=== PATIENT | female | born 1930 | race Caucasian/White ===

== ENCOUNTER 2019-07-05 07:41 | Emergency (ER) | payer MEDICARE ==
[~2019-07-05] VITALS: Ht 157.5 cm; Wt 72.6 kg
[~2019-07-05 07:41] MED LIST: ABILIFY5 MG PO; ALEVE220 M1 PO; AMIODARONE HCL200 MG PO; CRESTOR5 MG PO; HYDROCHLOROTH12.5 M1 PO; LOPRESSOR25 MG PO; NAPROXEN PO; NEXIUM40 MG PO; PRESTIQ PO; PRISTIQ ER50 MG PO; PRO AIR INH; SEROQUEL25 MG PO; SYNTHROID100 MCG PO
[2019-07-05] MEDS ORDERED: IBUPROFEN 600 MG TAB PO STA (07:50)
--- OUTSIDE RECORDS SUMMARY | 2019-07-05 07:50 | XMS REPORT ---
Author 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 Allergies, Adverse Reactions, Alerts Allergy Name Allergy Type Status Severity Reaction(s) Onset Date Inactive Date Treating Clinician Comments ciprofloxacin HCl DA Active [place] 2018-12-09 00:00:00 Sulfa (Sulfonamide Antibiotics) DA Active U 2018-12-09 00:00:00 ciprofloxacin DA Active [place] 2018-12-09 00:00:00 levofloxacin DA Active U 2018-12-09 00:00:00 moxifloxacin DA Active 2018-12-09 00:00:00 Sulfa (Sulfonamide Antibiotics) DA Active U 2015-07-18 00:00:00 levofloxacin DA Active U 2015-07-18 00:00:00 moxifloxacin DA Active 2015-07-18 00:00:00 ciprofloxacin HCl DA Active [place] 2010-12-01 00:00:00 ciprofloxacin DA Active [place] 2010-12-01 00:00:00 FELDENE DA Active U 2008-03-25 00:00:00 LEVAQUIN DA Active U 2008-03-25 00:00:00 NAPROSYN DA Active U 2008-03-25 00:00:00 SULFA DRUGS DA Active U 2008-03-25 00:00:00 TIGAN DA Active U 2008-03-25 00:00:00 Medications This patient has no known medications. Results Test Description Test Time Test Comments Text Results Atomic Results Result Comments TROPONIN-I 2019-03-21 11:15:00 TROPONIN-I (test code=TROPI) <0.015 ng/mL 0-0.045 - CT C-SPINE W/O [id number] 11:12:00 Name: MARIE LAWRENCE [facility] : 1930 Age/S: 88 / F [address] Unit #: [id number] Loc: [place] [address] Phys: Kalpesh Garzon MD Acct: [id number] Dis Date: Status: REG ER PHONE #: [phone] Exam Date: 03/21/2019 1044 FAX #: [phone] Reason: Neck Pain EXAMS: CPT CODE: [id number] CT C-SPINE W/O CONTRAST 24412 HISTORY: HEADACHE TECHNIQUE: Noncontrast 2.[address] of the head and cervical spine. CT scan of the brain November 09, 2015 Automated exposure control for dose reduction. COMPARISON: None FINDINGS: No lacerations or contusions of the scalp or facial soft tissues. Calvarium and skull base are intact. No acute hemorrhage. No intracranial mass, mass effect, or midline shift. No effacement of the sulci or harris-white matter interface. There is diffuse cortical atrophy with moderate ventriculomegaly, similar to the prior exam. There is also diffusely decreased attenuation of the periventricular white matter compatible with microvascular ischemic changes. Visualized paranasal sinuses are clear. Incidental note is made of hyperostosis of the right lateral sinus wall suggesting prior episodes of sinusitis. Mastoid air cells and middle ear cavities are clear. Prior lens extraction bilaterally. Atherosclerotic disease is present in the vertebral arteries and also the carotid siphons. No acute fracture of the cervical spine. No subluxation. Degenerative changes are seen throughout the facet joints in the cervical spine. There is height loss of the C4-C6 vertebral bod ies. There is also height loss of the intervertebral discs throughout the cervical spine which is most pronounced at C5-C6 and C6-C7. Severe b ilateral foraminal narrowing is present at C3-C4. There is severe bilatera l foraminal narrowing at C4-C5. There is severe bilateral foraminal narrow ing at C5-C6. Severe bilateral foraminal narrowing is present C6-C7. Mild left-sided foraminal narrowing at C7-T1. No prevertebral or paraspinal soft tissue abnormality. Lung apices are clear. Right I J dialysis catheter is present. PAGE 1 Signed Report (CONTINUED) Name: MARIE LAWRENCE [facility] : 1930 Age/S: 88 / F [address] Unit #: [id number] Loc: [place] [address] Phys: Kalpesh Garzon MD Acct: [id number] Dis Date: Status: REG ER PHONE #: [phone] Exam Date: 03/21/2019 1044 FAX #: [phone] Reason: Neck Pain EXAMS: CPT CODE: [id number] CT C-SPINE W/O CONTRAST 50741 <Continued> IMPRESSION: No acute intracranial hemorrhage or mass effect. Diffuse cortical atrophy with extensive microvascular ischemic changes of the white matter appears similar to the prior exam. No major vascular territorial infarct is seen. However a small acute infarction would be difficult to detect given the underlying white matter disease. Severe degenerative changes of the cervical spine with multilevel foraminal narrowing. However no fracture or subluxation is seen. Location: [facility] at 1112 Reported and signed by: Noah Olivia MD CC: Conrad Isabel; Kalpesh Garzon MD Technologist:RT Kaz(R),CT CTDI: DLP: Trnscb Date/Time: 03/21/2019 (1112) [id number] Orig Print D/T: S: 03/21/2019 (1116) PAGE 2 Signed Report - CT HEAD/BRAIN W/O [id number] 11:12:00 Name: MARIE LAWRENCE [facility] : 1930 Age/S: 88 / F [address] Unit #: [id number] Loc: [place] [address] Phys: Kalpesh Garzon MD Acct: [id number] Dis Date: Status: REG ER PHONE #: [phone] Exam Date: 03/21/2019 1044 FAX #: [phone] Reason: HEADACHE EXAMS: CPT CODE: [id number] CT HEAD/BRAIN W/O CONT 06914 HISTORY: HEADACHE TECHNIQUE: Noncontrast 2.[address] of the head and cervical spine. CT scan of the brain November 09, 2015 Automated exposure control for dose reduction. COMPARISON: None FINDINGS: No lacerations or contusions of the scalp or facial soft tissues. Calvarium and skull base are intact. No acute hemorrhage. No intracranial mass, mass effect, or midline shift. No effacement of the sulci or harris-white matter interface. There is diffuse cortical atrophy with moderate ventriculomegaly, similar to the prior exam. There is also diffusely decreased attenuation of the periventricular white matter compatible with microvascular ischemic changes. Visualized paranasal sinuses are clear. Incidental note is made of hyperostosis of the right lateral sinus wall suggesting prior episodes of sinusitis. Mastoid air cells and middle ear cavities are clear. Prior lens extraction bilaterally. Atherosclerotic disease is present in the vertebral arteries and also the carotid siphons. No acute fracture of the cervical spine. No subluxation. Degenerative changes are seen throughout the facet joints in the cervical spine. There is height loss of the C4-C6 vertebral bodies. There is also height loss of the intervertebral discs throughout the cervical spine which is most pronounced at C5-C6 and C6-C7. Severe bilateral foraminal narrowing is present at C3-C4. There is severe bilateral foraminal narrowing at C4-C5. There is severe bilateral foraminal narrowing at C5- C6. Severe bilateral foraminal narrowing is present C6-C7. Mild left-sided foraminal narrowing at C7-T1. No prevertebral or paraspinal soft tissue abnormality. Lung apices are clear. Right IJ dialysis catheter is present. PAGE 1 Signed Report (CONTINUED) Name: MARIE LAWRENCE [facility] : 1930 Age/S: 88 / F [address] [facility] Unit #: [id number] Loc: [place], [place] [address] Phys: Kalpesh Garzon MD Acct: [id number] Dis Date: Status: REG ER PHONE #: [phone] Exam Date: 03/21/2019 1044 FAX #: [phone] Reason: HEADACHE EXAMS: CPT CODE: [id number] CT HEAD/BRAIN W/O CONT 81284 <Continued> IMPRESSION: No acute intracranial hemorrhage or mass effect. Diffuse cortical atrophy with extensive microvascular ischemic changes of the white matter appears similar to the prior exam. No major vascular territorial infarct is seen. However a small acute infarction would be difficult to detect given the underlying white matter disease. Severe degenerative changes of the cervical spine with multilevel foraminal narrowing. However no fracture or subluxation is seen. Location: [facility] at 1112 Reported and signed by: Noah Olivia MD CC: Conrad Isabel Evan MD Technologist:Janice Sanchez,RT(R),CT CTDI: DLP: Trnscb Date/Time: 03/21/2019 (1112) [id number] Orig Print D/T: S: 03/21/2019 (1116) PAGE 2 Signed Report BASIC METABOLIC [id number] 11:06:00* Test Item Value Reference Range Comments SODIUM (test code=NA) 141 mmol/L 136-145 POTASSIUM (test code=K) 4.9 mmol/L 3.5-5.1 CHLORIDE (test code=CL) 109.0 mmol/L 98-107 CARBON DIOXIDE (test code=CO2) 22.0 mmol/L 21-32 ANION GAP (test code=GAP) 14.9 10-20 GLUCOSE (test code=GLU) 98 mg/dL 74-106 BLOOD UREA NITROGEN (test code=BUN) 65 mg/dL 7-18 GLOMERULAR FILTRATION RATE (test code=GFR) 6 mL/min >=60 Estimated GFR by using Modified MDRD formula.Chronic kidney disease is defined as either kidney damageor GFR <60 mL/min/1.73 m2 for >3 months. CREATININE (test code=CREAT) 6.30 mg/dL 0.55-1.02 Note change in reference range due to change in reagent. BUN/CREATININE RATIO (test code=BUN/CREA) 10.4 10-20 CALCIUM (test code=CA) 9.1 mg/dL 8.5-10.1 BASIC METABOLIC [id number] 10:59:00* Test Item Value Reference Range Comments SODIUM (test code=NA) 141 mmol/L 136-145 POTASSIUM (test code=K) 4.9 mmol/L 3.5-5.1 CHLORIDE (test code=CL) 109.0 mmol/L 98-107 CARBON DIOXIDE (test code=CO2) mmol/L 21-32 ANION GAP (test code=GAP) 10-20 GLUCOSE (test code=GLU) mg/dL 74-106 BLOOD UREA NITROGEN (test code=BUN) mg/dL 7-18 GLOMERULAR FILTRATION RATE (test code=GFR) mL/min >=60 CREATININE (test code=CREAT) mg/dL 0.55-1.02 BUN/CREATININE RATIO (test code=BUN/CREA) 10-20 CALCIUM (test code=CA) mg/dL 8.5-10.1 PROTHROMBIN [id number] 10:58:00* Test Item Value Reference Range Comments PROTHROMBIN TIME PATIENT (test code=PTP) 12.7 seconds 9.0-14.0 INTERNATIONAL NORMAL RATIO (test code=INR) 1.1 0.8-1.2 The therapeutic range for oral anticoagulant therapy formost indications is an international normalized ratio (INR)of between 2.0 and 3.0. The recommended therapeutic INRrange for various clinical situations is listed below: Clinical Situation INR range Pulmonary e mbolism treatment (2.0-3.0)Venous thrombosis treatmentVenous thrombosis prophylaxis (high risk surgery)Prevention of systemic embolism from: Acute myocardial infarction Valvular heart disease Atrial fibrillation Mechanical prosthetic heart valves (2.5-3.5) IS PATIENT ON ANTICOAGULANTS? NTHROMBOPLASTIN TIME [id number] 10:58:00* Test Item Value Reference Range Comments THROMBOPLASTIN TIME PARTIAL (test code=PTT) 26.7 seconds 25.0-36.5 IS PATIENT ON ANTICOAGULANTS? NCBC W/O [id number] 10:49:00* Test Item Value Reference Range Comments WHITE BLOOD CELL (test code=WBC) 5.9 K/mm3 4.5-12.5 RED BLOOD CELL (test code=RBC) 3.01 mill/mm3 3.7-5.2 HEMOGLOBIN (test code=HGB) 9.0 gram/dL 11.5-15.5 HEMATOCRIT (test code=HCT) 29.1 % 36.0-46.0 MEAN CELL VOLUME (test code=MCV) 96.7 fL 80-98 MEAN CELL HGB (test code=MCH) 29.9 picogram 27.0-33.0 MEAN CELL HGB CONCETRATION (test code=MCHC) 30.9 gram/dL 33.0-36.0 RED CELL DISTRIBUTION WIDTH (test code=RDW) 14.9 % 11.6-16.2 PLATELET COUNT (test code=PLT) 156 K/mm3 150-450 MEAN PLATELET VOLUME (test code=MPV) 10.5 fL 6.7-11.0 - CT ABD PELVIS W/O [id number] 22:49:00 Name: MARIE LAWRENCE [facility] : 1930 Age/S: 88 / F [address] [facility] Unit #: [id number] Loc: [place] [address] Phys: Kalpesh Garzon MD Acct: [id number] Dis Date: Status: REG ER PHONE #: [phone] Exam Date: 02/16/2019 2236 FAX #: [phone] Reason: Hx of iliopsoas hematoma (multiple), Hb drop EXAMS: CPT CODE: [id number] CT ABD PELVIS W/O CONT 61305 REASON FOR EXAM: Hx of iliopsoas hematoma (multiple), Hb drop EXAM ORDER DATE: 02/16/2019 7:54 PM Ordering M.D.: Kalpesh Garzon MD PROCEDURE: - CT ABD PELVIS W/O CONT COMPARISON: FINDINGS: CT images of the abdomen and pelvis were obtained without IV and without oral contrast at 5mm. Dose modulation, iterative reconstruction, and/or weight based adjustment of the MA/KV was utilized to reduce the radiation dose to as low as reasonably achievable. The liver, spleen, and pancreas are grossly within normal limits. Probable radiopaque stones seen in the gallbladder The kidneys are atrophic with multiple small renal cysts suggestive of chronic kidney disease with a 0.4 cm nonobstructing stones in the kidneys. The urinary bladder is unremarkable. The colon, small bowel, and stomach are within normal limits without evidence of obstruction. The appendix is unremarkable. A percutaneous gastrostomy tube noted No evidence of free air or free fluid. The patient is status post hysterectomy IMPRESSION: Very small pericardial effusion. Probable cholelithiasis. Bilateral renal cysts and atrophic kidneys suggestive of chronic renal disease. No acute find ings in the abdomen Electronically Signed by Navdeep Smith on 019 at 2249 Reported and signed by: Jose Alberto Smith M.D. CC : Kalpesh Garzon MD Technologist:JONATHAN ESTRELLA RT; Abhijeet Valero CTDI: DLP: Trnscb Date/Time: 02/16/2019 (22 49) t.BE.VTL Orig Print D/T: S: 02/16/2019 (9451) P AGE 2 Signed Report BASIC METABOLIC [id number] 21:51:00* Test Item Value Reference Range Comments SODIUM (test code=NA) 143 mmol/L 136-145 POTASSIUM (test code=K) 3.9 mmol/L 3.5-5.1 CHLORIDE (test code=CL) 108.0 mmol/L 98-107 CARBON DIOXIDE (test code=CO2) 25.0 mmol/L 21-32 ANION GAP (test code=GAP) 13.9 10-20 GLUCOSE (test code=GLU) 92 mg/dL 74-106 BLOOD UREA NITROGEN (test code=BUN) 26 mg/dL 7-18 GLOMERULAR FILTRATION RATE (test code=GFR) 20 mL/min >=60 Estimated GFR by using Modified MDRD formula.Chronic kidney disease is defined as either kidney damageor GFR <60 mL/min/1.73 m2 for >3 months. CREATININE (test code=CREAT) 2.30 mg/dL 0.55-1.02 Note change in reference range due to change in reagent. BUN/CREATININE RATIO (test code=BUN/CREA) 11.2 10-20 CALCIUM (test code=CA) 8.8 mg/dL 8.5-10.1 HEPATIC FUNCTION [id number] 21:51:00* Test Item Value Reference Range Comments TOTAL PROTEIN (test code=PROT) 6.3 gram/dL 6.4-8.2 ALBUMIN (test code=ALB) 2.8 g/dL 3.4-5.0 GLOBULIN (test code=GLOB) 3.5 gram/dL 2.7-4.2 ALBUMIN/GLOBULIN RATIO (test code=A/G) 0.8 0.75-1.50 BILIRUBIN TOTAL (test code=BILT) 0.30 mg/dL 0.0-1.0 BILIRUBIN DIRECT (test code=BILD) 0.17 mg/dL 0.0-0.20 SGOT/AST (test code=AST) 19 IUnit/L 15-37 SGPT/ALT (test code=ALT) 15 IUnit/L 12-78 ALKALINE PHOSPHATASE TOTAL (test code=ALKP) 59 IUnit/L 45-117 Note change in reference range due to change in reagent. [id number] 21:51:00* Test Item Value Reference Range Comments LIPASE (test code=LIP) 172 U/L 73.0-393.0 PROTHROMBIN [id number] 21:15:00* Test Item Value Reference Range Comments PROTHROMBIN TIME PATIENT (test code=PTP) 11.5 seconds 9.0-14.0 INTERNATIONAL NORMAL RATIO (test code=INR) 1.0 0.8-1.2 The therapeutic range for oral anticoagulant therapy formost indications is an international normalized ratio (INR)of between 2.0 and 3.0. The recommended therapeutic INRrange for various clinical situations is listed below: Clinical Situation INR range Pulmonary e mbolism treatment (2.0-3.0)Venous thrombosis treatmentVenous thrombosis prophylaxis (high risk surgery)Prevention of systemic embolism from: Acute myocardial infarction Valvular heart disease Atrial fibrillation Mechanical prosthetic heart valves (2.5-3.5) IS PATIENT ON ANTICOAGULANTS? NTHROMBOPLASTIN TIME [id number] 21:15:00* Test Item Value Reference Range Comments THROMBOPLASTIN TIME PARTIAL (test code=PTT) 25.5 seconds 25.0-36.5 IS PATIENT ON ANTICOAGULANTS? NCBC W/O [id number] 21:06:00* Test Item Value Reference Range Comments WHITE BLOOD CELL (test code=WBC) 6.9 K/mm3 4.5-12.5 RED BLOOD CELL (test code=RBC) 2.91 mill/mm3 3.7-5.2 HEMOGLOBIN (test code=HGB) 8.8 gram/dL 11.5-15.5 HEMATOCRIT (test code=HCT) 26.8 % 36.0-46.0 MEAN CELL VOLUME (test code=MCV) 92.1 fL 80-98 MEAN CELL HGB (test code=MCH) 30.2 picogram 27.0-33.0 MEAN CELL HGB CONCETRATION (test code=MCHC) 32.8 gram/dL 33.0-36.0 RED CELL DISTRIBUTION WIDTH (test code=RDW) 13.9 % 11.6-16.2 PLATELET COUNT (test code=PLT) 232 K/mm3 150-450 MEAN PLATELET VOLUME (test code=MPV) 11.4 fL 6.7-11.0 PLEURAL [id number] 16:18:00 RUN DATE: 01/19/19 [place] - Lab PAGE 1 RUN TIME: 1618 Specimen Inqui ry RUN USER: INTERFACE PATIENT: MARIE LAWRENCE ACCT #: [id number] LOC: YULIYA U #: [id number] AGE/SX: 88/F ROOM: 2045 RE12/09/18[facility] DR: Gene Berger MD : [birth year] BED: B DIS: 01/13/19 STATUS: DIS IN TLOC: SPEC #: [id number] RECD: 01/11/19 STATUS: SOUT REQ #: [id number] FRANCISCO: 01/11/[address] [facility] [address]: Jose Alberto Smith MD ENTERED: 01/11/19 SP TYPE: PLEURAL FL OTHR DR: Trino Rondon MD, Lawrence R MD Darmadi, Daniel Haryanto MD Gelber, David MD Jawed, Irfan MD Merszei,Sam Gandhi,Teressa Nichols MD, MDORDERED: GROSS COPIES TO: Tirno Rondon MD [address] [facility] [address] [place] [address] Kole Verma MD [address] [place] [address] Abhijeet Espino MD [address] [place] [address] Carlos Parnell MD [address] [place] [address] Ramón Kendall MD [address] [facility] [address] [place] [address] Jose Alberto Smith MD [address] [place] [address] CONTINUED ON NEXT PAGE RUN DATE: 01/19/19 [facility] PAGE 2 RUN TIME: 1618 Specimen Inquiry RUN USER: INTER FACE SPEC #: [id number] PATIENT: LAWRENCEMARIE #[id number] (Con tinued) COPIES TO: (Continued) [place] [address] [facility], [facility] [address] [place], [place] [id number] [place] [address] [facility] [address] [place] [address] [place] [address] [place] [address] MARKERS: INTRADEPARTM ENTAL CONSULT PROCEDURES: GROSS (01/19/19-1146) TISSUES: PLEURAL FLUID , NOS - RIGHT 7 ML YELLOW CLINICAL HISTORY COLLECTION DATE: 01/11/19 PLEURAL EFFUSIONS COMMENT Two concentrated smears, a cytospin and cell block are prepared from the fluid. The cytospin is repeated. The ce ll block shows increased numbers of cells with clear cytoplasm. Many of the ce lls are vacuolated. A lesser number of mixed inflammatory cells are present. The majority of the inflammatory cells are lymphocytes. Paraffin embedded tiss ue was submitted for immunoperoxidase stains to exclude that the cells with sheri ar cytoplasm are epithelial in origin and exclude malignancy. The immunoperoxid ase stains are reviewed at [facility]. The controls stai n appropriately. The cells in question stain strongly and diffusely with CD68 compatible with being macrophages. The stain for yoon-cytokeratin stains scatte red mesothelial cells. Cells diagnostic of malignancy are not identified. FINAL DIAGNOSIS Pleural fluid, right thoracentesis: NEGATIVE FOR MALIGNANCY INCREASED NUMBERS OF MACROPHAGES WITH LYMPHOCYTES, FEW NEUTROPHILS AND MESOTHELIAL CELLS CONT INUED ON NEXT PAGE RUN DATE: 01/19/19 [place] - Lab PAGE 3 RUN TIME: 1618 Specimen Inquiry RUN USER: INTERFACE SPEC #: [id number] PATIENT: MARIE LAWRENCE #[id number] (Continued) FINAL DIAGNOSIS (Continued) RRB/severiano D 57175, [address], [id number] MACROSCOPIC The specimen is received fresh and labeled with the patient's name and consists of 7 mL of yellow fluid to be processed for c ytologic evaluation. GROSS PERFORMED AT [facility] [address] [place] [address] (P )[phone] MICROSCOPIC The majority of the cells are present in the cell block. The smears are acellular. The cytospin and cell block show ma crophages and lymphocytes. No malignant cells are seen. PERFORMING S ITE Diagnosis performed at: [facility] [address] [facility], [place] [address] Signed SIGNATURE ON FILE Ramona Wetzel MD 01/19/19 1618 END OF REPORT [id number] 14:36:00* Test Item Value Reference Range Comments GLUBED (test code=GLUBED) 77 mg/dL 74-106 Performed by certified resaw operator at [facility] CBC W/AUTO [id number] 10:35:00* Test Item Value Reference Range Comments WHITE BLOOD CELL (test code=WBC) 7.2 K/mm3 4.5-12.5 RED BLOOD CELL (test code=RBC) 3.20 mill/mm3 3.7-5.2 HEMOGLOBIN (test code=HGB) 9.9 gram/dL 11.5-15.5 HEMATOCRIT (test code=HCT) 32.1 % 36.0-46.0 MEAN CELL VOLUME (test code=MCV) 100.3 fL 80-98 MEAN CELL HGB (test code=MCH) 30.9 picogram 27.0-33.0 MEAN CELL HGB CONCETRATION (test code=MCHC) 30.8 gram/dL 33.0-36.0 RED CELL DISTRIBUTION WIDTH (test code=RDW) 16.5 % 11.6-16.2 RED CELL DISTRIBUTION WIDTH SD (test code=RDW-SD) 60.8 fL 37.0-51.0 PLATELET COUNT (test code=PLT) 191 K/mm3 150-450 MEAN PLATELET VOLUME (test code=MPV) 11.5 fL 6.7-11.0 NEUTROPHIL % (test code=NT%) 63.5 % 39.0-69.0 IMMATURE GRANULOCYTE % (test code=IG%) 0.8 % 0.0-5.0 LYMPHOCYTE % (test code=LY%) 16.5 % 25.0-55.0 MONOCYTE % (test code=MO%) 13.8 % 0.0-10.0 EOSINOPHIL % (test code=EO%) 4.6 % 0.0-5.0 BASOPHIL % (test code=BA%) 0.8 % 0.0-1.0 NUCLEATED RBC % (test code=NRBC%) 0.0 % 0-0 NEUTROPHIL # (test code=NT#) 4.55 K/mm3 1.8-7.7 IMMATURE GRANULOCYTE # (test code=IG#) 0.06 x10 3/uL 0-0.03 LYMPHOCYTE # (test code=LY#) 1.18 K/mm3 1.0-5.0 MONOCYTE # (test code=MO#) 0.99 K/mm3 0-0.8 EOSINOPHIL # (test code=EO#) 0.33 K/mm3 0.0-0.5 BASOPHIL # (test code=BA#) 0.06 K/mm3 0.0-0.2 NUCLEATED RBC # (test code=NRBC#) 0.00 K/mm3 0.0-0.1 [id number] 05:39:00* Test Item Value Reference Range Comments GLUBED (test code=GLUBED) 79 mg/dL 74-106 Performed by certified resaw operator at [facility] PLEURAL FLD CELL [id number] 22:13:00* Test Item Value Reference Range Comments FLUID WBC AUTO (test code=WBCFLA) 40 cells/uL FLUID RBC AUTO (test code=RBCFLA) 0 cells/uL FLUID TOTAL CELLS (test code=TCFL) 42 cells/uL >0 Fluid WBC RBC Type cells/uL cells/uL CSF (0-5) n/a Peritoneal n/a n/a Pleural n/a n/a Synovial <200 n/a CSF (0-30) n/a PLEURAL FLD COLOR (test code=COLPL) YELLOW PLEURAL FLD APPEARANCE (test code=APPPL) CLEAR PLEURAL FLD POLY (test code=POLYPL) 7.3 % PLEURAL FLD LYMPHOCYTE (test code=LYMPHPL) 44.5 % PLEURAL FLD EOSINOPHIL (test code=EOSPL) 0.0 % PLEURAL FLD BASOPHIL (test code=BASOPL) 0.0 % PLEURAL FLD MACROPHAGE (test code=MACPL) 45.5 % PLEURAL FLD OTHER CELL (test code=OTHERPL) 2.7 % TOTAL CELLS COUNTED ON DIFF (test code=TOTCELLFL) 110 cells REVIEWED BY (test code=REVIEW) PATHOLOGIST RAMONA HAWLEY M.D.01/12/19REVIEWED SPECIMEN COMMENTS: RIGHT PLEURAL FLUIDSPECIMEN COMMENTS: RIGTH PLEURAL FLUID PLEURAL FLD [id number] 22:13:00* Test Item Value Reference Range Comments PLEURAL FLD PH (test code=PHPL) 7.0 SPECIMEN COMMENTS: RIGHT PLEURAL FLUIDSPECIMEN COMMENTS: RIGTH PLEURAL FLUID PLEURAL FLD [id number] 22:13:00* Test Item Value Reference Range Comments PLEURAL FLD GLUCOSE (test code=GLUPL) 94 MG/DL SPECIMEN COMMENTS: RIGHT PLEURAL FLUIDSPECIMEN COMMENTS: RIGTH PLEURAL FLUID PLEURAL FLD TOTAL [id number] 22:13:00* Test Item Value Reference Range Comments PLEURAL FLD TOTAL PROTEIN (test code=PROTPL) 1.7 gram/dL SPECIMEN COMMENTS: RIGHT PLEURAL FLUIDSPECIMEN COMMENTS: RIGTH PLEURAL FLUID PLEURAL FLD [id number] 22:13:00* Test Item Value Reference Range Comments PLEURAL FLD LDH (test code=LDHPL) 87 IUnit/L SPECIMEN COMMENTS: RIGHT PLEURAL FLUIDSPECIMEN COMMENTS: RIGTH PLEURAL FLUID PLEURAL FLD [id number] 22:13:00* Test Item Value Reference Range Comments PLEURAL FLD CHOLESTEROL (test code=CHOLPL) < 50 MG/DL SPECIMEN COMMENTS: RIGHT PLEURAL FLUIDSPECIMEN COMMENTS: RIGTH PLEURAL FLUID PLEURAL FLD [id number] 22:13:00* Test Item Value Reference Range Comments PLEURAL FLD TRIGLYCERIDE (test code=TRIGPL) 13 MG/DL SPECIMEN COMMENTS: RIGHT PLEURAL FLUIDSPECIMEN COMMENTS: RIGTH PLEURAL FLUID [id number] 21:10:00* Test Item Value Reference Range Comments TROPONIN-I (test code=TROPI) <0.015 ng/mL 0-0.045 [id number] 19:59:00* Test Item Value Reference Range Comments GLUBED (test code=GLUBED) 71 mg/dL 74-106 Performed by certified resaw operator at [facility] [id number] 18:13:00* Test Item Value Reference Range Comments GLUBED (test code=GLUBED) 65 mg/dL 74-106 Performed by certified resaw operator at [facility] [id number] 11:08:00* Test Item Value Reference Range Comments PHOSPHORUS (test code=PHOS) 2.3 mg/dL 2.5-4.9 SPECIMEN COMMENTS: run as add-on to blood drawn earlierCOMMENTS TO CROP RESEARCH SCIENTIST: no new blood draw pleaseCOMMENTS TO CROP RESEARCH SCIENTIST: no fresh blood draw please, ldr-[id number] 11:08:00* Test Item Value Reference Range Comments MAGNESIUM (test code=MAG) 1.7 mg/dL 1.8-2.4 SPECIMEN COMMENTS: run as add-on to blood drawn earlierCOMMENTS TO CROP RESEARCH SCIENTIST: no new blood draw pleaseCOMMENTS TO CROP RESEARCH SCIENTIST: no fresh blood draw please, add-onBASIC METABOLIC [id number] 02:49:00* Test Item Value Reference Range Comments SODIUM (test code=NA) 142 mmol/L 136-145 POTASSIUM (test code=K) 3.4 mmol/L 3.5-5.1 CHLORIDE (test code=CL) 106.0 mmol/L 98-107 CARBON DIOXIDE (test code=CO2) 33.0 mmol/L 21-32 ANION GAP (test code=GAP) 6.4 10-20 GLUCOSE (test code=GLU) 95 mg/dL 74-106 BLOOD UREA NITROGEN (test code=BUN) 13 mg/dL 7-18 GLOMERULAR FILTRATION RATE (test code=GFR) 20 mL/min >=60 Estimated GFR by using Modified MDRD formula.Chronic kidney disease is defined as either kidney damageor GFR <60 mL/min/1.73 m2 for >3 months. CREATININE (test code=CREAT) 2.30 mg/dL 0.55-1.02 Note change in reference range due to change in reagent. BUN/CREATININE RATIO (test code=BUN/CREA) 5.6 10-20 CALCIUM (test code=CA) 8.2 mg/dL 8.5-10.1 BASIC METABOLIC [id number] 02:41:00* Test Item Value Reference Range Comments SODIUM (test code=NA) 142 mmol/L 136-145 POTASSIUM (test code=K) 3.4 mmol/L 3.5-5.1 CHLORIDE (test code=CL) 106.0 mmol/L 98-107 CARBON DIOXIDE (test code=CO2) mmol/L 21-32 ANION GAP (test code=GAP) 10-20 GLUCOSE (test code=GLU) mg/dL 74-106 BLOOD UREA NITROGEN (test code=BUN) mg/dL 7-18 GLOMERULAR FILTRATION RATE (test code=GFR) mL/min >=60 CREATININE (test code=CREAT) mg/dL 0.55-1.02 BUN/CREATININE RATIO (test code=BUN/CREA) 10-20 CALCIUM (test code=CA) mg/dL 8.5-10.1 CBC W/AUTO [id number] 02:30:00* Test Item Value Reference Range Comments WHITE BLOOD CELL (test code=WBC) 6.6 K/mm3 4.5-12.5 RED BLOOD CELL (test code=RBC) 2.82 mill/mm3 3.7-5.2 HEMOGLOBIN (test code=HGB) 8.7 gram/dL 11.5-15.5 HEMATOCRIT (test code=HCT) 27.9 % 36.0-46.0 MEAN CELL VOLUME (test code=MCV) 98.9 fL 80-98 MEAN CELL HGB (test code=MCH) 30.9 picogram 27.0-33.0 MEAN CELL HGB CONCETRATION (test code=MCHC) 31.2 gram/dL 33.0-36.0 RED CELL DISTRIBUTION WIDTH (test code=RDW) 16.4 % 11.6-16.2 RED CELL DISTRIBUTION WIDTH SD (test code=RDW-SD) 58.1 fL 37.0-51.0 PLATELET COUNT (test code=PLT) 189 K/mm3 150-450 MEAN PLATELET VOLUME (test code=MPV) 10.6 fL 6.7-11.0 NEUTROPHIL % (test code=NT%) 61.9 % 39.0-69.0 IMMATURE GRANULOCYTE % (test code=IG%) 0.9 % 0.0-5.0 LYMPHOCYTE % (test code=LY%) 18.6 % 25.0-55.0 MONOCYTE % (test code=MO%) 15.8 % 0.0-10.0 EOSINOPHIL % (test code=EO%) 2.3 % 0.0-5.0 BASOPHIL % (test code=BA%) 0.5 % 0.0-1.0 NUCLEATED RBC % (test code=NRBC%) 0.0 % 0-0 NEUTROPHIL # (test code=NT#) 4.07 K/mm3 1.8-7.7 IMMATURE GRANULOCYTE # (test code=IG#) 0.06 x10 3/uL 0-0.03 LYMPHOCYTE # (test code=LY#) 1.22 K/mm3 1.0-5.0 MONOCYTE # (test code=MO#) 1.04 K/mm3 0-0.8 EOSINOPHIL # (test code=EO#) 0.15 K/mm3 0.0-0.5 BASOPHIL # (test code=BA#) 0.03 K/mm3 0.0-0.2 NUCLEATED RBC # (test code=NRBC#) 0.00 K/mm3 0.0-0.1 MANUAL DIFF REQUIRED (test code=MDIFF) NO [id number] 20:35:00* Test Item Value Reference Range Comments GLUBED (test code=GLUBED) 84 mg/dL 74-106 Performed by certified resaw operator at [facility] [id number] 17:39:00* Test Item Value Reference Range Comments GLUBED (test code=GLUBED) 76 mg/dL 74-106 Performed by certified resaw operator at [facility] PLEURAL FLD CELL [id number] 14:43:00* Test Item Value Reference Range Comments FLUID WBC AUTO (test code=WBCFLA) 40 cells/uL FLUID RBC AUTO (test code=RBCFLA) 0 cells/uL FLUID TOTAL CELLS (test code=TCFL) 42 cells/uL >0 Fluid WBC RBC Type cells/uL cells/uL CSF (0-5) n/a Peritoneal n/a n/a Pleural n/a n/a Synovial <200 n/a CSF (0-30) n/a PLEURAL FLD COLOR (test code=COLPL) YELLOW PLEURAL FLD APPEARANCE (test code=APPPL) CLEAR PLEURAL FLD POLY (test code=POLYPL) 7.3 % PLEURAL FLD LYMPHOCYTE (test code=LYMPHPL) 44.5 % PLEURAL FLD EOSINOPHIL (test code=EOSPL) 0.0 % PLEURAL FLD BASOPHIL (test code=BASOPL) 0.0 % PLEURAL FLD MACROPHAGE (test code=MACPL) 45.5 % PLEURAL FLD OTHER CELL (test code=OTHERPL) 2.7 % TOTAL CELLS COUNTED ON DIFF (test code=TOTCELLFL) 110 cells REVIEWED BY (test code=REVIEW) PATHOLOGIST SPECIMEN COMMENTS: RIGHT PLEURAL FLUIDSPECIMEN COMMENTS: RIGTH PLEURAL FLUID PLEURAL FLD [id number] 14:43:00* Test Item Value Reference Range Comments PLEURAL FLD PH (test code=PHPL) 7.0 SPECIMEN COMMENTS: RIGHT PLEURAL FLUIDSPECIMEN COMMENTS: RIGTH PLEURAL FLUID PLEURAL FLD [id number] 14:43:00* Test Item Value Reference Range Comments PLEURAL FLD GLUCOSE (test code=GLUPL) 94 MG/DL SPECIMEN COMMENTS: RIGHT PLEURAL FLUIDSPECIMEN COMMENTS: RIGTH PLEURAL FLUID PLEURAL FLD TOTAL [id number] 14:43:00* Test Item Value Reference Range Comments PLEURAL FLD TOTAL PROTEIN (test code=PROTPL) 1.7 gram/dL SPECIMEN COMMENTS: RIGHT PLEURAL FLUIDSPECIMEN COMMENTS: RIGTH PLEURAL FLUID PLEURAL FLD [id number] 14:43:00* Test Item Value Reference Range Comments PLEURAL FLD LDH (test code=LDHPL) 87 IUnit/L SPECIMEN COMMENTS: RIGHT PLEURAL FLUIDSPECIMEN COMMENTS: RIGTH PLEURAL FLUID PLEURAL FLD [id number] 14:43:00* Test Item Value Reference Range Comments PLEURAL FLD CHOLESTEROL (test code=CHOLPL) < 50 MG/DL SPECIMEN COMMENTS: RIGHT PLEURAL FLUIDSPECIMEN COMMENTS: RIGTH PLEURAL FLUID PLEURAL FLD [id number] 14:43:00* Test Item Value Reference Range Comments PLEURAL FLD TRIGLYCERIDE (test code=TRIGPL) 13 MG/DL SPECIMEN COMMENTS: RIGHT PLEURAL FLUIDSPECIMEN COMMENTS: RIGTH PLEURAL FLUID PLEURAL FLD CELL [id number] 14:40:00* Test Item Value Reference Range Comments FLUID WBC AUTO (test code=WBCFLA) 40 cells/uL FLUID RBC AUTO (test code=RBCFLA) 0 cells/uL FLUID TOTAL CELLS (test code=TCFL) 42 cells/uL >0 Fluid WBC RBC Type cells/uL cells/uL CSF (0-5) n/a Peritoneal n/a n/a Pleural n/a n/a Synovial <200 n/a CSF (0-30) n/a PLEURAL FLD COLOR (test code=COLPL) YELLOW PLEURAL FLD APPEARANCE (test code=APPPL) CLEAR PLEURAL FLD WBC (test code=WBCPL) per uL 0-1000 PLEURAL FLD RBC (test code=RBCPL) per uL 0-50 PLEURAL FLD POLY (test code=POLYPL) 7.3 % PLEURAL FLD LYMPHOCYTE (test code=LYMPHPL) 44.5 % PLEURAL FLD EOSINOPHIL (test code=EOSPL) 0.0 % PLEURAL FLD BASOPHIL (test code=BASOPL) 0.0 % PLEURAL FLD MACROPHAGE (test code=MACPL) 45.5 % PLEURAL FLD OTHER CELL (test code=OTHERPL) 2.7 % TOTAL CELLS COUNTED ON DIFF (test code=TOTCELLFL) cells REVIEWED BY (test code=REVIEW) PATHOLOGIST SPECIMEN COMMENTS: RIGHT PLEURAL FLUIDSPECIMEN COMMENTS: RIGTH PLEURAL FLUID PLEURAL FLD [id number] 14:40:00* Test Item Value Reference Range Comments PLEURAL FLD PH (test code=PHPL) SPECIMEN COMMENTS: RIGHT PLEURAL FLUIDSPECIMEN COMMENTS: RIGTH PLEURAL FLUID PLEURAL FLD [id number] 14:40:00* Test Item Value Reference Range Comments PLEURAL FLD GLUCOSE (test code=GLUPL) 94 MG/DL SPECIMEN COMMENTS: RIGHT PLEURAL FLUIDSPECIMEN COMMENTS: RIGTH PLEURAL FLUID PLEURAL FLD TOTAL [id number] 14:40:00* Test Item Value Reference Range Comments PLEURAL FLD TOTAL PROTEIN (test code=PROTPL) 1.7 gram/dL SPECIMEN COMMENTS: RIGHT PLEURAL FLUIDSPECIMEN COMMENTS: RIGTH PLEURAL FLUID PLEURAL FLD [id number] 14:40:00* Test Item Value Reference Range Comments PLEURAL FLD LDH (test code=LDHPL) 87 IUnit/L SPECIMEN COMMENTS: RIGHT PLEURAL FLUIDSPECIMEN COMMENTS: RIGTH PLEURAL FLUID PLEURAL FLD [id number] 14:40:00* Test Item Value Reference Range Comments PLEURAL FLD CHOLESTEROL (test code=CHOLPL) < 50 MG/DL SPECIMEN COMMENTS: RIGHT PLEURAL FLUIDSPECIMEN COMMENTS: RIGTH PLEURAL FLUID PLEURAL FLD [id number] 14:40:00* Test Item Value Reference Range Comments PLEURAL FLD TRIGLYCERIDE (test code=TRIGPL) 13 MG/DL SPECIMEN COMMENTS: RIGHT PLEURAL FLUIDSPECIMEN COMMENTS: RIGTH PLEURAL FLUID PLEURAL FLD CELL [id number] 14:17:00* Test Item Value Reference Range Comments FLUID WBC AUTO (test code=WBCFLA) 40 cells/uL FLUID RBC AUTO (test code=RBCFLA) 0 cells/uL FLUID TOTAL CELLS (test code=TCFL) 42 cells/uL >0 Fluid WBC RBC Type cells/uL cells/uL CSF (0-5) n/a Peritoneal n/a n/a Pleural n/a n/a Synovial <200 n/a CSF (0-30) n/a PLEURAL FLD COLOR (test code=COLPL) YELLOW PLEURAL FLD APPEARANCE (test code=APPPL) CLEAR PLEURAL FLD WBC (test code=WBCPL) per uL 0-1000 PLEURAL FLD RBC (test code=RBCPL) per uL 0-50 TOTAL CELLS COUNTED ON DIFF (test code=TOTCELLFL) cells REVIEWED BY (test code=REVIEW) PATHOLOGIST SPECIMEN COMMENTS: RIGHT PLEURAL FLUIDSPECIMEN COMMENTS: RIGTH PLEURAL FLUID PLEURAL FLD [id number] 14:17:00* Test Item Value Reference Range Comments PLEURAL FLD PH (test code=PHPL) SPECIMEN COMMENTS: RIGHT PLEURAL FLUIDSPECIMEN COMMENTS: RIGTH PLEURAL FLUID PLEURAL FLD [id number] 14:17:00* Test Item Value Reference Range Comments PLEURAL FLD GLUCOSE (test code=GLUPL) 94 MG/DL SPECIMEN COMMENTS: RIGHT PLEURAL FLUIDSPECIMEN COMMENTS: RIGTH PLEURAL FLUID PLEURAL FLD TOTAL [id number] 14:17:00* Test Item Value Reference Range Comments PLEURAL FLD TOTAL PROTEIN (test code=PROTPL) 1.7 gram/dL SPECIMEN COMMENTS: RIGHT PLEURAL FLUIDSPECIMEN COMMENTS: RIGTH PLEURAL FLUID PLEURAL FLD [id number] 14:17:00* Test Item Value Reference Range Comments PLEURAL FLD LDH (test code=LDHPL) 87 IUnit/L SPECIMEN COMMENTS: RIGHT PLEURAL FLUIDSPECIMEN COMMENTS: RIGTH PLEURAL FLUID PLEURAL FLD [id number] 14:17:00* Test Item Value Reference Range Comments PLEURAL FLD CHOLESTEROL (test code=CHOLPL) < 50 MG/DL SPECIMEN COMMENTS: RIGHT PLEURAL FLUIDSPECIMEN COMMENTS: RIGTH PLEURAL FLUID PLEURAL FLD [id number] 14:17:00* Test Item Value Reference Range Comments PLEURAL FLD TRIGLYCERIDE (test code=TRIGPL) 13 MG/DL SPECIMEN COMMENTS: RIGHT PLEURAL FLUIDSPECIMEN COMMENTS: RIGTH PLEURAL FLUID PLEURAL FLD CELL [id number] 13:45:00* Test Item Value Reference Range Comments FLUID WBC AUTO (test code=WBCFLA) 40 cells/uL FLUID RBC AUTO (test code=RBCFLA) 0 cells/uL FLUID TOTAL CELLS (test code=TCFL) 42 cells/uL >0 Fluid WBC RBC Type cells/uL cells/uL CSF (0-5) n/a Peritoneal n/a n/a Pleural n/a n/a Synovial <200 n/a CSF (0-30) n/a PLEURAL FLD COLOR (test code=COLPL) PLEURAL FLD APPEARANCE (test code=APPPL) PLEURAL FLD WBC (test code=WBCPL) per uL 0-1000 PLEURAL FLD RBC (test code=RBCPL) per uL 0-50 TOTAL CELLS COUNTED ON DIFF (test code=TOTCELLFL) cells REVIEWED BY (test code=REVIEW) PATHOLOGIST SPECIMEN COMMENTS: RIGHT PLEURAL FLUIDSPECIMEN COMMENTS: RIGTH PLEURAL FLUID PLEURAL FLD [id number] 13:45:00* Test Item Value Reference Range Comments PLEURAL FLD PH (test code=PHPL) SPECIMEN COMMENTS: RIGHT PLEURAL FLUIDSPECIMEN COMMENTS: RIGTH PLEURAL FLUID PLEURAL FLD [id number] 13:45:00* Test Item Value Reference Range Comments PLEURAL FLD GLUCOSE (test code=GLUPL) 94 MG/DL SPECIMEN COMMENTS: RIGHT PLEURAL FLUIDSPECIMEN COMMENTS: RIGTH PLEURAL FLUID PLEURAL FLD TOTAL [id number] 13:45:00* Test Item Value Reference Range Comments PLEURAL FLD TOTAL PROTEIN (test code=PROTPL) 1.7 gram/dL SPECIMEN COMMENTS: RIGHT PLEURAL FLUIDSPECIMEN COMMENTS: RIGTH PLEURAL FLUID PLEURAL FLD [id number] 13:45:00* Test Item Value Reference Range Comments PLEURAL FLD LDH (test code=LDHPL) 87 IUnit/L SPECIMEN COMMENTS: RIGHT PLEURAL FLUIDSPECIMEN COMMENTS: RIGTH PLEURAL FLUID PLEURAL FLD [id number] 13:45:00* Test Item Value Reference Range Comments PLEURAL FLD CHOLESTEROL (test code=CHOLPL) < 50 MG/DL SPECIMEN COMMENTS: RIGHT PLEURAL FLUIDSPECIMEN COMMENTS: RIGTH PLEURAL FLUID PLEURAL FLD [id number] 13:45:00* Test Item Value Reference Range Comments PLEURAL FLD TRIGLYCERIDE (test code=TRIGPL) 13 MG/DL SPECIMEN COMMENTS: RIGHT PLEURAL FLUIDSPECIMEN COMMENTS: RIGTH PLEURAL FLUID PLEURAL FLD CELL [id number] 13:26:00* Test Item Value Reference Range Comments FLUID TOTAL CELLS (test code=TCFL) cells/uL >0 PLEURAL FLD COLOR (test code=COLPL) PLEURAL FLD APPEARANCE (test code=APPPL) PLEURAL FLD WBC (test code=WBCPL) per uL 0-1000 PLEURAL FLD RBC (test code=RBCPL) per uL 0-50 TOTAL CELLS COUNTED ON DIFF (test code=TOTCELLFL) cells REVIEWED BY (test code=REVIEW) PATHOLOGIST SPECIMEN COMMENTS: RIGHT PLEURAL FLUIDSPECIMEN COMMENTS: RIGTH PLEURAL FLUID PLEURAL FLD [id number] 13:26:00* Test Item Value Reference Range Comments PLEURAL FLD PH (test code=PHPL) SPECIMEN COMMENTS: RIGHT PLEURAL FLUIDSPECIMEN COMMENTS: RIGTH PLEURAL FLUID PLEURAL FLD [id number] 13:26:00* Test Item Value Reference Range Comments PLEURAL FLD GLUCOSE (test code=GLUPL) 94 MG/DL SPECIMEN COMMENTS: RIGHT PLEURAL FLUIDSPECIMEN COMMENTS: RIGTH PLEURAL FLUID PLEURAL FLD TOTAL [id number] 13:26:00* Test Item Value Reference Range Comments PLEURAL FLD TOTAL PROTEIN (test code=PROTPL) 1.7 gram/dL SPECIMEN COMMENTS: RIGHT PLEURAL FLUIDSPECIMEN COMMENTS: RIGTH PLEURAL FLUID PLEURAL FLD [id number] 13:26:00* Test Item Value Reference Range Comments PLEURAL FLD LDH (test code=LDHPL) 87 IUnit/L SPECIMEN COMMENTS: RIGHT PLEURAL FLUIDSPECIMEN COMMENTS: RIGTH PLEURAL FLUID PLEURAL FLD [id number] 13:26:00* Test Item Value Reference Range Comments PLEURAL FLD CHOLESTEROL (test code=CHOLPL) < 50 MG/DL SPECIMEN COMMENTS: RIGHT PLEURAL FLUIDSPECIMEN COMMENTS: RIGTH PLEURAL FLUID PLEURAL FLD [id number] 13:26:00* Test Item Value Reference Range Comments PLEURAL FLD TRIGLYCERIDE (test code=TRIGPL) 13 MG/DL SPECIMEN COMMENTS: RIGHT PLEURAL FLUIDSPECIMEN COMMENTS: RIGTH PLEURAL FLUID- SP THORACENTESIS [id number] 11:32:00 Name: MARIE LAWRENCE [facility] : 1930 Age/S: 88 / F [address] [facility] Unit #: [id number] Loc: [place] [address] Phys: Gene Berger MD Acct: [id number] Dis Date: Status: ADM IN PHONE #: [phone] Exam Date: 01/11/2019 1054 FAX #: [phone] Reason: PLEURAL EFFUSION EXAMS: CPT CODE: [id number] SP THORACENTESIS W/IMAG 50470 Fluoro Time: DAP (Gy m2): Air Kerma (mGy): REASON FOR EXAM: PLEURAL EFFUSION Exam order date: 01/11/2019 10:45 AM PROCEDURE: Ultrasound guided right thoracentesis Attending Navdeep: Gene Berger MD CPT code: 33586, 68890 FINDINGS: Prior to the procedure, informed consent was obtained after risks and benefits of the procedure were explained to the patient. The patient agreed and wanted to proceed. The patient was brought to special procedures. The back was prepped and draped in the usual fashion. All elements of maximal sterile techniques were followed. Ultrasound was first used for assessment of the effusion. US shows mild right effusion and small left pleural effusion. Images of the effusion were submitted to PACS. 2% local lidocaine was given for local anesthetic. Under real time ultrasound guidance, a micropuncture needle was advanced into the right thoracic cavity. A guide wire was inserted and an 8 Fr catheter was inserted in the thoracic cavity. 660 cc of fluid obtained. The catheter was removed and hemostasis obtained. [facility], cultures, cell count, LDH, glucose, and protein. MEDICATIONS: None COMPLICATIONS: No immediate. Blood loss: less than 5cc IMPRESSION: 6 60 cc of fluid removed from the right thoracic cavity. Electronicall y Signed by Navdeep Smith on 01/11/2019 at 1134 Reported and signed by: Jose Alberto Smith M.D. CC: Gene Berger MD Technologist: [facility] Date/Time: 01/11/2019 (6686) t.SDR.VTL Orig Print D/T: S: 01/11/2019 (4570) PAGE 1 Signed Report - XR CHEST 1 [id number] 11:13:00 FAX: Gene Berger MD [phone] [place]: St: ADM Name: MARIE WHITNEY [facility] : [birth year] Age/S: 88/F Susana [facility] Unit #: [id number] Loc: [address] [place] [address] Phys: Jose Alberto Smith MD Acct: [id number] Dis Date: Status: ADM IN PHONE #: [phone] Exam Date: 01/11/2019 1058 FAX #: [phone] Reason: S/P RIGHT THORACENTESIS EXAMS: CPT CODE: [id number] XR CHEST 1 V 27643 REASON FOR EXAM: S/P RIGHT THORACENTESIS Exam Order Date: 01/11/2019 10:53 AM Esther celaya M.D.: Jose Alberto Smith MD PROCEDURE: - XR CHEST 1 V COMPARISON: CT chest 6 days prior FINDINGS: Right IJ di alysis catheter terminates in the distal SVC. There is a small hazy opacit y overlying the right lung base which may represent overlapping soft tissu es. Tiny residual effusion mildly blunts the right costophrenic sulcus. Ot herwise the right lung is clear. There is an opacity in the left lung base that obscures the left hemidiaphragm and likely represents a combination of pleural effusion and compressive atelectasis of the under lying left lower lobe. Superimposed consolidation cannot be excluded. Uppe r lungs are clear. No pneumothoraces. Cardiomediasti nal silhouette is normal in size. Degenerative changes are present in the spine and acromioclavicular joints. Upper abdomen is within normal limits. IMPRESSION: Small residual effusion mildly blun ts the right costophrenic recess. Right lung is otherwise clear. Opacity overlying the left lung base, which completely obscures the left hemidiaphragm, likely represents a combination of effusion and compressive atelectasis of the underlying lung. Superimposed consolid ation cannot be excluded. at 1113 Reported and signed by: Noah Olivia MD PAGE 1 Signed Report (CONTIN UED) FAX: Gene Berger MD [phone] [place]: St: ADM----- Name : MARIE LAWRENCE [facility] : Age/S: 88/F [address] [facility] Unit #: [id number] Loc: V.[address] [place] [id number] Phys: Jose Alberto Smith MD Acct: [id number] Dis Date: Status: ADM IN PHONE #: Exam Date: 01/11/2019 1058 FAX #: Reason: S/P RIGHT THORACENTESIS EXAMS: CPT CODE: [id number] XR CHEST 1 V 18817 <Continued> CC: Gene Berger MD Technologist: ORACIO CASTLE, (R); Shelbie Lam(R) Trnscrd Date/Time/By: 01/11/2019 (1113) : By: [email or web address] Orig Print D/T: S: 01/11/2019 (1117) PAGE 2 Signed Report [id number] 07:09:00* Test Item Value Reference Range Comments GLUBED (test code=GLUBED) 92 mg/dL 74-106 Performed by certified resaw operator at [facility] [id number] 21:22:00* Test Item Value Reference Range Comments GLUBED (test code=GLUBED) 78 mg/dL 74-106 Performed by certified resaw operator at [facility] [id number] 17:43:00* Test Item Value Reference Range Comments GLUBED (test code=GLUBED) 98 mg/dL 74-106 Performed by certified resaw operator at [facility] [id number] 17:43:00* Test Item Value Reference Range Comments GLUBED (test code=GLUBED) 89 mg/dL 74-106 Performed by certified resaw operator at [facility] [id number] 17:30:00* Test Item Value Reference Range Comments GLUBED (test code=GLUBED) 62 mg/dL 74-106 Performed by certified resaw operator at [facility] [id number] 12:46:00* Test Item Value Reference Range Comments GLUBED (test code=GLUBED) 46 mg/dL 74-106 [facility]~ BASIC METABOLIC [id number] 11:45:00* Test Item Value Reference Range Comments SODIUM (test code=NA) 139 mmol/L 136-145 POTASSIUM (test code=K) 3.6 mmol/L 3.5-5.1 CHLORIDE (test code=CL) 102.0 mmol/L 98-107 CARBON DIOXIDE (test code=CO2) 31.0 mmol/L 21-32 ANION GAP (test code=GAP) 9.6 10-20 GLUCOSE (test code=GLU) 79 mg/dL 74-106 BLOOD UREA NITROGEN (test code=BUN) 17 mg/dL 7-18 GLOMERULAR FILTRATION RATE (test code=GFR) 15 mL/min >=60 Estimated GFR by using Modified MDRD formula.Chronic kidney disease is defined as either kidney damageor GFR <60 mL/min/1.73 m2 for >3 months. CREATININE (test code=CREAT) 2.90 mg/dL 0.55-1.02 Note change in reference range due to change in reagent. BUN/CREATININE RATIO (test code=BUN/CREA) 5.9 10-20 CALCIUM (test code=CA) 8.5 mg/dL 8.5-10.1 RN ROBYN ([id number]) SAID DRAW AFTER 07, TRYING TO SEDATE PT V.LAB.[facility] 01/10/19 0 619BASIC METABOLIC [id number] 11:34:00* Test Item Value Reference Range Comments SODIUM (test code=NA) 139 mmol/L 136-145 POTASSIUM (test code=K) 3.6 mmol/L 3.5-5.1 CHLORIDE (test code=CL) 102.0 mmol/L 98-107 CARBON DIOXIDE (test code=CO2) mmol/L 21-32 ANION GAP (test code=GAP) 10-20 GLUCOSE (test code=GLU) mg/dL 74-106 BLOOD UREA NITROGEN (test code=BUN) mg/dL 7-18 GLOMERULAR FILTRATION RATE (test code=GFR) mL/min >=60 CREATININE (test code=CREAT) mg/dL 0.55-1.02 BUN/CREATININE RATIO (test code=BUN/CREA) 10-20 CALCIUM (test code=CA) mg/dL 8.5-10.1 RN ROBYN ([id number]) SAID DRAW AFTER 0730, TRYING TO SEDATE PT V.LAB.[facility] 01/10/19 0 619CBC W/AUTO [id number] 11:19:00* Test Item Value Reference Range Comments WHITE BLOOD CELL (test code=WBC) 6.2 K/mm3 4.5-12.5 RED BLOOD CELL (test code=RBC) 2.91 mill/mm3 3.7-5.2 HEMOGLOBIN (test code=HGB) 9.1 gram/dL 11.5-15.5 HEMATOCRIT (test code=HCT) 29.3 % 36.0-46.0 MEAN CELL VOLUME (test code=MCV) 100.7 fL 80-98 MEAN CELL HGB (test code=MCH) 31.3 picogram 27.0-33.0 MEAN CELL HGB CONCETRATION (test code=MCHC) 31.1 gram/dL 33.0-36.0 RED CELL DISTRIBUTION WIDTH (test code=RDW) 16.3 % 11.6-16.2 RED CELL DISTRIBUTION WIDTH SD (test code=RDW-SD) 58.4 fL 37.0-51.0 PLATELET COUNT (test code=PLT) 213 K/mm3 150-450 MEAN PLATELET VOLUME (test code=MPV) 11.1 fL 6.7-11.0 NEUTROPHIL % (test code=NT%) 64.8 % 39.0-69.0 IMMATURE GRANULOCYTE % (test code=IG%) 1.0 % 0.0-5.0 LYMPHOCYTE % (test code=LY%) 17.6 % 25.0-55.0 MONOCYTE % (test code=MO%) 13.2 % 0.0-10.0 EOSINOPHIL % (test code=EO%) 2.6 % 0.0-5.0 BASOPHIL % (test code=BA%) 0.8 % 0.0-1.0 NUCLEATED RBC % (test code=NRBC%) 0.0 % 0-0 NEUTROPHIL # (test code=NT#) 4.03 K/mm3 1.8-7.7 IMMATURE GRANULOCYTE # (test code=IG#) 0.06 x10 3/uL 0-0.03 LYMPHOCYTE # (test code=LY#) 1.09 K/mm3 1.0-5.0 MONOCYTE # (test code=MO#) 0.82 K/mm3 0-0.8 EOSINOPHIL # (test code=EO#) 0.16 K/mm3 0.0-0.5 BASOPHIL # (test code=BA#) 0.05 K/mm3 0.0-0.2 NUCLEATED RBC # (test code=NRBC#) 0.00 K/mm3 0.0-0.1 RN ROBYN ([id number]) SAID COME DRAW AT 0730, TRYING TO SEDATE PTV.LAB.CS1 01/10/19 0 [id number] 05:45:00* Test Item Value Reference Range Comments GLUBED (test code=GLUBED) 84 mg/dL 74-106 Performed by certified resaw operator at [facility] [id number] 21:35:00* Test Item Value Reference Range Comments GLUBED (test code=GLUBED) 82 mg/dL 74-106 Performed by certified resaw operator at [facility] [id number] 21:07:00* Test Item Value Reference Range Comments GLUBED (test code=GLUBED) 80 mg/dL 74-106 Performed by certified resaw operator at [facility] [id number] 17:55:00* Test Item Value Reference Range Comments GLUBED (test code=GLUBED) 69 mg/dL 74-106 Performed by certified resaw operator at [facility] LEUK/LYMPH MARKERS [id number] 08:02:00* Test Item Value Reference Range Comments LEUK/LYMPHOMA PANEL (test code=LEULYM) CLINICAL () No monoclonal B cell population is detected.kappa:lambda ratio 1.1There is no loss of, or aberrant expression of, the yoon T cell antigens tosuggest a neoplastic T cell process.CD4:CD8 ratio 1.4A small population (6% of the T cells) of double positive (CD4+/CD8+) Tcells is detected. Double positive T cells have been described inassociation with chronic viral infections, autoimmune disorders, chronicinflammatory disorders, and immunodeficiency states.No circulating blasts are detected.Neutrophils show slighlty left-shifted maturation.There is noimmunophenotypic evidence of abnormal myeloid maturation.An absolute monocytosis is confirmed They show partial dim expression ofCD56.Analysis of the lymphocyte population shows: B cells 13%, T cells 57%, NKcells 30%. COMMENT(S) (test code=COMM) () Peripheral blood VIABILITY (test code=VIABILI) () 86% FLOW CYTO INTERPRETATION (test code=INTFLOW) () Amaris Hogue M.D. GATING STRATEGY (test code=GATSTRAT) () 8 color analysis with CD45/SSC gating COMMENT(S) (test code=COM) Flow Interpretation:Slightly left shifted neutrophils and monocytosis withphenotypic aberrancy, see comment. Flow Comment:The monocytic phenotypic aberrancies can be seen inmyelodysplasia or myeloprolif erative/ myelodysplasticprocess but not diagnostic findings. If absolutemonocyte count is persistently >1000/ul for 3 months,bone marrow evaluation and cytogenetic studies will berequired to further evaluate this disorder. Clinicalcorrelation is recommended. Phenotype Chart:CD2 Normal CD3 NormalCD4 Normal CD5 NormalCD7 Normal CD8 IruayeAX79 Normal CD11b QuwsjiWS48 Normal CD14 GqetxdRL40 Normal CD19 GgdhxwEB22 Normal CD33 LgpzuzNY98 Normal CD38 GpgoseES67 Normal CD56 See MtvqEG75 Normal CD117 NormalHLA-DR Normal KAPPA NormalLAMBDA Normal CD64 Normal Comment:Each antibody in this assay was utilized to assess forpotential abnormalities of studied cell populations or tocharacterize identified abnormalities.This test was developed and its performance characteristicsdetermined by [facility]. It has not been cleared or approvedby the U.S. Food and Drug Administration.The FDA has determined that such clearance or approval isnot necessary. This test is used for clinical purposes. Itshould not be regarded as investigational or for research. Test performed at: [facility] [address] [address] [id number] 06:14:00* Test Item Value Reference Range Comments GLUBED (test code=GLUBED) 74 mg/dL 74-106 Performed by certified resaw operator at [facility] PROTHROMBIN [id number] 06:14:00* Test Item Value Reference Range Comments PROTHROMBIN TIME PATIENT (test code=PTP) 11.6 seconds 9.0-14.0 INTERNATIONAL NORMAL RATIO (test code=INR) 1.0 0.8-1.2 The therapeutic range for oral anticoagulant therapy formost indications is an international normalized ratio (INR)of between 2.0 and 3.0. The recommended therapeutic INRrange for various clinical situations is listed below: Clinical Situation INR range Pulmonary e mbolism treatment (2.0-3.0)Venous thrombosis treatmentVenous thrombosis prophylaxis (high risk surgery)Prevention of systemic embolism from: Acute myocardial infarction Valvular heart disease Atrial fibrillation Mechanical prosthetic heart valves (2.5-3.5) IS PATIENT ON ANTICOAGULANTS? YLIST ANTICOAGULANTS HEPARINCOMMENTS TO PHLEBO TOMIST: NEED FOR PROCEDURE 01/09/19THROMBOPLASTIN TIME [id number] 06:14:00* Test Item Value Reference Range Comments THROMBOPLASTIN TIME PARTIAL (test code=PTT) 29.3 seconds 25.0-36.5 IS PATIENT ON ANTICOAGULANTS? YLIST ANTICOAGULANTS HEPARINCOMMENTS TO PHLEBO TOMIST: NEED FOR PROCEDURE 01/09/[id number] 21:02:00* Test Item Value Reference Range Comments GLUBED (test code=GLUBED) 96 mg/dL 74-106 Performed by certified resaw operator at [facility] CBC W/AUTO [id number] 15:37:00* Test Item Value Reference Range Comments WHITE BLOOD CELL (test code=WBC) 7.4 K/mm3 4.5-12.5 RED BLOOD CELL (test code=RBC) 2.66 mill/mm3 3.7-5.2 HEMOGLOBIN (test code=HGB) 8.1 gram/dL 11.5-15.5 HEMATOCRIT (test code=HCT) 26.2 % 36.0-46.0 MEAN CELL VOLUME (test code=MCV) 98.5 fL 80-98 MEAN CELL HGB (test code=MCH) 30.5 picogram 27.0-33.0 MEAN CELL HGB CONCETRATION (test code=MCHC) 30.9 gram/dL 33.0-36.0 RED CELL DISTRIBUTION WIDTH (test code=RDW) 15.6 % 11.6-16.2 RED CELL DISTRIBUTION WIDTH SD (test code=RDW-SD) 53.9 fL 37.0-51.0 PLATELET COUNT (test code=PLT) 192 K/mm3 150-450 MEAN PLATELET VOLUME (test code=MPV) 11.6 fL 6.7-11.0 NEUTROPHIL % (test code=NT%) 69.9 % 39.0-69.0 IMMATURE GRANULOCYTE % (test code=IG%) 0.9 % 0.0-5.0 LYMPHOCYTE % (test code=LY%) 14.4 % 25.0-55.0 MONOCYTE % (test code=MO%) 12.1 % 0.0-10.0 EOSINOPHIL % (test code=EO%) 2.4 % 0.0-5.0 BASOPHIL % (test code=BA%) 0.3 % 0.0-1.0 NUCLEATED RBC % (test code=NRBC%) 0.0 % 0-0 NEUTROPHIL # (test code=NT#) 5.15 K/mm3 1.8-7.7 IMMATURE GRANULOCYTE # (test code=IG#) 0.07 x10 3/uL 0-0.03 LYMPHOCYTE # (test code=LY#) 1.06 K/mm3 1.0-5.0 MONOCYTE # (test code=MO#) 0.89 K/mm3 0-0.8 EOSINOPHIL # (test code=EO#) 0.18 K/mm3 0.0-0.5 BASOPHIL # (test code=BA#) 0.02 K/mm3 0.0-0.2 NUCLEATED RBC # (test code=NRBC#) 0.00 K/mm3 0.0-0.1 MANUAL DIFF REQUIRED (test code=MDIFF) NO BASIC METABOLIC [id number] 14:32:00* Test Item Value Reference Range Comments SODIUM (test code=NA) 139 mmol/L 136-145 POTASSIUM (test code=K) 3.6 mmol/L 3.5-5.1 CHLORIDE (test code=CL) 103.0 mmol/L 98-107 CARBON DIOXIDE (test code=CO2) 27.0 mmol/L 21-32 ANION GAP (test code=GAP) 12.6 10-20 GLUCOSE (test code=GLU) 91 mg/dL 74-106 BLOOD UREA NITROGEN (test code=BUN) 30 mg/dL 7-18 GLOMERULAR FILTRATION RATE (test code=GFR) 10 mL/min >=60 Estimated GFR by using Modified MDRD formula.Chronic kidney disease is defined as either kidney damageor GFR <60 mL/min/1.73 m2 for >3 months. CREATININE (test code=CREAT) 4.10 mg/dL 0.55-1.02 Note change in reference range due to change in reagent. BUN/CREATININE RATIO (test code=BUN/CREA) 7.3 10-20 CALCIUM (test code=CA) 8.5 mg/dL 8.5-10.1 BASIC METABOLIC [id number] 14:29:00* Test Item Value Reference Range Comments SODIUM (test code=NA) 139 mmol/L 136-145 POTASSIUM (test code=K) 3.6 mmol/L 3.5-5.1 CHLORIDE (test code=CL) 103.0 mmol/L 98-107 CARBON DIOXIDE (test code=CO2) mmol/L 21-32 ANION GAP (test code=GAP) 10-20 GLUCOSE (test code=GLU) mg/dL 74-106 BLOOD UREA NITROGEN (test code=BUN) mg/dL 7-18 GLOMERULAR FILTRATION RATE (test code=GFR) mL/min >=60 CREATININE (test code=CREAT) mg/dL 0.55-1.02 BUN/CREATININE RATIO (test code=BUN/CREA) 10-20 CALCIUM (test code=CA) mg/dL 8.5-10.1 PROTHROMBIN [id number] 14:15:00* Test Item Value Reference Range Comments PROTHROMBIN TIME PATIENT (test code=PTP) 12.1 seconds 9.0-14.0 INTERNATIONAL NORMAL RATIO (test code=INR) 1.0 0.8-1.2 The therapeutic range for oral anticoagulant therapy formost indications is an international normalized ratio (INR)of between 2.0 and 3.0. The recommended therapeutic INRrange for various clinical situations is listed below: Clinical Situation INR range Pulmonary e mbolism treatment (2.0-3.0)Venous thrombosis treatmentVenous thrombosis prophylaxis (high risk surgery)Prevention of systemic embolism from: Acute myocardial infarction Valvular heart disease Atrial fibrillation Mechanical prosthetic heart valves (2.5-3.5) IS PATIENT ON ANTICOAGULANTS? [id number] 10:41:00* Test Item Value Reference Range Comments GLUBED (test code=GLUBED) 77 mg/dL 74-106 Performed by certified resaw operator at [facility] [id number] 17:29:00* Test Item Value Reference Range Comments GLUBED (test code=GLUBED) 95 mg/dL 74-106 Performed by certified resaw operator at [facility] [id number] 12:40:00* Test Item Value Reference Range Comments GLUBED (test code=GLUBED) 82 mg/dL 74-106 Performed by certified resaw operator at [facility] [id number] 07:08:00* Test Item Value Reference Range Comments GLUBED (test code=GLUBED) 94 mg/dL 74-106 Performed by certified resaw operator at [facility] [id number] 21:07:00* Test Item Value Reference Range Comments GLUBED (test code=GLUBED) 79 mg/dL 74-106 Performed by certified resaw operator at [facility] [id number] 16:15:00* Test Item Value Reference Range Comments GLUBED (test code=GLUBED) 78 mg/dL 74-106 Performed by certified resaw operator at [facility] CBC W/AUTO [id number] 10:35:00* Test Item Value Reference Range Comments WHITE BLOOD CELL (test code=WBC) 7.9 K/mm3 4.5-12.5 RED BLOOD CELL (test code=RBC) 2.51 mill/mm3 3.7-5.2 HEMOGLOBIN (test code=HGB) 7.8 gram/dL 11.5-15.5 HEMATOCRIT (test code=HCT) 25.1 % 36.0-46.0 MEAN CELL VOLUME (test code=MCV) 100.0 fL 80-98 MEAN CELL HGB (test code=MCH) 31.1 picogram 27.0-33.0 MEAN CELL HGB CONCETRATION (test code=MCHC) 31.1 gram/dL 33.0-36.0 RED CELL DISTRIBUTION WIDTH (test code=RDW) 15.0 % 11.6-16.2 RED CELL DISTRIBUTION WIDTH SD (test code=RDW-SD) 54.7 fL 37.0-51.0 PLATELET COUNT (test code=PLT) 199 K/mm3 150-450 MEAN PLATELET VOLUME (test code=MPV) 10.7 fL 6.7-11.0 NEUTROPHIL % (test code=NT%) 66.9 % 39.0-69.0 IMMATURE GRANULOCYTE % (test code=IG%) 1.4 % 0.0-5.0 LYMPHOCYTE % (test code=LY%) 15.0 % 25.0-55.0 MONOCYTE % (test code=MO%) 12.0 % 0.0-10.0 EOSINOPHIL % (test code=EO%) 4.2 % 0.0-5.0 BASOPHIL % (test code=BA%) 0.5 % 0.0-1.0 NUCLEATED RBC % (test code=NRBC%) 0.0 % 0-0 NEUTROPHIL # (test code=NT#) 5.26 K/mm3 1.8-7.7 IMMATURE GRANULOCYTE # (test code=IG#) 0.11 x10 3/uL 0-0.03 LYMPHOCYTE # (test code=LY#) 1.18 K/mm3 1.0-5.0 MONOCYTE # (test code=MO#) 0.94 K/mm3 0-0.8 EOSINOPHIL # (test code=EO#) 0.33 K/mm3 0.0-0.5 BASOPHIL # (test code=BA#) 0.04 K/mm3 0.0-0.2 NUCLEATED RBC # (test code=NRBC#) 0.00 K/mm3 0.0-0.1 MANUAL DIFF REQUIRED (test code=MDIFF) NO BASIC METABOLIC [id number] 09:45:00* Test Item Value Reference Range Comments SODIUM (test code=NA) 139 mmol/L 136-145 POTASSIUM (test code=K) 4.1 mmol/L 3.5-5.1 CHLORIDE (test code=CL) 103.0 mmol/L 98-107 CARBON DIOXIDE (test code=CO2) 29.0 mmol/L 21-32 ANION GAP (test code=GAP) 11.1 10-20 GLUCOSE (test code=GLU) 82 mg/dL 74-106 BLOOD UREA NITROGEN (test code=BUN) 29 mg/dL 7-18 GLOMERULAR FILTRATION RATE (test code=GFR) 11 mL/min >=60 Estimated GFR by using Modified MDRD formula.Chronic kidney disease is defined as either kidney damageor GFR <60 mL/min/1.73 m2 for >3 months. CREATININE (test code=CREAT) 3.80 mg/dL 0.55-1.02 Note change in reference range due to change in reagent. BUN/CREATININE RATIO (test code=BUN/CREA) 7.6 10-20 CALCIUM (test code=CA) 8.2 mg/dL 8.5-10.1 BASIC METABOLIC [id number] 09:42:00* Test Item Value Reference Range Comments SODIUM (test code=NA) 139 mmol/L 136-145 POTASSIUM (test code=K) 4.1 mmol/L 3.5-5.1 CHLORIDE (test code=CL) 103.0 mmol/L 98-107 CARBON DIOXIDE (test code=CO2) mmol/L 21-32 ANION GAP (test code=GAP) 10-20 GLUCOSE (test code=GLU) mg/dL 74-106 BLOOD UREA NITROGEN (test code=BUN) mg/dL 7-18 GLOMERULAR FILTRATION RATE (test code=GFR) mL/min >=60 CREATININE (test code=CREAT) mg/dL 0.55-1.02 BUN/CREATININE RATIO (test code=BUN/CREA) 10-20 CALCIUM (test code=CA) mg/dL 8.5-10.1 [id number] 06:48:00* Test Item Value Reference Range Comments GLUBED (test code=GLUBED) 85 mg/dL 74-106 Performed by certified resaw operator at [facility] CBC W/AUTO [id number] 04:32:00* Test Item Value Reference Range Comments WHITE BLOOD CELL (test code=WBC) 7.6 K/mm3 4.5-12.5 RED BLOOD CELL (test code=RBC) 2.67 mill/mm3 3.7-5.2 HEMOGLOBIN (test code=HGB) 8.1 gram/dL 11.5-15.5 HEMATOCRIT (test code=HCT) 26.7 % 36.0-46.0 MEAN CELL VOLUME (test code=MCV) 100.0 fL 80-98 MEAN CELL HGB (test code=MCH) 30.3 picogram 27.0-33.0 MEAN CELL HGB CONCETRATION (test code=MCHC) 30.3 gram/dL 33.0-36.0 RED CELL DISTRIBUTION WIDTH (test code=RDW) 15.0 % 11.6-16.2 RED CELL DISTRIBUTION WIDTH SD (test code=RDW-SD) 54.7 fL 37.0-51.0 PLATELET COUNT (test code=PLT) 181 K/mm3 150-450 MEAN PLATELET VOLUME (test code=MPV) 11.1 fL 6.7-11.0 NEUTROPHIL % (test code=NT%) 59.3 % 39.0-69.0 IMMATURE GRANULOCYTE % (test code=IG%) 1.2 % 0.0-5.0 LYMPHOCYTE % (test code=LY%) 20.7 % 25.0-55.0 MONOCYTE % (test code=MO%) 13.0 % 0.0-10.0 EOSINOPHIL % (test code=EO%) 5.3 % 0.0-5.0 BASOPHIL % (test code=BA%) 0.5 % 0.0-1.0 NUCLEATED RBC % (test code=NRBC%) 0.0 % 0-0 NEUTROPHIL # (test code=NT#) 4.50 K/mm3 1.8-7.7 IMMATURE GRANULOCYTE # (test code=IG#) 0.09 x10 3/uL 0-0.03 LYMPHOCYTE # (test code=LY#) 1.57 K/mm3 1.0-5.0 MONOCYTE # (test code=MO#) 0.99 K/mm3 0-0.8 EOSINOPHIL # (test code=EO#) 0.40 K/mm3 0.0-0.5 BASOPHIL # (test code=BA#) 0.04 K/mm3 0.0-0.2 NUCLEATED RBC # (test code=NRBC#) 0.00 K/mm3 0.0-0.1 MANUAL DIFF REQUIRED (test code=MDIFF) NO [id number] 21:49:00* Test Item Value Reference Range Comments GLUBED (test code=GLUBED) 75 mg/dL 74-106 Performed by certified resaw operator at [facility] [id number] 19:35:00* Test Item Value Reference Range Comments GLUBED (test code=GLUBED) 76 mg/dL 74-106 Performed by certified resaw operator at [facility] - CT CHEST W/O [id number] 19:06:00 Name: MARIE LAWRENCE [facility] : 1930 Age/S: 88 / F [address] Unit #: [id number] Loc: [place] [address] Phys: Gene Berger MD Acct: [id number] Dis Date: Status: ADM IN PHONE #: [phone] Exam Date: 01/05/2019 1844 FAX #: [phone] Reason: PLUERA EFFUSION, AND CONSOLIDATION EXAMS: CPT CODE: [id number] CT CHEST W/O CONTRAST 71273 REASON FOR EXAM: PLUERA EFFUSION, AND CONSOLIDATION EXAM ORDER DATE: 01/05/2019 6:10 PM Ordering M.D.: Gene Berger MD PROCEDURE: - CT CHEST W/O CONTRAST Comparison:Noncontrast CT chest December 11, [address] images of the chest were obtained without the use of IV contrast. Reconstructed sagittal and coronal images of the chest were provided for interpretation. Dose reduction techniques were applied. FINDINGS: The absence of IV contrast limits the sensitivity of this exam for detecting soft tissue pathology and differentiating atelectasis from consolidations. Visualized neck: No acute abnormalities Airways, Lungs and Pleura: There are large pleural effusions bilaterally with compressive subsegmental atelectasis of the bilateral lower lobes. There is subsegmental atelectasis in the right middle lobe. There are a few groundglass opacities in the right upper lobe. Central airways are patent. Heart, great vessels, pulmonary vessels, mediastinum: Right IJ dialysis catheter terminates at the cavoatrial junc tion. Atherosclerotic disease is scattered throughout the thoracic aorta a nd coronary arteries. There is cardiomegaly. Pulmonary trunk is markedly enlarged measuring up to 3.8 cm in diameter. Mitral annular calcifica tions are present. Lymph nodes: Hilar lymph nodes are suboptimally evaluated due to the absence of IV contrast. No mediastinal or internal m ammary or axillary adenopathy. Musculoskeletal/chest wall: T here are degenerative changes in the shoulders and throughout the spine. Visualized upper abdomen: Vicariously excreted contrast is seen wit hin the gallbladder lumen. Extensive atherosclerotic disease is present in PAGE 1 Signed Report (CONTINUED) Name: MARIE LAWRENCE [facility] : 1930 Age/S: 88 / F [address]ana Carmichael Unit #: [id number] Loc: [place] [address] Phys: Leia Berger MD Acct: [id number] Di s Date: Status: ADM IN PHONE #: Exam Date: 01/05/2019 1844 FAX #: Reason: PLUERA EFFUSION, AND CONSOLIDATION EXAMS: CPT CODE: [id number] CT CHEST W/O CONTRAST 09579 <Continued> the splenic artery and abdominal aorta. IMPRESSION: Large bilateral pleural effusions with compressive subsegmental atelectasis in the lower lobes. Superimposed aspiration and/or pneumonia cannot be excluded in the absence of IV contrast. There are groundglass opacities in the right upper lobe which are new from the prior exam and may represent an infectious process. Coronary and aortic atherosclerosis. Enlargement of the pulmonary trunk suggests pulmonary a rterial hypertension. Cardiomegaly. Electronically S igned by Noah Olivia MD on 01/05/2019 at 1906 Reported a nd signed by: Noah Olivia MD CC: Gene Berger MD Technologist:Nadiya Jo RT(R); JOSE Mosqueda CTDI: DLP: Trnscb Date/Time: 01/05/2019 (1905) t.[email or web address] Orig Print D/T: S: 01/05/2019 (1908) PAGE 2 Signed Report - XR CHEST 1 [id number] 17:00:00 FAX: Gene Berger MD [phone] [place]: [address]: ADM Name: MARIE WHITNEY [facility] : [birth year] Age/S: 88/F [address] Unit #: [id number] Loc: V.2044 [place] [address] Phys: Gene Berger MD Acct: [id number] Dis Date: Status: ADM IN PHONE #: [phone] Exam Date: 01/05/2019 1603 FAX #: [phone] Reason: SHORTNESS OF BREATH, COUGH EXAMS: CPT CODE: [id number] XR CHEST 1 V 51776 REASON FOR EXAM: SHORTNESS OF BREATH, COUGH Exam Order Date: 01/05/2019 3:39 PM Ordering M.D.: Gene Berger MD PROCEDURE: - XR CHEST 1 V COMPARISON: Frontal chest x-ray December 26, 2018 FINDIN GS: Right IJ dialysis catheter is unchanged. There are sma ll pleural effusions which blunts the costophrenic sulci and there is bila teral retrocardiac opacities. There is engorgement of the pulmonary vessel s. Cardiomediastinal silhouette is prominent but stable in size. T he mediastinal contours are within normal limits. Degenerati ve changes are seen in the spine. The visualized upper abdomen is within normal limits. IMPRESSION: Cardiomegaly w ith engorgement of the pulmonary vessels and small pleural effusions may represent CHF. Retrocardiac opacities bilaterally may represent any com bination of atelectasis and consolidations. Electronically S igned by Noah Olivia MD on 01/05/2019 at 1700 Reported a nd signed by: Noah Olivia MD CC: Gene Berger MD Technologist: Chapis Joseph RT(R); Eliane Lam(R) Trnscrd Date/Time/By: 01/05/2019 (1700) : By: [id number] Orig Print D/T: S: 01/05/2019 (0791) PAGE 1 Signed Report LEUK/LYMPH MARKERS [id number] 14:09:00* Test Item Value Reference Range Comments LEUK/LYMPHOMA PANEL (test code=LEULYM) CLINICAL () No monoclonal B cell population is detected.kappa:lambda ratio 1.1There is no loss of, or aberrant expression of, the yoon T cell antigens tosuggest a neoplastic T cell process.CD4:CD8 ratio 1.4A small population (6% of the T cells) of double positive (CD4+/CD8+) Tcells is detected. Double positive T cells have been described inassociation with chronic viral infections, autoimmune disorders, chronicinflammatory disorders, and immunodeficiency states.No circulating blasts are detected.Neutrophils show slighlty left-shifted maturation.There is noimmunophenotypic evidence of abnormal myeloid maturation.An absolute monocytosis is confirmed They show partial dim expression ofCD56.Analysis of the lymphocyte population shows: B cells 13%, T cells 57%, NKcells 30%. COMMENT(S) (test code=COMM) () Peripheral blood VIABILITY (test code=VIABILI) () 86% FLOW CYTO INTERPRETATION (test code=INTFLOW) () Amaris Hogue M.D. GATING STRATEGY (test code=GATSTRAT) () 8 color analysis with CD45/SSC gating COMMENT(S) (test code=COM) [id number] 11:53:00* Test Item Value Reference Range Comments GLUBED (test code=GLUBED) 83 mg/dL 74-106 Performed by certified resaw operator at [facility] [id number] 06:03:00* Test Item Value Reference Range Comments GLUBED (test code=GLUBED) 74 mg/dL 74-106 Performed by certified resaw operator at [facility] [id number] 21:42:00* Test Item Value Reference Range Comments GLUBED (test code=GLUBED) 97 mg/dL 74-106 Performed by certified resaw operator at [facility] [id number] 17:38:00* Test Item Value Reference Range Comments GLUBED (test code=GLUBED) 91 mg/dL 74-106 Performed by certified resaw operator at [facility] [id number] 12:40:00* Test Item Value Reference Range Comments GLUBED (test code=GLUBED) 66 mg/dL 74-106 Performed by certified resaw operator at [facility] [id number] 06:09:00* Test Item Value Reference Range Comments GLUBED (test code=GLUBED) 92 mg/dL 74-106 Performed by certified resaw operator at [facility] BASIC METABOLIC [id number] 04:51:00* Test Item Value Reference Range Comments SODIUM (test code=NA) 142 mmol/L 136-145 POTASSIUM (test code=K) 3.6 mmol/L 3.5-5.1 CHLORIDE (test code=CL) 106.0 mmol/L 98-107 CARBON DIOXIDE (test code=CO2) 29.0 mmol/L 21-32 ANION GAP (test code=GAP) 10.6 10-20 GLUCOSE (test code=GLU) 79 mg/dL 74-106 BLOOD UREA NITROGEN (test code=BUN) 21 mg/dL 7-18 GLOMERULAR FILTRATION RATE (test code=GFR) 11 mL/min >=60 Estimated GFR by using Modified MDRD formula.Chronic kidney disease is defined as either kidney damageor GFR <60 mL/min/1.73 m2 for >3 months. CREATININE (test code=CREAT) 4.00 mg/dL 0.55-1.02 Note change in reference range due to change in reagent. BUN/CREATININE RATIO (test code=BUN/CREA) 5.3 10-20 CALCIUM (test code=CA) 8.2 mg/dL 8.5-10.1 CBC W/AUTO [id number] 04:46:00* Test Item Value Reference Range Comments WHITE BLOOD CELL (test code=WBC) 8.6 K/mm3 4.5-12.5 RED BLOOD CELL (test code=RBC) 2.39 mill/mm3 3.7-5.2 HEMOGLOBIN (test code=HGB) 7.5 gram/dL 11.5-15.5 HEMATOCRIT (test code=HCT) 23.7 % 36.0-46.0 MEAN CELL VOLUME (test code=MCV) 99.2 fL 80-98 MEAN CELL HGB (test code=MCH) 31.4 picogram 27.0-33.0 MEAN CELL HGB CONCETRATION (test code=MCHC) 31.6 gram/dL 33.0-36.0 RED CELL DISTRIBUTION WIDTH (test code=RDW) 15.2 % 11.6-16.2 RED CELL DISTRIBUTION WIDTH SD (test code=RDW-SD) 54.6 fL 37.0-51.0 PLATELET COUNT (test code=PLT) 194 K/mm3 150-450 MEAN PLATELET VOLUME (test code=MPV) 10.7 fL 6.7-11.0 NEUTROPHIL % (test code=NT%) 68.5 % 39.0-69.0 IMMATURE GRANULOCYTE % (test code=IG%) 1.5 % 0.0-5.0 LYMPHOCYTE % (test code=LY%) 12.8 % 25.0-55.0 MONOCYTE % (test code=MO%) 12.0 % 0.0-10.0 EOSINOPHIL % (test code=EO%) 4.6 % 0.0-5.0 BASOPHIL % (test code=BA%) 0.6 % 0.0-1.0 NUCLEATED RBC % (test code=NRBC%) 0.0 % 0-0 NEUTROPHIL # (test code=NT#) 5.91 K/mm3 1.8-7.7 IMMATURE GRANULOCYTE # (test code=IG#) 0.13 x10 3/uL 0-0.03 LYMPHOCYTE # (test code=LY#) 1.11 K/mm3 1.0-5.0 MONOCYTE # (test code=MO#) 1.04 K/mm3 0-0.8 EOSINOPHIL # (test code=EO#) 0.40 K/mm3 0.0-0.5 BASOPHIL # (test code=BA#) 0.05 K/mm3 0.0-0.2 NUCLEATED RBC # (test code=NRBC#) 0.00 K/mm3 0.0-0.1 MANUAL DIFF REQUIRED (test code=MDIFF) NO BASIC METABOLIC [id number] 04:44:00* Test Item Value Reference Range Comments SODIUM (test code=NA) 142 mmol/L 136-145 POTASSIUM (test code=K) 3.6 mmol/L 3.5-5.1 CHLORIDE (test code=CL) 106.0 mmol/L 98-107 CARBON DIOXIDE (test code=CO2) mmol/L 21-32 ANION GAP (test code=GAP) 10-20 GLUCOSE (test code=GLU) mg/dL 74-106 BLOOD UREA NITROGEN (test code=BUN) mg/dL 7-18 GLOMERULAR FILTRATION RATE (test code=GFR) mL/min >=60 CREATININE (test code=CREAT) mg/dL 0.55-1.02 BUN/CREATININE RATIO (test code=BUN/CREA) 10-20 CALCIUM (test code=CA) mg/dL 8.5-10.1 [id number] 21:01:00* Test Item Value Reference Range Comments GLUBED (test code=GLUBED) 96 mg/dL 74-106 Performed by certified resaw operator at [facility] [id number] 17:13:00* Test Item Value Reference Range Comments GLUBED (test code=GLUBED) 93 mg/dL 74-106 Performed by certified resaw operator at [facility] [id number] 17:13:00* Test Item Value Reference Range Comments GLUBED (test code=GLUBED) 84 mg/dL 74-106 Performed by certified resaw operator at [facility] [id number] 15:43:00 RUN DATE: 01/03/19 [place] [facility] PAGE 1 RUN TIME: 1543 Specimen Inqui ry RUN USER: INTERFACE PATIENT: MARIE LAWRENCE ACCT #: [id number] LOC: [facility] U #: [id number] AGE/SX: 88/F ROOM: 2044 [id number]/09/18[address]AR DR: Gene Berger MD : 06/09/31 BED: A DIS: STATUS: ADM IN TLOC: SPEC #: [id number] RECD: 01/02/19 STATUS: QUOC CONRAD #: [id number] FRANCISCO: 01/01/19- SUBM DR: Mark Au MD ENTERED: 01/02/19 SP TYPE: STOMACH OTHR DR: Trino Rondon MD, Lawrence R MD [place],Abhijeet Parnell,Carlos Kendall,Teressa Davila MD, MDORDERED: GROSS COPIES TO: Mark Au MD [address] [facility] [place] [address] Trino Rondon MD [address] [facility] [address] [place] [address] Kole Verma MD [address] [place] [address] Abhijeet Espino MD [address] [place] [address] Carlos Parnell MD [address] [place] [address] Ramón Kendall MD [address] [facility] [address] [place] [address] [place] [address] [place] [address] CONTINUED ON NEXT PAGE RUN DATE: 01/03/19 [facility] ([facility] PAGE 2 RUN TIME: 1543 Specimen Inquiry RUN USER: INTERFACE SPEC #: BM: [id number] PATIENT: MARIE LAWRENCE #[id number] (Continued ) PROCEDURES: GROSS (01/03/19-1310) TISSUES: ESOPHAGUS, NO S - 4 SLIDES CLINICAL HISTORY COLLECTION DATE: 01/01/19 [facility] [place], PULLED OUT PEG TUBE POST OP: ESOPHAGEAL CARDIODIOSIS FINAL DIAGNOS IS Esophageal brushing, cytology: NEGATIVE FOR MALIGNANCY BLAND EPITHELIAL CELLS (SQUAMES), FEW ACUTE AND CHRONIC INFLAMMATORY C ELLS BUDDING YEAST FORMS AND PSEUDOHYPHAE PRESENT COMPATIBLE WITH LAM SPECIES RRB/sm D 77470, [address]251 MACROSCOPIC The specimen consists of four slides for processing and evaluation. Two will be routinely stained and two will be stained with GMS. GROSS PERFORMED AT [facility] [address] [place] [address] (p)[phone] MICROSCOPIC Ps eudohyphae and budding yeast forms compatible with lam species are identif ied in the routinely stained slides and slides stained with GMS. All of the s tains, including any controls performed, stain appropriately. MICROSCOPIC PERFORMED AT [facility] [address] [place] [address] (p)[phone] CONTINUED ON NEXT PAGE RUN DATE: 01/03/19 [facility] PAGE 3 RUN TIME: 1543 Specimen Inquiry RUN USER: INTERFACE SPEC #: [id number] PATIENT: MARIE LAWRENCE #[id number] (Continued)----- ------- PERFORMING SITE Diagnosis performed at: [facility] Luis Fernando marcusjitendra [facility] [address] [facility] [address] [place] SOTO ON Ramona Can MD 01/03/19 1543 --------- --- EN D OF REPORT [id number] 07:10:00* Test Item Value Reference Range Comments GLUBED (test code=GLUBED) 102 mg/dL 74-106 Performed by certified resaw operator at [facility] [id number] 20:54:00* Test Item Value Reference Range Comments GLUBED (test code=GLUBED) 94 mg/dL 74-106 Performed by certified resaw operator at [facility] [id number] 17:14:00* Test Item Value Reference Range Comments GLUBED (test code=GLUBED) 111 mg/dL 74-106 Performed by certified resaw operator at [facility] [id number] 17:14:00* Test Item Value Reference Range Comments GLUBED (test code=GLUBED) 65 mg/dL 74-106 Performed by certified resaw operator at [facility] BASIC METABOLIC [id number] 07:55:00* Test Item Value Reference Range Comments SODIUM (test code=NA) 141 mmol/L 136-145 POTASSIUM (test code=K) 4.0 mmol/L 3.5-5.1 CHLORIDE (test code=CL) 104.0 mmol/L 98-107 CARBON DIOXIDE (test code=CO2) 26.0 mmol/L 21-32 ANION GAP (test code=GAP) 15.0 10-20 GLUCOSE (test code=GLU) 67 mg/dL 74-106 BLOOD UREA NITROGEN (test code=BUN) 19 mg/dL 7-18 GLOMERULAR FILTRATION RATE (test code=GFR) 9 mL/min >=60 Estimated GFR by using Modified MDRD formula.Chronic kidney disease is defined as either kidney damageor GFR <60 mL/min/1.73 m2 for >3 months. CREATININE (test code=CREAT) 4.60 mg/dL 0.55-1.02 Note change in reference range due to change in reagent. BUN/CREATININE RATIO (test code=BUN/CREA) 4.1 10-20 CALCIUM (test code=CA) 8.1 mg/dL 8.5-10.1 BASIC METABOLIC [id number] 07:52:00* Test Item Value Reference Range Comments SODIUM (test code=NA) 141 mmol/L 136-145 POTASSIUM (test code=K) 4.0 mmol/L 3.5-5.1 CHLORIDE (test code=CL) 104.0 mmol/L 98-107 CARBON DIOXIDE (test code=CO2) mmol/L 21-32 ANION GAP (test code=GAP) 10-20 GLUCOSE (test code=GLU) mg/dL 74-106 BLOOD UREA NITROGEN (test code=BUN) mg/dL 7-18 GLOMERULAR FILTRATION RATE (test code=GFR) mL/min >=60 CREATININE (test code=CREAT) mg/dL 0.55-1.02 BUN/CREATININE RATIO (test code=BUN/CREA) 10-20 CALCIUM (test code=CA) mg/dL 8.5-10.1 CBC W/AUTO [id number] 06:51:00* Test Item Value Reference Range Comments WHITE BLOOD CELL (test code=WBC) 8.6 K/mm3 4.5-12.5 RED BLOOD CELL (test code=RBC) 2.58 mill/mm3 3.7-5.2 HEMOGLOBIN (test code=HGB) 8.1 gram/dL 11.5-15.5 HEMATOCRIT (test code=HCT) 25.3 % 36.0-46.0 MEAN CELL VOLUME (test code=MCV) 98.1 fL 80-98 MEAN CELL HGB (test code=MCH) 31.4 picogram 27.0-33.0 MEAN CELL HGB CONCETRATION (test code=MCHC) 32.0 gram/dL 33.0-36.0 RED CELL DISTRIBUTION WIDTH (test code=RDW) 14.8 % 11.6-16.2 RED CELL DISTRIBUTION WIDTH SD (test code=RDW-SD) 53.1 fL 37.0-51.0 PLATELET COUNT (test code=PLT) 239 K/mm3 150-450 MEAN PLATELET VOLUME (test code=MPV) 10.5 fL 6.7-11.0 NEUTROPHIL % (test code=NT%) 70.5 % 39.0-69.0 IMMATURE GRANULOCYTE % (test code=IG%) 1.3 % 0.0-5.0 LYMPHOCYTE % (test code=LY%) 13.1 % 25.0-55.0 MONOCYTE % (test code=MO%) 13.6 % 0.0-10.0 EOSINOPHIL % (test code=EO%) 0.6 % 0.0-5.0 BASOPHIL % (test code=BA%) 0.9 % 0.0-1.0 NUCLEATED RBC % (test code=NRBC%) 0.0 % 0-0 NEUTROPHIL # (test code=NT#) 6.07 K/mm3 1.8-7.7 IMMATURE GRANULOCYTE # (test code=IG#) 0.11 x10 3/uL 0-0.03 LYMPHOCYTE # (test code=LY#) 1.13 K/mm3 1.0-5.0 MONOCYTE # (test code=MO#) 1.17 K/mm3 0-0.8 EOSINOPHIL # (test code=EO#) 0.05 K/mm3 0.0-0.5 BASOPHIL # (test code=BA#) 0.08 K/mm3 0.0-0.2 NUCLEATED RBC # (test code=NRBC#) 0.00 K/mm3 0.0-0.1 MANUAL DIFF REQUIRED (test code=MDIFF) NO [id number] 06:20:00* Test Item Value Reference Range Comments GLUBED (test code=GLUBED) 67 mg/dL 74-106 Performed by certified resaw operator at [facility] [id number] 22:09:00* Test Item Value Reference Range Comments GLUBED (test code=GLUBED) 75 mg/dL 74-106 Performed by certified resaw operator at [facility] [id number] 17:11:00* Test Item Value Reference Range Comments GLUBED (test code=GLUBED) 80 mg/dL 74-106 Performed by certified resaw operator at [facility] [id number] 12:24:00* Test Item Value Reference Range Comments GLUBED (test code=GLUBED) 51 mg/dL 74-106 Performed by certified resaw operator at [facility] [id number] 06:14:00* Test Item Value Reference Range Comments GLUBED (test code=GLUBED) 93 mg/dL 74-106 Performed by certified resaw operator at [facility] BASIC METABOLIC [id number] 05:05:00* Test Item Value Reference Range Comments SODIUM (test code=NA) 140 mmol/L 136-145 POTASSIUM (test code=K) 3.8 mmol/L 3.5-5.1 CHLORIDE (test code=CL) 104.0 mmol/L 98-107 CARBON DIOXIDE (test code=CO2) 30.0 mmol/L 21-32 ANION GAP (test code=GAP) 9.8 10-20 GLUCOSE (test code=GLU) 59 mg/dL 74-106 BLOOD UREA NITROGEN (test code=BUN) 14 mg/dL 7-18 GLOMERULAR FILTRATION RATE (test code=GFR) 12 mL/min >=60 Estimated GFR by using Modified MDRD formula.Chronic kidney disease is defined as either kidney damageor GFR <60 mL/min/1.73 m2 for >3 months. CREATININE (test code=CREAT) 3.50 mg/dL 0.55-1.02 Note change in reference range due to change in reagent. BUN/CREATININE RATIO (test code=BUN/CREA) 4.0 10-20 CALCIUM (test code=CA) 8.0 mg/dL 8.5-10.1 [id number] 05:05:00* Test Item Value Reference Range Comments PHOSPHORUS (test code=PHOS) 2.1 mg/dL 2.5-4.9 [id number] 05:05:00* Test Item Value Reference Range Comments MAGNESIUM (test code=MAG) 1.7 mg/dL 1.8-2.4 BASIC METABOLIC [id number] 04:55:00* Test Item Value Reference Range Comments SODIUM (test code=NA) 140 mmol/L 136-145 POTASSIUM (test code=K) 3.8 mmol/L 3.5-5.1 CHLORIDE (test code=CL) 104.0 mmol/L 98-107 CARBON DIOXIDE (test code=CO2) mmol/L 21-32 ANION GAP (test code=GAP) 10-20 GLUCOSE (test code=GLU) mg/dL 74-106 BLOOD UREA NITROGEN (test code=BUN) mg/dL 7-18 GLOMERULAR FILTRATION RATE (test code=GFR) mL/min >=60 CREATININE (test code=CREAT) mg/dL 0.55-1.02 BUN/CREATININE RATIO (test code=BUN/CREA) 10-20 CALCIUM (test code=CA) mg/dL 8.5-10.1 [id number] 04:55:00* Test Item Value Reference Range Comments PHOSPHORUS (test code=PHOS) mg/dL 2.5-4.9 [id number] 04:55:00* Test Item Value Reference Range Comments MAGNESIUM (test code=MAG) mg/dL 1.8-2.4 CBC W/AUTO [id number] 04:39:00* Test Item Value Reference Range Comments WHITE BLOOD CELL (test code=WBC) 5.5 K/mm3 4.5-12.5 RED BLOOD CELL (test code=RBC) 2.33 mill/mm3 3.7-5.2 HEMOGLOBIN (test code=HGB) 7.2 gram/dL 11.5-15.5 HEMATOCRIT (test code=HCT) 23.1 % 36.0-46.0 MEAN CELL VOLUME (test code=MCV) 99.1 fL 80-98 MEAN CELL HGB (test code=MCH) 30.9 picogram 27.0-33.0 MEAN CELL HGB CONCETRATION (test code=MCHC) 31.2 gram/dL 33.0-36.0 RED CELL DISTRIBUTION WIDTH (test code=RDW) 14.5 % 11.6-16.2 RED CELL DISTRIBUTION WIDTH SD (test code=RDW-SD) 51.0 fL 37.0-51.0 PLATELET COUNT (test code=PLT) 224 K/mm3 150-450 MEAN PLATELET VOLUME (test code=MPV) 10.4 fL 6.7-11.0 NEUTROPHIL % (test code=NT%) 55.3 % 39.0-69.0 IMMATURE GRANULOCYTE % (test code=IG%) 1.3 % 0.0-5.0 LYMPHOCYTE % (test code=LY%) 22.6 % 25.0-55.0 MONOCYTE % (test code=MO%) 16.6 % 0.0-10.0 EOSINOPHIL % (test code=EO%) 2.9 % 0.0-5.0 BASOPHIL % (test code=BA%) 1.3 % 0.0-1.0 NUCLEATED RBC % (test code=NRBC%) 0.0 % 0-0 NEUTROPHIL # (test code=NT#) 3.06 K/mm3 1.8-7.7 IMMATURE GRANULOCYTE # (test code=IG#) 0.07 x10 3/uL 0-0.03 LYMPHOCYTE # (test code=LY#) 1.25 K/mm3 1.0-5.0 MONOCYTE # (test code=MO#) 0.92 K/mm3 0-0.8 EOSINOPHIL # (test code=EO#) 0.16 K/mm3 0.0-0.5 BASOPHIL # (test code=BA#) 0.07 K/mm3 0.0-0.2 NUCLEATED RBC # (test code=NRBC#) 0.00 K/mm3 0.0-0.1 MANUAL DIFF REQUIRED (test code=MDIFF) NO [id number] 20:38:00* Test Item Value Reference Range Comments GLUBED (test code=GLUBED) 80 mg/dL 74-106 Performed by certified resaw operator at [facility] [id number] 18:42:00* Test Item Value Reference Range Comments GLUBED (test code=GLUBED) 67 mg/dL 74-106 Performed by certified resaw operator at [facility] [id number] 17:59:00* Test Item Value Reference Range Comments GLUBED (test code=GLUBED) 60 mg/dL 74-106 Performed by certified resaw operator at [facility] BASIC METABOLIC [id number] 09:26:00* Test Item Value Reference Range Comments SODIUM (test code=NA) 141 mmol/L 136-145 POTASSIUM (test code=K) 4.0 mmol/L 3.5-5.1 CHLORIDE (test code=CL) 105.0 mmol/L 98-107 CARBON DIOXIDE (test code=CO2) 32.0 mmol/L 21-32 ANION GAP (test code=GAP) 8.0 10-20 GLUCOSE (test code=GLU) 66 mg/dL 74-106 BLOOD UREA NITROGEN (test code=BUN) 9 mg/dL 7-18 GLOMERULAR FILTRATION RATE (test code=GFR) 17 mL/min >=60 Estimated GFR by using Modified MDRD formula.Chronic kidney disease is defined as either kidney damageor GFR <60 mL/min/1.73 m2 for >3 months. CREATININE (test code=CREAT) 2.60 mg/dL 0.55-1.02 Note change in reference range due to change in reagent. BUN/CREATININE RATIO (test code=BUN/CREA) 3.5 10-20 CALCIUM (test code=CA) 8.2 mg/dL 8.5-10.1 BASIC METABOLIC [id number] 09:22:00* Test Item Value Reference Range Comments SODIUM (test code=NA) 141 mmol/L 136-145 POTASSIUM (test code=K) 4.0 mmol/L 3.5-5.1 CHLORIDE (test code=CL) 105.0 mmol/L 98-107 CARBON DIOXIDE (test code=CO2) mmol/L 21-32 ANION GAP (test code=GAP) 10-20 GLUCOSE (test code=GLU) mg/dL 74-106 BLOOD UREA NITROGEN (test code=BUN) mg/dL 7-18 GLOMERULAR FILTRATION RATE (test code=GFR) mL/min >=60 CREATININE (test code=CREAT) mg/dL 0.55-1.02 BUN/CREATININE RATIO (test code=BUN/CREA) 10-20 CALCIUM (test code=CA) mg/dL 8.5-10.1 CBC W/AUTO [id number] 09:13:00* Test Item Value Reference Range Comments WHITE BLOOD CELL (test code=WBC) 4.9 K/mm3 4.5-12.5 RED BLOOD CELL (test code=RBC) 2.47 mill/mm3 3.7-5.2 HEMOGLOBIN (test code=HGB) 7.6 gram/dL 11.5-15.5 HEMATOCRIT (test code=HCT) 24.4 % 36.0-46.0 MEAN CELL VOLUME (test code=MCV) 98.8 fL 80-98 MEAN CELL HGB (test code=MCH) 30.8 picogram 27.0-33.0 MEAN CELL HGB CONCETRATION (test code=MCHC) 31.1 gram/dL 33.0-36.0 RED CELL DISTRIBUTION WIDTH (test code=RDW) 14.4 % 11.6-16.2 RED CELL DISTRIBUTION WIDTH SD (test code=RDW-SD) 51.0 fL 37.0-51.0 PLATELET COUNT (test code=PLT) 230 K/mm3 150-450 MEAN PLATELET VOLUME (test code=MPV) 10.7 fL 6.7-11.0 NEUTROPHIL % (test code=NT%) 53.1 % 39.0-69.0 IMMATURE GRANULOCYTE % (test code=IG%) 1.4 % 0.0-5.0 LYMPHOCYTE % (test code=LY%) 20.2 % 25.0-55.0 MONOCYTE % (test code=MO%) 20.2 % 0.0-10.0 EOSINOPHIL % (test code=EO%) 3.3 % 0.0-5.0 BASOPHIL % (test code=BA%) 1.8 % 0.0-1.0 NUCLEATED RBC % (test code=NRBC%) 0.0 % 0-0 NEUTROPHIL # (test code=NT#) 2.61 K/mm3 1.8-7.7 IMMATURE GRANULOCYTE # (test code=IG#) 0.07 x10 3/uL 0-0.03 LYMPHOCYTE # (test code=LY#) 0.99 K/mm3 1.0-5.0 MONOCYTE # (test code=MO#) 0.99 K/mm3 0-0.8 EOSINOPHIL # (test code=EO#) 0.16 K/mm3 0.0-0.5 BASOPHIL # (test code=BA#) 0.09 K/mm3 0.0-0.2 NUCLEATED RBC # (test code=NRBC#) 0.00 K/mm3 0.0-0.1 MANUAL DIFF REQUIRED (test code=MDIFF) NO [id number] 06:55:00* Test Item Value Reference Range Comments GLUBED (test code=GLUBED) 79 mg/dL 74-106 Performed by certified resaw operator at [facility] [id number] 20:40:00* Test Item Value Reference Range Comments GLUBED (test code=GLUBED) 76 mg/dL 74-106 Performed by certified resaw operator at [facility] [id number] 17:21:00* Test Item Value Reference Range Comments GLUBED (test code=GLUBED) 74 mg/dL 74-106 Performed by certified resaw operator at [facility] [id number] 16:04:00* Test Item Value Reference Range Comments GLUBED (test code=GLUBED) 66 mg/dL 74-106 Performed by certified resaw operator at [facility] CBC W/AUTO [id number] 04:47:00* Test Item Value Reference Range Comments WHITE BLOOD CELL (test code=WBC) 5.4 K/mm3 4.5-12.5 RED BLOOD CELL (test code=RBC) 2.42 mill/mm3 3.7-5.2 HEMOGLOBIN (test code=HGB) 7.5 gram/dL 11.5-15.5 HEMATOCRIT (test code=HCT) 23.2 % 36.0-46.0 MEAN CELL VOLUME (test code=MCV) 95.9 fL 80-98 MEAN CELL HGB (test code=MCH) 31.0 picogram 27.0-33.0 MEAN CELL HGB CONCETRATION (test code=MCHC) 32.3 gram/dL 33.0-36.0 RED CELL DISTRIBUTION WIDTH (test code=RDW) 14.1 % 11.6-16.2 RED CELL DISTRIBUTION WIDTH SD (test code=RDW-SD) 49.1 fL 37.0-51.0 PLATELET COUNT (test code=PLT) 224 K/mm3 150-450 MEAN PLATELET VOLUME (test code=MPV) 11.2 fL 6.7-11.0 NEUTROPHIL % (test code=NT%) 55.6 % 39.0-69.0 IMMATURE GRANULOCYTE % (test code=IG%) 1.3 % 0.0-5.0 LYMPHOCYTE % (test code=LY%) 21.7 % 25.0-55.0 MONOCYTE % (test code=MO%) 17.3 % 0.0-10.0 EOSINOPHIL % (test code=EO%) 3.2 % 0.0-5.0 BASOPHIL % (test code=BA%) 0.9 % 0.0-1.0 NUCLEATED RBC % (test code=NRBC%) 0.0 % 0-0 NEUTROPHIL # (test code=NT#) 3.00 K/mm3 1.8-7.7 IMMATURE GRANULOCYTE # (test code=IG#) 0.07 x10 3/uL 0-0.03 LYMPHOCYTE # (test code=LY#) 1.17 K/mm3 1.0-5.0 MONOCYTE # (test code=MO#) 0.93 K/mm3 0-0.8 EOSINOPHIL # (test code=EO#) 0.17 K/mm3 0.0-0.5 BASOPHIL # (test code=BA#) 0.05 K/mm3 0.0-0.2 NUCLEATED RBC # (test code=NRBC#) 0.00 K/mm3 0.0-0.1 MANUAL DIFF REQUIRED (test code=MDIFF) NO BASIC METABOLIC [id number] 04:38:00* Test Item Value Reference Range Comments SODIUM (test code=NA) 137 mmol/L 136-145 POTASSIUM (test code=K) 3.8 mmol/L 3.5-5.1 CHLORIDE (test code=CL) 99.0 mmol/L 98-107 CARBON DIOXIDE (test code=CO2) 30.0 mmol/L 21-32 ANION GAP (test code=GAP) 11.8 10-20 GLUCOSE (test code=GLU) 74 mg/dL 74-106 BLOOD UREA NITROGEN (test code=BUN) 15 mg/dL 7-18 GLOMERULAR FILTRATION RATE (test code=GFR) 13 mL/min >=60 Estimated GFR by using Modified MDRD formula.Chronic kidney disease is defined as either kidney damageor GFR <60 mL/min/1.73 m2 for >3 months. CREATININE (test code=CREAT) 3.40 mg/dL 0.55-1.02 Note change in reference range due to change in reagent. BUN/CREATININE RATIO (test code=BUN/CREA) 4.4 10-20 CALCIUM (test code=CA) 7.9 mg/dL 8.5-10.1 BASIC METABOLIC [id number] 04:32:00* Test Item Value Reference Range Comments SODIUM (test code=NA) 137 mmol/L 136-145 POTASSIUM (test code=K) 3.8 mmol/L 3.5-5.1 CHLORIDE (test code=CL) 99.0 mmol/L 98-107 CARBON DIOXIDE (test code=CO2) mmol/L 21-32 ANION GAP (test code=GAP) 10-20 GLUCOSE (test code=GLU) mg/dL 74-106 BLOOD UREA NITROGEN (test code=BUN) mg/dL 7-18 GLOMERULAR FILTRATION RATE (test code=GFR) mL/min >=60 CREATININE (test code=CREAT) mg/dL 0.55-1.02 BUN/CREATININE RATIO (test code=BUN/CREA) 10-20 CALCIUM (test code=CA) mg/dL 8.5-10.1 [id number] 20:17:00* Test Item Value Reference Range Comments GLUBED (test code=GLUBED) 95 mg/dL 74-106 Performed by certified resaw operator at [facility] [id number] 12:02:00* Test Item Value Reference Range Comments GLUBED (test code=GLUBED) 81 mg/dL 74-106 Performed by certified resaw operator at [facility] [id number] 06:01:00* Test Item Value Reference Range Comments GLUBED (test code=GLUBED) 72 mg/dL 74-106 Performed by certified resaw operator at [facility] BASIC METABOLIC [id number] 05:43:00* Test Item Value Reference Range Comments SODIUM (test code=NA) 137 mmol/L 136-145 POTASSIUM (test code=K) 3.1 mmol/L 3.5-5.1 CHLORIDE (test code=CL) 99.0 mmol/L 98-107 CARBON DIOXIDE (test code=CO2) 31.0 mmol/L 21-32 ANION GAP (test code=GAP) 10.1 10-20 GLUCOSE (test code=GLU) 73 mg/dL 74-106 BLOOD UREA NITROGEN (test code=BUN) 9 mg/dL 7-18 RESULT VERIFIED BY REPEAT ANALYSIS GLOMERULAR FILTRATION RATE (test code=GFR) 21 mL/min >=60 Estimated GFR by using Modified MDRD formula.Chronic kidney disease is defined as either kidney damageor GFR <60 mL/min/1.73 m2 for >3 months. CREATININE (test code=CREAT) 2.20 mg/dL 0.55-1.02 Note change in reference range due to change in reagent. BUN/CREATININE RATIO (test code=BUN/CREA) 4.1 10-20 CALCIUM (test code=CA) 7.8 mg/dL 8.5-10.1 BASIC METABOLIC [id number] 05:07:00* Test Item Value Reference Range Comments SODIUM (test code=NA) 137 mmol/L 136-145 POTASSIUM (test code=K) 3.1 mmol/L 3.5-5.1 CHLORIDE (test code=CL) 99.0 mmol/L 98-107 CARBON DIOXIDE (test code=CO2) mmol/L 21-32 ANION GAP (test code=GAP) 10-20 GLUCOSE (test code=GLU) mg/dL 74-106 BLOOD UREA NITROGEN (test code=BUN) mg/dL 7-18 GLOMERULAR FILTRATION RATE (test code=GFR) mL/min >=60 CREATININE (test code=CREAT) mg/dL 0.55-1.02 BUN/CREATININE RATIO (test code=BUN/CREA) 10-20 CALCIUM (test code=CA) mg/dL 8.5-10.1 CBC W/AUTO [id number] 04:45:00* Test Item Value Reference Range Comments WHITE BLOOD CELL (test code=WBC) 4.5 K/mm3 4.5-12.5 RED BLOOD CELL (test code=RBC) 2.47 mill/mm3 3.7-5.2 HEMOGLOBIN (test code=HGB) 7.8 gram/dL 11.5-15.5 HEMATOCRIT (test code=HCT) 23.7 % 36.0-46.0 MEAN CELL VOLUME (test code=MCV) 96.0 fL 80-98 MEAN CELL HGB (test code=MCH) 31.6 picogram 27.0-33.0 MEAN CELL HGB CONCETRATION (test code=MCHC) 32.9 gram/dL 33.0-36.0 RED CELL DISTRIBUTION WIDTH (test code=RDW) 13.9 % 11.6-16.2 RED CELL DISTRIBUTION WIDTH SD (test code=RDW-SD) 48.9 fL 37.0-51.0 PLATELET COUNT (test code=PLT) 212 K/mm3 150-450 MEAN PLATELET VOLUME (test code=MPV) 10.9 fL 6.7-11.0 NEUTROPHIL % (test code=NT%) 50.7 % 39.0-69.0 IMMATURE GRANULOCYTE % (test code=IG%) 1.8 % 0.0-5.0 LYMPHOCYTE % (test code=LY%) 21.5 % 25.0-55.0 MONOCYTE % (test code=MO%) 22.2 % 0.0-10.0 EOSINOPHIL % (test code=EO%) 2.9 % 0.0-5.0 BASOPHIL % (test code=BA%) 0.9 % 0.0-1.0 NUCLEATED RBC % (test code=NRBC%) 0.0 % 0-0 NEUTROPHIL # (test code=NT#) 2.29 K/mm3 1.8-7.7 IMMATURE GRANULOCYTE # (test code=IG#) 0.08 x10 3/uL 0-0.03 LYMPHOCYTE # (test code=LY#) 0.97 K/mm3 1.0-5.0 MONOCYTE # (test code=MO#) 1.00 K/mm3 0-0.8 EOSINOPHIL # (test code=EO#) 0.13 K/mm3 0.0-0.5 BASOPHIL # (test code=BA#) 0.04 K/mm3 0.0-0.2 NUCLEATED RBC # (test code=NRBC#) 0.00 K/mm3 0.0-0.1 [id number] 22:14:00* Test Item Value Reference Range Comments GLUBED (test code=GLUBED) 79 mg/dL 74-106 Performed by certified resaw operator at [facility] [id number] 08:43:00* Test Item Value Reference Range Comments GLUBED (test code=GLUBED) 75 mg/dL 74-106 Performed by certified resaw operator at [facility] [id number] 06:41:00* Test Item Value Reference Range Comments GLUBED (test code=GLUBED) 83 mg/dL 74-106 Performed by certified resaw operator at [facility] BASIC METABOLIC [id number] 05:15:00* Test Item Value Reference Range Comments SODIUM (test code=NA) 137 mmol/L 136-145 POTASSIUM (test code=K) 3.8 mmol/L 3.5-5.1 CHLORIDE (test code=CL) 98.0 mmol/L 98-107 CARBON DIOXIDE (test code=CO2) 30.0 mmol/L 21-32 ANION GAP (test code=GAP) 12.8 10-20 GLUCOSE (test code=GLU) 73 mg/dL 74-106 BLOOD UREA NITROGEN (test code=BUN) 21 mg/dL 7-18 GLOMERULAR FILTRATION RATE (test code=GFR) 10 mL/min >=60 Estimated GFR by using Modified MDRD formula.Chronic kidney disease is defined as either kidney damageor GFR <60 mL/min/1.73 m2 for >3 months. CREATININE (test code=CREAT) 4.10 mg/dL 0.55-1.02 Note change in reference range due to change in reagent. BUN/CREATININE RATIO (test code=BUN/CREA) 5.1 10-20 CALCIUM (test code=CA) 7.4 mg/dL 8.5-10.1 BASIC METABOLIC [id number] 05:11:00* Test Item Value Reference Range Comments SODIUM (test code=NA) 137 mmol/L 136-145 POTASSIUM (test code=K) 3.8 mmol/L 3.5-5.1 CHLORIDE (test code=CL) 98.0 mmol/L 98-107 CARBON DIOXIDE (test code=CO2) mmol/L 21-32 ANION GAP (test code=GAP) 10-20 GLUCOSE (test code=GLU) mg/dL 74-106 BLOOD UREA NITROGEN (test code=BUN) mg/dL 7-18 GLOMERULAR FILTRATION RATE (test code=GFR) mL/min >=60 CREATININE (test code=CREAT) mg/dL 0.55-1.02 BUN/CREATININE RATIO (test code=BUN/CREA) 10-20 CALCIUM (test code=CA) mg/dL 8.5-10.1 CBC W/AUTO [id number] 04:32:00* Test Item Value Reference Range Comments WHITE BLOOD CELL (test code=WBC) 5.7 K/mm3 4.5-12.5 RED BLOOD CELL (test code=RBC) 2.41 mill/mm3 3.7-5.2 HEMOGLOBIN (test code=HGB) 7.4 gram/dL 11.5-15.5 HEMATOCRIT (test code=HCT) 22.9 % 36.0-46.0 MEAN CELL VOLUME (test code=MCV) 95.0 fL 80-98 MEAN CELL HGB (test code=MCH) 30.7 picogram 27.0-33.0 MEAN CELL HGB CONCETRATION (test code=MCHC) 32.3 gram/dL 33.0-36.0 RED CELL DISTRIBUTION WIDTH (test code=RDW) 14.3 % 11.6-16.2 RED CELL DISTRIBUTION WIDTH SD (test code=RDW-SD) 49.2 fL 37.0-51.0 PLATELET COUNT (test code=PLT) 198 K/mm3 150-450 MEAN PLATELET VOLUME (test code=MPV) 10.6 fL 6.7-11.0 NEUTROPHIL % (test code=NT%) 55.1 % 39.0-69.0 IMMATURE GRANULOCYTE % (test code=IG%) 1.4 % 0.0-5.0 LYMPHOCYTE % (test code=LY%) 16.2 % 25.0-55.0 MONOCYTE % (test code=MO%) 24.7 % 0.0-10.0 EOSINOPHIL % (test code=EO%) 1.9 % 0.0-5.0 BASOPHIL % (test code=BA%) 0.7 % 0.0-1.0 NUCLEATED RBC % (test code=NRBC%) 0.0 % 0-0 NEUTROPHIL # (test code=NT#) 3.12 K/mm3 1.8-7.7 IMMATURE GRANULOCYTE # (test code=IG#) 0.08 x10 3/uL 0-0.03 LYMPHOCYTE # (test code=LY#) 0.92 K/mm3 1.0-5.0 MONOCYTE # (test code=MO#) 1.40 K/mm3 0-0.8 EOSINOPHIL # (test code=EO#) 0.11 K/mm3 0.0-0.5 BASOPHIL # (test code=BA#) 0.04 K/mm3 0.0-0.2 NUCLEATED RBC # (test code=NRBC#) 0.00 K/mm3 0.0-0.1 MANUAL DIFF REQUIRED (test code=MDIFF) NO [id number] 21:21:00* Test Item Value Reference Range Comments GLUBED (test code=GLUBED) 77 mg/dL 74-106 Performed by certified resaw operator at [facility] [id number] 18:05:00* Test Item Value Reference Range Comments GLUBED (test code=GLUBED) 82 mg/dL 74-106 Performed by certified resaw operator at [facility] - [facility] [id number] 12:47:00 Name: MELINDAMARIE ANTHONY [facility] : 1930 Age/S: 88 / F [address] Unit #: [id number] Loc: Man[place], [place] [address] Phys: Gene Berger MD Acct: [id number] Dis Date: Status: ADM IN PHONE #: [phone] Exam Date: 12/26/2018 9622 FAX #: [phone] Reason: EXAMS: CPT CODE: [id number] [facility] ACCESS [id number] Fluoro Time: DAP (Gy m2): Air Kerma (mGy): EXAM: Insertion of a tunneled hemodialysis catheter with sonographic and fluoroscopic guidance and conscious sedation; CPT: 88637, 74827, 18396; INFORMATION: End-stage renal disease; TECHNIQUE AND FINDINGS: Conscious sedation start time: 1443 hours; completion time: 1458 hours; Under physician supervision, 1 mg of Versed and 25 mcg of fentanyl were administered intravenously. The patient's heart rate, blood pressure and pulse oximetry were continuously monitored by a trained registered nurse. Physician [id number] sedation time was 15 minutes. Benefits and risks of the procedure including risks of hemorrhage and infection, were explained to the patient and informed consent was obtained. The patient was placed supine on the fluoroscopy table and sonography of the right neck region was p erformed. It demonstrated a patent and compressible right internal jugular vein. Sonographic images were stored in PACS. Conscious sedation was initiated with Versed and Fentanyl. The patient's skin in the right neck and chest region was then prepped and draped in the usual sterile fashion, using all elements of maximal sterile barrier technique. Xylocaine was administered and using real-time sonographic guidance the right inte rnal jugular vein was accessed with a micropuncture system, followed by in sertion of an 035 guidewire. Under fluoroscopic guidance, sequential dilat ation was performed followed by insertion of a 15 Brune[place] peel-away sheath. A subcutaneous tunnel was then created in the usual sterile fashion and a 14.5 [place]une[place] tunneled hemodialysis catheter was inserted and positio fritz fluoroscopically with its tip in the cranial aspect of the right atriu m. Good blood return was noticed; the catheter was sutured to the skin and flushed with heparinized saline. There were no complications. IMPRESSION: Successful insertion of a tunneled hemodialysis c atheter with sonographic and fluoroscopic guidance and conscious sedatio n. Fluoroscopy Time: 2 sec CAK : 0.16 mGy DAP : 1 mGy sq cm PAGE 1 Signed Report (CONTINUED) Name: MARIE LAWRENCE [facility] : 1930 Age/S: 88 / F [address] Unit #: [id number] Loc: [place] [address] P hys: Gene Berger MD Acct: V [id number] Dis Date: Status: ADM IN PHONE #: [phone] Exam Date: 12/26/2018 1458 F AX #: [phone] Reason: EXAMS: CPT CODE: [id number] GUIDANCE VASC ACCESS 28468 Fluoro Time: DAP (Gy m2): Air Kerma (mGy): <Continued> at 1247 Reported and signed by: Dann Pierre M.D. CC: Gene Berger MD Technologist: Omar Morales RT(R) Trnscb Date/Time: 12/27/2018 (4563) t.GRW Orig Print D/T: S: 12/27/2018 (1853) PAGE 2 Signed Report - SP FLUORO GUID CTRL ACC [id number] 12:47:00 Name: MARIE LAWRENCE [facility] SP : 1930 Age/S: 88 / F [address] [facility] Unit #: [id number] Loc: [place] [address] Phys: Gene Berger MD Acct: [id number] Dis Date: Status: ADM IN PHONE #: [phone] Exam Date: 12/26/2018 1458 FAX #: [phone] Reason: EXAMS: CPT CODE: [id number] SP FLUORO GUID CTRL ACC DEV [id number] Fluoro Time: 3 DAP (Gy m2): 0.16 Air Kerma (mGy): 1 EXAM: Insertion of a tunneled hemodialysis catheter with sonographic and fluoroscopic guidance and conscious sedation; CPT: 45078, 22156, 91762; INFORMATION: End-stage renal disease; TECHNIQUE AND FINDINGS: Conscious sedation start time: 1443 hours; completion time: 1458 hours; Under physician supervision, 1 mg of Versed and 25 mcg of fentanyl were administered intravenously. The patient's heart rate, blood pressure and pulse oximetry were continuously monitored by a trained registered nurse. Physician sgyy-dl-vvvj sedation time was 15 minutes. Benefits and risks of the procedure including risks of hemorrhage and infection, were explained to the patient and informed consent was obtained. The patient was placed supine on the fluoroscopy table and sonography of the right neck region was p erformed. It demonstrated a patent and compressible right internal jugular vein. Sonographic images were stored in PACS. Conscious sedation was initiated with Versed and Fentanyl. The patient's skin in the right neck and chest region was then prepped and draped in the usual sterile fashion, using all elements of maximal sterile barrier technique. Xylocaine was administered and using real-time sonographic guidance the right inte rnal jugular vein was accessed with a micropuncture system, followed by in sertion of an 035 guidewire. Under fluoroscopic guidance, sequential dilat ation was performed followed by insertion of a 15 [place]une[place] peel-away sheath. A subcutaneous tunnel was then created in the usual sterile fashion and a 14.5 [place]une[place] tunneled hemodialysis catheter was inserted and positio fritz fluoroscopically with its tip in the cranial aspect of the right atriu m. Good blood return was noticed; the catheter was sutured to the skin and flushed with heparinized saline. There were no complications. IMPRESSION: Successful insertion of a tunneled hemodialysis c atheter with sonographic and fluoroscopic guidance and conscious sedatio n. Fluoroscopy Time: 2 sec CAK : 0.16 mGy DAP : 1 mGy sq cm PAGE 1 Signed Report (CONTINUED) Name: MARIE LAWRENCE [facility] : 1930 Age/S: 88 / F [address] Unit #: [id number] Loc: [place] [address] P hys: Gene Berger MD Acct: V [id number] Dis Date: Status: ADM IN PHONE #: [phone] Exam Date: 12/26/2018 1458 F AX #: [phone] Reason: EXAMS: CPT CODE: [id number] SP FLUORO GUID CTRL ACC DEV 58425 Fluoro Time: 3 DAP (Gy m2): 0.16 Air Kerma (mGy): 1 <Continued> at 3213 Reported and signed by: Dann Pierre M.D. CC: Gene Berger MD Technologist: Omar Morales RT(R) Trnscb Date/Time: 12/27/2018 (9010) Tamia.GRW Orig Print D/T: S: 12/27/2018 (7547) PAGE 2 Signed Report GLUBED 2018-12-27 12:46:00* Test Item Value Reference Range Comments GLUBED (test code=GLUBED) 87 mg/dL 74-106 Performed by certified resaw operator at [facility] COMPREHENSIVE METABOLIC [id number] 08:19:00* Test Item Value Reference Range Comments SODIUM (test code=NA) 137 mmol/L 136-145 POTASSIUM (test code=K) 3.9 mmol/L 3.5-5.1 CHLORIDE (test code=CL) 101.0 mmol/L 98-107 CARBON DIOXIDE (test code=CO2) 30.0 mmol/L 21-32 ANION GAP (test code=GAP) 9.9 10-20 GLUCOSE (test code=GLU) 72 mg/dL 74-106 BLOOD UREA NITROGEN (test code=BUN) 16 mg/dL 7-18 GLOMERULAR FILTRATION RATE (test code=GFR) 15 mL/min >=60 Estimated GFR by using Modified MDRD formula.Chronic kidney disease is defined as either kidney damageor GFR <60 mL/min/1.73 m2 for >3 months. CREATININE (test code=CREAT) 3.00 mg/dL 0.55-1.02 Note change in reference range due to change in reagent. BUN/CREATININE RATIO (test code=BUN/CREA) 5.3 10-20 TOTAL PROTEIN (test code=PROT) 5.0 gram/dL 6.4-8.2 ALBUMIN (test code=ALB) 2.3 g/dL 3.4-5.0 GLOBULIN (test code=GLOB) 2.7 gram/dL 2.7-4.2 ALBUMIN/GLOBULIN RATIO (test code=A/G) 0.9 0.75-1.50 CALCIUM (test code=CA) 7.8 mg/dL 8.5-10.1 BILIRUBIN TOTAL (test code=BILT) 1.50 mg/dL 0.0-1.0 SGOT/AST (test code=AST) 52 IUnit/L 15-37 SGPT/ALT (test code=ALT) 23 IUnit/L 12-78 ALKALINE PHOSPHATASE TOTAL (test code=ALKP) 74 IUnit/L 45-117 Note change in reference range due to change in reagent. [id number] 08:19:00* Test Item Value Reference Range Comments PHOSPHORUS (test code=PHOS) 3.1 mg/dL 2.5-4.9 [id number] 08:19:00* Test Item Value Reference Range Comments MAGNESIUM (test code=MAG) 1.8 mg/dL 1.8-2.4 COMPREHENSIVE METABOLIC [id number] 07:31:00* Test Item Value Reference Range Comments SODIUM (test code=NA) 137 mmol/L 136-145 POTASSIUM (test code=K) 3.9 mmol/L 3.5-5.1 CHLORIDE (test code=CL) 101.0 mmol/L 98-107 CARBON DIOXIDE (test code=CO2) mmol/L 21-32 ANION GAP (test code=GAP) 10-20 GLUCOSE (test code=GLU) mg/dL 74-106 BLOOD UREA NITROGEN (test code=BUN) mg/dL 7-18 GLOMERULAR FILTRATION RATE (test code=GFR) mL/min >=60 CREATININE (test code=CREAT) mg/dL 0.55-1.02 BUN/CREATININE RATIO (test code=BUN/CREA) 10-20 TOTAL PROTEIN (test code=PROT) gram/dL 6.4-8.2 ALBUMIN (test code=ALB) g/dL 3.4-5.0 GLOBULIN (test code=GLOB) gram/dL 2.7-4.2 ALBUMIN/GLOBULIN RATIO (test code=A/G) 0.75-1.50 CALCIUM (test code=CA) mg/dL 8.5-10.1 BILIRUBIN TOTAL (test code=BILT) mg/dL 0.0-1.0 SGOT/AST (test code=AST) IUnit/L 15-37 SGPT/ALT (test code=ALT) IUnit/L 12-78 ALKALINE PHOSPHATASE TOTAL (test code=ALKP) IUnit/L 45-117 [id number] 07:31:00* Test Item Value Reference Range Comments PHOSPHORUS (test code=PHOS) mg/dL 2.5-4.9 [id number] 07:31:00* Test Item Value Reference Range Comments MAGNESIUM (test code=MAG) mg/dL 1.8-2.4 CBC W/AUTO [id number] 06:46:00* Test Item Value Reference Range Comments WHITE BLOOD CELL (test code=WBC) 5.4 K/mm3 4.5-12.5 RED BLOOD CELL (test code=RBC) 2.39 mill/mm3 3.7-5.2 HEMOGLOBIN (test code=HGB) 7.3 gram/dL 11.5-15.5 HEMATOCRIT (test code=HCT) 22.3 % 36.0-46.0 MEAN CELL VOLUME (test code=MCV) 93.3 fL 80-98 MEAN CELL HGB (test code=MCH) 30.5 picogram 27.0-33.0 MEAN CELL HGB CONCETRATION (test code=MCHC) 32.7 gram/dL 33.0-36.0 RED CELL DISTRIBUTION WIDTH (test code=RDW) 14.2 % 11.6-16.2 RED CELL DISTRIBUTION WIDTH SD (test code=RDW-SD) 48.1 fL 37.0-51.0 PLATELET COUNT (test code=PLT) 220 K/mm3 150-450 MEAN PLATELET VOLUME (test code=MPV) 11.3 fL 6.7-11.0 NEUTROPHIL % (test code=NT%) 58.8 % 39.0-69.0 IMMATURE GRANULOCYTE % (test code=IG%) 1.1 % 0.0-5.0 LYMPHOCYTE % (test code=LY%) 18.0 % 25.0-55.0 MONOCYTE % (test code=MO%) 19.7 % 0.0-10.0 EOSINOPHIL % (test code=EO%) 1.7 % 0.0-5.0 BASOPHIL % (test code=BA%) 0.7 % 0.0-1.0 NUCLEATED RBC % (test code=NRBC%) 0.0 % 0-0 NEUTROPHIL # (test code=NT#) 3.16 K/mm3 1.8-7.7 IMMATURE GRANULOCYTE # (test code=IG#) 0.06 x10 3/uL 0-0.03 LYMPHOCYTE # (test code=LY#) 0.97 K/mm3 1.0-5.0 MONOCYTE # (test code=MO#) 1.06 K/mm3 0-0.8 EOSINOPHIL # (test code=EO#) 0.09 K/mm3 0.0-0.5 BASOPHIL # (test code=BA#) 0.04 K/mm3 0.0-0.2 NUCLEATED RBC # (test code=NRBC#) 0.00 K/mm3 0.0-0.1 [id number] 21:22:00* Test Item Value Reference Range Comments GLUBED (test code=GLUBED) 75 mg/dL 74-106 Performed by certified resaw operator at [facility] - XR CHEST 1 [id number] 15:17:00 FAX: Gene Berger MD [phone] [place]: St: ADM Name: MARIE WHITNEY [facility] : [birth year] Age/S: 88/F [address] [facility] Unit #: [id number] Loc: [address] [place] [address] Phys: Dann Pierre MD Acct: [id number] Dis Date: Status: ADM IN PHONE #: [phone] Exam Date: 12/26/2018 1512 FAX #: [phone] Reason: RFD; [facility]; EXAMS: CPT CODE: [id number] XR CHEST 1 V 40549 REASON FOR EXAM: RFD; st[facility] PC; EXAM ORDER DATE: 12/26/2018 2:59 PM Ordering Troy Beltran: Dann Pierre MD PROCEDURE: - XR CHEST 1 V COMPARISON: 12/18/2018 FINDINGS: Portable AP frontal view of the chest obtained at 3:08 PM shows patchy airspace opacity of the left base. The heart size is minimally enlarged. Pulmonary vasculatures are minimally congested. IMPRESSION: Right IJ tunneled dialysis catheter tip is in the SVC at 8988 Reported and signed by: Jose Alberto Smith M.D. CC: Gene Berger MD gist: ORTEGA EDOUARD Trnscrd Date/Time/B y: 12/26/2018 (1517) : By: Leo Orig Print D/T: S: 12/26/2018 () PAGE 1 Signed Report [id number] 11:46:00* Test Item Value Reference Range Comments GLUBED (test code=GLUBED) 62 mg/dL 74-106 Performed by certified resaw operator at [facility] PROTHROMBIN [id number] 09:52:00* Test Item Value Reference Range Comments PROTHROMBIN TIME PATIENT (test code=PTP) seconds 9.0-14.0 INTERNATIONAL NORMAL RATIO (test code=INR) 0.8-1.2 IS PATIENT ON ANTICOAGULANTS? NTHROMBOPLASTIN TIME [id number] 09:52:00* Test Item Value Reference Range Comments THROMBOPLASTIN TIME PARTIAL (test code=PTT) 43.6 seconds 25.0-36.5 IS PATIENT ON ANTICOAGULANTS? NPROTHROMBIN [id number] 09:52:00* Test Item Value Reference Range Comments PROTHROMBIN TIME PATIENT (test code=PTP) 12.6 seconds 9.0-14.0 INTERNATIONAL NORMAL RATIO (test code=INR) 1.1 0.8-1.2 The therapeutic range for oral anticoagulant therapy formost indications is an international normalized ratio (INR)of between 2.0 and 3.0. The recommended therapeutic INRrange for various clinical situations is listed below: Clinical Situation INR range Pulmonary e mbolism treatment (2.0-3.0)Venous thrombosis treatmentVenous thrombosis prophylaxis (high risk surgery)Prevention of systemic embolism from: Acute myocardial infarction Valvular heart disease Atrial fibrillation Mechanical prosthetic heart valves (2.5-3.5) IS PATIENT ON ANTICOAGULANTS? NTHROMBOPLASTIN TIME [id number] 09:52:00* Test Item Value Reference Range Comments THROMBOPLASTIN TIME PARTIAL (test code=PTT) 43.6 seconds 25.0-36.5 IS PATIENT ON ANTICOAGULANTS? NBASIC METABOLIC [id number] 07:29:00* Test Item Value Reference Range Comments SODIUM (test code=NA) 130 mmol/L 136-145 POTASSIUM (test code=K) 4.8 mmol/L 3.5-5.1 CHLORIDE (test code=CL) 94.0 mmol/L 98-107 CARBON DIOXIDE (test code=CO2) 21.0 mmol/L 21-32 ANION GAP (test code=GAP) 19.8 10-20 GLUCOSE (test code=GLU) 59 mg/dL 74-106 BLOOD UREA NITROGEN (test code=BUN) 41 mg/dL 7-18 RESULT VERIFIED BY REPEAT ANALYSIS GLOMERULAR FILTRATION RATE (test code=GFR) 7 mL/min >=60 Estimated GFR by using Modified MDRD formula.Chronic kidney disease is defined as either kidney damageor GFR <60 mL/min/1.73 m2 for >3 months. CREATININE (test code=CREAT) 5.50 mg/dL 0.55-1.02 Note change in reference range due to change in reagent. BUN/CREATININE RATIO (test code=BUN/CREA) 7.5 10-20 CALCIUM (test code=CA) 8.0 mg/dL 8.5-10.1 BASIC METABOLIC [id number] 06:21:00* Test Item Value Reference Range Comments SODIUM (test code=NA) 130 mmol/L 136-145 POTASSIUM (test code=K) 4.8 mmol/L 3.5-5.1 CHLORIDE (test code=CL) 94.0 mmol/L 98-107 CARBON DIOXIDE (test code=CO2) mmol/L 21-32 ANION GAP (test code=GAP) 10-20 GLUCOSE (test code=GLU) mg/dL 74-106 BLOOD UREA NITROGEN (test code=BUN) mg/dL 7-18 GLOMERULAR FILTRATION RATE (test code=GFR) mL/min >=60 CREATININE (test code=CREAT) mg/dL 0.55-1.02 BUN/CREATININE RATIO (test code=BUN/CREA) 10-20 CALCIUM (test code=CA) mg/dL 8.5-10.1 CBC W/O [id number] 05:53:00* Test Item Value Reference Range Comments WHITE BLOOD CELL (test code=WBC) 6.9 K/mm3 4.5-12.5 RED BLOOD CELL (test code=RBC) 2.73 mill/mm3 3.7-5.2 HEMOGLOBIN (test code=HGB) 8.6 gram/dL 11.5-15.5 HEMATOCRIT (test code=HCT) 27.6 % 36.0-46.0 MEAN CELL VOLUME (test code=MCV) 101.1 fL 80-98 RESULT VERIFIED BY REPEAT ANALYSIS MEAN CELL HGB (test code=MCH) 31.5 picogram 27.0-33.0 MEAN CELL HGB CONCETRATION (test code=MCHC) 31.2 gram/dL 33.0-36.0 RED CELL DISTRIBUTION WIDTH (test code=RDW) 14.5 % 11.6-16.2 PLATELET COUNT (test code=PLT) 178 K/mm3 150-450 MEAN PLATELET VOLUME (test code=MPV) 11.5 fL 6.7-11.0 [id number] 05:51:00* Test Item Value Reference Range Comments GLUBED (test code=GLUBED) 71 mg/dL 74-106 Performed by certified resaw operator at [facility] [id number] 22:52:00* Test Item Value Reference Range Comments GLUBED (test code=GLUBED) 57 mg/dL 74-106 Performed by certified resaw operator at [facility] [id number] 22:24:00* Test Item Value Reference Range Comments GLUBED (test code=GLUBED) 71 mg/dL 74-106 Performed by certified resaw operator at [facility] [id number] 21:27:00* Test Item Value Reference Range Comments GLUBED (test code=GLUBED) 68 mg/dL 74-106 Performed by certified resaw operator at [facility] - CT ABDOMEN W/O [id number] 18:42:00 Name: MARIE LAWRENCE [facility] : 1930 Age/S: 88 / F [address] [facility] Unit #: [id number] Loc: [place] [address] Phys: Gene Berger MD Acct: [id number] Dis Date: Status: ADM IN PHONE #: [phone] Exam Date: 12/25/2018 182 FAX #: [phone] Reason: NAUSEATED AND VOMITING EXAMS: CPT CODE: [id number] CT ABDOMEN W/O CONT 58996 REASON FOR EXAM: NAUSEATED AND VOMITING EXAM ORDER DATE: 12/25/2018 3:23 PM Ordering Navdeep: Gene Berger MD PROCEDURE: - CT ABDOMEN W/O CONT COMPARISON: FINDINGS: CT images of the abdomen were obtained without IV and oral contrast at 5mm. Dose modulation, iterative reconstruction, and/or weight based adjustment of the MA/KV was utilized to reduce the radiation dose to as low as reasonably achievable. The liver, spleen, pancreas are grossly within normal limits. The gallbladder is unremarkable by CT. Small punctate nonobstructing calcification in the inferior pole of the left kidney. Multiple bilateral renal cysts with the largest cyst in the right kidney measuring 3.5 cm The colon, small bowel, and stomach are within normal limits without evidence of obstruction. The stomach is unremarkable with a gastrostomy tube in place No evidence of free air . IMPRESSION: Enlargement of the left iliopsoas muscle with focal hyperdense area suggestive of possible intramuscular hemorrhage. Small bilateral pleural effusions with minimal ascites in the right subphrenic space at 1842 Reported and signed by: Jose Alberto Smith M.D. CC: Gene Berger MD Technologist:Nadiya Jo RT(R); JOES Mosqueda CTDI: DLP: Trnscb Date/Time: 12/25/2018 (184) t.SDR.VTL Orig Print D/T: S: 12/25/2018 (1845) PAGE 1 Signed Report [id number] 12:55:00* Test Item Value Reference Range Comments GLUBED (test code=GLUBED) 80 mg/dL 74-106 Performed by certified resaw operator at [facility] BASIC METABOLIC [id number] 08:59:00* Test Item Value Reference Range Comments SODIUM (test code=NA) 130 mmol/L 136-145 POTASSIUM (test code=K) 3.9 mmol/L 3.5-5.1 CHLORIDE (test code=CL) 94.0 mmol/L 98-107 CARBON DIOXIDE (test code=CO2) 27.0 mmol/L 21-32 ANION GAP (test code=GAP) 12.9 10-20 GLUCOSE (test code=GLU) 66 mg/dL 74-106 BLOOD UREA NITROGEN (test code=BUN) 32 mg/dL 7-18 RESULT VERIFIED BY REPEAT ANALYSIS GLOMERULAR FILTRATION RATE (test code=GFR) 9 mL/min >=60 Estimated GFR by using Modified MDRD formula.Chronic kidney disease is defined as either kidney damageor GFR <60 mL/min/1.73 m2 for >3 months. CREATININE (test code=CREAT) 4.80 mg/dL 0.55-1.02 Note change in reference range due to change in reagent. BUN/CREATININE RATIO (test code=BUN/CREA) 6.7 10-20 CALCIUM (test code=CA) 8.0 mg/dL 8.5-10.1 [id number] 08:59:00* Test Item Value Reference Range Comments PHOSPHORUS (test code=PHOS) 4.1 mg/dL 2.5-4.9 [id number] 08:59:00* Test Item Value Reference Range Comments MAGNESIUM (test code=MAG) 2.1 mg/dL 1.8-2.4 THYROID STIMULATING [id number] 08:59:00* Test Item Value Reference Range Comments THYROID STIMULATING HORMONE (test code=TSH) 11.000 uIU/mL 0.36-3.74 TSH REFERENCE RANGES: EUTHYROID: 0.35 - 4.3 mIU/mL HYPO : > 5.5 mIU/mL HYPER : < 0.35 mIU/mL BASIC METABOLIC [id number] 08:34:00* Test Item Value Reference Range Comments SODIUM (test code=NA) 130 mmol/L 136-145 POTASSIUM (test code=K) 3.9 mmol/L 3.5-5.1 CHLORIDE (test code=CL) 94.0 mmol/L 98-107 CARBON DIOXIDE (test code=CO2) mmol/L 21-32 ANION GAP (test code=GAP) 10-20 GLUCOSE (test code=GLU) mg/dL 74-106 BLOOD UREA NITROGEN (test code=BUN) mg/dL 7-18 GLOMERULAR FILTRATION RATE (test code=GFR) mL/min >=60 CREATININE (test code=CREAT) mg/dL 0.55-1.02 BUN/CREATININE RATIO (test code=BUN/CREA) 10-20 CALCIUM (test code=CA) mg/dL 8.5-10.1 [id number] 08:34:00* Test Item Value Reference Range Comments PHOSPHORUS (test code=PHOS) mg/dL 2.5-4.9 [id number] 08:34:00* Test Item Value Reference Range Comments MAGNESIUM (test code=MAG) mg/dL 1.8-2.4 THYROID STIMULATING [id number] 08:34:00* Test Item Value Reference Range Comments THYROID STIMULATING HORMONE (test code=TSH) uIU/mL 0.36-3.74 CBC W/AUTO [id number] 08:26:00* Test Item Value Reference Range Comments WHITE BLOOD CELL (test code=WBC) 7.9 K/mm3 4.5-12.5 RED BLOOD CELL (test code=RBC) 2.24 mill/mm3 3.7-5.2 HEMOGLOBIN (test code=HGB) 6.8 gram/dL 11.5-15.5 HEMATOCRIT (test code=HCT) 20.9 % 36.0-46.0 Results called to [id number] by [facility] 12/25/18 0822Critical results verified and read back by Nurse? Y MEAN CELL VOLUME (test code=MCV) 93.3 fL 80-98 MEAN CELL HGB (test code=MCH) 30.4 picogram 27.0-33.0 MEAN CELL HGB CONCETRATION (test code=MCHC) 32.5 gram/dL 33.0-36.0 RED CELL DISTRIBUTION WIDTH (test code=RDW) 14.2 % 11.6-16.2 RED CELL DISTRIBUTION WIDTH SD (test code=RDW-SD) 47.8 fL 37.0-51.0 PLATELET COUNT (test code=PLT) 210 K/mm3 150-450 MEAN PLATELET VOLUME (test code=MPV) 11.3 fL 6.7-11.0 NEUTROPHIL % (test code=NT%) 70.3 % 39.0-69.0 IMMATURE GRANULOCYTE % (test code=IG%) 0.8 % 0.0-5.0 LYMPHOCYTE % (test code=LY%) 11.8 % 25.0-55.0 MONOCYTE % (test code=MO%) 15.4 % 0.0-10.0 EOSINOPHIL % (test code=EO%) 1.3 % 0.0-5.0 BASOPHIL % (test code=BA%) 0.4 % 0.0-1.0 NUCLEATED RBC % (test code=NRBC%) 0.0 % 0-0 NEUTROPHIL # (test code=NT#) 5.53 K/mm3 1.8-7.7 IMMATURE GRANULOCYTE # (test code=IG#) 0.06 x10 3/uL 0-0.03 LYMPHOCYTE # (test code=LY#) 0.93 K/mm3 1.0-5.0 MONOCYTE # (test code=MO#) 1.21 K/mm3 0-0.8 EOSINOPHIL # (test code=EO#) 0.10 K/mm3 0.0-0.5 BASOPHIL # (test code=BA#) 0.03 K/mm3 0.0-0.2 NUCLEATED RBC # (test code=NRBC#) 0.00 K/mm3 0.0-0.1 MANUAL DIFF REQUIRED (test code=MDIFF) NO [id number] 18:04:00* Test Item Value Reference Range Comments GLUBED (test code=GLUBED) 89 mg/dL 74-106 Performed by certified resaw operator at [facility] - XR ABDOMEN [id number] 16:22:00 FAX: Gene Berger MD [phone] [place]: [address] St: ADM Name: MARIE WHITNEY [facility] : [birth year] Age/S: 88/F [address] Unit #: [id number] Loc: V.[address] [place] [address] Phys: Gene Berger MD Acct: [id number] Dis Date: Status: ADM IN PHONE #: [phone] Exam Date: 12/24/2018 1520 FAX #: [phone] Reason: abdominal pain EXAMS: CPT CODE: [id number] XR ABDOMEN 2V 44677 EXAM: Abdomen, 2 views; INFORMATION: Abdominal pain; IMPRESSION: 1. Residual contrast material is seen within the nondilated colon; otherwise, unre markable bowel gas pattern; no acute abnormalities. 2. A gastrostomy tu be projects over the right epigastric region. 3. Calcifications of the splenic artery; no other abnormal calcifications. 4. 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 at 1622 Reported and signed by: Dann Pierre M.D. CC: Gene Berger MD Technologist: VASU GARDUNO(R) Trnscrd Date/Time/By: 12/24/2018 (4759) : By: LatoshaGRW Orig Print D/T: S: 12/25/2018 (0928) PAGE 1 Signed Report BASIC METABOLIC [id number] 15:43:00* Test Item Value Reference Range Comments SODIUM (test code=NA) 134 mmol/L 136-145 POTASSIUM (test code=K) 4.1 mmol/L 3.5-5.1 CHLORIDE (test code=CL) 98.0 mmol/L 98-107 CARBON DIOXIDE (test code=CO2) 24.0 mmol/L 21-32 ANION GAP (test code=GAP) 16.1 10-20 GLUCOSE (test code=GLU) 75 mg/dL 74-106 BLOOD UREA NITROGEN (test code=BUN) 26 mg/dL 7-18 GLOMERULAR FILTRATION RATE (test code=GFR) 11 mL/min >=60 Estimated GFR by using Modified MDRD formula.Chronic kidney disease is defined as either kidney damageor GFR <60 mL/min/1.73 m2 for >3 months. CREATININE (test code=CREAT) 4.00 mg/dL 0.55-1.02 Note change in reference range due to change in reagent. BUN/CREATININE RATIO (test code=BUN/CREA) 6.5 10-20 CALCIUM (test code=CA) 8.0 mg/dL 8.5-10.1 [id number] 15:43:00* Test Item Value Reference Range Comments MAGNESIUM (test code=MAG) 2.1 mg/dL 1.8-2.4 BASIC METABOLIC [id number] 15:41:00* Test Item Value Reference Range Comments SODIUM (test code=NA) 134 mmol/L 136-145 POTASSIUM (test code=K) 4.1 mmol/L 3.5-5.1 CHLORIDE (test code=CL) 98.0 mmol/L 98-107 CARBON DIOXIDE (test code=CO2) mmol/L 21-32 ANION GAP (test code=GAP) 10-20 GLUCOSE (test code=GLU) mg/dL 74-106 BLOOD UREA NITROGEN (test code=BUN) mg/dL 7-18 GLOMERULAR FILTRATION RATE (test code=GFR) mL/min >=60 CREATININE (test code=CREAT) mg/dL 0.55-1.02 BUN/CREATININE RATIO (test code=BUN/CREA) 10-20 CALCIUM (test code=CA) 8.0 mg/dL 8.5-10.1 [id number] 15:41:00* Test Item Value Reference Range Comments MAGNESIUM (test code=MAG) mg/dL 1.8-2.4 [id number] 08:42:00* Test Item Value Reference Range Comments GLUBED (test code=GLUBED) 123 mg/dL 74-106 Performed by certified resaw operator at [facility] [id number] 08:42:00* Test Item Value Reference Range Comments GLUBED (test code=GLUBED) 68 mg/dL 74-106 Performed by certified resaw operator at [facility] [id number] 06:00:00* Test Item Value Reference Range Comments GLUBED (test code=GLUBED) 82 mg/dL 74-106 Performed by certified resaw operator at [facility] [id number] 17:00:00* Test Item Value Reference Range Comments GLUBED (test code=GLUBED) 72 mg/dL 74-106 Performed by certified resaw operator at [facility] [id number] 12:03:00* Test Item Value Reference Range Comments GLUBED (test code=GLUBED) 77 mg/dL 74-106 Performed by certified resaw operator at [facility] [id number] 08:48:00* Test Item Value Reference Range Comments HEMOGLOBIN (test code=HGB) 7.5 gram/dL 11.5-15.5 [id number] 08:48:00* Test Item Value Reference Range Comments HEMATOCRIT (test code=HCT) 23.1 % 36.0-46.0 [id number] 07:34:00* Test Item Value Reference Range Comments GLUBED (test code=GLUBED) 85 mg/dL 74-106 Performed by certified resaw operator at [facility] COMPREHENSIVE METABOLIC [id number] 06:31:00* Test Item Value Reference Range Comments SODIUM (test code=NA) 138 mmol/L 136-145 POTASSIUM (test code=K) 3.9 mmol/L 3.5-5.1 CHLORIDE (test code=CL) 103.0 mmol/L 98-107 CARBON DIOXIDE (test code=CO2) 27.0 mmol/L 21-32 ANION GAP (test code=GAP) 11.9 10-20 GLUCOSE (test code=GLU) 71 mg/dL 74-106 BLOOD UREA NITROGEN (test code=BUN) 15 mg/dL 7-18 GLOMERULAR FILTRATION RATE (test code=GFR) 22 mL/min >=60 Estimated GFR by using Modified MDRD formula.Chronic kidney disease is defined as either kidney damageor GFR <60 mL/min/1.73 m2 for >3 months. CREATININE (test code=CREAT) 2.10 mg/dL 0.55-1.02 Note change in reference range due to change in reagent. BUN/CREATININE RATIO (test code=BUN/CREA) 7.0 10-20 TOTAL PROTEIN (test code=PROT) 5.4 gram/dL 6.4-8.2 ALBUMIN (test code=ALB) 2.1 g/dL 3.4-5.0 GLOBULIN (test code=GLOB) 3.3 gram/dL 2.7-4.2 ALBUMIN/GLOBULIN RATIO (test code=A/G) 0.6 0.75-1.50 CALCIUM (test code=CA) 8.0 mg/dL 8.5-10.1 BILIRUBIN TOTAL (test code=BILT) 2.00 mg/dL 0.0-1.0 SGOT/AST (test code=AST) 54 IUnit/L 15-37 SGPT/ALT (test code=ALT) 22 IUnit/L 12-78 ALKALINE PHOSPHATASE TOTAL (test code=ALKP) 122 IUnit/L 45-117 Note change in reference range due to change in reagent. COMPREHENSIVE METABOLIC [id number] 06:05:00* Test Item Value Reference Range Comments SODIUM (test code=NA) 138 mmol/L 136-145 POTASSIUM (test code=K) 3.9 mmol/L 3.5-5.1 CHLORIDE (test code=CL) 103.0 mmol/L 98-107 CARBON DIOXIDE (test code=CO2) mmol/L 21-32 ANION GAP (test code=GAP) 10-20 GLUCOSE (test code=GLU) mg/dL 74-106 BLOOD UREA NITROGEN (test code=BUN) mg/dL 7-18 GLOMERULAR FILTRATION RATE (test code=GFR) mL/min >=60 CREATININE (test code=CREAT) mg/dL 0.55-1.02 BUN/CREATININE RATIO (test code=BUN/CREA) 10-20 TOTAL PROTEIN (test code=PROT) gram/dL 6.4-8.2 ALBUMIN (test code=ALB) g/dL 3.4-5.0 GLOBULIN (test code=GLOB) gram/dL 2.7-4.2 ALBUMIN/GLOBULIN RATIO (test code=A/G) 0.75-1.50 CALCIUM (test code=CA) mg/dL 8.5-10.1 BILIRUBIN TOTAL (test code=BILT) mg/dL 0.0-1.0 SGOT/AST (test code=AST) IUnit/L 15-37 SGPT/ALT (test code=ALT) IUnit/L 12-78 ALKALINE PHOSPHATASE TOTAL (test code=ALKP) IUnit/L 45-117 [id number] 00:06:00* Test Item Value Reference Range Comments GLUBED (test code=GLUBED) 194 mg/dL 74-106 Performed by certified resaw operator at [facility] [id number] 23:01:00* Test Item Value Reference Range Comments GLUBED (test code=GLUBED) 67 mg/dL 74-106 Performed by certified resaw operator at [facility] [id number] 16:45:00* Test Item Value Reference Range Comments GLUBED (test code=GLUBED) 75 mg/dL 74-106 Performed by certified resaw operator at [facility] BASIC METABOLIC [id number] 11:47:00* Test Item Value Reference Range Comments SODIUM (test code=NA) 133 mmol/L 136-145 RESULT VERIFIED BY REPEAT ANALYSIS POTASSIUM (test code=K) 4.0 mmol/L 3.5-5.1 CHLORIDE (test code=CL) 95.0 mmol/L 98-107 CARBON DIOXIDE (test code=CO2) 29.0 mmol/L 21-32 ANION GAP (test code=GAP) 13.0 10-20 GLUCOSE (test code=GLU) 81 mg/dL 74-106 BLOOD UREA NITROGEN (test code=BUN) 39 mg/dL 7-18 RESULT VERIFIED BY REPEAT ANALYSIS GLOMERULAR FILTRATION RATE (test code=GFR) 10 mL/min >=60 Estimated GFR by using Modified MDRD formula.Chronic kidney disease is defined as either kidney damageor GFR <60 mL/min/1.73 m2 for >3 months. CREATININE (test code=CREAT) 4.20 mg/dL 0.55-1.02 Note change in reference range due to change in reagent. BUN/CREATININE RATIO (test code=BUN/CREA) 9.3 10-20 CALCIUM (test code=CA) 8.0 mg/dL 8.5-10.1 [id number] 11:14:00* Test Item Value Reference Range Comments GLUBED (test code=GLUBED) 83 mg/dL 74-106 Performed by certified resaw operator at [facility] [id number] 06:11:00* Test Item Value Reference Range Comments GLUBED (test code=GLUBED) 80 mg/dL 74-106 Performed by certified resaw operator at [facility] CBC W/MANUAL [id number] 05:20:00* Test Item Value Reference Range Comments WHITE BLOOD CELL (test code=WBC) 9.9 K/mm3 4.5-12.5 RED BLOOD CELL (test code=RBC) 2.60 mill/mm3 3.7-5.2 HEMOGLOBIN (test code=HGB) 7.8 gram/dL 11.5-15.5 HEMATOCRIT (test code=HCT) 24.2 % 36.0-46.0 MEAN CELL VOLUME (test code=MCV) 93.1 fL 80-98 MEAN CELL HGB (test code=MCH) 30.0 picogram 27.0-33.0 MEAN CELL HGB CONCETRATION (test code=MCHC) 32.2 gram/dL 33.0-36.0 RED CELL DISTRIBUTION WIDTH (test code=RDW) 15.2 % 11.6-16.2 RED CELL DISTRIBUTION WIDTH SD (test code=RDW-SD) 51.3 fL 37.0-51.0 PLATELET COUNT (test code=PLT) 170 K/mm3 150-450 MEAN PLATELET VOLUME (test code=MPV) 11.6 fL 6.7-11.0 IMMATURE GRANULOCYTE % (test code=IG%) 1.0 % 0.0-5.0 NUCLEATED RBC % (test code=NRBC%) 0.0 % 0-0 NEUTROPHIL # (test code=NT#) 6.58 K/mm3 1.8-7.7 IMMATURE GRANULOCYTE # (test code=IG#) 0.10 x10 3/uL 0-0.03 LYMPHOCYTE # (test code=LY#) 1.45 K/mm3 1.0-5.0 MONOCYTE # (test code=MO#) 1.62 K/mm3 0-0.8 EOSINOPHIL # (test code=EO#) 0.14 K/mm3 0.0-0.5 BASOPHIL # (test code=BA#) 0.04 K/mm3 0.0-0.2 NUCLEATED RBC # (test code=NRBC#) 0.00 K/mm3 0.0-0.1 MANUAL DIFF REQUIRED (test code=MDIFF) YES STAIN ACCEPTABILITY (test code=STN ACCEPTABLE) STAIN ACCEPTABLE TOTAL CELLS COUNTED (test code=TCC) 115 #CELLS SEGMENTED NEUTROPHILS (test code=SEG) 80.0 % 39-69 BAND NEUTROPHIL (test code=BAND) 0 % 0-10 LYMPHOCYTE (test code=LYMPH) 10.4 % 25-55 REACTIVE LYMPH (test code=RELYMPH) 0 % MONOCYTE (test code=MON) 9.6 % 0-10 EOSINOPHIL (test code=EOS) 0 % 0.0-5.0 BASOPHIL (test code=BASO) 0 % 0-1.0 METAMYELOCYTE (test code=META) 0 % 0-0 MYELOCYTE (test code=MYELO) 0 % 0.0-0.0 PROMYELOCYTE (test code=PROM) 0 % 0-0 POIKILOCYTOSIS (test code=POIK) 1+ ANISOCYTOSIS (test code=ANISO) 1+ MACROCYTOSIS (test code=MACR) 1+ PLATELET ESTIMATE (test code=PLTEST) ADEQUATE PLATELET MORPHOLOGY (test code=PLTMORPH) NORMAL IMMATURE FORMS (test code=IMMAT) 0 % 0-0 CBC W/MANUAL [id number] 04:31:00* Test Item Value Reference Range Comments WHITE BLOOD CELL (test code=WBC) 9.9 K/mm3 4.5-12.5 RED BLOOD CELL (test code=RBC) 2.60 mill/mm3 3.7-5.2 HEMOGLOBIN (test code=HGB) 7.8 gram/dL 11.5-15.5 HEMATOCRIT (test code=HCT) 24.2 % 36.0-46.0 MEAN CELL VOLUME (test code=MCV) 93.1 fL 80-98 MEAN CELL HGB (test code=MCH) 30.0 picogram 27.0-33.0 MEAN CELL HGB CONCETRATION (test code=MCHC) 32.2 gram/dL 33.0-36.0 RED CELL DISTRIBUTION WIDTH (test code=RDW) 15.2 % 11.6-16.2 RED CELL DISTRIBUTION WIDTH SD (test code=RDW-SD) 51.3 fL 37.0-51.0 PLATELET COUNT (test code=PLT) 170 K/mm3 150-450 MEAN PLATELET VOLUME (test code=MPV) 11.6 fL 6.7-11.0 IMMATURE GRANULOCYTE % (test code=IG%) 1.0 % 0.0-5.0 NUCLEATED RBC % (test code=NRBC%) 0.0 % 0-0 NEUTROPHIL # (test code=NT#) 6.58 K/mm3 1.8-7.7 IMMATURE GRANULOCYTE # (test code=IG#) 0.10 x10 3/uL 0-0.03 LYMPHOCYTE # (test code=LY#) 1.45 K/mm3 1.0-5.0 MONOCYTE # (test code=MO#) 1.62 K/mm3 0-0.8 EOSINOPHIL # (test code=EO#) 0.14 K/mm3 0.0-0.5 BASOPHIL # (test code=BA#) 0.04 K/mm3 0.0-0.2 NUCLEATED RBC # (test code=NRBC#) 0.00 K/mm3 0.0-0.1 MANUAL DIFF REQUIRED (test code=MDIFF) YES STAIN ACCEPTABILITY (test code=STN ACCEPTABLE) TOTAL CELLS COUNTED (test code=TCC) #CELLS SEGMENTED NEUTROPHILS (test code=SEG) % 39-69 LYMPHOCYTE (test code=LYMPH) % 25-55 MONOCYTE (test code=MON) % 0-10 EOSINOPHIL (test code=EOS) % 0.0-5.0 CABOT RINGS (test code=CAB) MORPHOLOGY COMMENT (test code=MOC) PLATELET ESTIMATE (test code=PLTEST) PLATELET MORPHOLOGY (test code=PLTMORPH) CBC W/MANUAL [id number] 04:31:00* Test Item Value Reference Range Comments WHITE BLOOD CELL (test code=WBC) 9.9 K/mm3 4.5-12.5 RED BLOOD CELL (test code=RBC) 2.60 mill/mm3 3.7-5.2 HEMOGLOBIN (test code=HGB) 7.8 gram/dL 11.5-15.5 HEMATOCRIT (test code=HCT) 24.2 % 36.0-46.0 MEAN CELL VOLUME (test code=MCV) 93.1 fL 80-98 MEAN CELL HGB (test code=MCH) 30.0 picogram 27.0-33.0 MEAN CELL HGB CONCETRATION (test code=MCHC) 32.2 gram/dL 33.0-36.0 RED CELL DISTRIBUTION WIDTH (test code=RDW) 15.2 % 11.6-16.2 RED CELL DISTRIBUTION WIDTH SD (test code=RDW-SD) 51.3 fL 37.0-51.0 PLATELET COUNT (test code=PLT) 170 K/mm3 150-450 MEAN PLATELET VOLUME (test code=MPV) 11.6 fL 6.7-11.0 IMMATURE GRANULOCYTE % (test code=IG%) 1.0 % 0.0-5.0 NUCLEATED RBC % (test code=NRBC%) 0.0 % 0-0 NEUTROPHIL # (test code=NT#) 6.58 K/mm3 1.8-7.7 IMMATURE GRANULOCYTE # (test code=IG#) 0.10 x10 3/uL 0-0.03 LYMPHOCYTE # (test code=LY#) 1.45 K/mm3 1.0-5.0 MONOCYTE # (test code=MO#) 1.62 K/mm3 0-0.8 EOSINOPHIL # (test code=EO#) 0.14 K/mm3 0.0-0.5 BASOPHIL # (test code=BA#) 0.04 K/mm3 0.0-0.2 NUCLEATED RBC # (test code=NRBC#) 0.00 K/mm3 0.0-0.1 MANUAL DIFF REQUIRED (test code=MDIFF) YES STAIN ACCEPTABILITY (test code=STN ACCEPTABLE) TOTAL CELLS COUNTED (test code=TCC) #CELLS SEGMENTED NEUTROPHILS (test code=SEG) % 39-69 LYMPHOCYTE (test code=LYMPH) % 25-55 MONOCYTE (test code=MON) % 0-10 EOSINOPHIL (test code=EOS) % 0.0-5.0 CABOT RINGS (test code=CAB) MORPHOLOGY COMMENT (test code=MOC) PLATELET ESTIMATE (test code=PLTEST) PLATELET MORPHOLOGY (test code=PLTMORPH) CBC W/MANUAL [id number] 04:31:00* Test Item Value Reference Range Comments WHITE BLOOD CELL (test code=WBC) 9.9 K/mm3 4.5-12.5 RED BLOOD CELL (test code=RBC) 2.60 mill/mm3 3.7-5.2 HEMOGLOBIN (test code=HGB) 7.8 gram/dL 11.5-15.5 HEMATOCRIT (test code=HCT) 24.2 % 36.0-46.0 MEAN CELL VOLUME (test code=MCV) 93.1 fL 80-98 MEAN CELL HGB (test code=MCH) 30.0 picogram 27.0-33.0 MEAN CELL HGB CONCETRATION (test code=MCHC) 32.2 gram/dL 33.0-36.0 RED CELL DISTRIBUTION WIDTH (test code=RDW) 15.2 % 11.6-16.2 RED CELL DISTRIBUTION WIDTH SD (test code=RDW-SD) 51.3 fL 37.0-51.0 PLATELET COUNT (test code=PLT) 170 K/mm3 150-450 MEAN PLATELET VOLUME (test code=MPV) 11.6 fL 6.7-11.0 IMMATURE GRANULOCYTE % (test code=IG%) 1.0 % 0.0-5.0 NUCLEATED RBC % (test code=NRBC%) 0.0 % 0-0 NEUTROPHIL # (test code=NT#) 6.58 K/mm3 1.8-7.7 IMMATURE GRANULOCYTE # (test code=IG#) 0.10 x10 3/uL 0-0.03 LYMPHOCYTE # (test code=LY#) 1.45 K/mm3 1.0-5.0 MONOCYTE # (test code=MO#) 1.62 K/mm3 0-0.8 EOSINOPHIL # (test code=EO#) 0.14 K/mm3 0.0-0.5 BASOPHIL # (test code=BA#) 0.04 K/mm3 0.0-0.2 NUCLEATED RBC # (test code=NRBC#) 0.00 K/mm3 0.0-0.1 MANUAL DIFF REQUIRED (test code=MDIFF) YES STAIN ACCEPTABILITY (test code=STN ACCEPTABLE) TOTAL CELLS COUNTED (test code=TCC) #CELLS SEGMENTED NEUTROPHILS (test code=SEG) % 39-69 LYMPHOCYTE (test code=LYMPH) % 25-55 MONOCYTE (test code=MON) % 0-10 EOSINOPHIL (test code=EOS) % 0.0-5.0 MORPHOLOGY COMMENT (test code=MOC) PLATELET ESTIMATE (test code=PLTEST) PLATELET MORPHOLOGY (test code=PLTMORPH) CBC W/MANUAL [id number] 04:31:00* Test Item Value Reference Range Comments WHITE BLOOD CELL (test code=WBC) 9.9 K/mm3 4.5-12.5 RED BLOOD CELL (test code=RBC) 2.60 mill/mm3 3.7-5.2 HEMOGLOBIN (test code=HGB) 7.8 gram/dL 11.5-15.5 HEMATOCRIT (test code=HCT) 24.2 % 36.0-46.0 MEAN CELL VOLUME (test code=MCV) 93.1 fL 80-98 MEAN CELL HGB (test code=MCH) 30.0 picogram 27.0-33.0 MEAN CELL HGB CONCETRATION (test code=MCHC) 32.2 gram/dL 33.0-36.0 RED CELL DISTRIBUTION WIDTH (test code=RDW) 15.2 % 11.6-16.2 RED CELL DISTRIBUTION WIDTH SD (test code=RDW-SD) 51.3 fL 37.0-51.0 PLATELET COUNT (test code=PLT) 170 K/mm3 150-450 MEAN PLATELET VOLUME (test code=MPV) 11.6 fL 6.7-11.0 IMMATURE GRANULOCYTE % (test code=IG%) 1.0 % 0.0-5.0 NUCLEATED RBC % (test code=NRBC%) 0.0 % 0-0 NEUTROPHIL # (test code=NT#) 6.58 K/mm3 1.8-7.7 IMMATURE GRANULOCYTE # (test code=IG#) 0.10 x10 3/uL 0-0.03 LYMPHOCYTE # (test code=LY#) 1.45 K/mm3 1.0-5.0 MONOCYTE # (test code=MO#) 1.62 K/mm3 0-0.8 EOSINOPHIL # (test code=EO#) 0.14 K/mm3 0.0-0.5 BASOPHIL # (test code=BA#) 0.04 K/mm3 0.0-0.2 NUCLEATED RBC # (test code=NRBC#) 0.00 K/mm3 0.0-0.1 MANUAL DIFF REQUIRED (test code=MDIFF) YES STAIN ACCEPTABILITY (test code=STN ACCEPTABLE) TOTAL CELLS COUNTED (test code=TCC) #CELLS SEGMENTED NEUTROPHILS (test code=SEG) % 39-69 LYMPHOCYTE (test code=LYMPH) % 25-55 MONOCYTE (test code=MON) % 0-10 MORPHOLOGY COMMENT (test code=MOC) PLATELET ESTIMATE (test code=PLTEST) PLATELET MORPHOLOGY (test code=PLTMORPH) CBC W/MANUAL [id number] 04:31:00* Test Item Value Reference Range Comments WHITE BLOOD CELL (test code=WBC) 9.9 K/mm3 4.5-12.5 RED BLOOD CELL (test code=RBC) 2.60 mill/mm3 3.7-5.2 HEMOGLOBIN (test code=HGB) 7.8 gram/dL 11.5-15.5 HEMATOCRIT (test code=HCT) 24.2 % 36.0-46.0 MEAN CELL VOLUME (test code=MCV) 93.1 fL 80-98 MEAN CELL HGB (test code=MCH) 30.0 picogram 27.0-33.0 MEAN CELL HGB CONCETRATION (test code=MCHC) 32.2 gram/dL 33.0-36.0 RED CELL DISTRIBUTION WIDTH (test code=RDW) 15.2 % 11.6-16.2 RED CELL DISTRIBUTION WIDTH SD (test code=RDW-SD) 51.3 fL 37.0-51.0 PLATELET COUNT (test code=PLT) 170 K/mm3 150-450 MEAN PLATELET VOLUME (test code=MPV) 11.6 fL 6.7-11.0 IMMATURE GRANULOCYTE % (test code=IG%) 1.0 % 0.0-5.0 NUCLEATED RBC % (test code=NRBC%) 0.0 % 0-0 NEUTROPHIL # (test code=NT#) 6.58 K/mm3 1.8-7.7 IMMATURE GRANULOCYTE # (test code=IG#) 0.10 x10 3/uL 0-0.03 LYMPHOCYTE # (test code=LY#) 1.45 K/mm3 1.0-5.0 MONOCYTE # (test code=MO#) 1.62 K/mm3 0-0.8 EOSINOPHIL # (test code=EO#) 0.14 K/mm3 0.0-0.5 BASOPHIL # (test code=BA#) 0.04 K/mm3 0.0-0.2 NUCLEATED RBC # (test code=NRBC#) 0.00 K/mm3 0.0-0.1 MANUAL DIFF REQUIRED (test code=MDIFF) YES STAIN ACCEPTABILITY (test code=STN ACCEPTABLE) TOTAL CELLS COUNTED (test code=TCC) #CELLS SEGMENTED NEUTROPHILS (test code=SEG) % 39-69 LYMPHOCYTE (test code=LYMPH) % 25-55 MONOCYTE (test code=MON) % 0-10 EOSINOPHIL (test code=EOS) % 0.0-5.0 CABOT RINGS (test code=CAB) MORPHOLOGY COMMENT (test code=MOC) PLATELET ESTIMATE (test code=PLTEST) PLATELET MORPHOLOGY (test code=PLTMORPH) [id number] 20:31:00* Test Item Value Reference Range Comments GLUBED (test code=GLUBED) 79 mg/dL 74-106 Performed by certified resaw operator at [facility] [id number] 17:30:00* Test Item Value Reference Range Comments GLUBED (test code=GLUBED) 73 mg/dL 74-106 Performed by certified resaw operator at [facility] - XR SWLW FUNC W/C [id number] 16:15:00 FAX: Gene Berger MD [phone] [place]: [address] St: ADM FAX: Marco A aCruso [phone] Name: MARIE LAWRENCE [facility] : 1930 Age/S: 88/F [address] Unit #: [id number] Loc: [place] [address] Phys: Marco A Caruso MD Acct: [id number] Dis Date: Status: ADM IN PHONE #: [phone] Exam Date: 12/21/2018 1317 FAX #: [phone] Reason: DYSPHAGIA EXAMS: CPT CODE: [id number] XR SWLW FUN W/C V [id number] REASON FOR EXAM: DYSPHAGIA EXAM ORDER DATE: 12/21/2018 1:11 PM Attending MFelton: Marco A Rodriguez MD PROCEDURE: Barium swallow FINDINGS: The exam was performed to assist the speech pathologist in performing the barium swallow exam for assessment of aspiration, penetration, and function and motility of the oropharynx. The patient was giving teaspoon, cup, straw of thin liquid, teaspoon, cup, straw of thick liquid, puree, mechanical soft food coated with barium and regular food coated with barium to swallow. Fluoroscopic time:89 sec Fluoroscopic dose:3.9 mGy Number of josh ges obtained: 11 IMPRESSION: Minimal penetration with thin liqui d. No evidence of aspiration. Please see the speech pathologist report. at 16 15 Reported and signed by: Jose Alberto Smith M.D. CC: Gene Berger MD; Marco A Caruso MD Technologist: Chapis Joseph RT(R) Trnscrd Date/Time/By: 12/21/2018 (3877) : By: Tamia.VTL Orig Print D/T: S: 12/21/2018 (5526) PAGE 1 Signed Report [id number] 13:28:00* Test Item Value Reference Range Comments GLUBED (test code=GLUBED) 98 mg/dL 74-106 Performed by certified resaw operator at [facility] [id number] 05:52:00* Test Item Value Reference Range Comments GLUBED (test code=GLUBED) 99 mg/dL 74-106 Performed by certified resaw operator at [facility] BASIC METABOLIC [id number] 05:26:00* Test Item Value Reference Range Comments SODIUM (test code=NA) 138 mmol/L 136-145 POTASSIUM (test code=K) 3.9 mmol/L 3.5-5.1 CHLORIDE (test code=CL) 100.0 mmol/L 98-107 CARBON DIOXIDE (test code=CO2) 30.0 mmol/L 21-32 ANION GAP (test code=GAP) 11.9 10-20 GLUCOSE (test code=GLU) 98 mg/dL 74-106 BLOOD UREA NITROGEN (test code=BUN) 22 mg/dL 7-18 GLOMERULAR FILTRATION RATE (test code=GFR) 16 mL/min >=60 Estimated GFR by using Modified MDRD formula.Chronic kidney disease is defined as either kidney damageor GFR <60 mL/min/1.73 m2 for >3 months. CREATININE (test code=CREAT) 2.80 mg/dL 0.55-1.02 Note change in reference range due to change in reagent. BUN/CREATININE RATIO (test code=BUN/CREA) 7.9 10-20 CALCIUM (test code=CA) 7.6 mg/dL 8.5-10.1 [id number] 05:26:00* Test Item Value Reference Range Comments MAGNESIUM (test code=MAG) 1.5 mg/dL 1.8-2.4 PARATHYROID HORMONE [id number] 05:26:00* Test Item Value Reference Range Comments PARATHYROID HORMONE INTACT (test code=PARAI) 198.40 pgram/mL 8.4-88 BASIC METABOLIC [id number] 05:21:00* Test Item Value Reference Range Comments SODIUM (test code=NA) 138 mmol/L 136-145 POTASSIUM (test code=K) 3.9 mmol/L 3.5-5.1 CHLORIDE (test code=CL) 100.0 mmol/L 98-107 CARBON DIOXIDE (test code=CO2) 30.0 mmol/L 21-32 ANION GAP (test code=GAP) 11.9 10-20 GLUCOSE (test code=GLU) 98 mg/dL 74-106 BLOOD UREA NITROGEN (test code=BUN) 22 mg/dL 7-18 GLOMERULAR FILTRATION RATE (test code=GFR) 16 mL/min >=60 Estimated GFR by using Modified MDRD formula.Chronic kidney disease is defined as either kidney damageor GFR <60 mL/min/1.73 m2 for >3 months. CREATININE (test code=CREAT) 2.80 mg/dL 0.55-1.02 Note change in reference range due to change in reagent. BUN/CREATININE RATIO (test code=BUN/CREA) 7.9 10-20 CALCIUM (test code=CA) 7.6 mg/dL 8.5-10.1 [id number] 05:21:00* Test Item Value Reference Range Comments MAGNESIUM (test code=MAG) 1.5 mg/dL 1.8-2.4 PARATHYROID HORMONE [id number] 05:21:00* Test Item Value Reference Range Comments PARATHYROID HORMONE INTACT (test code=PARAI) pgram/mL 8.4-88 BASIC METABOLIC [id number] 05:15:00* Test Item Value Reference Range Comments SODIUM (test code=NA) 138 mmol/L 136-145 POTASSIUM (test code=K) 3.9 mmol/L 3.5-5.1 CHLORIDE (test code=CL) 100.0 mmol/L 98-107 CARBON DIOXIDE (test code=CO2) mmol/L 21-32 ANION GAP (test code=GAP) 10-20 GLUCOSE (test code=GLU) mg/dL 74-106 BLOOD UREA NITROGEN (test code=BUN) mg/dL 7-18 GLOMERULAR FILTRATION RATE (test code=GFR) mL/min >=60 CREATININE (test code=CREAT) mg/dL 0.55-1.02 BUN/CREATININE RATIO (test code=BUN/CREA) 10-20 CALCIUM (test code=CA) mg/dL 8.5-10.1 [id number] 05:15:00* Test Item Value Reference Range Comments MAGNESIUM (test code=MAG) mg/dL 1.8-2.4 PARATHYROID HORMONE [id number] 05:15:00* Test Item Value Reference Range Comments PARATHYROID HORMONE INTACT (test code=PARAI) pgram/mL 8.4-88 CBC W/AUTO [id number] 05:09:00* Test Item Value Reference Range Comments WHITE BLOOD CELL (test code=WBC) 9.2 K/mm3 4.5-12.5 RED BLOOD CELL (test code=RBC) 2.56 mill/mm3 3.7-5.2 HEMOGLOBIN (test code=HGB) 7.9 gram/dL 11.5-15.5 HEMATOCRIT (test code=HCT) 23.9 % 36.0-46.0 MEAN CELL VOLUME (test code=MCV) 93.4 fL 80-98 MEAN CELL HGB (test code=MCH) 30.9 picogram 27.0-33.0 MEAN CELL HGB CONCETRATION (test code=MCHC) 33.1 gram/dL 33.0-36.0 RED CELL DISTRIBUTION WIDTH (test code=RDW) 15.6 % 11.6-16.2 RED CELL DISTRIBUTION WIDTH SD (test code=RDW-SD) 52.8 fL 37.0-51.0 PLATELET COUNT (test code=PLT) 157 K/mm3 150-450 MEAN PLATELET VOLUME (test code=MPV) 11.9 fL 6.7-11.0 NEUTROPHIL % (test code=NT%) 68.7 % 39.0-69.0 IMMATURE GRANULOCYTE % (test code=IG%) 1.5 % 0.0-5.0 LYMPHOCYTE % (test code=LY%) 12.6 % 25.0-55.0 MONOCYTE % (test code=MO%) 15.9 % 0.0-10.0 EOSINOPHIL % (test code=EO%) 0.9 % 0.0-5.0 BASOPHIL % (test code=BA%) 0.4 % 0.0-1.0 NUCLEATED RBC % (test code=NRBC%) 0.0 % 0-0 NEUTROPHIL # (test code=NT#) 6.35 K/mm3 1.8-7.7 IMMATURE GRANULOCYTE # (test code=IG#) 0.14 x10 3/uL 0-0.03 LYMPHOCYTE # (test code=LY#) 1.16 K/mm3 1.0-5.0 MONOCYTE # (test code=MO#) 1.47 K/mm3 0-0.8 EOSINOPHIL # (test code=EO#) 0.08 K/mm3 0.0-0.5 BASOPHIL # (test code=BA#) 0.04 K/mm3 0.0-0.2 NUCLEATED RBC # (test code=NRBC#) 0.00 K/mm3 0.0-0.1 MANUAL DIFF REQUIRED (test code=MDIFF) NO BASIC METABOLIC [id number] 23:22:00* Test Item Value Reference Range Comments SODIUM (test code=NA) 139 mmol/L 136-145 POTASSIUM (test code=K) 3.8 mmol/L 3.5-5.1 CHLORIDE (test code=CL) 103.0 mmol/L 98-107 CARBON DIOXIDE (test code=CO2) 29.0 mmol/L 21-32 ANION GAP (test code=GAP) 10.8 10-20 GLUCOSE (test code=GLU) 97 mg/dL 74-106 BLOOD UREA NITROGEN (test code=BUN) 19 mg/dL 7-18 GLOMERULAR FILTRATION RATE (test code=GFR) 18 mL/min >=60 Estimated GFR by using Modified MDRD formula.Chronic kidney disease is defined as either kidney damageor GFR <60 mL/min/1.73 m2 for >3 months. CREATININE (test code=CREAT) 2.50 mg/dL 0.55-1.02 Note change in reference range due to change in reagent. BUN/CREATININE RATIO (test code=BUN/CREA) 7.7 10-20 CALCIUM (test code=CA) 7.5 mg/dL 8.5-10.1 TORY [id number] TO DRAW AT 1920TO EARLY TO DRAW RIGHT NOW CAUSE PT IS AT DIALYSIS . BASIC METABOLIC [id number] 23:17:00* Test Item Value Reference Range Comments SODIUM (test code=NA) 139 mmol/L 136-145 POTASSIUM (test code=K) 3.8 mmol/L 3.5-5.1 CHLORIDE (test code=CL) 103.0 mmol/L 98-107 CARBON DIOXIDE (test code=CO2) mmol/L 21-32 ANION GAP (test code=GAP) 10-20 GLUCOSE (test code=GLU) mg/dL 74-106 BLOOD UREA NITROGEN (test code=BUN) mg/dL 7-18 GLOMERULAR FILTRATION RATE (test code=GFR) mL/min >=60 CREATININE (test code=CREAT) mg/dL 0.55-1.02 BUN/CREATININE RATIO (test code=BUN/CREA) 10-20 CALCIUM (test code=CA) mg/dL 8.5-10.1 RN [id number] TO DRAW AT 1920TO EARLY TO DRAW RIGHT NOW CAUSE PT IS AT DIALYSIS . [id number] 20:48:00* Test Item Value Reference Range Comments GLUBED (test code=GLUBED) 99 mg/dL 74-106 Performed by certified resaw operator at [facility] [id number] 18:14:00* Test Item Value Reference Range Comments GLUBED (test code=GLUBED) 93 mg/dL 74-106 Performed by certified resaw operator at [facility] [id number] 13:13:00* Test Item Value Reference Range Comments GLUBED (test code=GLUBED) 93 mg/dL 74-106 Performed by certified resaw operator at [facility] [id number] 00:02:00* Test Item Value Reference Range Comments GLUBED (test code=GLUBED) 91 mg/dL 74-106 Performed by certified resaw operator at [facility] [id number] 22:17:00* Test Item Value Reference Range Comments GLUBED (test code=GLUBED) 83 mg/dL 74-106 Performed by certified resaw operator at [facility] [id number] 12:35:00* Test Item Value Reference Range Comments GLUBED (test code=GLUBED) 99 mg/dL 74-106 Performed by certified resaw operator at [facility] [id number] 10:29:00* Test Item Value Reference Range Comments GLUBED (test code=GLUBED) 89 mg/dL 74-106 Performed by certified resaw operator at [facility] BASIC METABOLIC [id number] 05:51:00* Test Item Value Reference Range Comments SODIUM (test code=NA) 139 mmol/L 136-145 POTASSIUM (test code=K) 3.8 mmol/L 3.5-5.1 CHLORIDE (test code=CL) 102.0 mmol/L 98-107 CARBON DIOXIDE (test code=CO2) 31.0 mmol/L 21-32 ANION GAP (test code=GAP) 9.8 10-20 GLUCOSE (test code=GLU) 88 mg/dL 74-106 BLOOD UREA NITROGEN (test code=BUN) 21 mg/dL 7-18 GLOMERULAR FILTRATION RATE (test code=GFR) 16 mL/min >=60 Estimated GFR by using Modified MDRD formula.Chronic kidney disease is defined as either kidney damageor GFR <60 mL/min/1.73 m2 for >3 months. CREATININE (test code=CREAT) 2.80 mg/dL 0.55-1.02 Note change in reference range due to change in reagent. BUN/CREATININE RATIO (test code=BUN/CREA) 7.5 10-20 CALCIUM (test code=CA) 7.9 mg/dL 8.5-10.1 BASIC METABOLIC [id number] 05:46:00* Test Item Value Reference Range Comments SODIUM (test code=NA) 139 mmol/L 136-145 POTASSIUM (test code=K) 3.8 mmol/L 3.5-5.1 CHLORIDE (test code=CL) 102.0 mmol/L 98-107 CARBON DIOXIDE (test code=CO2) mmol/L 21-32 ANION GAP (test code=GAP) 10-20 GLUCOSE (test code=GLU) mg/dL 74-106 BLOOD UREA NITROGEN (test code=BUN) mg/dL 7-18 GLOMERULAR FILTRATION RATE (test code=GFR) mL/min >=60 CREATININE (test code=CREAT) mg/dL 0.55-1.02 BUN/CREATININE RATIO (test code=BUN/CREA) 10-20 CALCIUM (test code=CA) mg/dL 8.5-10.1 CBC W/O [id number] 05:31:00* Test Item Value Reference Range Comments WHITE BLOOD CELL (test code=WBC) 8.7 K/mm3 4.5-12.5 RED BLOOD CELL (test code=RBC) 2.87 mill/mm3 3.7-5.2 HEMOGLOBIN (test code=HGB) 8.8 gram/dL 11.5-15.5 HEMATOCRIT (test code=HCT) 26.7 % 36.0-46.0 MEAN CELL VOLUME (test code=MCV) 93.0 fL 80-98 MEAN CELL HGB (test code=MCH) 30.7 picogram 27.0-33.0 MEAN CELL HGB CONCETRATION (test code=MCHC) 33.0 gram/dL 33.0-36.0 RED CELL DISTRIBUTION WIDTH (test code=RDW) 16.4 % 11.6-16.2 PLATELET COUNT (test code=PLT) 127 K/mm3 150-450 MEAN PLATELET VOLUME (test code=MPV) 12.7 fL 6.7-11.0 [id number] 18:06:00* Test Item Value Reference Range Comments GLUBED (test code=GLUBED) 66 mg/dL 74-106 Performed by certified resaw operator at [facility] [id number] 16:38:00* Test Item Value Reference Range Comments GLUBED (test code=GLUBED) 114 mg/dL 74-106 Performed by certified resaw operator at [facility] [id number] 14:38:00* Test Item Value Reference Range Comments GLUBED (test code=GLUBED) 65 mg/dL 74-106 Performed by certified resaw operator at [facility] VENOUS BLOOD [id number] 09:35:00* Test Item Value Reference Range Comments VENOUS BLOOD GAS PH (test code=PHV) 7.38 7.30-7.40 VENOUS BLOOD GAS PCO2 (test code=PCO2V) 31.1 mm Hg 39.0-51.0 VENOUS BLOOD GAS PO2 (test code=PO2V) 68.2 mm Hg 30.0-50.0 VBG HCO3 (test code=HCO3V) 18.1 mmol/L 17.0-30.0 VBG BASE EXCESS (test code=SIVAKUMAR) -6.2 mmol/L -5.0-5.0 Results called to and read back by Bala 03:40 - 12/09/2018; by [facility] VENOUS BLOOD GAS O2 SAT. (test code=O2SATV) 93 % 94-98 VENOUS BLOOD GAS FIO2 (test code=FIO2V) 100.0 PT. HGB (test code=PHGBVBG) 9.6 gram/dL 11.5-15.5 HEMATOCRIT (test code=HCT/VBG) 28 % 42-52 HGB O2 SAT (test code=HBOSAT) 92.3 % 94.00-98.00 CARBOXYHEMOGLOBIN (test code=HOHGBT) 0.3 %totalHg 0.5-1.5 Results called to and read back by Bala 03:40 - 12/09/2018; by [facility] METHEMOGLOBIN (test code=METHGB) 0.8 % 0.0-1.50 - XR CHEST 1 [id number] 08:12:00 FAX: Renetta Lopez NP [phone] [place]: St: [facility] FAX: Marco A Caruso [phone] Name: MARIE LAWRENCE [facility] : 1930 Age/S: 88/F [address] [facility] Unit #: [id number] Loc: V.[address] [place] [address] Phys: Renetta Lopez NP Acct: [id number] Dis Date: Status: ADM IN PHONE #: [phone] Exam Date: 12/18/201817 FAX #: [phone] Reason: sob EXAMS: CPT CODE: [id number] XR CHEST 1 V [id number] REASON FOR EXAM: sob Exam Order Date: 12/18/2018 5:00 AM Ordering Navdeep: Renetta Lopez NP PROCEDURE: - XR CHEST 1 V COMPARISON: AP chest x-ray the previous morning FINDINGS: There are bibasilar opacities that obscure the diaphragm, worse on the right side. These opacities are grossly unchanged from the previous exam when accounting for potential differences in patient positioning. Bilateral IJ central lines are stable in position. Cardiomediastinal silhouette is prominent but unchanged. Degenerative changes of the spine and decreased bone mineralization and other musculoskeletal findings are unchanged. IMPRESSION: No significant change from prior exam. Bibasilar opacities may represent any combination of pleural effusions, atelectasis, and consolidation. at 0812 Reported and signed by: Noah Olivia MD CC: Renetta Lopez NP; Marco A Caruso MD Technologist: ORACIO CASTLE, (R); Shelbie Lam(R) Trnscrd Date/Time/By: 12/18/2018 (811) : By: [email or web address] Orig Print D/T: S: 12/18/2018 (814) PAGE 1 Signed Report [id number] 06:45:00* Test Item Value Reference Range Comments GLUBED (test code=GLUBED) 80 mg/dL 74-106 Performed by certified resaw operator at [facility] COMPREHENSIVE METABOLIC [id number] 06:32:00* Test Item Value Reference Range Comments SODIUM (test code=NA) 137 mmol/L 136-145 POTASSIUM (test code=K) 3.8 mmol/L 3.5-5.1 CHLORIDE (test code=CL) 101.0 mmol/L 98-107 CARBON DIOXIDE (test code=CO2) 27.0 mmol/L 21-32 ANION GAP (test code=GAP) 12.8 10-20 GLUCOSE (test code=GLU) 87 mg/dL 74-106 BLOOD UREA NITROGEN (test code=BUN) 40 mg/dL 7-18 RESULT VERIFIED BY REPEAT ANALYSIS GLOMERULAR FILTRATION RATE (test code=GFR) 11 mL/min >=60 Estimated GFR by using Modified MDRD formula.Chronic kidney disease is defined as either kidney damageor GFR <60 mL/min/1.73 m2 for >3 months. CREATININE (test code=CREAT) 4.00 mg/dL 0.55-1.02 Note change in reference range due to change in reagent. BUN/CREATININE RATIO (test code=BUN/CREA) 10.0 10-20 TOTAL PROTEIN (test code=PROT) 4.6 gram/dL 6.4-8.2 ALBUMIN (test code=ALB) 2.4 g/dL 3.4-5.0 GLOBULIN (test code=GLOB) 2.2 gram/dL 2.7-4.2 ALBUMIN/GLOBULIN RATIO (test code=A/G) 1.1 0.75-1.50 CALCIUM (test code=CA) 7.3 mg/dL 8.5-10.1 BILIRUBIN TOTAL (test code=BILT) 4.00 mg/dL 0.0-1.0 SGOT/AST (test code=AST) 63 IUnit/L 15-37 SGPT/ALT (test code=ALT) 38 IUnit/L 12-78 ALKALINE PHOSPHATASE TOTAL (test code=ALKP) 142 IUnit/L 45-117 Note change in reference range due to change in reagent. [id number] 06:32:00* Test Item Value Reference Range Comments PHOSPHORUS (test code=PHOS) 4.6 mg/dL 2.5-4.9 [id number] 06:32:00* Test Item Value Reference Range Comments MAGNESIUM (test code=MAG) 2.0 mg/dL 1.8-2.4 CALCIUM [id number] 06:32:00* Test Item Value Reference Range Comments CALCIUM IONIZED (test code=JONNATHAN) 1.09 mmol/L 1.12-1.32 B-TYPE NATRIURETIC [id number] 06:30:00* Test Item Value Reference Range Comments B-TYPE NATRIURETIC PEPTIDE (test code=BNP) 2571.72 pgram/mL 0-100 CBC W/MANUAL [id number] 06:30:00* Test Item Value Reference Range Comments WHITE BLOOD CELL (test code=WBC) 10.2 K/mm3 4.5-12.5 RED BLOOD CELL (test code=RBC) 2.87 mill/mm3 3.7-5.2 HEMOGLOBIN (test code=HGB) 8.7 gram/dL 11.5-15.5 HEMATOCRIT (test code=HCT) 26.2 % 36.0-46.0 MEAN CELL VOLUME (test code=MCV) 91.3 fL 80-98 MEAN CELL HGB (test code=MCH) 30.3 picogram 27.0-33.0 MEAN CELL HGB CONCETRATION (test code=MCHC) 33.2 gram/dL 33.0-36.0 RED CELL DISTRIBUTION WIDTH (test code=RDW) 16.1 % 11.6-16.2 RED CELL DISTRIBUTION WIDTH SD (test code=RDW-SD) 52.2 fL 37.0-51.0 PLATELET COUNT (test code=PLT) 119 K/mm3 150-450 MEAN PLATELET VOLUME (test code=MPV) 13.3 fL 6.7-11.0 IMMATURE GRANULOCYTE % (test code=IG%) 3.3 % 0.0-5.0 NUCLEATED RBC % (test code=NRBC%) 0.0 % 0-0 NEUTROPHIL # (test code=NT#) 7.09 K/mm3 1.8-7.7 IMMATURE GRANULOCYTE # (test code=IG#) 0.33 x10 3/uL 0-0.03 LYMPHOCYTE # (test code=LY#) 0.98 K/mm3 1.0-5.0 MONOCYTE # (test code=MO#) 1.43 K/mm3 0-0.8 EOSINOPHIL # (test code=EO#) 0.30 K/mm3 0.0-0.5 BASOPHIL # (test code=BA#) 0.02 K/mm3 0.0-0.2 NUCLEATED RBC # (test code=NRBC#) 0.00 K/mm3 0.0-0.1 MANUAL DIFF REQUIRED (test code=MDIFF) YES STAIN ACCEPTABILITY (test code=STN ACCEPTABLE) STAIN ACCEPTABLE TOTAL CELLS COUNTED (test code=TCC) 114 #CELLS SEGMENTED NEUTROPHILS (test code=SEG) 78.1 % 39-69 BAND NEUTROPHIL (test code=BAND) 0 % 0-10 LYMPHOCYTE (test code=LYMPH) 7.0 % 25-55 REACTIVE LYMPH (test code=RELYMPH) 1.8 % MONOCYTE (test code=MON) 9.6 % 0-10 EOSINOPHIL (test code=EOS) 2.6 % 0.0-5.0 BASOPHIL (test code=BASO) 0.9 % 0-1.0 METAMYELOCYTE (test code=META) 0 % 0-0 MYELOCYTE (test code=MYELO) 0 % 0.0-0.0 PROMYELOCYTE (test code=PROM) 0 % 0-0 ANISOCYTOSIS (test code=ANISO) 1+ MACROCYTOSIS (test code=MACR) 1+ PLATELET ESTIMATE (test code=PLTEST) DECREASED PLATELET MORPHOLOGY (test code=PLTMORPH) NORMAL IMMATURE FORMS (test code=IMMAT) 0 % 0-0 COMPREHENSIVE METABOLIC [id number] 06:05:00* Test Item Value Reference Range Comments SODIUM (test code=NA) 137 mmol/L 136-145 POTASSIUM (test code=K) 3.8 mmol/L 3.5-5.1 CHLORIDE (test code=CL) 101.0 mmol/L 98-107 CARBON DIOXIDE (test code=CO2) mmol/L 21-32 ANION GAP (test code=GAP) 10-20 GLUCOSE (test code=GLU) mg/dL 74-106 BLOOD UREA NITROGEN (test code=BUN) mg/dL 7-18 GLOMERULAR FILTRATION RATE (test code=GFR) mL/min >=60 CREATININE (test code=CREAT) mg/dL 0.55-1.02 BUN/CREATININE RATIO (test code=BUN/CREA) 10-20 TOTAL PROTEIN (test code=PROT) gram/dL 6.4-8.2 ALBUMIN (test code=ALB) g/dL 3.4-5.0 GLOBULIN (test code=GLOB) gram/dL 2.7-4.2 ALBUMIN/GLOBULIN RATIO (test code=A/G) 0.75-1.50 CALCIUM (test code=CA) mg/dL 8.5-10.1 BILIRUBIN TOTAL (test code=BILT) mg/dL 0.0-1.0 SGOT/AST (test code=AST) IUnit/L 15-37 SGPT/ALT (test code=ALT) IUnit/L 12-78 ALKALINE PHOSPHATASE TOTAL (test code=ALKP) IUnit/L 45-117 [id number] 06:05:00* Test Item Value Reference Range Comments PHOSPHORUS (test code=PHOS) mg/dL 2.5-4.9 [id number] 06:05:00* Test Item Value Reference Range Comments MAGNESIUM (test code=MAG) mg/dL 1.8-2.4 CALCIUM [id number] 06:05:00* Test Item Value Reference Range Comments CALCIUM IONIZED (test code=JONNATHAN) 1.09 mmol/L 1.12-1.32 COMPREHENSIVE METABOLIC [id number] 05:59:00* Test Item Value Reference Range Comments SODIUM (test code=NA) mmol/L 136-145 POTASSIUM (test code=K) mmol/L 3.5-5.1 CHLORIDE (test code=CL) mmol/L 98-107 CARBON DIOXIDE (test code=CO2) mmol/L 21-32 ANION GAP (test code=GAP) 10-20 GLUCOSE (test code=GLU) mg/dL 74-106 BLOOD UREA NITROGEN (test code=BUN) mg/dL 7-18 GLOMERULAR FILTRATION RATE (test code=GFR) mL/min >=60 CREATININE (test code=CREAT) mg/dL 0.55-1.02 BUN/CREATININE RATIO (test code=BUN/CREA) 10-20 TOTAL PROTEIN (test code=PROT) gram/dL 6.4-8.2 ALBUMIN (test code=ALB) g/dL 3.4-5.0 GLOBULIN (test code=GLOB) gram/dL 2.7-4.2 ALBUMIN/GLOBULIN RATIO (test code=A/G) 0.75-1.50 CALCIUM (test code=CA) mg/dL 8.5-10.1 BILIRUBIN TOTAL (test code=BILT) mg/dL 0.0-1.0 SGOT/AST (test code=AST) IUnit/L 15-37 SGPT/ALT (test code=ALT) IUnit/L 12-78 ALKALINE PHOSPHATASE TOTAL (test code=ALKP) IUnit/L 45-117 [id number] 05:59:00* Test Item Value Reference Range Comments PHOSPHORUS (test code=PHOS) mg/dL 2.5-4.9 [id number] 05:59:00* Test Item Value Reference Range Comments MAGNESIUM (test code=MAG) mg/dL 1.8-2.4 CALCIUM [id number] 05:59:00* Test Item Value Reference Range Comments CALCIUM IONIZED (test code=JONNATHAN) 1.09 mmol/L 1.12-1.32 CBC W/MANUAL [id number] 05:26:00* Test Item Value Reference Range Comments WHITE BLOOD CELL (test code=WBC) 10.2 K/mm3 4.5-12.5 RED BLOOD CELL (test code=RBC) 2.87 mill/mm3 3.7-5.2 HEMOGLOBIN (test code=HGB) 8.7 gram/dL 11.5-15.5 HEMATOCRIT (test code=HCT) 26.2 % 36.0-46.0 MEAN CELL VOLUME (test code=MCV) 91.3 fL 80-98 MEAN CELL HGB (test code=MCH) 30.3 picogram 27.0-33.0 MEAN CELL HGB CONCETRATION (test code=MCHC) 33.2 gram/dL 33.0-36.0 RED CELL DISTRIBUTION WIDTH (test code=RDW) 16.1 % 11.6-16.2 RED CELL DISTRIBUTION WIDTH SD (test code=RDW-SD) 52.2 fL 37.0-51.0 PLATELET COUNT (test code=PLT) 119 K/mm3 150-450 MEAN PLATELET VOLUME (test code=MPV) 13.3 fL 6.7-11.0 IMMATURE GRANULOCYTE % (test code=IG%) 3.3 % 0.0-5.0 NUCLEATED RBC % (test code=NRBC%) 0.0 % 0-0 NEUTROPHIL # (test code=NT#) 7.09 K/mm3 1.8-7.7 IMMATURE GRANULOCYTE # (test code=IG#) 0.33 x10 3/uL 0-0.03 LYMPHOCYTE # (test code=LY#) 0.98 K/mm3 1.0-5.0 MONOCYTE # (test code=MO#) 1.43 K/mm3 0-0.8 EOSINOPHIL # (test code=EO#) 0.30 K/mm3 0.0-0.5 BASOPHIL # (test code=BA#) 0.02 K/mm3 0.0-0.2 NUCLEATED RBC # (test code=NRBC#) 0.00 K/mm3 0.0-0.1 MANUAL DIFF REQUIRED (test code=MDIFF) YES STAIN ACCEPTABILITY (test code=STN ACCEPTABLE) TOTAL CELLS COUNTED (test code=TCC) #CELLS SEGMENTED NEUTROPHILS (test code=SEG) % 39-69 LYMPHOCYTE (test code=LYMPH) % 25-55 MONOCYTE (test code=MON) % 0-10 EOSINOPHIL (test code=EOS) % 0.0-5.0 CABOT RINGS (test code=CAB) MORPHOLOGY COMMENT (test code=MOC) PLATELET ESTIMATE (test code=PLTEST) PLATELET MORPHOLOGY (test code=PLTMORPH) CBC W/MANUAL [id number] 05:26:00* Test Item Value Reference Range Comments WHITE BLOOD CELL (test code=WBC) 10.2 K/mm3 4.5-12.5 RED BLOOD CELL (test code=RBC) 2.87 mill/mm3 3.7-5.2 HEMOGLOBIN (test code=HGB) 8.7 gram/dL 11.5-15.5 HEMATOCRIT (test code=HCT) 26.2 % 36.0-46.0 MEAN CELL VOLUME (test code=MCV) 91.3 fL 80-98 MEAN CELL HGB (test code=MCH) 30.3 picogram 27.0-33.0 MEAN CELL HGB CONCETRATION (test code=MCHC) 33.2 gram/dL 33.0-36.0 RED CELL DISTRIBUTION WIDTH (test code=RDW) 16.1 % 11.6-16.2 RED CELL DISTRIBUTION WIDTH SD (test code=RDW-SD) 52.2 fL 37.0-51.0 PLATELET COUNT (test code=PLT) 119 K/mm3 150-450 MEAN PLATELET VOLUME (test code=MPV) 13.3 fL 6.7-11.0 IMMATURE GRANULOCYTE % (test code=IG%) 3.3 % 0.0-5.0 NUCLEATED RBC % (test code=NRBC%) 0.0 % 0-0 NEUTROPHIL # (test code=NT#) 7.09 K/mm3 1.8-7.7 IMMATURE GRANULOCYTE # (test code=IG#) 0.33 x10 3/uL 0-0.03 LYMPHOCYTE # (test code=LY#) 0.98 K/mm3 1.0-5.0 MONOCYTE # (test code=MO#) 1.43 K/mm3 0-0.8 EOSINOPHIL # (test code=EO#) 0.30 K/mm3 0.0-0.5 BASOPHIL # (test code=BA#) 0.02 K/mm3 0.0-0.2 NUCLEATED RBC # (test code=NRBC#) 0.00 K/mm3 0.0-0.1 MANUAL DIFF REQUIRED (test code=MDIFF) YES STAIN ACCEPTABILITY (test code=STN ACCEPTABLE) TOTAL CELLS COUNTED (test code=TCC) #CELLS SEGMENTED NEUTROPHILS (test code=SEG) % 39-69 LYMPHOCYTE (test code=LYMPH) % 25-55 MONOCYTE (test code=MON) % 0-10 EOSINOPHIL (test code=EOS) % 0.0-5.0 CABOT RINGS (test code=CAB) MORPHOLOGY COMMENT (test code=MOC) PLATELET ESTIMATE (test code=PLTEST) PLATELET MORPHOLOGY (test code=PLTMORPH) CBC W/MANUAL [id number] 05:26:00* Test Item Value Reference Range Comments WHITE BLOOD CELL (test code=WBC) 10.2 K/mm3 4.5-12.5 RED BLOOD CELL (test code=RBC) 2.87 mill/mm3 3.7-5.2 HEMOGLOBIN (test code=HGB) 8.7 gram/dL 11.5-15.5 HEMATOCRIT (test code=HCT) 26.2 % 36.0-46.0 MEAN CELL VOLUME (test code=MCV) 91.3 fL 80-98 MEAN CELL HGB (test code=MCH) 30.3 picogram 27.0-33.0 MEAN CELL HGB CONCETRATION (test code=MCHC) 33.2 gram/dL 33.0-36.0 RED CELL DISTRIBUTION WIDTH (test code=RDW) 16.1 % 11.6-16.2 RED CELL DISTRIBUTION WIDTH SD (test code=RDW-SD) 52.2 fL 37.0-51.0 PLATELET COUNT (test code=PLT) 119 K/mm3 150-450 MEAN PLATELET VOLUME (test code=MPV) 13.3 fL 6.7-11.0 IMMATURE GRANULOCYTE % (test code=IG%) 3.3 % 0.0-5.0 NUCLEATED RBC % (test code=NRBC%) 0.0 % 0-0 NEUTROPHIL # (test code=NT#) 7.09 K/mm3 1.8-7.7 IMMATURE GRANULOCYTE # (test code=IG#) 0.33 x10 3/uL 0-0.03 LYMPHOCYTE # (test code=LY#) 0.98 K/mm3 1.0-5.0 MONOCYTE # (test code=MO#) 1.43 K/mm3 0-0.8 EOSINOPHIL # (test code=EO#) 0.30 K/mm3 0.0-0.5 BASOPHIL # (test code=BA#) 0.02 K/mm3 0.0-0.2 NUCLEATED RBC # (test code=NRBC#) 0.00 K/mm3 0.0-0.1 MANUAL DIFF REQUIRED (test code=MDIFF) YES STAIN ACCEPTABILITY (test code=STN ACCEPTABLE) TOTAL CELLS COUNTED (test code=TCC) #CELLS SEGMENTED NEUTROPHILS (test code=SEG) % 39-69 LYMPHOCYTE (test code=LYMPH) % 25-55 MONOCYTE (test code=MON) % 0-10 EOSINOPHIL (test code=EOS) % 0.0-5.0 MORPHOLOGY COMMENT (test code=MOC) PLATELET ESTIMATE (test code=PLTEST) PLATELET MORPHOLOGY (test code=PLTMORPH) CBC W/MANUAL [id number] 05:26:00* Test Item Value Reference Range Comments WHITE BLOOD CELL (test code=WBC) 10.2 K/mm3 4.5-12.5 RED BLOOD CELL (test code=RBC) 2.87 mill/mm3 3.7-5.2 HEMOGLOBIN (test code=HGB) 8.7 gram/dL 11.5-15.5 HEMATOCRIT (test code=HCT) 26.2 % 36.0-46.0 MEAN CELL VOLUME (test code=MCV) 91.3 fL 80-98 MEAN CELL HGB (test code=MCH) 30.3 picogram 27.0-33.0 MEAN CELL HGB CONCETRATION (test code=MCHC) 33.2 gram/dL 33.0-36.0 RED CELL DISTRIBUTION WIDTH (test code=RDW) 16.1 % 11.6-16.2 RED CELL DISTRIBUTION WIDTH SD (test code=RDW-SD) 52.2 fL 37.0-51.0 PLATELET COUNT (test code=PLT) 119 K/mm3 150-450 MEAN PLATELET VOLUME (test code=MPV) 13.3 fL 6.7-11.0 IMMATURE GRANULOCYTE % (test code=IG%) 3.3 % 0.0-5.0 NUCLEATED RBC % (test code=NRBC%) 0.0 % 0-0 NEUTROPHIL # (test code=NT#) 7.09 K/mm3 1.8-7.7 IMMATURE GRANULOCYTE # (test code=IG#) 0.33 x10 3/uL 0-0.03 LYMPHOCYTE # (test code=LY#) 0.98 K/mm3 1.0-5.0 MONOCYTE # (test code=MO#) 1.43 K/mm3 0-0.8 EOSINOPHIL # (test code=EO#) 0.30 K/mm3 0.0-0.5 BASOPHIL # (test code=BA#) 0.02 K/mm3 0.0-0.2 NUCLEATED RBC # (test code=NRBC#) 0.00 K/mm3 0.0-0.1 MANUAL DIFF REQUIRED (test code=MDIFF) YES STAIN ACCEPTABILITY (test code=STN ACCEPTABLE) TOTAL CELLS COUNTED (test code=TCC) #CELLS SEGMENTED NEUTROPHILS (test code=SEG) % 39-69 LYMPHOCYTE (test code=LYMPH) % 25-55 MONOCYTE (test code=MON) % 0-10 MORPHOLOGY COMMENT (test code=MOC) PLATELET ESTIMATE (test code=PLTEST) PLATELET MORPHOLOGY (test code=PLTMORPH) CBC W/MANUAL [id number] 05:26:00* Test Item Value Reference Range Comments WHITE BLOOD CELL (test code=WBC) 10.2 K/mm3 4.5-12.5 RED BLOOD CELL (test code=RBC) 2.87 mill/mm3 3.7-5.2 HEMOGLOBIN (test code=HGB) 8.7 gram/dL 11.5-15.5 HEMATOCRIT (test code=HCT) 26.2 % 36.0-46.0 MEAN CELL VOLUME (test code=MCV) 91.3 fL 80-98 MEAN CELL HGB (test code=MCH) 30.3 picogram 27.0-33.0 MEAN CELL HGB CONCETRATION (test code=MCHC) 33.2 gram/dL 33.0-36.0 RED CELL DISTRIBUTION WIDTH (test code=RDW) 16.1 % 11.6-16.2 RED CELL DISTRIBUTION WIDTH SD (test code=RDW-SD) 52.2 fL 37.0-51.0 PLATELET COUNT (test code=PLT) 119 K/mm3 150-450 MEAN PLATELET VOLUME (test code=MPV) 13.3 fL 6.7-11.0 IMMATURE GRANULOCYTE % (test code=IG%) 3.3 % 0.0-5.0 NUCLEATED RBC % (test code=NRBC%) 0.0 % 0-0 NEUTROPHIL # (test code=NT#) 7.09 K/mm3 1.8-7.7 IMMATURE GRANULOCYTE # (test code=IG#) 0.33 x10 3/uL 0-0.03 LYMPHOCYTE # (test code=LY#) 0.98 K/mm3 1.0-5.0 MONOCYTE # (test code=MO#) 1.43 K/mm3 0-0.8 EOSINOPHIL # (test code=EO#) 0.30 K/mm3 0.0-0.5 BASOPHIL # (test code=BA#) 0.02 K/mm3 0.0-0.2 NUCLEATED RBC # (test code=NRBC#) 0.00 K/mm3 0.0-0.1 MANUAL DIFF REQUIRED (test code=MDIFF) YES STAIN ACCEPTABILITY (test code=STN ACCEPTABLE) TOTAL CELLS COUNTED (test code=TCC) #CELLS SEGMENTED NEUTROPHILS (test code=SEG) % 39-69 LYMPHOCYTE (test code=LYMPH) % 25-55 MONOCYTE (test code=MON) % 0-10 EOSINOPHIL (test code=EOS) % 0.0-5.0 CABOT RINGS (test code=CAB) MORPHOLOGY COMMENT (test code=MOC) PLATELET ESTIMATE (test code=PLTEST) PLATELET MORPHOLOGY (test code=PLTMORPH) [id number] 23:56:00* Test Item Value Reference Range Comments GLUBED (test code=GLUBED) 76 mg/dL 74-106 Performed by certified resaw operator at [facility] [id number] 20:46:00* Test Item Value Reference Range Comments GLUBED (test code=GLUBED) 62 mg/dL 74-106 Performed by certified resaw operator at [facility] - US ABDOMEN [id number] 17:59:00 Name: MARIE LAWRENCE [facility] : 1930 Age/S: 88 / F [address] [facility] Unit #: [id number] Loc: [place] [address] Phys: Teressa Strong MD Acct: [id number] Dis Date: Status: ADM IN PHONE #: [phone] Exam Date: 12/17/2018 7419 FAX #: [phone] Reason: hepatitis EXAMS: CPT CODE: [id number] US ABDOMEN COMPLETE 52654 REASON FOR EXAM: hepatitis EXAM ORDER DATE: 12/17/2018 11:18 AM Attending MFelton: Teressa Strong MD PROCEDURE: - US ABDOMEN COMPLETE FINDINGS: The liver is unremarkable. There is no evidence of focal mass identified. The pancreas is within normal limits. The right kidney measures 10.5 x 6.1 cm. The left kidney measures 9.7 x 4.4 cm. There is no evidence of hydronephrosis. There is no evidence of nephrolithiasis. The spleen measures 8.8 cm. The gallbladder is well distended with small gallstone.The common bile duct measures 0.4 cm. There is no evidence of ascites. The aorta and IVC are within normal limits. The portal vein is patent with hepatopetal flow IMPRESSION: Lobulated septated right renal cyst measuring 6.6 x 3.2 cm. 2.1 x 2 cm left renal cyst. Echogenic kidneys suggestive of chronic medical renal disease. Cholelithiasis Electronically Signed by Navdeep Smith on at 1759 Reported and signed by: Jose Alberto Smith M.D. CC: Marco A Caruso MD; Teressa Strong MD Technol ogist: Austyn Campbell Trnscb Date/Time: 12/17/2018 (1758) [email or web address] Orig Print D/T: S: 12/17/2018 (994) Probe: PAGE 1 Signed Re port [id number] 17:12:00* Test Item Value Reference Range Comments GLUBED (test code=GLUBED) 85 mg/dL 74-106 Performed by certified resaw operator at [facility] [id number] 15:50:00* Test Item Value Reference Range Comments GLUBED (test code=GLUBED) 65 mg/dL 74-106 Performed by certified resaw operator at [facility] URINALYSIS [id number] 13:03:00* Test Item Value Reference Range Comments UA COLOR (test code=COLU) DARK YELLOW YELLOW UA APPEARANCE (test code=APPU) CLOUDY CLEAR UA GLUCOSE DIPSTICK (test code=DGLUU) NEGATIVE mg/dL NEGATIVE UA BILIRUBIN DIPSTICK (test code=BILU) 2+ (Mod 2.0-4.0) mg/dL NEGATIVE UA KETONE DIPSTICK (test code=KETU) TRACE mg/dL NEGATIVE UA SPECIFIC GRAVITY (test code=SGU) 1.020 1.001-1.035 UA BLOOD DIPSTICK (test code=AMOL) 1.0 mg/dL (3+) mg/dL NEGATIVE UA PH DIPSTICK (test code=MARITZA) 8.5 5.0-8.0 UA PROTEIN DIPSTICK (test code=PROU) >=300 (3+) mg/dL NEGATIVE UA UROBILINIOGEN DIPSTICK (test code=URO) 1 mg/dL (1+) mg/dL NEGATIVE UA NITRITE DIPSTICK (test code=NILAM) POSITIVE NEGATIVE UA LEUKOCYTE ESTERASE W REFLEX (test code=LEUUR) 1+ Stephon/uL NEGATIVE UA WBC (test code=WBCU) >200 per HPF 0-5 UA RBC (test code=RBCU) 151-200 #/HPF 0-5 UA EPITHELIAL CELLS (test code=EPIU) MANY per HPF FEW UA BACTERIA (test code=BACU) MANY #/HPF NONE UA TRANSITIONAL CELLS (test code=TRANU) 11-20 per HPF Few [id number] 12:58:00* Test Item Value Reference Range Comments GLUBED (test code=GLUBED) 73 mg/dL 74-106 Performed by certified resaw operator at [facility] [id number] 10:52:00* Test Item Value Reference Range Comments LIPASE (test code=LIP) 396 U/L 73.0-393.0 - XR CHEST 1 [id number] 08:24:00 FAX: Renetta Lopez NP [phone] [place]: St: ADM FAX: Marco A Caruso [phone] Name: MARIE LAWRENCE [facility] : 1930 Age/S: 88/F [address] Unit #: [id number] Loc: [address] [place] [address] Phys: Renetta Lopez NP Acct: [id number] Dis Date: Status: ADM IN PHONE #: [phone] Exam Date: 12/17/2018 0802 FAX #: [phone] Reason: sob EXAMS: CPT CODE: [id number] XR CHEST 1 V 62766 CLINICAL HISTORY: Shortness of breath TECHNIQUE: AP chest x-ray COMPARISON: Previous day. IMPRESSION: Worsening small bilateral pleural effusion and basilar atelectasis/consolidation. Cardiomegaly. Right central venous catheter left hemodialysis catheter. at 0824 Reported and signed by: Lore Hastings D.O. CC: Renetta Lopez NP; Leesa Caruso MD Technologist: Jose Cochran RT(R) Trnscrd Date/Time/By: 12/17/2018 (823) : By: [email or web address] Orig Print D/T: S: 12/17/2018 (826) PAGE 1 Signed Report CBC W/MANUAL [id number] 06:48:00* Test Item Value Reference Range Comments WHITE BLOOD CELL (test code=WBC) 14.1 K/mm3 4.5-12.5 RED BLOOD CELL (test code=RBC) 3.11 mill/mm3 3.7-5.2 HEMOGLOBIN (test code=HGB) 9.4 gram/dL 11.5-15.5 HEMATOCRIT (test code=HCT) 27.7 % 36.0-46.0 MEAN CELL VOLUME (test code=MCV) 89.1 fL 80-98 MEAN CELL HGB (test code=MCH) 30.2 picogram 27.0-33.0 MEAN CELL HGB CONCETRATION (test code=MCHC) 33.9 gram/dL 33.0-36.0 RED CELL DISTRIBUTION WIDTH (test code=RDW) 15.5 % 11.6-16.2 RED CELL DISTRIBUTION WIDTH SD (test code=RDW-SD) 49.4 fL 37.0-51.0 PLATELET COUNT (test code=PLT) 99 K/mm3 150-450 RESULT VERIFIED BY REPEAT ANALYSIS MEAN PLATELET VOLUME (test code=MPV) 13.8 fL 6.7-11.0 IMMATURE GRANULOCYTE % (test code=IG%) 4.3 % 0.0-5.0 NUCLEATED RBC % (test code=NRBC%) 0.0 % 0-0 NEUTROPHIL # (test code=NT#) 10.40 K/mm3 1.8-7.7 IMMATURE GRANULOCYTE # (test code=IG#) 0.60 x10 3/uL 0-0.03 LYMPHOCYTE # (test code=LY#) 0.98 K/mm3 1.0-5.0 MONOCYTE # (test code=MO#) 1.78 K/mm3 0-0.8 EOSINOPHIL # (test code=EO#) 0.28 K/mm3 0.0-0.5 BASOPHIL # (test code=BA#) 0.04 K/mm3 0.0-0.2 NUCLEATED RBC # (test code=NRBC#) 0.00 K/mm3 0.0-0.1 MANUAL DIFF REQUIRED (test code=MDIFF) YES STAIN ACCEPTABILITY (test code=STN ACCEPTABLE) STAIN ACCEPTABLE TOTAL CELLS COUNTED (test code=TCC) 115 #CELLS SEGMENTED NEUTROPHILS (test code=SEG) 87.0 % 39-69 BAND NEUTROPHIL (test code=BAND) 0 % 0-10 LYMPHOCYTE (test code=LYMPH) 4.3 % 25-55 REACTIVE LYMPH (test code=RELYMPH) 0 % MONOCYTE (test code=MON) 5.2 % 0-10 EOSINOPHIL (test code=EOS) 3.5 % 0.0-5.0 BASOPHIL (test code=BASO) 0 % 0-1.0 METAMYELOCYTE (test code=META) 0 % 0-0 MYELOCYTE (test code=MYELO) 0 % 0.0-0.0 PROMYELOCYTE (test code=PROM) 0 % 0-0 POLYCHROMASIA (test code=POLC) 1+ ANISOCYTOSIS (test code=ANISO) 1+ MACROCYTOSIS (test code=MACR) 1+ PLATELET ESTIMATE (test code=PLTEST) ADEQUATE PLATELET MORPHOLOGY (test code=PLTMORPH) GIANT PLATELETS SEEN IMMATURE FORMS (test code=IMMAT) 0 % 0-0 PROTHROMBIN [id number] 06:00:00* Test Item Value Reference Range Comments PROTHROMBIN TIME PATIENT (test code=PTP) 14.7 seconds 9.0-14.0 INTERNATIONAL NORMAL RATIO (test code=INR) 1.3 0.8-1.2 The therapeutic range for oral anticoagulant therapy formost indications is an international normalized ratio (INR)of between 2.0 and 3.0. The recommended therapeutic INRrange for various clinical situations is listed below: Clinical Situation INR range Pulmonary e mbolism treatment (2.0-3.0)Venous thrombosis treatmentVenous thrombosis prophylaxis (high risk surgery)Prevention of systemic embolism from: Acute myocardial infarction Valvular heart disease Atrial fibrillation Mechanical prosthetic heart valves (2.5-3.5) IS PATIENT ON ANTICOAGULANTS? [id number] 05:29:00* Test Item Value Reference Range Comments GLUBED (test code=GLUBED) 78 mg/dL 74-106 Performed by certified resaw operator at [facility] PROCALCITONIN (PCT)2018-12-17 05:20:00* Test Item Value Reference Range Comments PROCALCITONIN (PCT) (test code=PROCAL) 15.80 ng/ml Concentration Interpretation (ng/mL) <0.51 Sepsis is not likely. Local bacterial infection is possible. (LOW RISK for progression to Sepsis) 0.51 - 2.00 Sepsis is possible, but other conditions are known to elevate PCT as well. (MODERATE RISK for progression to Sepsis) > 2.00 Sepsis is likely, unless other causes are known. (HIGH RISK for progression to Severe Sepsis or Septic Shock) 10.00 High likelihood of Severe Sepsis or Septic or higher Shock. *Increased PCT levels may not always be related to systemic bacterial infection.*Low PCT levels do not automatically exclude the presence of bacterial infection.*All results should be interpreted taking into account the patients history. BASIC METABOLIC [id number] 05:11:00* Test Item Value Reference Range Comments SODIUM (test code=NA) 140 mmol/L 136-145 POTASSIUM (test code=K) 3.4 mmol/L 3.5-5.1 CHLORIDE (test code=CL) 104.0 mmol/L 98-107 CARBON DIOXIDE (test code=CO2) 31.0 mmol/L 21-32 ANION GAP (test code=GAP) 8.4 10-20 GLUCOSE (test code=GLU) 77 mg/dL 74-106 BLOOD UREA NITROGEN (test code=BUN) 26 mg/dL 7-18 RESULT VERIFIED BY REPEAT ANALYSIS GLOMERULAR FILTRATION RATE (test code=GFR) 17 mL/min >=60 Estimated GFR by using Modified MDRD formula.Chronic kidney disease is defined as either kidney damageor GFR <60 mL/min/1.73 m2 for >3 months. CREATININE (test code=CREAT) 2.70 mg/dL 0.55-1.02 Note change in reference range due to change in reagent. BUN/CREATININE RATIO (test code=BUN/CREA) 9.6 10-20 CALCIUM (test code=CA) 7.5 mg/dL 8.5-10.1 HEPATIC FUNCTION [id number] 05:11:00* Test Item Value Reference Range Comments TOTAL PROTEIN (test code=PROT) 4.5 gram/dL 6.4-8.2 ALBUMIN (test code=ALB) 2.2 g/dL 3.4-5.0 GLOBULIN (test code=GLOB) 2.3 gram/dL 2.7-4.2 ALBUMIN/GLOBULIN RATIO (test code=A/G) 1.0 0.75-1.50 BILIRUBIN TOTAL (test code=BILT) 5.10 mg/dL 0.0-1.0 BILIRUBIN DIRECT (test code=BILD) 3.59 mg/dL 0.0-0.20 SGOT/AST (test code=AST) 85 IUnit/L 15-37 SGPT/ALT (test code=ALT) 47 IUnit/L 12-78 ALKALINE PHOSPHATASE TOTAL (test code=ALKP) 175 IUnit/L 45-117 Note change in reference range due to change in reagent. [id number] 05:11:00* Test Item Value Reference Range Comments PHOSPHORUS (test code=PHOS) 1.2 mg/dL 2.5-4.9 [id number] 05:11:00* Test Item Value Reference Range Comments MAGNESIUM (test code=MAG) 2.0 mg/dL 1.8-2.4 CALCIUM [id number] 05:11:00* Test Item Value Reference Range Comments CALCIUM IONIZED (test code=JONNATHAN) 1.14 mmol/L 1.12-1.32 BASIC METABOLIC [id number] 04:56:00* Test Item Value Reference Range Comments SODIUM (test code=NA) 140 mmol/L 136-145 POTASSIUM (test code=K) 3.4 mmol/L 3.5-5.1 CHLORIDE (test code=CL) 104.0 mmol/L 98-107 CARBON DIOXIDE (test code=CO2) mmol/L 21-32 ANION GAP (test code=GAP) 10-20 GLUCOSE (test code=GLU) mg/dL 74-106 BLOOD UREA NITROGEN (test code=BUN) mg/dL 7-18 GLOMERULAR FILTRATION RATE (test code=GFR) mL/min >=60 CREATININE (test code=CREAT) mg/dL 0.55-1.02 BUN/CREATININE RATIO (test code=BUN/CREA) 10-20 CALCIUM (test code=CA) mg/dL 8.5-10.1 HEPATIC FUNCTION [id number] 04:56:00* Test Item Value Reference Range Comments TOTAL PROTEIN (test code=PROT) gram/dL 6.4-8.2 ALBUMIN (test code=ALB) g/dL 3.4-5.0 GLOBULIN (test code=GLOB) gram/dL 2.7-4.2 ALBUMIN/GLOBULIN RATIO (test code=A/G) 0.75-1.50 BILIRUBIN TOTAL (test code=BILT) mg/dL 0.0-1.0 BILIRUBIN DIRECT (test code=BILD) mg/dL 0.0-0.20 SGOT/AST (test code=AST) IUnit/L 15-37 SGPT/ALT (test code=ALT) IUnit/L 12-78 ALKALINE PHOSPHATASE TOTAL (test code=ALKP) IUnit/L 45-117 [id number] 04:56:00* Test Item Value Reference Range Comments PHOSPHORUS (test code=PHOS) mg/dL 2.5-4.9 [id number] 04:56:00* Test Item Value Reference Range Comments MAGNESIUM (test code=MAG) mg/dL 1.8-2.4 CALCIUM [id number] 04:56:00* Test Item Value Reference Range Comments CALCIUM IONIZED (test code=JONNATHAN) 1.14 mmol/L 1.12-1.32 BASIC METABOLIC [id number] 04:49:00* Test Item Value Reference Range Comments SODIUM (test code=NA) mmol/L 136-145 POTASSIUM (test code=K) mmol/L 3.5-5.1 CHLORIDE (test code=CL) mmol/L 98-107 CARBON DIOXIDE (test code=CO2) mmol/L 21-32 ANION GAP (test code=GAP) 10-20 GLUCOSE (test code=GLU) mg/dL 74-106 BLOOD UREA NITROGEN (test code=BUN) mg/dL 7-18 GLOMERULAR FILTRATION RATE (test code=GFR) mL/min >=60 CREATININE (test code=CREAT) mg/dL 0.55-1.02 BUN/CREATININE RATIO (test code=BUN/CREA) 10-20 CALCIUM (test code=CA) mg/dL 8.5-10.1 HEPATIC FUNCTION [id number] 04:49:00* Test Item Value Reference Range Comments TOTAL PROTEIN (test code=PROT) gram/dL 6.4-8.2 ALBUMIN (test code=ALB) g/dL 3.4-5.0 GLOBULIN (test code=GLOB) gram/dL 2.7-4.2 ALBUMIN/GLOBULIN RATIO (test code=A/G) 0.75-1.50 BILIRUBIN TOTAL (test code=BILT) mg/dL 0.0-1.0 BILIRUBIN DIRECT (test code=BILD) mg/dL 0.0-0.20 SGOT/AST (test code=AST) IUnit/L 15-37 SGPT/ALT (test code=ALT) IUnit/L 12-78 ALKALINE PHOSPHATASE TOTAL (test code=ALKP) IUnit/L 45-117 [id number] 04:49:00* Test Item Value Reference Range Comments PHOSPHORUS (test code=PHOS) mg/dL 2.5-4.9 [id number] 04:49:00* Test Item Value Reference Range Comments MAGNESIUM (test code=MAG) mg/dL 1.8-2.4 CALCIUM [id number] 04:49:00* Test Item Value Reference Range Comments CALCIUM IONIZED (test code=JONNATHAN) 1.14 mmol/L 1.12-1.32 CBC W/MANUAL [id number] 04:45:00* Test Item Value Reference Range Comments WHITE BLOOD CELL (test code=WBC) 14.1 K/mm3 4.5-12.5 RED BLOOD CELL (test code=RBC) 3.11 mill/mm3 3.7-5.2 HEMOGLOBIN (test code=HGB) 9.4 gram/dL 11.5-15.5 HEMATOCRIT (test code=HCT) 27.7 % 36.0-46.0 MEAN CELL VOLUME (test code=MCV) 89.1 fL 80-98 MEAN CELL HGB (test code=MCH) 30.2 picogram 27.0-33.0 MEAN CELL HGB CONCETRATION (test code=MCHC) 33.9 gram/dL 33.0-36.0 RED CELL DISTRIBUTION WIDTH (test code=RDW) 15.5 % 11.6-16.2 RED CELL DISTRIBUTION WIDTH SD (test code=RDW-SD) 49.4 fL 37.0-51.0 PLATELET COUNT (test code=PLT) 99 K/mm3 150-450 RESULT VERIFIED BY REPEAT ANALYSIS MEAN PLATELET VOLUME (test code=MPV) 13.8 fL 6.7-11.0 IMMATURE GRANULOCYTE % (test code=IG%) 4.3 % 0.0-5.0 NUCLEATED RBC % (test code=NRBC%) 0.0 % 0-0 NEUTROPHIL # (test code=NT#) 10.40 K/mm3 1.8-7.7 IMMATURE GRANULOCYTE # (test code=IG#) 0.60 x10 3/uL 0-0.03 LYMPHOCYTE # (test code=LY#) 0.98 K/mm3 1.0-5.0 MONOCYTE # (test code=MO#) 1.78 K/mm3 0-0.8 EOSINOPHIL # (test code=EO#) 0.28 K/mm3 0.0-0.5 BASOPHIL # (test code=BA#) 0.04 K/mm3 0.0-0.2 NUCLEATED RBC # (test code=NRBC#) 0.00 K/mm3 0.0-0.1 MANUAL DIFF REQUIRED (test code=MDIFF) YES STAIN ACCEPTABILITY (test code=STN ACCEPTABLE) TOTAL CELLS COUNTED (test code=TCC) #CELLS SEGMENTED NEUTROPHILS (test code=SEG) % 39-69 LYMPHOCYTE (test code=LYMPH) % 25-55 MONOCYTE (test code=MON) % 0-10 EOSINOPHIL (test code=EOS) % 0.0-5.0 CABOT RINGS (test code=CAB) MORPHOLOGY COMMENT (test code=MOC) PLATELET ESTIMATE (test code=PLTEST) PLATELET MORPHOLOGY (test code=PLTMORPH) CBC W/MANUAL [id number] 04:45:00* Test Item Value Reference Range Comments WHITE BLOOD CELL (test code=WBC) 14.1 K/mm3 4.5-12.5 RED BLOOD CELL (test code=RBC) 3.11 mill/mm3 3.7-5.2 HEMOGLOBIN (test code=HGB) 9.4 gram/dL 11.5-15.5 HEMATOCRIT (test code=HCT) 27.7 % 36.0-46.0 MEAN CELL VOLUME (test code=MCV) 89.1 fL 80-98 MEAN CELL HGB (test code=MCH) 30.2 picogram 27.0-33.0 MEAN CELL HGB CONCETRATION (test code=MCHC) 33.9 gram/dL 33.0-36.0 RED CELL DISTRIBUTION WIDTH (test code=RDW) 15.5 % 11.6-16.2 RED CELL DISTRIBUTION WIDTH SD (test code=RDW-SD) 49.4 fL 37.0-51.0 PLATELET COUNT (test code=PLT) 99 K/mm3 150-450 RESULT VERIFIED BY REPEAT ANALYSIS MEAN PLATELET VOLUME (test code=MPV) 13.8 fL 6.7-11.0 IMMATURE GRANULOCYTE % (test code=IG%) 4.3 % 0.0-5.0 NUCLEATED RBC % (test code=NRBC%) 0.0 % 0-0 NEUTROPHIL # (test code=NT#) 10.40 K/mm3 1.8-7.7 IMMATURE GRANULOCYTE # (test code=IG#) 0.60 x10 3/uL 0-0.03 LYMPHOCYTE # (test code=LY#) 0.98 K/mm3 1.0-5.0 MONOCYTE # (test code=MO#) 1.78 K/mm3 0-0.8 EOSINOPHIL # (test code=EO#) 0.28 K/mm3 0.0-0.5 BASOPHIL # (test code=BA#) 0.04 K/mm3 0.0-0.2 NUCLEATED RBC # (test code=NRBC#) 0.00 K/mm3 0.0-0.1 MANUAL DIFF REQUIRED (test code=MDIFF) YES STAIN ACCEPTABILITY (test code=STN ACCEPTABLE) TOTAL CELLS COUNTED (test code=TCC) #CELLS SEGMENTED NEUTROPHILS (test code=SEG) % 39-69 LYMPHOCYTE (test code=LYMPH) % 25-55 MONOCYTE (test code=MON) % 0-10 EOSINOPHIL (test code=EOS) % 0.0-5.0 CABOT RINGS (test code=CAB) MORPHOLOGY COMMENT (test code=MOC) PLATELET ESTIMATE (test code=PLTEST) PLATELET MORPHOLOGY (test code=PLTMORPH) CBC W/MANUAL [id number] 04:45:00* Test Item Value Reference Range Comments WHITE BLOOD CELL (test code=WBC) 14.1 K/mm3 4.5-12.5 RED BLOOD CELL (test code=RBC) 3.11 mill/mm3 3.7-5.2 HEMOGLOBIN (test code=HGB) 9.4 gram/dL 11.5-15.5 HEMATOCRIT (test code=HCT) 27.7 % 36.0-46.0 MEAN CELL VOLUME (test code=MCV) 89.1 fL 80-98 MEAN CELL HGB (test code=MCH) 30.2 picogram 27.0-33.0 MEAN CELL HGB CONCETRATION (test code=MCHC) 33.9 gram/dL 33.0-36.0 RED CELL DISTRIBUTION WIDTH (test code=RDW) 15.5 % 11.6-16.2 RED CELL DISTRIBUTION WIDTH SD (test code=RDW-SD) 49.4 fL 37.0-51.0 PLATELET COUNT (test code=PLT) 99 K/mm3 150-450 RESULT VERIFIED BY REPEAT ANALYSIS MEAN PLATELET VOLUME (test code=MPV) 13.8 fL 6.7-11.0 IMMATURE GRANULOCYTE % (test code=IG%) 4.3 % 0.0-5.0 NUCLEATED RBC % (test code=NRBC%) 0.0 % 0-0 NEUTROPHIL # (test code=NT#) 10.40 K/mm3 1.8-7.7 IMMATURE GRANULOCYTE # (test code=IG#) 0.60 x10 3/uL 0-0.03 LYMPHOCYTE # (test code=LY#) 0.98 K/mm3 1.0-5.0 MONOCYTE # (test code=MO#) 1.78 K/mm3 0-0.8 EOSINOPHIL # (test code=EO#) 0.28 K/mm3 0.0-0.5 BASOPHIL # (test code=BA#) 0.04 K/mm3 0.0-0.2 NUCLEATED RBC # (test code=NRBC#) 0.00 K/mm3 0.0-0.1 MANUAL DIFF REQUIRED (test code=MDIFF) YES STAIN ACCEPTABILITY (test code=STN ACCEPTABLE) TOTAL CELLS COUNTED (test code=TCC) #CELLS SEGMENTED NEUTROPHILS (test code=SEG) % 39-69 LYMPHOCYTE (test code=LYMPH) % 25-55 MONOCYTE (test code=MON) % 0-10 EOSINOPHIL (test code=EOS) % 0.0-5.0 MORPHOLOGY COMMENT (test code=MOC) PLATELET ESTIMATE (test code=PLTEST) PLATELET MORPHOLOGY (test code=PLTMORPH) CBC W/MANUAL [id number] 04:45:00* Test Item Value Reference Range Comments WHITE BLOOD CELL (test code=WBC) 14.1 K/mm3 4.5-12.5 RED BLOOD CELL (test code=RBC) 3.11 mill/mm3 3.7-5.2 HEMOGLOBIN (test code=HGB) 9.4 gram/dL 11.5-15.5 HEMATOCRIT (test code=HCT) 27.7 % 36.0-46.0 MEAN CELL VOLUME (test code=MCV) 89.1 fL 80-98 MEAN CELL HGB (test code=MCH) 30.2 picogram 27.0-33.0 MEAN CELL HGB CONCETRATION (test code=MCHC) 33.9 gram/dL 33.0-36.0 RED CELL DISTRIBUTION WIDTH (test code=RDW) 15.5 % 11.6-16.2 RED CELL DISTRIBUTION WIDTH SD (test code=RDW-SD) 49.4 fL 37.0-51.0 PLATELET COUNT (test code=PLT) 99 K/mm3 150-450 RESULT VERIFIED BY REPEAT ANALYSIS MEAN PLATELET VOLUME (test code=MPV) 13.8 fL 6.7-11.0 IMMATURE GRANULOCYTE % (test code=IG%) 4.3 % 0.0-5.0 NUCLEATED RBC % (test code=NRBC%) 0.0 % 0-0 NEUTROPHIL # (test code=NT#) 10.40 K/mm3 1.8-7.7 IMMATURE GRANULOCYTE # (test code=IG#) 0.60 x10 3/uL 0-0.03 LYMPHOCYTE # (test code=LY#) 0.98 K/mm3 1.0-5.0 MONOCYTE # (test code=MO#) 1.78 K/mm3 0-0.8 EOSINOPHIL # (test code=EO#) 0.28 K/mm3 0.0-0.5 BASOPHIL # (test code=BA#) 0.04 K/mm3 0.0-0.2 NUCLEATED RBC # (test code=NRBC#) 0.00 K/mm3 0.0-0.1 MANUAL DIFF REQUIRED (test code=MDIFF) YES STAIN ACCEPTABILITY (test code=STN ACCEPTABLE) TOTAL CELLS COUNTED (test code=TCC) #CELLS SEGMENTED NEUTROPHILS (test code=SEG) % 39-69 LYMPHOCYTE (test code=LYMPH) % 25-55 MONOCYTE (test code=MON) % 0-10 MORPHOLOGY COMMENT (test code=MOC) PLATELET ESTIMATE (test code=PLTEST) PLATELET MORPHOLOGY (test code=PLTMORPH) CBC W/MANUAL [id number] 04:45:00* Test Item Value Reference Range Comments WHITE BLOOD CELL (test code=WBC) 14.1 K/mm3 4.5-12.5 RED BLOOD CELL (test code=RBC) 3.11 mill/mm3 3.7-5.2 HEMOGLOBIN (test code=HGB) 9.4 gram/dL 11.5-15.5 HEMATOCRIT (test code=HCT) 27.7 % 36.0-46.0 MEAN CELL VOLUME (test code=MCV) 89.1 fL 80-98 MEAN CELL HGB (test code=MCH) 30.2 picogram 27.0-33.0 MEAN CELL HGB CONCETRATION (test code=MCHC) 33.9 gram/dL 33.0-36.0 RED CELL DISTRIBUTION WIDTH (test code=RDW) 15.5 % 11.6-16.2 RED CELL DISTRIBUTION WIDTH SD (test code=RDW-SD) 49.4 fL 37.0-51.0 PLATELET COUNT (test code=PLT) 99 K/mm3 150-450 RESULT VERIFIED BY REPEAT ANALYSIS MEAN PLATELET VOLUME (test code=MPV) 13.8 fL 6.7-11.0 IMMATURE GRANULOCYTE % (test code=IG%) 4.3 % 0.0-5.0 NUCLEATED RBC % (test code=NRBC%) 0.0 % 0-0 NEUTROPHIL # (test code=NT#) 10.40 K/mm3 1.8-7.7 IMMATURE GRANULOCYTE # (test code=IG#) 0.60 x10 3/uL 0-0.03 LYMPHOCYTE # (test code=LY#) 0.98 K/mm3 1.0-5.0 MONOCYTE # (test code=MO#) 1.78 K/mm3 0-0.8 EOSINOPHIL # (test code=EO#) 0.28 K/mm3 0.0-0.5 BASOPHIL # (test code=BA#) 0.04 K/mm3 0.0-0.2 NUCLEATED RBC # (test code=NRBC#) 0.00 K/mm3 0.0-0.1 MANUAL DIFF REQUIRED (test code=MDIFF) YES STAIN ACCEPTABILITY (test code=STN ACCEPTABLE) TOTAL CELLS COUNTED (test code=TCC) #CELLS SEGMENTED NEUTROPHILS (test code=SEG) % 39-69 LYMPHOCYTE (test code=LYMPH) % 25-55 MONOCYTE (test code=MON) % 0-10 EOSINOPHIL (test code=EOS) % 0.0-5.0 CABOT RINGS (test code=CAB) MORPHOLOGY COMMENT (test code=MOC) PLATELET ESTIMATE (test code=PLTEST) PLATELET MORPHOLOGY (test code=PLTMORPH) [id number] 23:17:00* Test Item Value Reference Range Comments GLUBED (test code=GLUBED) 85 mg/dL 74-106 Performed by certified resaw operator at [facility] [id number] 21:45:00* Test Item Value Reference Range Comments GLUBED (test code=GLUBED) 57 mg/dL 74-106 Performed by certified resaw operator at [facility] [id number] 19:39:00* Test Item Value Reference Range Comments GLUBED (test code=GLUBED) 94 mg/dL 74-106 Performed by certified resaw operator at [facility] [id number] 17:44:00* Test Item Value Reference Range Comments GLUBED (test code=GLUBED) 104 mg/dL 74-106 Performed by certified resaw operator at [facility] [id number] 17:44:00* Test Item Value Reference Range Comments GLUBED (test code=GLUBED) 81 mg/dL 74-106 Performed by certified resaw operator at [facility] [id number] 15:38:00* Test Item Value Reference Range Comments GLUBED (test code=GLUBED) 79 mg/dL 74-106 Performed by certified resaw operator at [facility] [id number] 12:44:00* Test Item Value Reference Range Comments GLUBED (test code=GLUBED) 48 mg/dL 74-106 [facility]~ [id number] 12:34:00* Test Item Value Reference Range Comments GLUBED (test code=GLUBED) 57 mg/dL 74-106 Performed by certified resaw operator at [facility] [id number] 08:24:00* Test Item Value Reference Range Comments GLUBED (test code=GLUBED) 67 mg/dL 74-106 Performed by certified resaw operator at [facility] - XR CHEST 1 [id number] 08:16:00 FAX: Renetta Lopez NP [phone] [place]: [address] St: ADM FAX: Marco A Caruso [phone] Name: LAWRENCEMARIE ANTHONY [facility] : 1930 Age/S: 88/F [address] Unit #: [id number] Loc: V.6 [place] [address] Phys: Renetta Lopez DIET TECH Acct: [id number] Dis Date: Status: ADM IN PHONE #: [phone] Exam Date: 12/16/2018 0743 FAX #: [phone] Reason: sob EXAMS: CPT CODE: [id number] XR CHEST 1 V [id number] REASON FOR EXAM: sob EXAM ORDER DATE: 12/16/2018 5:00 AM Ordering Navdeep: Renetta Lopez NP PROCEDURE: - XR CHEST 1 V COMPARISON: 12/15/2018 FINDINGS: Portable AP frontal view of the chest obtained at 7:41 AM shows patchy airspace opacity on the basis. The heart size is minimally enlarged. Stable appearance of the right IJ central line and left IJ dialysis catheter. Pulmonary vasculatures are minimally congested. IMPRESSION: Interval improvement in the congestive heart failure. Persistent atele ctasis of the bases with small bilateral pleural effusions. Previously seen NG tube has been removed at 0816 Reported and signed by: Rosa Elena Hartmann CC: Renetta Lopez NP; Marco A Caruso MD Technologist: Jose Cochran RT(R) Trnscrd D ate/Time/By: 12/16/2018 (0816) : By: BasilL Orig Print D/T: S: 07/2018 (0819) PAGE 1 Signed Repor t [id number] 07:48:00* Test Item Value Reference Range Comments GLUBED (test code=GLUBED) 66 mg/dL 74-106 Performed by certified resaw operator at [facility] CBC W/MANUAL [id number] 06:48:00* Test Item Value Reference Range Comments WHITE BLOOD CELL (test code=WBC) 17.1 K/mm3 4.5-12.5 RED BLOOD CELL (test code=RBC) 3.04 mill/mm3 3.7-5.2 HEMOGLOBIN (test code=HGB) 9.3 gram/dL 11.5-15.5 HEMATOCRIT (test code=HCT) 27.9 % 36.0-46.0 MEAN CELL VOLUME (test code=MCV) 91.8 fL 80-98 MEAN CELL HGB (test code=MCH) 30.6 picogram 27.0-33.0 MEAN CELL HGB CONCETRATION (test code=MCHC) 33.3 gram/dL 33.0-36.0 RED CELL DISTRIBUTION WIDTH (test code=RDW) 15.3 % 11.6-16.2 RED CELL DISTRIBUTION WIDTH SD (test code=RDW-SD) 50.8 fL 37.0-51.0 PLATELET COUNT (test code=PLT) 74 K/mm3 150-450 MEAN PLATELET VOLUME (test code=MPV) 13.7 fL 6.7-11.0 IMMATURE GRANULOCYTE % (test code=IG%) 3.9 % 0.0-5.0 NUCLEATED RBC % (test code=NRBC%) 0.0 % 0-0 NEUTROPHIL # (test code=NT#) 13.05 K/mm3 1.8-7.7 IMMATURE GRANULOCYTE # (test code=IG#) 0.66 x10 3/uL 0-0.03 LYMPHOCYTE # (test code=LY#) 0.94 K/mm3 1.0-5.0 MONOCYTE # (test code=MO#) 2.18 K/mm3 0-0.8 EOSINOPHIL # (test code=EO#) 0.22 K/mm3 0.0-0.5 BASOPHIL # (test code=BA#) 0.08 K/mm3 0.0-0.2 NUCLEATED RBC # (test code=NRBC#) 0.00 K/mm3 0.0-0.1 MANUAL DIFF REQUIRED (test code=MDIFF) YES STAIN ACCEPTABILITY (test code=STN ACCEPTABLE) STAIN ACCEPTABLE TOTAL CELLS COUNTED (test code=TCC) 114 #CELLS Previously reported result: 115 #CELLSEdited by: MERLYN on 12/16/18:62721012/16/18 0645: TOTAL CELLS previously reported as: 115 #CELLS SEGMENTED NEUTROPHILS (test code=SEG) 87.7 % 39-69 BAND NEUTROPHIL (test code=BAND) 0 % 0-10 LYMPHOCYTE (test code=LYMPH) 6.1 % 25-55 REACTIVE LYMPH (test code=RELYMPH) 0 % MONOCYTE (test code=MON) 3.5 % 0-10 EOSINOPHIL (test code=EOS) 1.8 % 0.0-5.0 BASOPHIL (test code=BASO) 0.9 % 0-1.0 METAMYELOCYTE (test code=META) 0 % 0-0 MYELOCYTE (test code=MYELO) 0 % 0.0-0.0 PROMYELOCYTE (test code=PROM) 0 % 0-0 POIKILOCYTOSIS (test code=POIK) 1+ ANISOCYTOSIS (test code=ANISO) 1+ PLATELET ESTIMATE (test code=PLTEST) DECREASED PLATELET MORPHOLOGY (test code=PLTMORPH) NORMAL IMMATURE FORMS (test code=IMMAT) 0 % 0-0 CBC W/MANUAL [id number] 06:38:00* Test Item Value Reference Range Comments WHITE BLOOD CELL (test code=WBC) 17.1 K/mm3 4.5-12.5 RED BLOOD CELL (test code=RBC) 3.04 mill/mm3 3.7-5.2 HEMOGLOBIN (test code=HGB) 9.3 gram/dL 11.5-15.5 HEMATOCRIT (test code=HCT) 27.9 % 36.0-46.0 MEAN CELL VOLUME (test code=MCV) 91.8 fL 80-98 MEAN CELL HGB (test code=MCH) 30.6 picogram 27.0-33.0 MEAN CELL HGB CONCETRATION (test code=MCHC) 33.3 gram/dL 33.0-36.0 RED CELL DISTRIBUTION WIDTH (test code=RDW) 15.3 % 11.6-16.2 RED CELL DISTRIBUTION WIDTH SD (test code=RDW-SD) 50.8 fL 37.0-51.0 PLATELET COUNT (test code=PLT) 74 K/mm3 150-450 MEAN PLATELET VOLUME (test code=MPV) 13.7 fL 6.7-11.0 IMMATURE GRANULOCYTE % (test code=IG%) 3.9 % 0.0-5.0 NUCLEATED RBC % (test code=NRBC%) 0.0 % 0-0 NEUTROPHIL # (test code=NT#) 13.05 K/mm3 1.8-7.7 IMMATURE GRANULOCYTE # (test code=IG#) 0.66 x10 3/uL 0-0.03 LYMPHOCYTE # (test code=LY#) 0.94 K/mm3 1.0-5.0 MONOCYTE # (test code=MO#) 2.18 K/mm3 0-0.8 EOSINOPHIL # (test code=EO#) 0.22 K/mm3 0.0-0.5 BASOPHIL # (test code=BA#) 0.08 K/mm3 0.0-0.2 NUCLEATED RBC # (test code=NRBC#) 0.00 K/mm3 0.0-0.1 MANUAL DIFF REQUIRED (test code=MDIFF) YES STAIN ACCEPTABILITY (test code=STN ACCEPTABLE) STAIN ACCEPTABLE TOTAL CELLS COUNTED (test code=TCC) 115 #CELLS SEGMENTED NEUTROPHILS (test code=SEG) 87.7 % 39-69 BAND NEUTROPHIL (test code=BAND) 0 % 0-10 LYMPHOCYTE (test code=LYMPH) 6.1 % 25-55 REACTIVE LYMPH (test code=RELYMPH) 0 % MONOCYTE (test code=MON) 3.5 % 0-10 EOSINOPHIL (test code=EOS) 1.8 % 0.0-5.0 BASOPHIL (test code=BASO) 0.9 % 0-1.0 METAMYELOCYTE (test code=META) 0 % 0-0 MYELOCYTE (test code=MYELO) 0 % 0.0-0.0 PROMYELOCYTE (test code=PROM) 0 % 0-0 POIKILOCYTOSIS (test code=POIK) 1+ ANISOCYTOSIS (test code=ANISO) 1+ PLATELET ESTIMATE (test code=PLTEST) DECREASED PLATELET MORPHOLOGY (test code=PLTMORPH) NORMAL IMMATURE FORMS (test code=IMMAT) 0 % 0-0 BASIC METABOLIC [id number] 05:29:00* Test Item Value Reference Range Comments SODIUM (test code=NA) 139 mmol/L 136-145 POTASSIUM (test code=K) 3.5 mmol/L 3.5-5.1 CHLORIDE (test code=CL) 102.0 mmol/L 98-107 CARBON DIOXIDE (test code=CO2) 29.0 mmol/L 21-32 ANION GAP (test code=GAP) 11.5 10-20 GLUCOSE (test code=GLU) 70 mg/dL 74-106 BLOOD UREA NITROGEN (test code=BUN) 46 mg/dL 7-18 RESULT VERIFIED BY REPEAT ANALYSIS GLOMERULAR FILTRATION RATE (test code=GFR) 12 mL/min >=60 Estimated GFR by using Modified MDRD formula.Chronic kidney disease is defined as either kidney damageor GFR <60 mL/min/1.73 m2 for >3 months. CREATININE (test code=CREAT) 3.70 mg/dL 0.55-1.02 Note change in reference range due to change in reagent. BUN/CREATININE RATIO (test code=BUN/CREA) 12.4 10-20 CALCIUM (test code=CA) 7.5 mg/dL 8.5-10.1 [id number] 05:29:00* Test Item Value Reference Range Comments PHOSPHORUS (test code=PHOS) 1.1 mg/dL 2.5-4.9 [id number] 05:29:00* Test Item Value Reference Range Comments MAGNESIUM (test code=MAG) 2.4 mg/dL 1.8-2.4 CALCIUM [id number] 05:29:00* Test Item Value Reference Range Comments CALCIUM IONIZED (test code=JONNATHAN) 1.12 mmol/L 1.12-1.32 CBC W/MANUAL [id number] 05:21:00* Test Item Value Reference Range Comments WHITE BLOOD CELL (test code=WBC) 17.1 K/mm3 4.5-12.5 RED BLOOD CELL (test code=RBC) 3.04 mill/mm3 3.7-5.2 HEMOGLOBIN (test code=HGB) 9.3 gram/dL 11.5-15.5 HEMATOCRIT (test code=HCT) 27.9 % 36.0-46.0 MEAN CELL VOLUME (test code=MCV) 91.8 fL 80-98 MEAN CELL HGB (test code=MCH) 30.6 picogram 27.0-33.0 MEAN CELL HGB CONCETRATION (test code=MCHC) 33.3 gram/dL 33.0-36.0 RED CELL DISTRIBUTION WIDTH (test code=RDW) 15.3 % 11.6-16.2 RED CELL DISTRIBUTION WIDTH SD (test code=RDW-SD) 50.8 fL 37.0-51.0 PLATELET COUNT (test code=PLT) 74 K/mm3 150-450 MEAN PLATELET VOLUME (test code=MPV) 13.7 fL 6.7-11.0 IMMATURE GRANULOCYTE % (test code=IG%) 3.9 % 0.0-5.0 NUCLEATED RBC % (test code=NRBC%) 0.0 % 0-0 NEUTROPHIL # (test code=NT#) 13.05 K/mm3 1.8-7.7 IMMATURE GRANULOCYTE # (test code=IG#) 0.66 x10 3/uL 0-0.03 LYMPHOCYTE # (test code=LY#) 0.94 K/mm3 1.0-5.0 MONOCYTE # (test code=MO#) 2.18 K/mm3 0-0.8 EOSINOPHIL # (test code=EO#) 0.22 K/mm3 0.0-0.5 BASOPHIL # (test code=BA#) 0.08 K/mm3 0.0-0.2 NUCLEATED RBC # (test code=NRBC#) 0.00 K/mm3 0.0-0.1 MANUAL DIFF REQUIRED (test code=MDIFF) YES STAIN ACCEPTABILITY (test code=STN ACCEPTABLE) TOTAL CELLS COUNTED (test code=TCC) #CELLS SEGMENTED NEUTROPHILS (test code=SEG) % 39-69 LYMPHOCYTE (test code=LYMPH) % 25-55 MONOCYTE (test code=MON) % 0-10 EOSINOPHIL (test code=EOS) % 0.0-5.0 CABOT RINGS (test code=CAB) MORPHOLOGY COMMENT (test code=MOC) PLATELET ESTIMATE (test code=PLTEST) PLATELET MORPHOLOGY (test code=PLTMORPH) CBC W/MANUAL [id number] 05:21:00* Test Item Value Reference Range Comments WHITE BLOOD CELL (test code=WBC) 17.1 K/mm3 4.5-12.5 RED BLOOD CELL (test code=RBC) 3.04 mill/mm3 3.7-5.2 HEMOGLOBIN (test code=HGB) 9.3 gram/dL 11.5-15.5 HEMATOCRIT (test code=HCT) 27.9 % 36.0-46.0 MEAN CELL VOLUME (test code=MCV) 91.8 fL 80-98 MEAN CELL HGB (test code=MCH) 30.6 picogram 27.0-33.0 MEAN CELL HGB CONCETRATION (test code=MCHC) 33.3 gram/dL 33.0-36.0 RED CELL DISTRIBUTION WIDTH (test code=RDW) 15.3 % 11.6-16.2 RED CELL DISTRIBUTION WIDTH SD (test code=RDW-SD) 50.8 fL 37.0-51.0 PLATELET COUNT (test code=PLT) 74 K/mm3 150-450 MEAN PLATELET VOLUME (test code=MPV) 13.7 fL 6.7-11.0 IMMATURE GRANULOCYTE % (test code=IG%) 3.9 % 0.0-5.0 NUCLEATED RBC % (test code=NRBC%) 0.0 % 0-0 NEUTROPHIL # (test code=NT#) 13.05 K/mm3 1.8-7.7 IMMATURE GRANULOCYTE # (test code=IG#) 0.66 x10 3/uL 0-0.03 LYMPHOCYTE # (test code=LY#) 0.94 K/mm3 1.0-5.0 MONOCYTE # (test code=MO#) 2.18 K/mm3 0-0.8 EOSINOPHIL # (test code=EO#) 0.22 K/mm3 0.0-0.5 BASOPHIL # (test code=BA#) 0.08 K/mm3 0.0-0.2 NUCLEATED RBC # (test code=NRBC#) 0.00 K/mm3 0.0-0.1 MANUAL DIFF REQUIRED (test code=MDIFF) YES STAIN ACCEPTABILITY (test code=STN ACCEPTABLE) TOTAL CELLS COUNTED (test code=TCC) #CELLS SEGMENTED NEUTROPHILS (test code=SEG) % 39-69 LYMPHOCYTE (test code=LYMPH) % 25-55 MONOCYTE (test code=MON) % 0-10 EOSINOPHIL (test code=EOS) % 0.0-5.0 MORPHOLOGY COMMENT (test code=MOC) PLATELET ESTIMATE (test code=PLTEST) PLATELET MORPHOLOGY (test code=PLTMORPH) CBC W/MANUAL [id number] 05:21:00* Test Item Value Reference Range Comments WHITE BLOOD CELL (test code=WBC) 17.1 K/mm3 4.5-12.5 RED BLOOD CELL (test code=RBC) 3.04 mill/mm3 3.7-5.2 HEMOGLOBIN (test code=HGB) 9.3 gram/dL 11.5-15.5 HEMATOCRIT (test code=HCT) 27.9 % 36.0-46.0 MEAN CELL VOLUME (test code=MCV) 91.8 fL 80-98 MEAN CELL HGB (test code=MCH) 30.6 picogram 27.0-33.0 MEAN CELL HGB CONCETRATION (test code=MCHC) 33.3 gram/dL 33.0-36.0 RED CELL DISTRIBUTION WIDTH (test code=RDW) 15.3 % 11.6-16.2 RED CELL DISTRIBUTION WIDTH SD (test code=RDW-SD) 50.8 fL 37.0-51.0 PLATELET COUNT (test code=PLT) 74 K/mm3 150-450 MEAN PLATELET VOLUME (test code=MPV) 13.7 fL 6.7-11.0 IMMATURE GRANULOCYTE % (test code=IG%) 3.9 % 0.0-5.0 NUCLEATED RBC % (test code=NRBC%) 0.0 % 0-0 NEUTROPHIL # (test code=NT#) 13.05 K/mm3 1.8-7.7 IMMATURE GRANULOCYTE # (test code=IG#) 0.66 x10 3/uL 0-0.03 LYMPHOCYTE # (test code=LY#) 0.94 K/mm3 1.0-5.0 MONOCYTE # (test code=MO#) 2.18 K/mm3 0-0.8 EOSINOPHIL # (test code=EO#) 0.22 K/mm3 0.0-0.5 BASOPHIL # (test code=BA#) 0.08 K/mm3 0.0-0.2 NUCLEATED RBC # (test code=NRBC#) 0.00 K/mm3 0.0-0.1 MANUAL DIFF REQUIRED (test code=MDIFF) YES STAIN ACCEPTABILITY (test code=STN ACCEPTABLE) TOTAL CELLS COUNTED (test code=TCC) #CELLS SEGMENTED NEUTROPHILS (test code=SEG) % 39-69 LYMPHOCYTE (test code=LYMPH) % 25-55 MONOCYTE (test code=MON) % 0-10 MORPHOLOGY COMMENT (test code=MOC) PLATELET ESTIMATE (test code=PLTEST) PLATELET MORPHOLOGY (test code=PLTMORPH) CBC W/MANUAL [id number] 05:20:00* Test Item Value Reference Range Comments WHITE BLOOD CELL (test code=WBC) 17.1 K/mm3 4.5-12.5 RED BLOOD CELL (test code=RBC) 3.04 mill/mm3 3.7-5.2 HEMOGLOBIN (test code=HGB) 9.3 gram/dL 11.5-15.5 HEMATOCRIT (test code=HCT) 27.9 % 36.0-46.0 MEAN CELL VOLUME (test code=MCV) 91.8 fL 80-98 MEAN CELL HGB (test code=MCH) 30.6 picogram 27.0-33.0 MEAN CELL HGB CONCETRATION (test code=MCHC) 33.3 gram/dL 33.0-36.0 RED CELL DISTRIBUTION WIDTH (test code=RDW) 15.3 % 11.6-16.2 RED CELL DISTRIBUTION WIDTH SD (test code=RDW-SD) 50.8 fL 37.0-51.0 PLATELET COUNT (test code=PLT) 74 K/mm3 150-450 MEAN PLATELET VOLUME (test code=MPV) 13.7 fL 6.7-11.0 IMMATURE GRANULOCYTE % (test code=IG%) 3.9 % 0.0-5.0 NUCLEATED RBC % (test code=NRBC%) 0.0 % 0-0 NEUTROPHIL # (test code=NT#) 13.05 K/mm3 1.8-7.7 IMMATURE GRANULOCYTE # (test code=IG#) 0.66 x10 3/uL 0-0.03 LYMPHOCYTE # (test code=LY#) 0.94 K/mm3 1.0-5.0 MONOCYTE # (test code=MO#) 2.18 K/mm3 0-0.8 EOSINOPHIL # (test code=EO#) 0.22 K/mm3 0.0-0.5 BASOPHIL # (test code=BA#) 0.08 K/mm3 0.0-0.2 NUCLEATED RBC # (test code=NRBC#) 0.00 K/mm3 0.0-0.1 MANUAL DIFF REQUIRED (test code=MDIFF) YES STAIN ACCEPTABILITY (test code=STN ACCEPTABLE) TOTAL CELLS COUNTED (test code=TCC) #CELLS SEGMENTED NEUTROPHILS (test code=SEG) % 39-69 LYMPHOCYTE (test code=LYMPH) % 25-55 MONOCYTE (test code=MON) % 0-10 EOSINOPHIL (test code=EOS) % 0.0-5.0 CABOT RINGS (test code=CAB) MORPHOLOGY COMMENT (test code=MOC) PLATELET ESTIMATE (test code=PLTEST) PLATELET MORPHOLOGY (test code=PLTMORPH) CBC W/MANUAL [id number] 05:20:00* Test Item Value Reference Range Comments WHITE BLOOD CELL (test code=WBC) 17.1 K/mm3 4.5-12.5 RED BLOOD CELL (test code=RBC) 3.04 mill/mm3 3.7-5.2 HEMOGLOBIN (test code=HGB) 9.3 gram/dL 11.5-15.5 HEMATOCRIT (test code=HCT) 27.9 % 36.0-46.0 MEAN CELL VOLUME (test code=MCV) 91.8 fL 80-98 MEAN CELL HGB (test code=MCH) 30.6 picogram 27.0-33.0 MEAN CELL HGB CONCETRATION (test code=MCHC) 33.3 gram/dL 33.0-36.0 RED CELL DISTRIBUTION WIDTH (test code=RDW) 15.3 % 11.6-16.2 RED CELL DISTRIBUTION WIDTH SD (test code=RDW-SD) 50.8 fL 37.0-51.0 PLATELET COUNT (test code=PLT) 74 K/mm3 150-450 MEAN PLATELET VOLUME (test code=MPV) 13.7 fL 6.7-11.0 IMMATURE GRANULOCYTE % (test code=IG%) 3.9 % 0.0-5.0 NUCLEATED RBC % (test code=NRBC%) 0.0 % 0-0 NEUTROPHIL # (test code=NT#) 13.05 K/mm3 1.8-7.7 IMMATURE GRANULOCYTE # (test code=IG#) 0.66 x10 3/uL 0-0.03 LYMPHOCYTE # (test code=LY#) 0.94 K/mm3 1.0-5.0 MONOCYTE # (test code=MO#) 2.18 K/mm3 0-0.8 EOSINOPHIL # (test code=EO#) 0.22 K/mm3 0.0-0.5 BASOPHIL # (test code=BA#) 0.08 K/mm3 0.0-0.2 NUCLEATED RBC # (test code=NRBC#) 0.00 K/mm3 0.0-0.1 MANUAL DIFF REQUIRED (test code=MDIFF) YES STAIN ACCEPTABILITY (test code=STN ACCEPTABLE) TOTAL CELLS COUNTED (test code=TCC) #CELLS SEGMENTED NEUTROPHILS (test code=SEG) % 39-69 LYMPHOCYTE (test code=LYMPH) % 25-55 MONOCYTE (test code=MON) % 0-10 EOSINOPHIL (test code=EOS) % 0.0-5.0 CABOT RINGS (test code=CAB) MORPHOLOGY COMMENT (test code=MOC) PLATELET ESTIMATE (test code=PLTEST) PLATELET MORPHOLOGY (test code=PLTMORPH) BASIC METABOLIC [id number] 05:12:00* Test Item Value Reference Range Comments SODIUM (test code=NA) 139 mmol/L 136-145 POTASSIUM (test code=K) 3.5 mmol/L 3.5-5.1 CHLORIDE (test code=CL) 102.0 mmol/L 98-107 CARBON DIOXIDE (test code=CO2) mmol/L 21-32 ANION GAP (test code=GAP) 10-20 GLUCOSE (test code=GLU) mg/dL 74-106 BLOOD UREA NITROGEN (test code=BUN) mg/dL 7-18 GLOMERULAR FILTRATION RATE (test code=GFR) mL/min >=60 CREATININE (test code=CREAT) mg/dL 0.55-1.02 BUN/CREATININE RATIO (test code=BUN/CREA) 10-20 CALCIUM (test code=CA) mg/dL 8.5-10.1 [id number] 05:12:00* Test Item Value Reference Range Comments PHOSPHORUS (test code=PHOS) mg/dL 2.5-4.9 [id number] 05:12:00* Test Item Value Reference Range Comments MAGNESIUM (test code=MAG) mg/dL 1.8-2.4 CALCIUM [id number] 05:12:00* Test Item Value Reference Range Comments CALCIUM IONIZED (test code=JONNATHAN) 1.12 mmol/L 1.12-1.32 BASIC METABOLIC [id number] 05:10:00* Test Item Value Reference Range Comments SODIUM (test code=NA) mmol/L 136-145 POTASSIUM (test code=K) mmol/L 3.5-5.1 CHLORIDE (test code=CL) mmol/L 98-107 CARBON DIOXIDE (test code=CO2) mmol/L 21-32 ANION GAP (test code=GAP) 10-20 GLUCOSE (test code=GLU) mg/dL 74-106 BLOOD UREA NITROGEN (test code=BUN) mg/dL 7-18 GLOMERULAR FILTRATION RATE (test code=GFR) mL/min >=60 CREATININE (test code=CREAT) mg/dL 0.55-1.02 BUN/CREATININE RATIO (test code=BUN/CREA) 10-20 CALCIUM (test code=CA) mg/dL 8.5-10.1 [id number] 05:10:00* Test Item Value Reference Range Comments PHOSPHORUS (test code=PHOS) mg/dL 2.5-4.9 [id number] 05:10:00* Test Item Value Reference Range Comments MAGNESIUM (test code=MAG) mg/dL 1.8-2.4 CALCIUM [id number] 05:10:00* Test Item Value Reference Range Comments CALCIUM IONIZED (test code=JONNATHAN) 1.12 mmol/L 1.12-1.32 [id number] 20:57:00* Test Item Value Reference Range Comments GLUBED (test code=GLUBED) 73 mg/dL 74-106 Performed by certified resaw operator at [facility] [id number] 17:35:00* Test Item Value Reference Range Comments GLUBED (test code=GLUBED) 65 mg/dL 74-106 Performed by certified resaw operator at [facility] CBC W/MANUAL [id number] 07:12:00* Test Item Value Reference Range Comments WHITE BLOOD CELL (test code=WBC) 20.0 K/mm3 4.5-12.5 RED BLOOD CELL (test code=RBC) 2.81 mill/mm3 3.7-5.2 HEMOGLOBIN (test code=HGB) 8.6 gram/dL 11.5-15.5 HEMATOCRIT (test code=HCT) 25.6 % 36.0-46.0 MEAN CELL VOLUME (test code=MCV) 91.1 fL 80-98 MEAN CELL HGB (test code=MCH) 30.6 picogram 27.0-33.0 MEAN CELL HGB CONCETRATION (test code=MCHC) 33.6 gram/dL 33.0-36.0 RED CELL DISTRIBUTION WIDTH (test code=RDW) 15.0 % 11.6-16.2 RED CELL DISTRIBUTION WIDTH SD (test code=RDW-SD) 50.3 fL 37.0-51.0 PLATELET COUNT (test code=PLT) 60 K/mm3 150-450 MEAN PLATELET VOLUME (test code=MPV) 12.6 fL 6.7-11.0 IMMATURE GRANULOCYTE % (test code=IG%) 2.9 % 0.0-5.0 NUCLEATED RBC % (test code=NRBC%) 0.0 % 0-0 NEUTROPHIL # (test code=NT#) 15.84 K/mm3 1.8-7.7 IMMATURE GRANULOCYTE # (test code=IG#) 0.58 x10 3/uL 0-0.03 LYMPHOCYTE # (test code=LY#) 1.35 K/mm3 1.0-5.0 MONOCYTE # (test code=MO#) 2.16 K/mm3 0-0.8 EOSINOPHIL # (test code=EO#) 0.02 K/mm3 0.0-0.5 BASOPHIL # (test code=BA#) 0.06 K/mm3 0.0-0.2 NUCLEATED RBC # (test code=NRBC#) 0.00 K/mm3 0.0-0.1 MANUAL DIFF REQUIRED (test code=MDIFF) YES STAIN ACCEPTABILITY (test code=STN ACCEPTABLE) STAIN ACCEPTABLE TOTAL CELLS COUNTED (test code=TCC) 114 #CELLS SEGMENTED NEUTROPHILS (test code=SEG) 75.4 % 39-69 BAND NEUTROPHIL (test code=BAND) 7.0 % 0-10 LYMPHOCYTE (test code=LYMPH) 5.3 % 25-55 REACTIVE LYMPH (test code=RELYMPH) 0.9 % MONOCYTE (test code=MON) 10.5 % 0-10 EOSINOPHIL (test code=EOS) 0 % 0.0-5.0 BASOPHIL (test code=BASO) 0.9 % 0-1.0 METAMYELOCYTE (test code=META) 0 % 0-0 MYELOCYTE (test code=MYELO) 0 % 0.0-0.0 PROMYELOCYTE (test code=PROM) 0 % 0-0 ANISOCYTOSIS (test code=ANISO) 1+ PLATELET ESTIMATE (test code=PLTEST) DECREASED PLATELET MORPHOLOGY (test code=PLTMORPH) NORMAL IMMATURE FORMS (test code=IMMAT) 0 % 0-0 - XR CHEST 1 [id number] 07:10:00 FAX: Renetta Lopez NP [phone] [place]: [address] St: ADM FAX: Marco A Caruso [phone] Name: MARIE LAWRENCE [facility] : 1930 Age/S: 88/F [address] Unit #: [id number] Loc: [place] [address] Phys: Renetta Lopez DIET TECH Acct: [id number] Dis Date: Status: ADM IN PHONE #: [phone] Exam Date: 12/15/2018 05 FAX #: [phone] Reason: sob EXAMS: CPT CODE: [id number] XR CHEST 1 V 21621 CLINICAL HISTORY: Shortness of breath TECHNIQUE: AP chest x-ray COMPARISON: Previous day. IMPRESSION: No significant interval change. Diffuse bilateral interstitial opacities. Moderate right and small left pleural effusion. Cardiomegaly with pulmonary congestion. NG tube, right central venous catheter, left hemodialysis catheter. at 0710 Reported and signed by: Lore Hastings D.O. CC: Renetta Lopez NP; Marco A Caruso MD Technologist: KAE ZAZUETA JR Trnscrd Date/Time/By: 12/15/2018 (0710) : By: [email or web address] Orig Print D/T: S: 12/15/2018 (0763) PAGE 1 Signed Report BASIC METABOLIC PANEL 2018-12-15 07:09:00* Test Item Value Reference Range Comments SODIUM (test code=NA) 141 mmol/L 136-145 POTASSIUM (test code=K) 3.6 mmol/L 3.5-5.1 CHLORIDE (test code=CL) 104.0 mmol/L 98-107 CARBON DIOXIDE (test code=CO2) 29.0 mmol/L 21-32 ANION GAP (test code=GAP) 11.6 10-20 GLUCOSE (test code=GLU) 89 mg/dL 74-106 BLOOD UREA NITROGEN (test code=BUN) 31 mg/dL 7-18 GLOMERULAR FILTRATION RATE (test code=GFR) 18 mL/min >=60 Estimated GFR by using Modified MDRD formula.Chronic kidney disease is defined as either kidney damageor GFR <60 mL/min/1.73 m2 for >3 months. CREATININE (test code=CREAT) 2.50 mg/dL 0.55-1.02 Note change in reference range due to change in reagent. BUN/CREATININE RATIO (test code=BUN/CREA) 12.4 10-20 CALCIUM (test code=CA) 7.6 mg/dL 8.5-10.1 [id number] 07:09:00* Test Item Value Reference Range Comments PHOSPHORUS (test code=PHOS) 1.0 mg/dL 2.5-4.9 [id number] 07:09:00* Test Item Value Reference Range Comments MAGNESIUM (test code=MAG) 1.7 mg/dL 1.8-2.4 CALCIUM [id number] 07:09:00* Test Item Value Reference Range Comments CALCIUM IONIZED (test code=JONNATHAN) 1.14 mmol/L 1.12-1.32 BASIC METABOLIC [id number] 07:05:00* Test Item Value Reference Range Comments SODIUM (test code=NA) 141 mmol/L 136-145 POTASSIUM (test code=K) 3.6 mmol/L 3.5-5.1 CHLORIDE (test code=CL) 104.0 mmol/L 98-107 CARBON DIOXIDE (test code=CO2) mmol/L 21-32 ANION GAP (test code=GAP) 10-20 GLUCOSE (test code=GLU) mg/dL 74-106 BLOOD UREA NITROGEN (test code=BUN) mg/dL 7-18 GLOMERULAR FILTRATION RATE (test code=GFR) mL/min >=60 CREATININE (test code=CREAT) mg/dL 0.55-1.02 BUN/CREATININE RATIO (test code=BUN/CREA) 10-20 CALCIUM (test code=CA) 7.6 mg/dL 8.5-10.1 [id number] 07:05:00* Test Item Value Reference Range Comments PHOSPHORUS (test code=PHOS) mg/dL 2.5-4.9 [id number] 07:05:00* Test Item Value Reference Range Comments MAGNESIUM (test code=MAG) mg/dL 1.8-2.4 CALCIUM [id number] 07:05:00* Test Item Value Reference Range Comments CALCIUM IONIZED (test code=JONNATHAN) 1.14 mmol/L 1.12-1.32 BASIC METABOLIC [id number] 06:57:00* Test Item Value Reference Range Comments SODIUM (test code=NA) mmol/L 136-145 POTASSIUM (test code=K) mmol/L 3.5-5.1 CHLORIDE (test code=CL) mmol/L 98-107 CARBON DIOXIDE (test code=CO2) mmol/L 21-32 ANION GAP (test code=GAP) 10-20 GLUCOSE (test code=GLU) mg/dL 74-106 BLOOD UREA NITROGEN (test code=BUN) mg/dL 7-18 GLOMERULAR FILTRATION RATE (test code=GFR) mL/min >=60 CREATININE (test code=CREAT) mg/dL 0.55-1.02 BUN/CREATININE RATIO (test code=BUN/CREA) 10-20 CALCIUM (test code=CA) mg/dL 8.5-10.1 [id number] 06:57:00* Test Item Value Reference Range Comments PHOSPHORUS (test code=PHOS) mg/dL 2.5-4.9 [id number] 06:57:00* Test Item Value Reference Range Comments MAGNESIUM (test code=MAG) mg/dL 1.8-2.4 CALCIUM [id number] 06:57:00* Test Item Value Reference Range Comments CALCIUM IONIZED (test code=JONNATHAN) 1.14 mmol/L 1.12-1.32 CBC W/MANUAL [id number] 06:05:00* Test Item Value Reference Range Comments WHITE BLOOD CELL (test code=WBC) 20.0 K/mm3 4.5-12.5 RED BLOOD CELL (test code=RBC) 2.81 mill/mm3 3.7-5.2 HEMOGLOBIN (test code=HGB) 8.6 gram/dL 11.5-15.5 HEMATOCRIT (test code=HCT) 25.6 % 36.0-46.0 MEAN CELL VOLUME (test code=MCV) 91.1 fL 80-98 MEAN CELL HGB (test code=MCH) 30.6 picogram 27.0-33.0 MEAN CELL HGB CONCETRATION (test code=MCHC) 33.6 gram/dL 33.0-36.0 RED CELL DISTRIBUTION WIDTH (test code=RDW) 15.0 % 11.6-16.2 RED CELL DISTRIBUTION WIDTH SD (test code=RDW-SD) 50.3 fL 37.0-51.0 PLATELET COUNT (test code=PLT) 60 K/mm3 150-450 MEAN PLATELET VOLUME (test code=MPV) 12.6 fL 6.7-11.0 IMMATURE GRANULOCYTE % (test code=IG%) 2.9 % 0.0-5.0 NUCLEATED RBC % (test code=NRBC%) 0.0 % 0-0 NEUTROPHIL # (test code=NT#) 15.84 K/mm3 1.8-7.7 IMMATURE GRANULOCYTE # (test code=IG#) 0.58 x10 3/uL 0-0.03 LYMPHOCYTE # (test code=LY#) 1.35 K/mm3 1.0-5.0 MONOCYTE # (test code=MO#) 2.16 K/mm3 0-0.8 EOSINOPHIL # (test code=EO#) 0.02 K/mm3 0.0-0.5 BASOPHIL # (test code=BA#) 0.06 K/mm3 0.0-0.2 NUCLEATED RBC # (test code=NRBC#) 0.00 K/mm3 0.0-0.1 MANUAL DIFF REQUIRED (test code=MDIFF) YES STAIN ACCEPTABILITY (test code=STN ACCEPTABLE) TOTAL CELLS COUNTED (test code=TCC) #CELLS SEGMENTED NEUTROPHILS (test code=SEG) % 39-69 LYMPHOCYTE (test code=LYMPH) % 25-55 MONOCYTE (test code=MON) % 0-10 MORPHOLOGY COMMENT (test code=MOC) PLATELET ESTIMATE (test code=PLTEST) PLATELET MORPHOLOGY (test code=PLTMORPH) CBC W/MANUAL [id number] 05:55:00* Test Item Value Reference Range Comments WHITE BLOOD CELL (test code=WBC) 20.0 K/mm3 4.5-12.5 RED BLOOD CELL (test code=RBC) 2.81 mill/mm3 3.7-5.2 HEMOGLOBIN (test code=HGB) 8.6 gram/dL 11.5-15.5 HEMATOCRIT (test code=HCT) 25.6 % 36.0-46.0 MEAN CELL VOLUME (test code=MCV) 91.1 fL 80-98 MEAN CELL HGB (test code=MCH) 30.6 picogram 27.0-33.0 MEAN CELL HGB CONCETRATION (test code=MCHC) 33.6 gram/dL 33.0-36.0 RED CELL DISTRIBUTION WIDTH (test code=RDW) 15.0 % 11.6-16.2 RED CELL DISTRIBUTION WIDTH SD (test code=RDW-SD) 50.3 fL 37.0-51.0 PLATELET COUNT (test code=PLT) 60 K/mm3 150-450 MEAN PLATELET VOLUME (test code=MPV) 12.6 fL 6.7-11.0 IMMATURE GRANULOCYTE % (test code=IG%) 2.9 % 0.0-5.0 NUCLEATED RBC % (test code=NRBC%) 0.0 % 0-0 NEUTROPHIL # (test code=NT#) 15.84 K/mm3 1.8-7.7 IMMATURE GRANULOCYTE # (test code=IG#) 0.58 x10 3/uL 0-0.03 LYMPHOCYTE # (test code=LY#) 1.35 K/mm3 1.0-5.0 MONOCYTE # (test code=MO#) 2.16 K/mm3 0-0.8 EOSINOPHIL # (test code=EO#) 0.02 K/mm3 0.0-0.5 BASOPHIL # (test code=BA#) 0.06 K/mm3 0.0-0.2 NUCLEATED RBC # (test code=NRBC#) 0.00 K/mm3 0.0-0.1 MANUAL DIFF REQUIRED (test code=MDIFF) YES STAIN ACCEPTABILITY (test code=STN ACCEPTABLE) TOTAL CELLS COUNTED (test code=TCC) #CELLS SEGMENTED NEUTROPHILS (test code=SEG) % 39-69 LYMPHOCYTE (test code=LYMPH) % 25-55 MONOCYTE (test code=MON) % 0-10 EOSINOPHIL (test code=EOS) % 0.0-5.0 CABOT RINGS (test code=CAB) MORPHOLOGY COMMENT (test code=MOC) PLATELET ESTIMATE (test code=PLTEST) PLATELET MORPHOLOGY (test code=PLTMORPH) CBC W/MANUAL [id number] 05:55:00* Test Item Value Reference Range Comments WHITE BLOOD CELL (test code=WBC) 20.0 K/mm3 4.5-12.5 RED BLOOD CELL (test code=RBC) 2.81 mill/mm3 3.7-5.2 HEMOGLOBIN (test code=HGB) 8.6 gram/dL 11.5-15.5 HEMATOCRIT (test code=HCT) 25.6 % 36.0-46.0 MEAN CELL VOLUME (test code=MCV) 91.1 fL 80-98 MEAN CELL HGB (test code=MCH) 30.6 picogram 27.0-33.0 MEAN CELL HGB CONCETRATION (test code=MCHC) 33.6 gram/dL 33.0-36.0 RED CELL DISTRIBUTION WIDTH (test code=RDW) 15.0 % 11.6-16.2 RED CELL DISTRIBUTION WIDTH SD (test code=RDW-SD) 50.3 fL 37.0-51.0 PLATELET COUNT (test code=PLT) 60 K/mm3 150-450 MEAN PLATELET VOLUME (test code=MPV) 12.6 fL 6.7-11.0 IMMATURE GRANULOCYTE % (test code=IG%) 2.9 % 0.0-5.0 NUCLEATED RBC % (test code=NRBC%) 0.0 % 0-0 NEUTROPHIL # (test code=NT#) 15.84 K/mm3 1.8-7.7 IMMATURE GRANULOCYTE # (test code=IG#) 0.58 x10 3/uL 0-0.03 LYMPHOCYTE # (test code=LY#) 1.35 K/mm3 1.0-5.0 MONOCYTE # (test code=MO#) 2.16 K/mm3 0-0.8 EOSINOPHIL # (test code=EO#) 0.02 K/mm3 0.0-0.5 BASOPHIL # (test code=BA#) 0.06 K/mm3 0.0-0.2 NUCLEATED RBC # (test code=NRBC#) 0.00 K/mm3 0.0-0.1 MANUAL DIFF REQUIRED (test code=MDIFF) YES STAIN ACCEPTABILITY (test code=STN ACCEPTABLE) TOTAL CELLS COUNTED (test code=TCC) #CELLS SEGMENTED NEUTROPHILS (test code=SEG) % 39-69 LYMPHOCYTE (test code=LYMPH) % 25-55 MONOCYTE (test code=MON) % 0-10 EOSINOPHIL (test code=EOS) % 0.0-5.0 CABOT RINGS (test code=CAB) MORPHOLOGY COMMENT (test code=MOC) PLATELET ESTIMATE (test code=PLTEST) PLATELET MORPHOLOGY (test code=PLTMORPH) CBC W/MANUAL [id number] 05:55:00* Test Item Value Reference Range Comments WHITE BLOOD CELL (test code=WBC) 20.0 K/mm3 4.5-12.5 RED BLOOD CELL (test code=RBC) 2.81 mill/mm3 3.7-5.2 HEMOGLOBIN (test code=HGB) 8.6 gram/dL 11.5-15.5 HEMATOCRIT (test code=HCT) 25.6 % 36.0-46.0 MEAN CELL VOLUME (test code=MCV) 91.1 fL 80-98 MEAN CELL HGB (test code=MCH) 30.6 picogram 27.0-33.0 MEAN CELL HGB CONCETRATION (test code=MCHC) 33.6 gram/dL 33.0-36.0 RED CELL DISTRIBUTION WIDTH (test code=RDW) 15.0 % 11.6-16.2 RED CELL DISTRIBUTION WIDTH SD (test code=RDW-SD) 50.3 fL 37.0-51.0 PLATELET COUNT (test code=PLT) 60 K/mm3 150-450 MEAN PLATELET VOLUME (test code=MPV) 12.6 fL 6.7-11.0 IMMATURE GRANULOCYTE % (test code=IG%) 2.9 % 0.0-5.0 NUCLEATED RBC % (test code=NRBC%) 0.0 % 0-0 NEUTROPHIL # (test code=NT#) 15.84 K/mm3 1.8-7.7 IMMATURE GRANULOCYTE # (test code=IG#) 0.58 x10 3/uL 0-0.03 LYMPHOCYTE # (test code=LY#) 1.35 K/mm3 1.0-5.0 MONOCYTE # (test code=MO#) 2.16 K/mm3 0-0.8 EOSINOPHIL # (test code=EO#) 0.02 K/mm3 0.0-0.5 BASOPHIL # (test code=BA#) 0.06 K/mm3 0.0-0.2 NUCLEATED RBC # (test code=NRBC#) 0.00 K/mm3 0.0-0.1 MANUAL DIFF REQUIRED (test code=MDIFF) YES STAIN ACCEPTABILITY (test code=STN ACCEPTABLE) TOTAL CELLS COUNTED (test code=TCC) #CELLS SEGMENTED NEUTROPHILS (test code=SEG) % 39-69 LYMPHOCYTE (test code=LYMPH) % 25-55 MONOCYTE (test code=MON) % 0-10 EOSINOPHIL (test code=EOS) % 0.0-5.0 MORPHOLOGY COMMENT (test code=MOC) PLATELET ESTIMATE (test code=PLTEST) PLATELET MORPHOLOGY (test code=PLTMORPH) CBC W/MANUAL [id number] 05:55:00* Test Item Value Reference Range Comments WHITE BLOOD CELL (test code=WBC) 20.0 K/mm3 4.5-12.5 RED BLOOD CELL (test code=RBC) 2.81 mill/mm3 3.7-5.2 HEMOGLOBIN (test code=HGB) 8.6 gram/dL 11.5-15.5 HEMATOCRIT (test code=HCT) 25.6 % 36.0-46.0 MEAN CELL VOLUME (test code=MCV) 91.1 fL 80-98 MEAN CELL HGB (test code=MCH) 30.6 picogram 27.0-33.0 MEAN CELL HGB CONCETRATION (test code=MCHC) 33.6 gram/dL 33.0-36.0 RED CELL DISTRIBUTION WIDTH (test code=RDW) 15.0 % 11.6-16.2 RED CELL DISTRIBUTION WIDTH SD (test code=RDW-SD) 50.3 fL 37.0-51.0 PLATELET COUNT (test code=PLT) 60 K/mm3 150-450 MEAN PLATELET VOLUME (test code=MPV) 12.6 fL 6.7-11.0 IMMATURE GRANULOCYTE % (test code=IG%) 2.9 % 0.0-5.0 NUCLEATED RBC % (test code=NRBC%) 0.0 % 0-0 NEUTROPHIL # (test code=NT#) 15.84 K/mm3 1.8-7.7 IMMATURE GRANULOCYTE # (test code=IG#) 0.58 x10 3/uL 0-0.03 LYMPHOCYTE # (test code=LY#) 1.35 K/mm3 1.0-5.0 MONOCYTE # (test code=MO#) 2.16 K/mm3 0-0.8 EOSINOPHIL # (test code=EO#) 0.02 K/mm3 0.0-0.5 BASOPHIL # (test code=BA#) 0.06 K/mm3 0.0-0.2 NUCLEATED RBC # (test code=NRBC#) 0.00 K/mm3 0.0-0.1 MANUAL DIFF REQUIRED (test code=MDIFF) YES STAIN ACCEPTABILITY (test code=STN ACCEPTABLE) TOTAL CELLS COUNTED (test code=TCC) #CELLS SEGMENTED NEUTROPHILS (test code=SEG) % 39-69 LYMPHOCYTE (test code=LYMPH) % 25-55 MONOCYTE (test code=MON) % 0-10 EOSINOPHIL (test code=EOS) % 0.0-5.0 CABOT RINGS (test code=CAB) MORPHOLOGY COMMENT (test code=MOC) PLATELET ESTIMATE (test code=PLTEST) PLATELET MORPHOLOGY (test code=PLTMORPH) - [facility] [place] [facility] [id number] 17:20:00 Name: MARIE LAWRENCE [facility] : 1930 Age/S: 88 / F Susana Carmichael Unit #: [id number] Loc: [place] [address] Phys: Renetta Lopez NP Acct: [id number] Dis Date: Status: ADM IN PHONE #: [phone] Exam Date: 12/14/2018 1651 FAX #: [phone] Reason: eval right side consolidation/fluid EXAMS: CPT CODE: [id number] US CHST W/MEDIASTINUM [id number] REASON FOR EXAM: eval right side consolidation/fluid EXAM ORDER DATE: 12/14/2018 10:26 AM Attending Navdeep: Renetta Lopez NP PROCEDURE: - US CHST W/MEDIASTINUM FINDINGS: Limited focal ultrasound performed for assessment of pleural effusions IMPRESSION: Small trey ateral pleural effusions slightly larger on the right. The right pleural effusion also appears small complex with internal debris. E lectronically Signed by Navdeep Smith on 12/14/2018 at 1720 Reported and signed by: Jose Alberto Smith M.D. CC: Renetta Lopez DIET TECH; Marco A Caruso MD Technologist: Austyn Campbell Trn[facility] Date/Time: 12/14/2018 (1720) t.VTL Orig Print D/T: S: 12/14/2018 (1773) Probe: PAGE 1 Signed Report CBC W/MANUAL [id number] 08:20:00* Test Item Value Reference Range Comments WHITE BLOOD CELL (test code=WBC) 17.1 K/mm3 4.5-12.5 RED BLOOD CELL (test code=RBC) 2.31 mill/mm3 3.7-5.2 HEMOGLOBIN (test code=HGB) 7.0 gram/dL 11.5-15.5 HEMATOCRIT (test code=HCT) 21.3 % 36.0-46.0 Results called to [id number] by LINDA 12/14/18 0754Critical results verified and read back by Nurse? Y MEAN CELL VOLUME (test code=MCV) 92.2 fL 80-98 MEAN CELL HGB (test code=MCH) 30.3 picogram 27.0-33.0 MEAN CELL HGB CONCETRATION (test code=MCHC) 32.9 gram/dL 33.0-36.0 RED CELL DISTRIBUTION WIDTH (test code=RDW) 15.4 % 11.6-16.2 RED CELL DISTRIBUTION WIDTH SD (test code=RDW-SD) 52.2 fL 37.0-51.0 PLATELET COUNT (test code=PLT) 59 K/mm3 150-450 RESULT VERIFIED BY REPEAT ANALYSIS MEAN PLATELET VOLUME (test code=MPV) 12.2 fL 6.7-11.0 IMMATURE GRANULOCYTE % (test code=IG%) 1.6 % 0.0-5.0 NUCLEATED RBC % (test code=NRBC%) 0.0 % 0-0 NEUTROPHIL # (test code=NT#) 13.62 K/mm3 1.8-7.7 IMMATURE GRANULOCYTE # (test code=IG#) 0.28 x10 3/uL 0-0.03 LYMPHOCYTE # (test code=LY#) 1.38 K/mm3 1.0-5.0 MONOCYTE # (test code=MO#) 1.74 K/mm3 0-0.8 EOSINOPHIL # (test code=EO#) 0.01 K/mm3 0.0-0.5 BASOPHIL # (test code=BA#) 0.06 K/mm3 0.0-0.2 NUCLEATED RBC # (test code=NRBC#) 0.00 K/mm3 0.0-0.1 MANUAL DIFF REQUIRED (test code=MDIFF) YES STAIN ACCEPTABILITY (test code=STN ACCEPTABLE) STAIN ACCEPTABLE TOTAL CELLS COUNTED (test code=TCC) 112 #CELLS SEGMENTED NEUTROPHILS (test code=SEG) 93.7 % 39-69 BAND NEUTROPHIL (test code=BAND) 0 % 0-10 LYMPHOCYTE (test code=LYMPH) 1.8 % 25-55 REACTIVE LYMPH (test code=RELYMPH) 0 % MONOCYTE (test code=MON) 4.5 % 0-10 EOSINOPHIL (test code=EOS) 0 % 0.0-5.0 BASOPHIL (test code=BASO) 0 % 0-1.0 METAMYELOCYTE (test code=META) 0 % 0-0 MYELOCYTE (test code=MYELO) 0 % 0.0-0.0 PROMYELOCYTE (test code=PROM) 0 % 0-0 HYPOCHROMIA (test code=HYPO) 1+ POIKILOCYTOSIS (test code=POIK) 1+ ANISOCYTOSIS (test code=ANISO) 1+ PLATELET ESTIMATE (test code=PLTEST) DECREASED PLATELET MORPHOLOGY (test code=PLTMORPH) NORMAL IMMATURE FORMS (test code=IMMAT) 0 % 0-0 BASIC METABOLIC [id number] 08:01:00* Test Item Value Reference Range Comments SODIUM (test code=NA) 141 mmol/L 136-145 POTASSIUM (test code=K) 3.7 mmol/L 3.5-5.1 CHLORIDE (test code=CL) 103.0 mmol/L 98-107 CARBON DIOXIDE (test code=CO2) 32.0 mmol/L 21-32 ANION GAP (test code=GAP) 9.7 10-20 GLUCOSE (test code=GLU) 101 mg/dL 74-106 BLOOD UREA NITROGEN (test code=BUN) 27 mg/dL 7-18 GLOMERULAR FILTRATION RATE (test code=GFR) 14 mL/min >=60 Estimated GFR by using Modified MDRD formula.Chronic kidney disease is defined as either kidney damageor GFR <60 mL/min/1.73 m2 for >3 months. CREATININE (test code=CREAT) 3.10 mg/dL 0.55-1.02 Note change in reference range due to change in reagent. BUN/CREATININE RATIO (test code=BUN/CREA) 8.6 10-20 CALCIUM (test code=CA) 8.1 mg/dL 8.5-10.1 [id number] 08:01:00* Test Item Value Reference Range Comments PHOSPHORUS (test code=PHOS) 1.8 mg/dL 2.5-4.9 [id number] 08:01:00* Test Item Value Reference Range Comments MAGNESIUM (test code=MAG) 2.2 mg/dL 1.8-2.4 CALCIUM [id number] 08:01:00* Test Item Value Reference Range Comments CALCIUM IONIZED (test code=JONNATHAN) 1.14 mmol/L 1.12-1.32 - XR CHEST 1 [id number] 07:56:00 FAX: Renetta Lopez NP [phone] [place]: [address] St: ADM FAX: Marco A Caruso [phone] Name: MARIE LAWRENCE [facility] : 1930 Age/S: 88/F [address] Unit #: [id number] Loc: [place], [place] [address] Phys: Renetta Lopez NP Acct: [id number] Dis Date: Status: ADM IN PHONE #: [phone] Exam Date: 12/14/2018740 FAX #: [phone] Reason: sob EXAMS: CPT CODE: [id number] XR CHEST 1 V 01590 CLINICAL HISTORY: Shortness of breath TECHNIQUE: AP chest x-ray COMPARISON: Previous day. IMPRESSION: Increased moderate right pleural effusion and basilar atelectasis. Stable small left pleural effusion. Cardiomegaly with pulmonary congestion. ET tube has been removed. NG tube, right central venous catheter, left hemodialysis catheter. Electronically Si gned by Lore Hastings D.O. on 12/14/2018 at 0756 Reported an d signed by: Lore Hastings D.O. CC: Renetta Lopez NP; Marco A Mejia MD Technologist: Shelbie Lam(R) Trnscrd Date/Time/By: 12/14/2018 (0756) : By: [email or web address] Orig Print D/T: S: 12/14/2018 (0759) PAGE 1 Signed Report CBC W/MANUAL DIFF 2018-12-14 07:55:00* Test Item Value Reference Range Comments WHITE BLOOD CELL (test code=WBC) 17.1 K/mm3 4.5-12.5 RED BLOOD CELL (test code=RBC) 2.31 mill/mm3 3.7-5.2 HEMOGLOBIN (test code=HGB) 7.0 gram/dL 11.5-15.5 HEMATOCRIT (test code=HCT) 21.3 % 36.0-46.0 Results called to [id number] by LINDA 12/14/18 0754Critical results verified and read back by Nurse? Y MEAN CELL VOLUME (test code=MCV) 92.2 fL 80-98 MEAN CELL HGB (test code=MCH) 30.3 picogram 27.0-33.0 MEAN CELL HGB CONCETRATION (test code=MCHC) 32.9 gram/dL 33.0-36.0 RED CELL DISTRIBUTION WIDTH (test code=RDW) 15.4 % 11.6-16.2 RED CELL DISTRIBUTION WIDTH SD (test code=RDW-SD) 52.2 fL 37.0-51.0 PLATELET COUNT (test code=PLT) 59 K/mm3 150-450 RESULT VERIFIED BY REPEAT ANALYSIS MEAN PLATELET VOLUME (test code=MPV) 12.2 fL 6.7-11.0 IMMATURE GRANULOCYTE % (test code=IG%) 1.6 % 0.0-5.0 NUCLEATED RBC % (test code=NRBC%) 0.0 % 0-0 NEUTROPHIL # (test code=NT#) 13.62 K/mm3 1.8-7.7 IMMATURE GRANULOCYTE # (test code=IG#) 0.28 x10 3/uL 0-0.03 LYMPHOCYTE # (test code=LY#) 1.38 K/mm3 1.0-5.0 MONOCYTE # (test code=MO#) 1.74 K/mm3 0-0.8 EOSINOPHIL # (test code=EO#) 0.01 K/mm3 0.0-0.5 BASOPHIL # (test code=BA#) 0.06 K/mm3 0.0-0.2 NUCLEATED RBC # (test code=NRBC#) 0.00 K/mm3 0.0-0.1 MANUAL DIFF REQUIRED (test code=MDIFF) YES STAIN ACCEPTABILITY (test code=STN ACCEPTABLE) TOTAL CELLS COUNTED (test code=TCC) #CELLS SEGMENTED NEUTROPHILS (test code=SEG) % 39-69 LYMPHOCYTE (test code=LYMPH) % 25-55 MONOCYTE (test code=MON) % 0-10 EOSINOPHIL (test code=EOS) % 0.0-5.0 CABOT RINGS (test code=CAB) MORPHOLOGY COMMENT (test code=MOC) PLATELET ESTIMATE (test code=PLTEST) PLATELET MORPHOLOGY (test code=PLTMORPH) CBC W/MANUAL [id number] 07:55:00* Test Item Value Reference Range Comments WHITE BLOOD CELL (test code=WBC) 17.1 K/mm3 4.5-12.5 RED BLOOD CELL (test code=RBC) 2.31 mill/mm3 3.7-5.2 HEMOGLOBIN (test code=HGB) 7.0 gram/dL 11.5-15.5 HEMATOCRIT (test code=HCT) 21.3 % 36.0-46.0 Results called to [id number] by LINDA 12/14/18 0754Critical results verified and read back by Nurse? Y MEAN CELL VOLUME (test code=MCV) 92.2 fL 80-98 MEAN CELL HGB (test code=MCH) 30.3 picogram 27.0-33.0 MEAN CELL HGB CONCETRATION (test code=MCHC) 32.9 gram/dL 33.0-36.0 RED CELL DISTRIBUTION WIDTH (test code=RDW) 15.4 % 11.6-16.2 RED CELL DISTRIBUTION WIDTH SD (test code=RDW-SD) 52.2 fL 37.0-51.0 PLATELET COUNT (test code=PLT) 59 K/mm3 150-450 RESULT VERIFIED BY REPEAT ANALYSIS MEAN PLATELET VOLUME (test code=MPV) 12.2 fL 6.7-11.0 IMMATURE GRANULOCYTE % (test code=IG%) 1.6 % 0.0-5.0 NUCLEATED RBC % (test code=NRBC%) 0.0 % 0-0 NEUTROPHIL # (test code=NT#) 13.62 K/mm3 1.8-7.7 IMMATURE GRANULOCYTE # (test code=IG#) 0.28 x10 3/uL 0-0.03 LYMPHOCYTE # (test code=LY#) 1.38 K/mm3 1.0-5.0 MONOCYTE # (test code=MO#) 1.74 K/mm3 0-0.8 EOSINOPHIL # (test code=EO#) 0.01 K/mm3 0.0-0.5 BASOPHIL # (test code=BA#) 0.06 K/mm3 0.0-0.2 NUCLEATED RBC # (test code=NRBC#) 0.00 K/mm3 0.0-0.1 MANUAL DIFF REQUIRED (test code=MDIFF) YES STAIN ACCEPTABILITY (test code=STN ACCEPTABLE) TOTAL CELLS COUNTED (test code=TCC) #CELLS SEGMENTED NEUTROPHILS (test code=SEG) % 39-69 LYMPHOCYTE (test code=LYMPH) % 25-55 MONOCYTE (test code=MON) % 0-10 EOSINOPHIL (test code=EOS) % 0.0-5.0 CABOT RINGS (test code=CAB) MORPHOLOGY COMMENT (test code=MOC) PLATELET ESTIMATE (test code=PLTEST) PLATELET MORPHOLOGY (test code=PLTMORPH) CBC W/MANUAL [id number] 07:55:00* Test Item Value Reference Range Comments WHITE BLOOD CELL (test code=WBC) 17.1 K/mm3 4.5-12.5 RED BLOOD CELL (test code=RBC) 2.31 mill/mm3 3.7-5.2 HEMOGLOBIN (test code=HGB) 7.0 gram/dL 11.5-15.5 HEMATOCRIT (test code=HCT) 21.3 % 36.0-46.0 Results called to [id number] by LINDA 12/14/18 0754Critical results verified and read back by Nurse? Y MEAN CELL VOLUME (test code=MCV) 92.2 fL 80-98 MEAN CELL HGB (test code=MCH) 30.3 picogram 27.0-33.0 MEAN CELL HGB CONCETRATION (test code=MCHC) 32.9 gram/dL 33.0-36.0 RED CELL DISTRIBUTION WIDTH (test code=RDW) 15.4 % 11.6-16.2 RED CELL DISTRIBUTION WIDTH SD (test code=RDW-SD) 52.2 fL 37.0-51.0 PLATELET COUNT (test code=PLT) 59 K/mm3 150-450 RESULT VERIFIED BY REPEAT ANALYSIS MEAN PLATELET VOLUME (test code=MPV) 12.2 fL 6.7-11.0 IMMATURE GRANULOCYTE % (test code=IG%) 1.6 % 0.0-5.0 NUCLEATED RBC % (test code=NRBC%) 0.0 % 0-0 NEUTROPHIL # (test code=NT#) 13.62 K/mm3 1.8-7.7 IMMATURE GRANULOCYTE # (test code=IG#) 0.28 x10 3/uL 0-0.03 LYMPHOCYTE # (test code=LY#) 1.38 K/mm3 1.0-5.0 MONOCYTE # (test code=MO#) 1.74 K/mm3 0-0.8 EOSINOPHIL # (test code=EO#) 0.01 K/mm3 0.0-0.5 BASOPHIL # (test code=BA#) 0.06 K/mm3 0.0-0.2 NUCLEATED RBC # (test code=NRBC#) 0.00 K/mm3 0.0-0.1 MANUAL DIFF REQUIRED (test code=MDIFF) YES STAIN ACCEPTABILITY (test code=STN ACCEPTABLE) TOTAL CELLS COUNTED (test code=TCC) #CELLS SEGMENTED NEUTROPHILS (test code=SEG) % 39-69 LYMPHOCYTE (test code=LYMPH) % 25-55 MONOCYTE (test code=MON) % 0-10 EOSINOPHIL (test code=EOS) % 0.0-5.0 MORPHOLOGY COMMENT (test code=MOC) PLATELET ESTIMATE (test code=PLTEST) PLATELET MORPHOLOGY (test code=PLTMORPH) CBC W/MANUAL [id number] 07:55:00* Test Item Value Reference Range Comments WHITE BLOOD CELL (test code=WBC) 17.1 K/mm3 4.5-12.5 RED BLOOD CELL (test code=RBC) 2.31 mill/mm3 3.7-5.2 HEMOGLOBIN (test code=HGB) 7.0 gram/dL 11.5-15.5 HEMATOCRIT (test code=HCT) 21.3 % 36.0-46.0 Results called to [id number] by LINDA 12/14/18 0754Critical results verified and read back by Nurse? Y MEAN CELL VOLUME (test code=MCV) 92.2 fL 80-98 MEAN CELL HGB (test code=MCH) 30.3 picogram 27.0-33.0 MEAN CELL HGB CONCETRATION (test code=MCHC) 32.9 gram/dL 33.0-36.0 RED CELL DISTRIBUTION WIDTH (test code=RDW) 15.4 % 11.6-16.2 RED CELL DISTRIBUTION WIDTH SD (test code=RDW-SD) 52.2 fL 37.0-51.0 PLATELET COUNT (test code=PLT) 59 K/mm3 150-450 RESULT VERIFIED BY REPEAT ANALYSIS MEAN PLATELET VOLUME (test code=MPV) 12.2 fL 6.7-11.0 IMMATURE GRANULOCYTE % (test code=IG%) 1.6 % 0.0-5.0 NUCLEATED RBC % (test code=NRBC%) 0.0 % 0-0 NEUTROPHIL # (test code=NT#) 13.62 K/mm3 1.8-7.7 IMMATURE GRANULOCYTE # (test code=IG#) 0.28 x10 3/uL 0-0.03 LYMPHOCYTE # (test code=LY#) 1.38 K/mm3 1.0-5.0 MONOCYTE # (test code=MO#) 1.74 K/mm3 0-0.8 EOSINOPHIL # (test code=EO#) 0.01 K/mm3 0.0-0.5 BASOPHIL # (test code=BA#) 0.06 K/mm3 0.0-0.2 NUCLEATED RBC # (test code=NRBC#) 0.00 K/mm3 0.0-0.1 MANUAL DIFF REQUIRED (test code=MDIFF) YES STAIN ACCEPTABILITY (test code=STN ACCEPTABLE) TOTAL CELLS COUNTED (test code=TCC) #CELLS SEGMENTED NEUTROPHILS (test code=SEG) % 39-69 LYMPHOCYTE (test code=LYMPH) % 25-55 MONOCYTE (test code=MON) % 0-10 MORPHOLOGY COMMENT (test code=MOC) PLATELET ESTIMATE (test code=PLTEST) PLATELET MORPHOLOGY (test code=PLTMORPH) CBC W/MANUAL [id number] 07:55:00* Test Item Value Reference Range Comments WHITE BLOOD CELL (test code=WBC) 17.1 K/mm3 4.5-12.5 RED BLOOD CELL (test code=RBC) 2.31 mill/mm3 3.7-5.2 HEMOGLOBIN (test code=HGB) 7.0 gram/dL 11.5-15.5 HEMATOCRIT (test code=HCT) 21.3 % 36.0-46.0 Results called to [id number] by LINDA 12/14/18 0754Critical results verified and read back by Nurse? Y MEAN CELL VOLUME (test code=MCV) 92.2 fL 80-98 MEAN CELL HGB (test code=MCH) 30.3 picogram 27.0-33.0 MEAN CELL HGB CONCETRATION (test code=MCHC) 32.9 gram/dL 33.0-36.0 RED CELL DISTRIBUTION WIDTH (test code=RDW) 15.4 % 11.6-16.2 RED CELL DISTRIBUTION WIDTH SD (test code=RDW-SD) 52.2 fL 37.0-51.0 PLATELET COUNT (test code=PLT) 59 K/mm3 150-450 RESULT VERIFIED BY REPEAT ANALYSIS MEAN PLATELET VOLUME (test code=MPV) 12.2 fL 6.7-11.0 IMMATURE GRANULOCYTE % (test code=IG%) 1.6 % 0.0-5.0 NUCLEATED RBC % (test code=NRBC%) 0.0 % 0-0 NEUTROPHIL # (test code=NT#) 13.62 K/mm3 1.8-7.7 IMMATURE GRANULOCYTE # (test code=IG#) 0.28 x10 3/uL 0-0.03 LYMPHOCYTE # (test code=LY#) 1.38 K/mm3 1.0-5.0 MONOCYTE # (test code=MO#) 1.74 K/mm3 0-0.8 EOSINOPHIL # (test code=EO#) 0.01 K/mm3 0.0-0.5 BASOPHIL # (test code=BA#) 0.06 K/mm3 0.0-0.2 NUCLEATED RBC # (test code=NRBC#) 0.00 K/mm3 0.0-0.1 MANUAL DIFF REQUIRED (test code=MDIFF) YES STAIN ACCEPTABILITY (test code=STN ACCEPTABLE) TOTAL CELLS COUNTED (test code=TCC) #CELLS SEGMENTED NEUTROPHILS (test code=SEG) % 39-69 LYMPHOCYTE (test code=LYMPH) % 25-55 MONOCYTE (test code=MON) % 0-10 EOSINOPHIL (test code=EOS) % 0.0-5.0 CABOT RINGS (test code=CAB) MORPHOLOGY COMMENT (test code=MOC) PLATELET ESTIMATE (test code=PLTEST) PLATELET MORPHOLOGY (test code=PLTMORPH) BASIC METABOLIC [id number] 07:49:00* Test Item Value Reference Range Comments SODIUM (test code=NA) 141 mmol/L 136-145 POTASSIUM (test code=K) 3.7 mmol/L 3.5-5.1 CHLORIDE (test code=CL) 103.0 mmol/L 98-107 CARBON DIOXIDE (test code=CO2) mmol/L 21-32 ANION GAP (test code=GAP) 10-20 GLUCOSE (test code=GLU) mg/dL 74-106 BLOOD UREA NITROGEN (test code=BUN) mg/dL 7-18 GLOMERULAR FILTRATION RATE (test code=GFR) mL/min >=60 CREATININE (test code=CREAT) mg/dL 0.55-1.02 BUN/CREATININE RATIO (test code=BUN/CREA) 10-20 CALCIUM (test code=CA) mg/dL 8.5-10.1 [id number] 07:49:00* Test Item Value Reference Range Comments PHOSPHORUS (test code=PHOS) mg/dL 2.5-4.9 [id number] 07:49:00* Test Item Value Reference Range Comments MAGNESIUM (test code=MAG) mg/dL 1.8-2.4 CALCIUM [id number] 07:49:00* Test Item Value Reference Range Comments CALCIUM IONIZED (test code=JONNATHAN) 1.14 mmol/L 1.12-1.32 BASIC METABOLIC [id number] 07:42:00* Test Item Value Reference Range Comments SODIUM (test code=NA) mmol/L 136-145 POTASSIUM (test code=K) mmol/L 3.5-5.1 CHLORIDE (test code=CL) mmol/L 98-107 CARBON DIOXIDE (test code=CO2) mmol/L 21-32 ANION GAP (test code=GAP) 10-20 GLUCOSE (test code=GLU) mg/dL 74-106 BLOOD UREA NITROGEN (test code=BUN) mg/dL 7-18 GLOMERULAR FILTRATION RATE (test code=GFR) mL/min >=60 CREATININE (test code=CREAT) mg/dL 0.55-1.02 BUN/CREATININE RATIO (test code=BUN/CREA) 10-20 CALCIUM (test code=CA) mg/dL 8.5-10.1 [id number] 07:42:00* Test Item Value Reference Range Comments PHOSPHORUS (test code=PHOS) mg/dL 2.5-4.9 [id number] 07:42:00* Test Item Value Reference Range Comments MAGNESIUM (test code=MAG) mg/dL 1.8-2.4 CALCIUM [id number] 07:42:00* Test Item Value Reference Range Comments CALCIUM IONIZED (test code=JONNATHAN) 1.14 mmol/L 1.12-1.32 PROCALCITONIN (PCT)2018-12-14 07:09:00* Test Item Value Reference Range Comments PROCALCITONIN (PCT) (test code=PROCAL) 40.31 ng/ml Concentration Interpretation (ng/mL) <0.51 Sepsis is not likely. Local bacterial infection is possible. (LOW RISK for progression to Sepsis) 0.51 - 2.00 Sepsis is possible, but other conditions are known to elevate PCT as well. (MODERATE RISK for progression to Sepsis) > 2.00 Sepsis is likely, unless other causes are known. (HIGH RISK for progression to Severe Sepsis or Septic Shock) 10.00 High likelihood of Severe Sepsis or Septic or higher Shock. *Increased PCT levels may not always be related to systemic bacterial infection.*Low PCT levels do not automatically exclude the presence of bacterial infection.*All results should be interpreted taking into account the patients history. ARTERIAL BLOOD [id number] 17:32:00* Test Item Value Reference Range Comments ARTERIAL BLOOD GAS PH (test code=PHA) 7.46 7.35-7.45 ARTERIAL BLOOD GAS PCO2 (test code=PCO2A) 40.4 mm Hg 35-45 ARTERIAL BLOOD GAS PO2 (test code=PO2A) 119.9 mmHg 80-100 BICARBONATE TOTAL HCO3 (test code=HCO3) 28.0 mmol/L 23.0-27.0 BASE EXCESS (test code=DANICA) 3.9 mmol/L -3.0-5.0 ABG O2 SATURATION (test code=SATA) 97.8 % 90.0-98.0 ABG TYPE (test code=TYPEA) Arterial FIO2 (test code=FIO2A) 40.0 ABG VENT MODE (test code=MODEA) CPAP ABG SITE (test code=SITEA) ARTERIAL LINE MODIFIED ALLENS (test code=MODALL) Unable CHECK PERFORMED HEMATOCRIT (test code=HCT/ABG) 23 % 35-47 TOTAL HGB (test code=THB) 7.9 gram/dL 11.5-15.5 HGB O2 SAT (test code=HBOSAT) 96.7 % 94.00-98.00 CARBOXYHEMOGLOBIN (test code=HOHGBT) 0.4 %totalHg 0.5-1.5 Results called to and read back by Kyle 17:31 - 12/13/2018; by [id number] METHEMOGLOBIN (test code=METHGB) 0.7 % 0.0-1.50 O2 CONTENT (test code=O2CT) 11.0 % vol 18.0-22.0 CBC W/MANUAL [id number] 09:08:00* Test Item Value Reference Range Comments WHITE BLOOD CELL (test code=WBC) 15.0 K/mm3 4.5-12.5 RED BLOOD CELL (test code=RBC) 2.55 mill/mm3 3.7-5.2 HEMOGLOBIN (test code=HGB) 7.8 gram/dL 11.5-15.5 HEMATOCRIT (test code=HCT) 23.1 % 36.0-46.0 MEAN CELL VOLUME (test code=MCV) 90.6 fL 80-98 MEAN CELL HGB (test code=MCH) 30.6 picogram 27.0-33.0 MEAN CELL HGB CONCETRATION (test code=MCHC) 33.8 gram/dL 33.0-36.0 RED CELL DISTRIBUTION WIDTH (test code=RDW) 15.0 % 11.6-16.2 RED CELL DISTRIBUTION WIDTH SD (test code=RDW-SD) 49.9 fL 37.0-51.0 PLATELET COUNT (test code=PLT) 21 K/mm3 150-450 Results called to LOUIS [id number] V.LABLeylaOA 12/13/18 0803Critical results verified and read back by Nurse? Y MEAN PLATELET VOLUME (test code=MPV) TEST NOT PERFORMED fL 6.7-11.0 IMMATURE GRANULOCYTE % (test code=IG%) 1.4 % 0.0-5.0 NUCLEATED RBC % (test code=NRBC%) 0.0 % 0-0 NEUTROPHIL # (test code=NT#) 11.79 K/mm3 1.8-7.7 IMMATURE GRANULOCYTE # (test code=IG#) 0.21 x10 3/uL 0-0.03 LYMPHOCYTE # (test code=LY#) 0.84 K/mm3 1.0-5.0 MONOCYTE # (test code=MO#) 2.03 K/mm3 0-0.8 EOSINOPHIL # (test code=EO#) 0.06 K/mm3 0.0-0.5 BASOPHIL # (test code=BA#) 0.05 K/mm3 0.0-0.2 NUCLEATED RBC # (test code=NRBC#) 0.00 K/mm3 0.0-0.1 MANUAL DIFF REQUIRED (test code=MDIFF) YES STAIN ACCEPTABILITY (test code=STN ACCEPTABLE) STAIN ACCEPTABLE TOTAL CELLS COUNTED (test code=TCC) 113 #CELLS SEGMENTED NEUTROPHILS (test code=SEG) 87.6 % 39-69 BAND NEUTROPHIL (test code=BAND) 1.8 % 0-10 LYMPHOCYTE (test code=LYMPH) 5.3 % 25-55 REACTIVE LYMPH (test code=RELYMPH) 0 % MONOCYTE (test code=MON) 5.3 % 0-10 EOSINOPHIL (test code=EOS) 0 % 0.0-5.0 BASOPHIL (test code=BASO) 0 % 0-1.0 METAMYELOCYTE (test code=META) 0 % 0-0 MYELOCYTE (test code=MYELO) 0 % 0.0-0.0 PROMYELOCYTE (test code=PROM) 0 % 0-0 POIKILOCYTOSIS (test code=POIK) 1+ CRENATED CELLS (test code=CREN) 1+ PLATELET ESTIMATE (test code=PLTEST) DECREASED PLATELET MORPHOLOGY (test code=PLTMORPH) NORMAL IMMATURE FORMS (test code=IMMAT) 0 % 0-0 CBC W/MANUAL [id number] 08:04:00* Test Item Value Reference Range Comments WHITE BLOOD CELL (test code=WBC) 15.0 K/mm3 4.5-12.5 RED BLOOD CELL (test code=RBC) 2.55 mill/mm3 3.7-5.2 HEMOGLOBIN (test code=HGB) 7.8 gram/dL 11.5-15.5 HEMATOCRIT (test code=HCT) 23.1 % 36.0-46.0 MEAN CELL VOLUME (test code=MCV) 90.6 fL 80-98 MEAN CELL HGB (test code=MCH) 30.6 picogram 27.0-33.0 MEAN CELL HGB CONCETRATION (test code=MCHC) 33.8 gram/dL 33.0-36.0 RED CELL DISTRIBUTION WIDTH (test code=RDW) 15.0 % 11.6-16.2 RED CELL DISTRIBUTION WIDTH SD (test code=RDW-SD) 49.9 fL 37.0-51.0 PLATELET COUNT (test code=PLT) 21 K/mm3 150-450 Results called to L[facility] [id number] V.LAB.OA 12/13/18 0803Critical results verified and read back by Nurse? Y MEAN PLATELET VOLUME (test code=MPV) TEST NOT PERFORMED fL 6.7-11.0 IMMATURE GRANULOCYTE % (test code=IG%) 1.4 % 0.0-5.0 NUCLEATED RBC % (test code=NRBC%) 0.0 % 0-0 NEUTROPHIL # (test code=NT#) 11.79 K/mm3 1.8-7.7 IMMATURE GRANULOCYTE # (test code=IG#) 0.21 x10 3/uL 0-0.03 LYMPHOCYTE # (test code=LY#) 0.84 K/mm3 1.0-5.0 MONOCYTE # (test code=MO#) 2.03 K/mm3 0-0.8 EOSINOPHIL # (test code=EO#) 0.06 K/mm3 0.0-0.5 BASOPHIL # (test code=BA#) 0.05 K/mm3 0.0-0.2 NUCLEATED RBC # (test code=NRBC#) 0.00 K/mm3 0.0-0.1 MANUAL DIFF REQUIRED (test code=MDIFF) YES STAIN ACCEPTABILITY (test code=STN ACCEPTABLE) TOTAL CELLS COUNTED (test code=TCC) #CELLS SEGMENTED NEUTROPHILS (test code=SEG) % 39-69 LYMPHOCYTE (test code=LYMPH) % 25-55 MONOCYTE (test code=MON) % 0-10 EOSINOPHIL (test code=EOS) % 0.0-5.0 CABOT RINGS (test code=CAB) MORPHOLOGY COMMENT (test code=MOC) PLATELET ESTIMATE (test code=PLTEST) PLATELET MORPHOLOGY (test code=PLTMORPH) CBC W/MANUAL [id number] 08:04:00* Test Item Value Reference Range Comments WHITE BLOOD CELL (test code=WBC) 15.0 K/mm3 4.5-12.5 RED BLOOD CELL (test code=RBC) 2.55 mill/mm3 3.7-5.2 HEMOGLOBIN (test code=HGB) 7.8 gram/dL 11.5-15.5 HEMATOCRIT (test code=HCT) 23.1 % 36.0-46.0 MEAN CELL VOLUME (test code=MCV) 90.6 fL 80-98 MEAN CELL HGB (test code=MCH) 30.6 picogram 27.0-33.0 MEAN CELL HGB CONCETRATION (test code=MCHC) 33.8 gram/dL 33.0-36.0 RED CELL DISTRIBUTION WIDTH (test code=RDW) 15.0 % 11.6-16.2 RED CELL DISTRIBUTION WIDTH SD (test code=RDW-SD) 49.9 fL 37.0-51.0 PLATELET COUNT (test code=PLT) 21 K/mm3 150-450 Results called to [facility] [id number] V.LAB. 12/13/18 0803Critical results verified and read back by Nurse? Y MEAN PLATELET VOLUME (test code=MPV) TEST NOT PERFORMED fL 6.7-11.0 IMMATURE GRANULOCYTE % (test code=IG%) 1.4 % 0.0-5.0 NUCLEATED RBC % (test code=NRBC%) 0.0 % 0-0 NEUTROPHIL # (test code=NT#) 11.79 K/mm3 1.8-7.7 IMMATURE GRANULOCYTE # (test code=IG#) 0.21 x10 3/uL 0-0.03 LYMPHOCYTE # (test code=LY#) 0.84 K/mm3 1.0-5.0 MONOCYTE # (test code=MO#) 2.03 K/mm3 0-0.8 EOSINOPHIL # (test code=EO#) 0.06 K/mm3 0.0-0.5 BASOPHIL # (test code=BA#) 0.05 K/mm3 0.0-0.2 NUCLEATED RBC # (test code=NRBC#) 0.00 K/mm3 0.0-0.1 MANUAL DIFF REQUIRED (test code=MDIFF) YES STAIN ACCEPTABILITY (test code=STN ACCEPTABLE) TOTAL CELLS COUNTED (test code=TCC) #CELLS SEGMENTED NEUTROPHILS (test code=SEG) % 39-69 LYMPHOCYTE (test code=LYMPH) % 25-55 MONOCYTE (test code=MON) % 0-10 EOSINOPHIL (test code=EOS) % 0.0-5.0 MORPHOLOGY COMMENT (test code=MOC) PLATELET ESTIMATE (test code=PLTEST) PLATELET MORPHOLOGY (test code=PLTMORPH) CBC W/MANUAL [id number] 08:04:00* Test Item Value Reference Range Comments WHITE BLOOD CELL (test code=WBC) 15.0 K/mm3 4.5-12.5 RED BLOOD CELL (test code=RBC) 2.55 mill/mm3 3.7-5.2 HEMOGLOBIN (test code=HGB) 7.8 gram/dL 11.5-15.5 HEMATOCRIT (test code=HCT) 23.1 % 36.0-46.0 MEAN CELL VOLUME (test code=MCV) 90.6 fL 80-98 MEAN CELL HGB (test code=MCH) 30.6 picogram 27.0-33.0 MEAN CELL HGB CONCETRATION (test code=MCHC) 33.8 gram/dL 33.0-36.0 RED CELL DISTRIBUTION WIDTH (test code=RDW) 15.0 % 11.6-16.2 RED CELL DISTRIBUTION WIDTH SD (test code=RDW-SD) 49.9 fL 37.0-51.0 PLATELET COUNT (test code=PLT) 21 K/mm3 150-450 Results called to [facility] [id number] V.LAB. 12/13/18 0803Critical results verified and read back by Nurse? Y MEAN PLATELET VOLUME (test code=MPV) TEST NOT PERFORMED fL 6.7-11.0 IMMATURE GRANULOCYTE % (test code=IG%) 1.4 % 0.0-5.0 NUCLEATED RBC % (test code=NRBC%) 0.0 % 0-0 NEUTROPHIL # (test code=NT#) 11.79 K/mm3 1.8-7.7 IMMATURE GRANULOCYTE # (test code=IG#) 0.21 x10 3/uL 0-0.03 LYMPHOCYTE # (test code=LY#) 0.84 K/mm3 1.0-5.0 MONOCYTE # (test code=MO#) 2.03 K/mm3 0-0.8 EOSINOPHIL # (test code=EO#) 0.06 K/mm3 0.0-0.5 BASOPHIL # (test code=BA#) 0.05 K/mm3 0.0-0.2 NUCLEATED RBC # (test code=NRBC#) 0.00 K/mm3 0.0-0.1 MANUAL DIFF REQUIRED (test code=MDIFF) YES STAIN ACCEPTABILITY (test code=STN ACCEPTABLE) TOTAL CELLS COUNTED (test code=TCC) #CELLS SEGMENTED NEUTROPHILS (test code=SEG) % 39-69 LYMPHOCYTE (test code=LYMPH) % 25-55 MONOCYTE (test code=MON) % 0-10 MORPHOLOGY COMMENT (test code=MOC) PLATELET ESTIMATE (test code=PLTEST) PLATELET MORPHOLOGY (test code=PLTMORPH) CBC W/MANUAL [id number] 08:03:00* Test Item Value Reference Range Comments WHITE BLOOD CELL (test code=WBC) 15.0 K/mm3 4.5-12.5 RED BLOOD CELL (test code=RBC) 2.55 mill/mm3 3.7-5.2 HEMOGLOBIN (test code=HGB) 7.8 gram/dL 11.5-15.5 HEMATOCRIT (test code=HCT) 23.1 % 36.0-46.0 MEAN CELL VOLUME (test code=MCV) 90.6 fL 80-98 MEAN CELL HGB (test code=MCH) 30.6 picogram 27.0-33.0 MEAN CELL HGB CONCETRATION (test code=MCHC) 33.8 gram/dL 33.0-36.0 RED CELL DISTRIBUTION WIDTH (test code=RDW) 15.0 % 11.6-16.2 RED CELL DISTRIBUTION WIDTH SD (test code=RDW-SD) 49.9 fL 37.0-51.0 PLATELET COUNT (test code=PLT) 21 K/mm3 150-450 Results called to [facility] [id number] V.LAB.OA 12/13/18 0803Critical results verified and read back by Nurse? Y MEAN PLATELET VOLUME (test code=MPV) TEST NOT PERFORMED fL 6.7-11.0 IMMATURE GRANULOCYTE % (test code=IG%) 1.4 % 0.0-5.0 NUCLEATED RBC % (test code=NRBC%) 0.0 % 0-0 NEUTROPHIL # (test code=NT#) 11.79 K/mm3 1.8-7.7 IMMATURE GRANULOCYTE # (test code=IG#) 0.21 x10 3/uL 0-0.03 LYMPHOCYTE # (test code=LY#) 0.84 K/mm3 1.0-5.0 MONOCYTE # (test code=MO#) 2.03 K/mm3 0-0.8 EOSINOPHIL # (test code=EO#) 0.06 K/mm3 0.0-0.5 BASOPHIL # (test code=BA#) 0.05 K/mm3 0.0-0.2 NUCLEATED RBC # (test code=NRBC#) 0.00 K/mm3 0.0-0.1 MANUAL DIFF REQUIRED (test code=MDIFF) YES STAIN ACCEPTABILITY (test code=STN ACCEPTABLE) TOTAL CELLS COUNTED (test code=TCC) #CELLS SEGMENTED NEUTROPHILS (test code=SEG) % 39-69 LYMPHOCYTE (test code=LYMPH) % 25-55 MONOCYTE (test code=MON) % 0-10 EOSINOPHIL (test code=EOS) % 0.0-5.0 CABOT RINGS (test code=CAB) MORPHOLOGY COMMENT (test code=MOC) PLATELET ESTIMATE (test code=PLTEST) PLATELET MORPHOLOGY (test code=PLTMORPH) CBC W/MANUAL [id number] 08:03:00* Test Item Value Reference Range Comments WHITE BLOOD CELL (test code=WBC) 15.0 K/mm3 4.5-12.5 RED BLOOD CELL (test code=RBC) 2.55 mill/mm3 3.7-5.2 HEMOGLOBIN (test code=HGB) 7.8 gram/dL 11.5-15.5 HEMATOCRIT (test code=HCT) 23.1 % 36.0-46.0 MEAN CELL VOLUME (test code=MCV) 90.6 fL 80-98 MEAN CELL HGB (test code=MCH) 30.6 picogram 27.0-33.0 MEAN CELL HGB CONCETRATION (test code=MCHC) 33.8 gram/dL 33.0-36.0 RED CELL DISTRIBUTION WIDTH (test code=RDW) 15.0 % 11.6-16.2 RED CELL DISTRIBUTION WIDTH SD (test code=RDW-SD) 49.9 fL 37.0-51.0 PLATELET COUNT (test code=PLT) 21 K/mm3 150-450 Results called to LOUIS [id number] JaneLABTRACEY 12/13/18 0803Critical results verified and read back by Nurse? Y MEAN PLATELET VOLUME (test code=MPV) TEST NOT PERFORMED fL 6.7-11.0 IMMATURE GRANULOCYTE % (test code=IG%) 1.4 % 0.0-5.0 NUCLEATED RBC % (test code=NRBC%) 0.0 % 0-0 NEUTROPHIL # (test code=NT#) 11.79 K/mm3 1.8-7.7 IMMATURE GRANULOCYTE # (test code=IG#) 0.21 x10 3/uL 0-0.03 LYMPHOCYTE # (test code=LY#) 0.84 K/mm3 1.0-5.0 MONOCYTE # (test code=MO#) 2.03 K/mm3 0-0.8 EOSINOPHIL # (test code=EO#) 0.06 K/mm3 0.0-0.5 BASOPHIL # (test code=BA#) 0.05 K/mm3 0.0-0.2 NUCLEATED RBC # (test code=NRBC#) 0.00 K/mm3 0.0-0.1 MANUAL DIFF REQUIRED (test code=MDIFF) YES STAIN ACCEPTABILITY (test code=STN ACCEPTABLE) TOTAL CELLS COUNTED (test code=TCC) #CELLS SEGMENTED NEUTROPHILS (test code=SEG) % 39-69 LYMPHOCYTE (test code=LYMPH) % 25-55 MONOCYTE (test code=MON) % 0-10 EOSINOPHIL (test code=EOS) % 0.0-5.0 CABOT RINGS (test code=CAB) MORPHOLOGY COMMENT (test code=MOC) PLATELET ESTIMATE (test code=PLTEST) PLATELET MORPHOLOGY (test code=PLTMORPH) - XR CHEST 1 [id number] 07:17:00 FAX: Duglas Baig [place]: B St: ADM FAX: Marco A Caruso [phone] Name: LAWRENCEMARIE ANTHONY [facility] : 1930 Age/S: 88/F [address] Unit #: [id number] Loc: [facility] [place] [address] Phys: Duglas Baig Acct: [id number] Dis Date: Status: ADM IN PHONE #: [phone] Exam Date: 12/13/2018526 FAX #: [phone] Reason: intubated EXAMS: CPT CODE: [id number] XR CHEST 1 V 78565 CLINICAL HISTORY: intubated; septic shock; bacteremia; UTI TECHNIQUE: AP chest x-ray COMPARISON: Previous day. IMPRESSION: Mildly decreased bilateral interstitial opacities, basilar atelectasis, and pleural effusions. Mild cardiomegaly. Atherosclerotic vascular calcification of the thoracic aorta. ET tube, NG tube, right central venous catheter, and left hemodialysis catheter. at 0717 Reported and signed by: Lore Hastings D.O. CC: Duglas Baig; Marco A Caruso MD Technologist: KAE ZAZUETA JR Trnscrd Date/Time/By: 12/13/2018 (0717) : By: [email or web address] Orig Print D/T: S: 12/13/2018 (0749) PAGE 1 Signed Report RETICULOCYTE [id number] 07:13:00* Test Item Value Reference Range Comments RETICULOCYTE COUNT (test code=RETICT) 1.3 % 0.5-2.0 RETIC COUNT ABSOLUTE (test code=RET#) 0.033 mill/mm3 0.016-0.095 IMMATURE RETICULOCYTE FRACTION (test code=IRF) 20.7 % 3.0-15.9 Values above normal range indicate an increase in RBCcellular response from bone marrow. RETICULOCYTE HGB EQUIVALENT (test code=RETHE) 31.1 pg 28.2-35.7 RET-He is a direct estimate of recent functionalavailability of iron in the cell, therefore, decreasedRET-He is indicative of iron deficiency. [id number] 07:13:00* Test Item Value Reference Range Comments HAPTOGLOBIN (test code=HAPT) <10 mg/dL 34-200 Performed At: [address] [id number] Hraris MD Ph:[phone] BASIC METABOLIC [id number] 06:45:00* Test Item Value Reference Range Comments SODIUM (test code=NA) 142 mmol/L 136-145 POTASSIUM (test code=K) 3.5 mmol/L 3.5-5.1 CHLORIDE (test code=CL) 104.0 mmol/L 98-107 CARBON DIOXIDE (test code=CO2) 34.0 mmol/L 21-32 ANION GAP (test code=GAP) 7.5 10-20 GLUCOSE (test code=GLU) 82 mg/dL 74-106 BLOOD UREA NITROGEN (test code=BUN) 11 mg/dL 7-18 RESULT VERIFIED BY REPEAT ANALYSIS GLOMERULAR FILTRATION RATE (test code=GFR) 27 mL/min >=60 Estimated GFR by using Modified MDRD formula.Chronic kidney disease is defined as either kidney damageor GFR <60 mL/min/1.73 m2 for >3 months. CREATININE (test code=CREAT) 1.80 mg/dL 0.55-1.02 Note change in reference range due to change in reagent. BUN/CREATININE RATIO (test code=BUN/CREA) 6.1 10-20 CALCIUM (test code=CA) 7.6 mg/dL 8.5-10.1 [id number] 06:45:00* Test Item Value Reference Range Comments PHOSPHORUS (test code=PHOS) 0.6 mg/dL 2.5-4.9 [id number] 06:45:00* Test Item Value Reference Range Comments MAGNESIUM (test code=MAG) 1.5 mg/dL 1.8-2.4 BASIC METABOLIC [id number] 06:23:00* Test Item Value Reference Range Comments SODIUM (test code=NA) 142 mmol/L 136-145 POTASSIUM (test code=K) 3.5 mmol/L 3.5-5.1 CHLORIDE (test code=CL) 104.0 mmol/L 98-107 CARBON DIOXIDE (test code=CO2) mmol/L 21-32 ANION GAP (test code=GAP) 10-20 GLUCOSE (test code=GLU) mg/dL 74-106 BLOOD UREA NITROGEN (test code=BUN) mg/dL 7-18 GLOMERULAR FILTRATION RATE (test code=GFR) mL/min >=60 CREATININE (test code=CREAT) mg/dL 0.55-1.02 BUN/CREATININE RATIO (test code=BUN/CREA) 10-20 CALCIUM (test code=CA) mg/dL 8.5-10.1 [id number] 06:23:00* Test Item Value Reference Range Comments PHOSPHORUS (test code=PHOS) mg/dL 2.5-4.9 [id number] 06:23:00* Test Item Value Reference Range Comments MAGNESIUM (test code=MAG) mg/dL 1.8-2.4 HGB [id number] 12:31:00* Test Item Value Reference Range Comments HEMOGLOBIN (test code=HGB) 7.5 gram/dL 11.5-15.5 HEMATOCRIT (test code=HCT) 21.5 % 36.0-46.0 Results called to [id number] by LINDA 12/12/18 1231Critical results verified and read back by Nurse? Y ACUTE HEPATITIS [id number] 08:10:00* Test Item Value Reference Range Comments AB HEPATITIS A IGM (test code=HAVMAB) Negative Negative AG HEPAT B SURF (test code=HBSAG) Negative Negative HEPATITIS B CORE ANTIBODY,IGM (test code=HBCMAB) Negative Negative AB HEPATITIS C (test code=HCVAB) <0.1 0.0-0.9 INFCE Result Units: s/co ratio Negative: < 0.8 Indeterminate: 0.8 - 0.9 Positive: > 0.9 The CDC recommends that a positive HCV antibody result be followed up with a HCV Nucleic Acid Amplification test (676426).Performed At: [place] [address] [id number] Raygoza MD Ph:[phone] AG HEPAT B [id number] 08:10:00* Test Item Value Reference Range Comments AG HEPAT B SURF (test code=HBSAG) Nonreactive Index Nonreactive HEPATITIS B CORE ANTIBODY,[id number] 08:10:00* Test Item Value Reference Range Comments HEPATITIS B CORE ANTIBODY,TOT (test code=HBCAB) Negative Negative Performed At: [facility] [address] [id number] Kyle L MD Ph:[phone] - XR CHEST 1 [id number] 07:36:00 FAX: Gene Berger MD [phone] [place]: [address] St: ADM FAX: Duglas Baig Name: MARIE LAWRENCE [facility] : 1930 Age/S: 88/F [address] [facility] Unit #: [id number] Loc: [address] [address] Phys: Duglas Baig Acct: [id number] Dis Date: Status: ADM IN PHONE #: [phone] Exam Date: 12/12/2018526 FAX #: [phone] Reason: INTUBATED EXAMS: CPT CODE: [id number] XR CHEST 1 V 10932 CLINICAL HISTORY: INTUBATED; septic shock; bacteremia; UTI TECHNIQUE: AP chest x-ray COMPARISON: Previous day. IMPRESSION: Increased bilateral pleural effusion and basilar atelectasis. Diffuse bilateral interstitial opacities. Mild cardiomegaly. Atherosclerotic vascular calcification of the thoracic aorta. ET tube, NG tube, right central venous catheter, and left hemodialysis catheter. at 0736 Reported and signed by: Lore Hastings D.O. CC: Gene Berger MD; Duglas Baig Technologist: KAE Mina Trnscrd Date/Time/By: 12/12/2018 (0736) : By: [email or web address] Orig Print D/T: S: (0739) PAGE 1 Signed Repo rt AB HEPATITIS B [id number] 07:13:00* Test Item Value Reference Range Comments AB HEPATITIS B SURFACE (test code=HBSAB) Non Reactive () Non Reactive: Inconsistent with immunity, less than 10 mIU/mL Reactive: Consistent with immunity, greater than 9.9 mIU/mLPerformed At: [facility] [address] [place], [place] [id number] Destin Raygoza MD Ph:[phone] BASIC METABOLIC [id number] 07:05:00* Test Item Value Reference Range Comments SODIUM (test code=NA) 140 mmol/L 136-145 POTASSIUM (test code=K) 3.4 mmol/L 3.5-5.1 CHLORIDE (test code=CL) 97.0 mmol/L 98-107 CARBON DIOXIDE (test code=CO2) 34.0 mmol/L 21-32 ANION GAP (test code=GAP) 12.4 10-20 GLUCOSE (test code=GLU) 74 mg/dL 74-106 BLOOD UREA NITROGEN (test code=BUN) 21 mg/dL 7-18 RESULT VERIFIED BY REPEAT ANALYSIS GLOMERULAR FILTRATION RATE (test code=GFR) 15 mL/min >=60 Estimated GFR by using Modified MDRD formula.Chronic kidney disease is defined as either kidney damageor GFR <60 mL/min/1.73 m2 for >3 months. CREATININE (test code=CREAT) 2.90 mg/dL 0.55-1.02 Note change in reference range due to change in reagent. BUN/CREATININE RATIO (test code=BUN/CREA) 7.2 20 CALCIUM (test code=CA) 6.9 mg/dL 8.5-10.1 [id number] 07:05:00* Test Item Value Reference Range Comments PHOSPHORUS (test code=PHOS) 1.6 mg/dL 2.5-4.9 [id number] 07:05:00* Test Item Value Reference Range Comments MAGNESIUM (test code=MAG) 1.6 mg/dL 1.8-2.4 CALCIUM [id number] 07:05:00* Test Item Value Reference Range Comments CALCIUM IONIZED (test code=JONNATHAN) 0.96 mmol/L 1.12-1.32 BASIC METABOLIC [id number] 06:57:00* Test Item Value Reference Range Comments SODIUM (test code=NA) mmol/L 136-145 POTASSIUM (test code=K) mmol/L 3.5-5.1 CHLORIDE (test code=CL) mmol/L 98-107 CARBON DIOXIDE (test code=CO2) mmol/L 21-32 ANION GAP (test code=GAP) 10-20 GLUCOSE (test code=GLU) mg/dL 74-106 BLOOD UREA NITROGEN (test code=BUN) mg/dL 7-18 GLOMERULAR FILTRATION RATE (test code=GFR) mL/min >=60 CREATININE (test code=CREAT) mg/dL 0.55-1.02 BUN/CREATININE RATIO (test code=BUN/CREA) 10-20 CALCIUM (test code=CA) mg/dL 8.5-10.1 [id number] 06:57:00* Test Item Value Reference Range Comments PHOSPHORUS (test code=PHOS) mg/dL 2.5-4.9 [id number] 06:57:00* Test Item Value Reference Range Comments MAGNESIUM (test code=MAG) mg/dL 1.8-2.4 CALCIUM [id number] 06:57:00* Test Item Value Reference Range Comments CALCIUM IONIZED (test code=JONNATHAN) 0.96 mmol/L 1.12-1.32 CBC W/MANUAL [id number] 06:38:00* Test Item Value Reference Range Comments WHITE BLOOD CELL (test code=WBC) 13.3 K/mm3 4.5-12.5 RED BLOOD CELL (test code=RBC) 2.45 mill/mm3 3.7-5.2 HEMOGLOBIN (test code=HGB) 7.4 gram/dL 11.5-15.5 HEMATOCRIT (test code=HCT) 21.2 % 36.0-46.0 Results called to [id number] by [employer] 12/12/18 0619Critical results verified and read back by Nurse? Y MEAN CELL VOLUME (test code=MCV) 86.5 fL 80-98 MEAN CELL HGB (test code=MCH) 30.2 picogram 27.0-33.0 MEAN CELL HGB CONCETRATION (test code=MCHC) 34.9 gram/dL 33.0-36.0 RED CELL DISTRIBUTION WIDTH (test code=RDW) 14.8 % 11.6-16.2 RED CELL DISTRIBUTION WIDTH SD (test code=RDW-SD) 46.8 fL 37.0-51.0 PLATELET COUNT (test code=PLT) 25 K/mm3 150-450 Results called to [id number] by [employer] 12/12/18 0619Critical results verified and read back by Nurse? Y MEAN PLATELET VOLUME (test code=MPV) 11.6 fL 6.7-11.0 IMMATURE GRANULOCYTE % (test code=IG%) 1.2 % 0.0-5.0 NUCLEATED RBC % (test code=NRBC%) 0.0 % 0-0 NEUTROPHIL # (test code=NT#) 11.43 K/mm3 1.8-7.7 IMMATURE GRANULOCYTE # (test code=IG#) 0.16 x10 3/uL 0-0.03 LYMPHOCYTE # (test code=LY#) 0.53 K/mm3 1.0-5.0 MONOCYTE # (test code=MO#) 1.05 K/mm3 0-0.8 EOSINOPHIL # (test code=EO#) 0.01 K/mm3 0.0-0.5 BASOPHIL # (test code=BA#) 0.07 K/mm3 0.0-0.2 NUCLEATED RBC # (test code=NRBC#) 0.00 K/mm3 0.0-0.1 MANUAL DIFF REQUIRED (test code=MDIFF) YES STAIN ACCEPTABILITY (test code=STN ACCEPTABLE) STAIN ACCEPTABLE TOTAL CELLS COUNTED (test code=TCC) 115 #CELLS SEGMENTED NEUTROPHILS (test code=SEG) 81.7 % 39-69 BAND NEUTROPHIL (test code=BAND) 3.5 % 0-10 LYMPHOCYTE (test code=LYMPH) 2.6 % 25-55 REACTIVE LYMPH (test code=RELYMPH) 0 % MONOCYTE (test code=MON) 11.3 % 0-10 EOSINOPHIL (test code=EOS) 0.9 % 0.0-5.0 BASOPHIL (test code=BASO) 0 % 0-1.0 METAMYELOCYTE (test code=META) 0 % 0-0 MYELOCYTE (test code=MYELO) 0 % 0.0-0.0 PROMYELOCYTE (test code=PROM) 0 % 0-0 POIKILOCYTOSIS (test code=POIK) 2+ ANISOCYTOSIS (test code=ANISO) 1+ MICROCYTOSIS (test code=MICR) 1+ SAM CELLS (test code=SAM) 2+ NONE PLATELET ESTIMATE (test code=PLTEST) DECREASED PLATELET MORPHOLOGY (test code=PLTMORPH) NORMAL IMMATURE FORMS (test code=IMMAT) 0 % 0-0 CBC W/MANUAL [id number] 06:20:00* Test Item Value Reference Range Comments WHITE BLOOD CELL (test code=WBC) 13.3 K/mm3 4.5-12.5 RED BLOOD CELL (test code=RBC) 2.45 mill/mm3 3.7-5.2 HEMOGLOBIN (test code=HGB) 7.4 gram/dL 11.5-15.5 HEMATOCRIT (test code=HCT) 21.2 % 36.0-46.0 Results called to [id number] by [employer] 12/12/18 0619Critical results verified and read back by Nurse? Y MEAN CELL VOLUME (test code=MCV) 86.5 fL 80-98 MEAN CELL HGB (test code=MCH) 30.2 picogram 27.0-33.0 MEAN CELL HGB CONCETRATION (test code=MCHC) 34.9 gram/dL 33.0-36.0 RED CELL DISTRIBUTION WIDTH (test code=RDW) 14.8 % 11.6-16.2 RED CELL DISTRIBUTION WIDTH SD (test code=RDW-SD) 46.8 fL 37.0-51.0 PLATELET COUNT (test code=PLT) 25 K/mm3 150-450 Results called to [id number] by [facility] 12/12/18 0619Critical results verified and read back by Nurse? Y MEAN PLATELET VOLUME (test code=MPV) 11.6 fL 6.7-11.0 IMMATURE GRANULOCYTE % (test code=IG%) 1.2 % 0.0-5.0 NUCLEATED RBC % (test code=NRBC%) 0.0 % 0-0 NEUTROPHIL # (test code=NT#) 11.43 K/mm3 1.8-7.7 IMMATURE GRANULOCYTE # (test code=IG#) 0.16 x10 3/uL 0-0.03 LYMPHOCYTE # (test code=LY#) 0.53 K/mm3 1.0-5.0 MONOCYTE # (test code=MO#) 1.05 K/mm3 0-0.8 EOSINOPHIL # (test code=EO#) 0.01 K/mm3 0.0-0.5 BASOPHIL # (test code=BA#) 0.07 K/mm3 0.0-0.2 NUCLEATED RBC # (test code=NRBC#) 0.00 K/mm3 0.0-0.1 MANUAL DIFF REQUIRED (test code=MDIFF) YES STAIN ACCEPTABILITY (test code=STN ACCEPTABLE) TOTAL CELLS COUNTED (test code=TCC) #CELLS SEGMENTED NEUTROPHILS (test code=SEG) % 39-69 LYMPHOCYTE (test code=LYMPH) % 25-55 MONOCYTE (test code=MON) % 0-10 EOSINOPHIL (test code=EOS) % 0.0-5.0 CABOT RINGS (test code=CAB) MORPHOLOGY COMMENT (test code=MOC) PLATELET ESTIMATE (test code=PLTEST) PLATELET MORPHOLOGY (test code=PLTMORPH) CBC W/MANUAL [id number] 06:20:00* Test Item Value Reference Range Comments WHITE BLOOD CELL (test code=WBC) 13.3 K/mm3 4.5-12.5 RED BLOOD CELL (test code=RBC) 2.45 mill/mm3 3.7-5.2 HEMOGLOBIN (test code=HGB) 7.4 gram/dL 11.5-15.5 HEMATOCRIT (test code=HCT) 21.2 % 36.0-46.0 Results called to [id number] by [facility] 12/12/18 0619Critical results verified and read back by Nurse? Y MEAN CELL VOLUME (test code=MCV) 86.5 fL 80-98 MEAN CELL HGB (test code=MCH) 30.2 picogram 27.0-33.0 MEAN CELL HGB CONCETRATION (test code=MCHC) 34.9 gram/dL 33.0-36.0 RED CELL DISTRIBUTION WIDTH (test code=RDW) 14.8 % 11.6-16.2 RED CELL DISTRIBUTION WIDTH SD (test code=RDW-SD) 46.8 fL 37.0-51.0 PLATELET COUNT (test code=PLT) 25 K/mm3 150-450 Results called to [id number] by [employer] 12/12/18 0619Critical results verified and read back by Nurse? Y MEAN PLATELET VOLUME (test code=MPV) 11.6 fL 6.7-11.0 IMMATURE GRANULOCYTE % (test code=IG%) 1.2 % 0.0-5.0 NUCLEATED RBC % (test code=NRBC%) 0.0 % 0-0 NEUTROPHIL # (test code=NT#) 11.43 K/mm3 1.8-7.7 IMMATURE GRANULOCYTE # (test code=IG#) 0.16 x10 3/uL 0-0.03 LYMPHOCYTE # (test code=LY#) 0.53 K/mm3 1.0-5.0 MONOCYTE # (test code=MO#) 1.05 K/mm3 0-0.8 EOSINOPHIL # (test code=EO#) 0.01 K/mm3 0.0-0.5 BASOPHIL # (test code=BA#) 0.07 K/mm3 0.0-0.2 NUCLEATED RBC # (test code=NRBC#) 0.00 K/mm3 0.0-0.1 MANUAL DIFF REQUIRED (test code=MDIFF) YES STAIN ACCEPTABILITY (test code=STN ACCEPTABLE) TOTAL CELLS COUNTED (test code=TCC) #CELLS SEGMENTED NEUTROPHILS (test code=SEG) % 39-69 LYMPHOCYTE (test code=LYMPH) % 25-55 MONOCYTE (test code=MON) % 0-10 EOSINOPHIL (test code=EOS) % 0.0-5.0 CABOT RINGS (test code=CAB) MORPHOLOGY COMMENT (test code=MOC) PLATELET ESTIMATE (test code=PLTEST) PLATELET MORPHOLOGY (test code=PLTMORPH) CBC W/MANUAL [id number] 06:20:00* Test Item Value Reference Range Comments WHITE BLOOD CELL (test code=WBC) 13.3 K/mm3 4.5-12.5 RED BLOOD CELL (test code=RBC) 2.45 mill/mm3 3.7-5.2 HEMOGLOBIN (test code=HGB) 7.4 gram/dL 11.5-15.5 HEMATOCRIT (test code=HCT) 21.2 % 36.0-46.0 Results called to [id number] by [employer] 12/12/18 0619Critical results verified and read back by Nurse? Y MEAN CELL VOLUME (test code=MCV) 86.5 fL 80-98 MEAN CELL HGB (test code=MCH) 30.2 picogram 27.0-33.0 MEAN CELL HGB CONCETRATION (test code=MCHC) 34.9 gram/dL 33.0-36.0 RED CELL DISTRIBUTION WIDTH (test code=RDW) 14.8 % 11.6-16.2 RED CELL DISTRIBUTION WIDTH SD (test code=RDW-SD) 46.8 fL 37.0-51.0 PLATELET COUNT (test code=PLT) 25 K/mm3 150-450 Results called to [id number] by [employer] 12/12/18 0619Critical results verified and read back by Nurse? Y MEAN PLATELET VOLUME (test code=MPV) 11.6 fL 6.7-11.0 IMMATURE GRANULOCYTE % (test code=IG%) 1.2 % 0.0-5.0 NUCLEATED RBC % (test code=NRBC%) 0.0 % 0-0 NEUTROPHIL # (test code=NT#) 11.43 K/mm3 1.8-7.7 IMMATURE GRANULOCYTE # (test code=IG#) 0.16 x10 3/uL 0-0.03 LYMPHOCYTE # (test code=LY#) 0.53 K/mm3 1.0-5.0 MONOCYTE # (test code=MO#) 1.05 K/mm3 0-0.8 EOSINOPHIL # (test code=EO#) 0.01 K/mm3 0.0-0.5 BASOPHIL # (test code=BA#) 0.07 K/mm3 0.0-0.2 NUCLEATED RBC # (test code=NRBC#) 0.00 K/mm3 0.0-0.1 MANUAL DIFF REQUIRED (test code=MDIFF) YES STAIN ACCEPTABILITY (test code=STN ACCEPTABLE) TOTAL CELLS COUNTED (test code=TCC) #CELLS SEGMENTED NEUTROPHILS (test code=SEG) % 39-69 LYMPHOCYTE (test code=LYMPH) % 25-55 MONOCYTE (test code=MON) % 0-10 EOSINOPHIL (test code=EOS) % 0.0-5.0 MORPHOLOGY COMMENT (test code=MOC) PLATELET ESTIMATE (test code=PLTEST) PLATELET MORPHOLOGY (test code=PLTMORPH) CBC W/MANUAL [id number] 06:20:00* Test Item Value Reference Range Comments WHITE BLOOD CELL (test code=WBC) 13.3 K/mm3 4.5-12.5 RED BLOOD CELL (test code=RBC) 2.45 mill/mm3 3.7-5.2 HEMOGLOBIN (test code=HGB) 7.4 gram/dL 11.5-15.5 HEMATOCRIT (test code=HCT) 21.2 % 36.0-46.0 Results called to [id number] by JODIAG1 12/12/18 0619Critical results verified and read back by Nurse? Y MEAN CELL VOLUME (test code=MCV) 86.5 fL 80-98 MEAN CELL HGB (test code=MCH) 30.2 picogram 27.0-33.0 MEAN CELL HGB CONCETRATION (test code=MCHC) 34.9 gram/dL 33.0-36.0 RED CELL DISTRIBUTION WIDTH (test code=RDW) 14.8 % 11.6-16.2 RED CELL DISTRIBUTION WIDTH SD (test code=RDW-SD) 46.8 fL 37.0-51.0 PLATELET COUNT (test code=PLT) 25 K/mm3 150-450 Results called to [id number] by [facility]AG[facility] 12/12/18 0619Critical results verified and read back by Nurse? Y MEAN PLATELET VOLUME (test code=MPV) 11.6 fL 6.7-11.0 IMMATURE GRANULOCYTE % (test code=IG%) 1.2 % 0.0-5.0 NUCLEATED RBC % (test code=NRBC%) 0.0 % 0-0 NEUTROPHIL # (test code=NT#) 11.43 K/mm3 1.8-7.7 IMMATURE GRANULOCYTE # (test code=IG#) 0.16 x10 3/uL 0-0.03 LYMPHOCYTE # (test code=LY#) 0.53 K/mm3 1.0-5.0 MONOCYTE # (test code=MO#) 1.05 K/mm3 0-0.8 EOSINOPHIL # (test code=EO#) 0.01 K/mm3 0.0-0.5 BASOPHIL # (test code=BA#) 0.07 K/mm3 0.0-0.2 NUCLEATED RBC # (test code=NRBC#) 0.00 K/mm3 0.0-0.1 MANUAL DIFF REQUIRED (test code=MDIFF) YES STAIN ACCEPTABILITY (test code=STN ACCEPTABLE) TOTAL CELLS COUNTED (test code=TCC) #CELLS SEGMENTED NEUTROPHILS (test code=SEG) % 39-69 LYMPHOCYTE (test code=LYMPH) % 25-55 MONOCYTE (test code=MON) % 0-10 MORPHOLOGY COMMENT (test code=MOC) PLATELET ESTIMATE (test code=PLTEST) PLATELET MORPHOLOGY (test code=PLTMORPH) CBC W/MANUAL [id number] 06:20:00* Test Item Value Reference Range Comments WHITE BLOOD CELL (test code=WBC) 13.3 K/mm3 4.5-12.5 RED BLOOD CELL (test code=RBC) 2.45 mill/mm3 3.7-5.2 HEMOGLOBIN (test code=HGB) 7.4 gram/dL 11.5-15.5 HEMATOCRIT (test code=HCT) 21.2 % 36.0-46.0 Results called to [id number] by [employer] 12/12/18 0619Critical results verified and read back by Nurse? Y MEAN CELL VOLUME (test code=MCV) 86.5 fL 80-98 MEAN CELL HGB (test code=MCH) 30.2 picogram 27.0-33.0 MEAN CELL HGB CONCETRATION (test code=MCHC) 34.9 gram/dL 33.0-36.0 RED CELL DISTRIBUTION WIDTH (test code=RDW) 14.8 % 11.6-16.2 RED CELL DISTRIBUTION WIDTH SD (test code=RDW-SD) 46.8 fL 37.0-51.0 PLATELET COUNT (test code=PLT) 25 K/mm3 150-450 Results called to [id number] by [employer] 12/12/18 0619Critical results verified and read back by Nurse? Y MEAN PLATELET VOLUME (test code=MPV) 11.6 fL 6.7-11.0 IMMATURE GRANULOCYTE % (test code=IG%) 1.2 % 0.0-5.0 NUCLEATED RBC % (test code=NRBC%) 0.0 % 0-0 NEUTROPHIL # (test code=NT#) 11.43 K/mm3 1.8-7.7 IMMATURE GRANULOCYTE # (test code=IG#) 0.16 x10 3/uL 0-0.03 LYMPHOCYTE # (test code=LY#) 0.53 K/mm3 1.0-5.0 MONOCYTE # (test code=MO#) 1.05 K/mm3 0-0.8 EOSINOPHIL # (test code=EO#) 0.01 K/mm3 0.0-0.5 BASOPHIL # (test code=BA#) 0.07 K/mm3 0.0-0.2 NUCLEATED RBC # (test code=NRBC#) 0.00 K/mm3 0.0-0.1 MANUAL DIFF REQUIRED (test code=MDIFF) YES STAIN ACCEPTABILITY (test code=STN ACCEPTABLE) TOTAL CELLS COUNTED (test code=TCC) #CELLS SEGMENTED NEUTROPHILS (test code=SEG) % 39-69 LYMPHOCYTE (test code=LYMPH) % 25-55 MONOCYTE (test code=MON) % 0-10 EOSINOPHIL (test code=EOS) % 0.0-5.0 CABOT RINGS (test code=CAB) MORPHOLOGY COMMENT (test code=MOC) PLATELET ESTIMATE (test code=PLTEST) PLATELET MORPHOLOGY (test code=PLTMORPH) [id number] 05:35:00* Test Item Value Reference Range Comments GLUBED (test code=GLUBED) 74 mg/dL 74-106 Performed by certified resaw operator at [facility] [id number] 05:16:00* Test Item Value Reference Range Comments GLUBED (test code=GLUBED) 93 mg/dL 74-106 Performed by certified resaw operator at [facility] [id number] 21:39:00* Test Item Value Reference Range Comments GLUBED (test code=GLUBED) 62 mg/dL 74-106 Performed by certified resaw operator at [facility] LACTIC DEHYDROGENASE(LDH)2018-12-11 19:11:00* Test Item Value Reference Range Comments LACTIC DEHYDROGENASE(LDH) (test code=LDH) 1321 IUnit/L 84-246 FE W/TOTAL IRON BINDING CAP.2018-12-11 19:11:00* Test Item Value Reference Range Comments SERUM IRON (test code=IRON) 35 ug/dL 50-175 TOTAL IRON BINDING CAPACITY (test code=TIBC) 100 mcg/dL 250-450 IRON SATURATION (test code=FESAT) 35.00 % 13-45 VITAMIN [id number] 19:11:00* Test Item Value Reference Range Comments VITAMIN B12 (test code=VITB12) 38380 pg/mL 193-986 [id number] 19:11:00* Test Item Value Reference Range Comments FERRITIN (test code=YARELY) 743 ng/mL 8-388 HEPARIN INDUCED [id number] 18:04:00* Test Item Value Reference Range Comments HEPARIN INDUCED THROMBOCYTOPEN (test code=HIT) NEGATIVE NEGATIVE [id number] 17:40:00* Test Item Value Reference Range Comments FIBRINOGEN (test code=FIB) 163 mg/dL 200-400 [id number] 17:40:00* Test Item Value Reference Range Comments D-DIMER (test code=DDIMER) 96562.00 ng/mLFEU 0-500 Results called to [id number] by [employer] 12/11/18 1739Critical results verified and read back by Nurse? YClinical Cut-off value for D-Dimer is 500 ng/mL FEU. Comment: The [employer] D- Dimer assay is intended for use asan aid in the diagnosis of venous thromboembolism (VTE)[deep vein thrombosis (DVT) or pulmonary embolism (PE)].The measurement of D-Dimer should not be used as an aid inthe diagnosis of VTE, in patient with: -Therapeutic dose anticoagulant therapy for >24 hours - Fibrinolytic therapy within previous 7 days -Trauma or surgery within previous 4 weeks -Disseminated malignancies -Aortic aneurysm -Sepsis, severe infections, pneumonia, severe skin infections -Liver cirrhosis - RETICULOCYTE [id number] 17:39:00* Test Item Value Reference Range Comments RETICULOCYTE COUNT (test code=RETICT) 1.3 % 0.5-2.0 RETIC COUNT ABSOLUTE (test code=RET#) 0.033 mill/mm3 0.016-0.095 IMMATURE RETICULOCYTE FRACTION (test code=IRF) 20.7 % 3.0-15.9 Values above normal range indicate an increase in RBCcellular response from bone marrow. RETICULOCYTE HGB EQUIVALENT (test code=RETHE) 31.1 pg 28.2-35.7 RET-He is a direct estimate of recent functionalavailability of iron in the cell, therefore, decreasedRET-He is indicative of iron deficiency. [id number] 17:39:00* Test Item Value Reference Range Comments HAPTOGLOBIN (test code=HAPT) mg/dL LACTIC DEHYDROGENASE(LDH)2018-12-11 17:39:00* Test Item Value Reference Range Comments LACTIC DEHYDROGENASE(LDH) (test code=LDH) 1321 IUnit/L 84-246 FE W/TOTAL IRON BINDING CAP.2018-12-11 17:39:00* Test Item Value Reference Range Comments SERUM IRON (test code=IRON) 35 ug/dL 50-175 TOTAL IRON BINDING CAPACITY (test code=TIBC) 100 mcg/dL 250-450 IRON SATURATION (test code=FESAT) 35.00 % 13-45 VITAMIN [id number] 17:39:00* Test Item Value Reference Range Comments VITAMIN B12 (test code=VITB12) pg/mL 193-986 [id number] 17:39:00* Test Item Value Reference Range Comments FERRITIN (test code=YARELY) 743 ng/mL 8-388 FOLIC [id number] 17:24:00* Test Item Value Reference Range Comments FOLIC ACID (test code=FOL) 80.1 ng/mL 3.10-17.50 [id number] 14:52:00* Test Item Value Reference Range Comments GLUBED (test code=GLUBED) 96 mg/dL 74-106 Performed by certified resaw operator at [facility] AG HEPAT B [id number] 14:33:00* Test Item Value Reference Range Comments AG HEPAT B SURF (test code=HBSAG) Nonreactive Index Nonreactive HEPATITIS B CORE ANTIBODY,[id number] 14:33:00* Test Item Value Reference Range Comments HEPATITIS B CORE ANTIBODY,TOT (test code=HBCAB) NEGATIVE [id number] 12:25:00* Test Item Value Reference Range Comments GLUBED (test code=GLUBED) 78 mg/dL 74-106 Performed by certified resaw operator at [facility] - XR CHEST 1 [id number] 12:16:00 FAX: Gene Berger MD [phone] [place]: B St: ADM FAX: Nic Lloyd MD [phone] Name: MELINDAMARIE CRUZ [facility] : 1930 Age/S: 88/F [address] [facility] Unit #: [id number] Loc: [place] [address] Phys: Nic Trivedi MD Acct: [id number] Dis Date: Status: ADM IN PHONE #: [phone] Exam Date: 12/11/2018 1200 FAX #: [phone] Reason: DIALYSIS CATH PLACEMENT EXAMS: CPT CODE: [id number] XR CHEST 1 V 20435 HISTORY: Dialysis catheter placement. COMPARISON: Previous day. Left jugular dialysis catheter with the tip projected over the SVC. No pneumothorax. Right central line is unchanged. ET tube is above the pam. NG tube extends below the diaphragm. Mild congestion. Small bilateral pleural effusions with left lower lobe segmental atelectasis. Cardiomegaly. IMPRESSION: Left jugular catheter with the tip projected over the SVC without pneumothorax. at 1216 Reported and signed by: Thee Briggs M.D. CC: Gene Berger MD; Nic Trivedi MD Technologist: RT CHRISTY(R) Trnscrd Date/Time/By: 12/11/2018 (1216) : By: [email or web address] Orig Print D/T: S: 12/11/2018 (7326) PAGE 1 Signed Report [id number] 11:20:00* Test Item Value Reference Range Comments GLUBED (test code=GLUBED) 92 mg/dL 74-106 Performed by certified resaw operator at [facility] [id number] 08:51:00* Test Item Value Reference Range Comments GLUBED (test code=GLUBED) 46 mg/dL 74-106 [facility]~ BASIC METABOLIC [id number] 08:42:00* Test Item Value Reference Range Comments SODIUM (test code=NA) 137 mmol/L 136-145 POTASSIUM (test code=K) 5.0 mmol/L 3.5-5.1 CHLORIDE (test code=CL) 109.0 mmol/L 98-107 CARBON DIOXIDE (test code=CO2) 13.0 mmol/L 21-32 ANION GAP (test code=GAP) 20.0 10-20 GLUCOSE (test code=GLU) 48 mg/dL 74-106 Results called to [id number] by [email or web address].[email or web address] 12/11/18 0840Critical results verified and read back by Nurse? Y BLOOD UREA NITROGEN (test code=BUN) 46 mg/dL 7-18 GLOMERULAR FILTRATION RATE (test code=GFR) 8 mL/min >=60 Estimated GFR by using Modified MDRD formula.Chronic kidney disease is defined as either kidney damageor GFR <60 mL/min/1.73 m2 for >3 months. CREATININE (test code=CREAT) 5.10 mg/dL 0.55-1.02 Note change in reference range due to change in reagent. BUN/CREATININE RATIO (test code=BUN/CREA) 9.0 10-20 CALCIUM (test code=CA) 7.3 mg/dL 8.5-10.1 [id number] 08:42:00* Test Item Value Reference Range Comments PHOSPHORUS (test code=PHOS) 4.6 mg/dL 2.5-4.9 [id number] 08:42:00* Test Item Value Reference Range Comments MAGNESIUM (test code=MAG) 1.6 mg/dL 1.8-2.4 CALCIUM [id number] 08:42:00* Test Item Value Reference Range Comments CALCIUM IONIZED (test code=JONNATHAN) 1.05 mmol/L 1.12-1.32 CBC W/MANUAL [id number] 08:33:00* Test Item Value Reference Range Comments WHITE BLOOD CELL (test code=WBC) 39.7 K/mm3 4.5-12.5 RESULT VERIFIED BY REPEAT ANALYSIS RED BLOOD CELL (test code=RBC) 2.86 mill/mm3 3.7-5.2 HEMOGLOBIN (test code=HGB) 8.8 gram/dL 11.5-15.5 HEMATOCRIT (test code=HCT) 26.3 % 36.0-46.0 MEAN CELL VOLUME (test code=MCV) 92.0 fL 80-98 MEAN CELL HGB (test code=MCH) 30.8 picogram 27.0-33.0 MEAN CELL HGB CONCETRATION (test code=MCHC) 33.5 gram/dL 33.0-36.0 RED CELL DISTRIBUTION WIDTH (test code=RDW) 15.8 % 11.6-16.2 RED CELL DISTRIBUTION WIDTH SD (test code=RDW-SD) 53.4 fL 37.0-51.0 PLATELET COUNT (test code=PLT) 28 K/mm3 150-450 Results called to [id number] by LINDA 12/11/18 0759Critical results verified and read back by Nurse? Y MEAN PLATELET VOLUME (test code=MPV) TEST NOT PERFORMED fL 6.7-11.0 IMMATURE GRANULOCYTE % (test code=IG%) 2.4 % 0.0-5.0 NUCLEATED RBC % (test code=NRBC%) 0.1 % 0-0 NEUTROPHIL # (test code=NT#) 36.00 K/mm3 1.8-7.7 IMMATURE GRANULOCYTE # (test code=IG#) 0.97 x10 3/uL 0-0.03 LYMPHOCYTE # (test code=LY#) 0.78 K/mm3 1.0-5.0 MONOCYTE # (test code=MO#) 1.86 K/mm3 0-0.8 EOSINOPHIL # (test code=EO#) 0.00 K/mm3 0.0-0.5 BASOPHIL # (test code=BA#) 0.05 K/mm3 0.0-0.2 NUCLEATED RBC # (test code=NRBC#) 0.02 K/mm3 0.0-0.1 MANUAL DIFF REQUIRED (test code=MDIFF) YES STAIN ACCEPTABILITY (test code=STN ACCEPTABLE) STAIN ACCEPTABLE TOTAL CELLS COUNTED (test code=TCC) 115 #CELLS SEGMENTED NEUTROPHILS (test code=SEG) 91.3 % 39-69 BAND NEUTROPHIL (test code=BAND) 0 % 0-10 LYMPHOCYTE (test code=LYMPH) 1.7 % 25-55 REACTIVE LYMPH (test code=RELYMPH) 0 % MONOCYTE (test code=MON) 7.0 % 0-10 EOSINOPHIL (test code=EOS) 0 % 0.0-5.0 BASOPHIL (test code=BASO) 0 % 0-1.0 METAMYELOCYTE (test code=META) 0 % 0-0 MYELOCYTE (test code=MYELO) 0 % 0.0-0.0 PROMYELOCYTE (test code=PROM) 0 % 0-0 POIKILOCYTOSIS (test code=POIK) 3+ ANISOCYTOSIS (test code=ANISO) 1+ MACROCYTOSIS (test code=MACR) 1+ PLATELET ESTIMATE (test code=PLTEST) DECREASED PLATELET MORPHOLOGY (test code=PLTMORPH) NORMAL IMMATURE FORMS (test code=IMMAT) 0 % 0-0 BASIC METABOLIC [id number] 08:31:00* Test Item Value Reference Range Comments SODIUM (test code=NA) mmol/L 136-145 POTASSIUM (test code=K) mmol/L 3.5-5.1 CHLORIDE (test code=CL) mmol/L 98-107 CARBON DIOXIDE (test code=CO2) mmol/L 21-32 ANION GAP (test code=GAP) 10-20 GLUCOSE (test code=GLU) mg/dL 74-106 BLOOD UREA NITROGEN (test code=BUN) mg/dL 7-18 GLOMERULAR FILTRATION RATE (test code=GFR) mL/min >=60 CREATININE (test code=CREAT) mg/dL 0.55-1.02 BUN/CREATININE RATIO (test code=BUN/CREA) 10-20 CALCIUM (test code=CA) mg/dL 8.5-10.1 [id number] 08:31:00* Test Item Value Reference Range Comments PHOSPHORUS (test code=PHOS) mg/dL 2.5-4.9 [id number] 08:31:00* Test Item Value Reference Range Comments MAGNESIUM (test code=MAG) mg/dL 1.8-2.4 CALCIUM [id number] 08:31:00* Test Item Value Reference Range Comments CALCIUM IONIZED (test code=JONNATHAN) 1.05 mmol/L 1.12-1.32 CBC W/MANUAL [id number] 08:00:00* Test Item Value Reference Range Comments WHITE BLOOD CELL (test code=WBC) 39.7 K/mm3 4.5-12.5 RESULT VERIFIED BY REPEAT ANALYSIS RED BLOOD CELL (test code=RBC) 2.86 mill/mm3 3.7-5.2 HEMOGLOBIN (test code=HGB) 8.8 gram/dL 11.5-15.5 HEMATOCRIT (test code=HCT) 26.3 % 36.0-46.0 MEAN CELL VOLUME (test code=MCV) 92.0 fL 80-98 MEAN CELL HGB (test code=MCH) 30.8 picogram 27.0-33.0 MEAN CELL HGB CONCETRATION (test code=MCHC) 33.5 gram/dL 33.0-36.0 RED CELL DISTRIBUTION WIDTH (test code=RDW) 15.8 % 11.6-16.2 RED CELL DISTRIBUTION WIDTH SD (test code=RDW-SD) 53.4 fL 37.0-51.0 PLATELET COUNT (test code=PLT) 28 K/mm3 150-450 Results called to [id number] by LINDA 12/11/18 0759Critical results verified and read back by Nurse? Y MEAN PLATELET VOLUME (test code=MPV) TEST NOT PERFORMED fL 6.7-11.0 IMMATURE GRANULOCYTE % (test code=IG%) 2.4 % 0.0-5.0 NUCLEATED RBC % (test code=NRBC%) 0.1 % 0-0 NEUTROPHIL # (test code=NT#) 36.00 K/mm3 1.8-7.7 IMMATURE GRANULOCYTE # (test code=IG#) 0.97 x10 3/uL 0-0.03 LYMPHOCYTE # (test code=LY#) 0.78 K/mm3 1.0-5.0 MONOCYTE # (test code=MO#) 1.86 K/mm3 0-0.8 EOSINOPHIL # (test code=EO#) 0.00 K/mm3 0.0-0.5 BASOPHIL # (test code=BA#) 0.05 K/mm3 0.0-0.2 NUCLEATED RBC # (test code=NRBC#) 0.02 K/mm3 0.0-0.1 MANUAL DIFF REQUIRED (test code=MDIFF) YES STAIN ACCEPTABILITY (test code=STN ACCEPTABLE) TOTAL CELLS COUNTED (test code=TCC) #CELLS SEGMENTED NEUTROPHILS (test code=SEG) % 39-69 LYMPHOCYTE (test code=LYMPH) % 25-55 MONOCYTE (test code=MON) % 0-10 EOSINOPHIL (test code=EOS) % 0.0-5.0 CABOT RINGS (test code=CAB) MORPHOLOGY COMMENT (test code=MOC) PLATELET ESTIMATE (test code=PLTEST) PLATELET MORPHOLOGY (test code=PLTMORPH) CBC W/MANUAL [id number] 08:00:00* Test Item Value Reference Range Comments WHITE BLOOD CELL (test code=WBC) 39.7 K/mm3 4.5-12.5 RESULT VERIFIED BY REPEAT ANALYSIS RED BLOOD CELL (test code=RBC) 2.86 mill/mm3 3.7-5.2 HEMOGLOBIN (test code=HGB) 8.8 gram/dL 11.5-15.5 HEMATOCRIT (test code=HCT) 26.3 % 36.0-46.0 MEAN CELL VOLUME (test code=MCV) 92.0 fL 80-98 MEAN CELL HGB (test code=MCH) 30.8 picogram 27.0-33.0 MEAN CELL HGB CONCETRATION (test code=MCHC) 33.5 gram/dL 33.0-36.0 RED CELL DISTRIBUTION WIDTH (test code=RDW) 15.8 % 11.6-16.2 RED CELL DISTRIBUTION WIDTH SD (test code=RDW-SD) 53.4 fL 37.0-51.0 PLATELET COUNT (test code=PLT) 28 K/mm3 150-450 Results called to [place] [id number] by LINDA 12/11/18 0759Critical results verified and read back by Nurse? Y MEAN PLATELET VOLUME (test code=MPV) TEST NOT PERFORMED fL 6.7-11.0 IMMATURE GRANULOCYTE % (test code=IG%) 2.4 % 0.0-5.0 NUCLEATED RBC % (test code=NRBC%) 0.1 % 0-0 NEUTROPHIL # (test code=NT#) 36.00 K/mm3 1.8-7.7 IMMATURE GRANULOCYTE # (test code=IG#) 0.97 x10 3/uL 0-0.03 LYMPHOCYTE # (test code=LY#) 0.78 K/mm3 1.0-5.0 MONOCYTE # (test code=MO#) 1.86 K/mm3 0-0.8 EOSINOPHIL # (test code=EO#) 0.00 K/mm3 0.0-0.5 BASOPHIL # (test code=BA#) 0.05 K/mm3 0.0-0.2 NUCLEATED RBC # (test code=NRBC#) 0.02 K/mm3 0.0-0.1 MANUAL DIFF REQUIRED (test code=MDIFF) YES STAIN ACCEPTABILITY (test code=STN ACCEPTABLE) TOTAL CELLS COUNTED (test code=TCC) #CELLS SEGMENTED NEUTROPHILS (test code=SEG) % 39-69 LYMPHOCYTE (test code=LYMPH) % 25-55 MONOCYTE (test code=MON) % 0-10 EOSINOPHIL (test code=EOS) % 0.0-5.0 CABOT RINGS (test code=CAB) MORPHOLOGY COMMENT (test code=MOC) PLATELET ESTIMATE (test code=PLTEST) PLATELET MORPHOLOGY (test code=PLTMORPH) CBC W/MANUAL [id number] 08:00:00* Test Item Value Reference Range Comments WHITE BLOOD CELL (test code=WBC) 39.7 K/mm3 4.5-12.5 RESULT VERIFIED BY REPEAT ANALYSIS RED BLOOD CELL (test code=RBC) 2.86 mill/mm3 3.7-5.2 HEMOGLOBIN (test code=HGB) 8.8 gram/dL 11.5-15.5 HEMATOCRIT (test code=HCT) 26.3 % 36.0-46.0 MEAN CELL VOLUME (test code=MCV) 92.0 fL 80-98 MEAN CELL HGB (test code=MCH) 30.8 picogram 27.0-33.0 MEAN CELL HGB CONCETRATION (test code=MCHC) 33.5 gram/dL 33.0-36.0 RED CELL DISTRIBUTION WIDTH (test code=RDW) 15.8 % 11.6-16.2 RED CELL DISTRIBUTION WIDTH SD (test code=RDW-SD) 53.4 fL 37.0-51.0 PLATELET COUNT (test code=PLT) 28 K/mm3 150-450 Results called to [id number] by LINDA 12/11/18 0759Critical results verified and read back by Nurse? Y MEAN PLATELET VOLUME (test code=MPV) TEST NOT PERFORMED fL 6.7-11.0 IMMATURE GRANULOCYTE % (test code=IG%) 2.4 % 0.0-5.0 NUCLEATED RBC % (test code=NRBC%) 0.1 % 0-0 NEUTROPHIL # (test code=NT#) 36.00 K/mm3 1.8-7.7 IMMATURE GRANULOCYTE # (test code=IG#) 0.97 x10 3/uL 0-0.03 LYMPHOCYTE # (test code=LY#) 0.78 K/mm3 1.0-5.0 MONOCYTE # (test code=MO#) 1.86 K/mm3 0-0.8 EOSINOPHIL # (test code=EO#) 0.00 K/mm3 0.0-0.5 BASOPHIL # (test code=BA#) 0.05 K/mm3 0.0-0.2 NUCLEATED RBC # (test code=NRBC#) 0.02 K/mm3 0.0-0.1 MANUAL DIFF REQUIRED (test code=MDIFF) YES STAIN ACCEPTABILITY (test code=STN ACCEPTABLE) TOTAL CELLS COUNTED (test code=TCC) #CELLS SEGMENTED NEUTROPHILS (test code=SEG) % 39-69 LYMPHOCYTE (test code=LYMPH) % 25-55 MONOCYTE (test code=MON) % 0-10 EOSINOPHIL (test code=EOS) % 0.0-5.0 MORPHOLOGY COMMENT (test code=MOC) PLATELET ESTIMATE (test code=PLTEST) PLATELET MORPHOLOGY (test code=PLTMORPH) CBC W/MANUAL [id number] 08:00:00* Test Item Value Reference Range Comments WHITE BLOOD CELL (test code=WBC) 39.7 K/mm3 4.5-12.5 RESULT VERIFIED BY REPEAT ANALYSIS RED BLOOD CELL (test code=RBC) 2.86 mill/mm3 3.7-5.2 HEMOGLOBIN (test code=HGB) 8.8 gram/dL 11.5-15.5 HEMATOCRIT (test code=HCT) 26.3 % 36.0-46.0 MEAN CELL VOLUME (test code=MCV) 92.0 fL 80-98 MEAN CELL HGB (test code=MCH) 30.8 picogram 27.0-33.0 MEAN CELL HGB CONCETRATION (test code=MCHC) 33.5 gram/dL 33.0-36.0 RED CELL DISTRIBUTION WIDTH (test code=RDW) 15.8 % 11.6-16.2 RED CELL DISTRIBUTION WIDTH SD (test code=RDW-SD) 53.4 fL 37.0-51.0 PLATELET COUNT (test code=PLT) 28 K/mm3 150-450 Results called to [id number] by LINDA 12/11/18 0759Critical results verified and read back by Nurse? Y MEAN PLATELET VOLUME (test code=MPV) TEST NOT PERFORMED fL 6.7-11.0 IMMATURE GRANULOCYTE % (test code=IG%) 2.4 % 0.0-5.0 NUCLEATED RBC % (test code=NRBC%) 0.1 % 0-0 NEUTROPHIL # (test code=NT#) 36.00 K/mm3 1.8-7.7 IMMATURE GRANULOCYTE # (test code=IG#) 0.97 x10 3/uL 0-0.03 LYMPHOCYTE # (test code=LY#) 0.78 K/mm3 1.0-5.0 MONOCYTE # (test code=MO#) 1.86 K/mm3 0-0.8 EOSINOPHIL # (test code=EO#) 0.00 K/mm3 0.0-0.5 BASOPHIL # (test code=BA#) 0.05 K/mm3 0.0-0.2 NUCLEATED RBC # (test code=NRBC#) 0.02 K/mm3 0.0-0.1 MANUAL DIFF REQUIRED (test code=MDIFF) YES STAIN ACCEPTABILITY (test code=STN ACCEPTABLE) TOTAL CELLS COUNTED (test code=TCC) #CELLS SEGMENTED NEUTROPHILS (test code=SEG) % 39-69 LYMPHOCYTE (test code=LYMPH) % 25-55 MONOCYTE (test code=MON) % 0-10 MORPHOLOGY COMMENT (test code=MOC) PLATELET ESTIMATE (test code=PLTEST) PLATELET MORPHOLOGY (test code=PLTMORPH) CBC W/MANUAL [id number] 08:00:00* Test Item Value Reference Range Comments WHITE BLOOD CELL (test code=WBC) 39.7 K/mm3 4.5-12.5 RESULT VERIFIED BY REPEAT ANALYSIS RED BLOOD CELL (test code=RBC) 2.86 mill/mm3 3.7-5.2 HEMOGLOBIN (test code=HGB) 8.8 gram/dL 11.5-15.5 HEMATOCRIT (test code=HCT) 26.3 % 36.0-46.0 MEAN CELL VOLUME (test code=MCV) 92.0 fL 80-98 MEAN CELL HGB (test code=MCH) 30.8 picogram 27.0-33.0 MEAN CELL HGB CONCETRATION (test code=MCHC) 33.5 gram/dL 33.0-36.0 RED CELL DISTRIBUTION WIDTH (test code=RDW) 15.8 % 11.6-16.2 RED CELL DISTRIBUTION WIDTH SD (test code=RDW-SD) 53.4 fL 37.0-51.0 PLATELET COUNT (test code=PLT) 28 K/mm3 150-450 Results called to [id number] by LINDA 12/11/18 0759Critical results verified and read back by Nurse? Y MEAN PLATELET VOLUME (test code=MPV) TEST NOT PERFORMED fL 6.7-11.0 IMMATURE GRANULOCYTE % (test code=IG%) 2.4 % 0.0-5.0 NUCLEATED RBC % (test code=NRBC%) 0.1 % 0-0 NEUTROPHIL # (test code=NT#) 36.00 K/mm3 1.8-7.7 IMMATURE GRANULOCYTE # (test code=IG#) 0.97 x10 3/uL 0-0.03 LYMPHOCYTE # (test code=LY#) 0.78 K/mm3 1.0-5.0 MONOCYTE # (test code=MO#) 1.86 K/mm3 0-0.8 EOSINOPHIL # (test code=EO#) 0.00 K/mm3 0.0-0.5 BASOPHIL # (test code=BA#) 0.05 K/mm3 0.0-0.2 NUCLEATED RBC # (test code=NRBC#) 0.02 K/mm3 0.0-0.1 MANUAL DIFF REQUIRED (test code=MDIFF) YES STAIN ACCEPTABILITY (test code=STN ACCEPTABLE) TOTAL CELLS COUNTED (test code=TCC) #CELLS SEGMENTED NEUTROPHILS (test code=SEG) % 39-69 LYMPHOCYTE (test code=LYMPH) % 25-55 MONOCYTE (test code=MON) % 0-10 EOSINOPHIL (test code=EOS) % 0.0-5.0 CABOT RINGS (test code=CAB) MORPHOLOGY COMMENT (test code=MOC) PLATELET ESTIMATE (test code=PLTEST) PLATELET MORPHOLOGY (test code=PLTMORPH) - CT CHEST W/O [id number] 00:56:00 Name: MARIE LAWRENCE [facility] : 1930 Age/S: 88 / F [address] [facility] Unit #: [id number] Loc: [place] [address] Phys: Sotero Hernández MD Acct: [id number] Dis Date: Status: ADM IN PHONE #: [phone] Exam Date: 12/11/2018 0041 FAX #: [phone] Reason: POSSIBLE PE EXAMS: CPT CODE: [id number] CT CHEST W/O CONTRAST 94233 AFTER HOURS SERVICE ON: 12/11/2018 12:[address] Scan of the Chest Without Contrast Location Code M12 History: NAUSEA VOMITING, SEPSIS Technique: Scans were performed on a helical scanner pre IV contrast only. Study is limited secondary to lack of IV contrast. One or more of the following dose reduction techniques were used: Automated exposure control, adjustment of the mA and/or kV according to patient size, and/or utilization of iterative reconstruction technique. Findings: Pulmonary embolism cannot be excluded due to lack of contrast. No evidence of aortic aneurysm. Atherosclerosis noted in aorta and coronary arteries. There is no cardiomegaly. There are moderate bilat eral pleural effusions with compressive atelectasis. There is no edema. No cavitary lesions seen. There is no pneumothorax. Impression: Moderate bilateral pleural effusions with compressive atelect asis. Cannot evaluate for pulmonary embolism due to lack of in travenous contrast. AFTER HOURS SERVICE ON: 12/11/2018 12:[address] Scan of the Abdomen and Pelvis Without Contrast Location Code M12 PAGE 1 Signed Report (CON TINUED) Name: MARIE LAWRENCE [facility] : 1930 Age/S: 88 / F [address] [facility] Unit #: [id number] Loc: [place] [address] Phys: Ra horner,Sotero Boland MD Acct: [id number] Dis Date: Status: ADM IN ONE #: [phone] Exam Date: 12/11/2018 0041 FAX #: Reason: POSSIBLE PE EXA MS: CPT CODE: [id number] CT CH EST W/O CONTRAST 08726 <Continued> History: NAUSEA VOMITING, SEPSIS Technique: Axial and reconstructed coronal scans were performed on a helical scanner pre oral and IV contrast. Study is limited secondary to lack of oral and IV c ontrast. One or more of the following dose reduction techniqu es were used: Automated exposure control, adjustment of the mA and/or kV according to patient size, and/or utilization of iterative reconstructi on technique. Findings: There is mi ld body wall anasarca. Study is limited by motion and streak artifact. Patient's arms are at signs. Bladder lumen is dense. This may be cons istent with vicarious excretion of contrast. Liver, pancreas and spleen are within normal limits. The adrenal glands are thickened, likely hyp erplastic, right greater than left. Numerous cystic lesions are seen in the kidneys, most are too small to adequately characterize. The largest is located in the right upper pole measuring 3.8 cm. 3 mm left lower pole and 3 mm right lower pole nonobstructing renal calculi are seen. T here is no hydronephrosis. Bladder is empty with a Vilchis catheter in pl juan. There is diffuse wall thickening of the entire colon from the cecum to the rectum which is more pronounced in the ascending colon consistent with pancolitis. There is no pneumatosis or free air. The appendix is not visualized. There is no small bowel obstruction. IMPRESSION: Diffuse pancolitis. No obstruction or free air. Bilateral nonobstructing renal calculi. at 0056 Reported and s igned by: Mary Salazar M.D. PAGE 2 Signed Report (CONTINUED) Name: MARIE LAWRENCE [facility] : 1930 Age/S: 88 / F [address] Unit #: [id number] Loc: [place] [address] Phys: Sotero Hernández MD Acct: [id number] Dis Date: Status: ADM IN PHONE #: [phone] Exam Date: 12/11/2018 0041 FAX #: [phone] Reason: POSSIBLE PE EXAMS: CPT CODE: [id number] CT CHEST W/O CONTRAST 41715 <Continued> CC: Gene Berger MD; Sotero Hernández MD Technologist:MACIE RIDER CTDI: DLP: Trnscb Date/Time: 12/11/2018 (55) [email or web address] Orig Print D/T: S: 12/11/2018 (58) PAGE 3 Signed Report - CT ABD PELVIS W/O CONT 2018-12-11 00:56:00 Name: MARIE LAWRENCE [facility] : 1930 Age/S: 88 / F [address] Unit #: [id number] Loc: [place] [address] Phys: Sarahy Garzon NP Acct: [id number] Dis Date: Status: ADM IN PHONE #: [phone] Exam Date: 12/11/2018 0030 FAX #: [phone] Reason: NAUSEA VOMIITING, SEPSIS EXAMS: CPT CODE: [id number] CT ABD PELVIS W/O CONT 75360 AFTER HOURS SERVICE ON: 12/11/2018 12:[address] Scan of the Chest Without Contrast Location Code M12 History: NAUSEA VOMITING, SEPSIS Technique: Scans were performed on a helical scanner pre IV contrast only. Study is limited secondary to lack of IV contrast. One or more of the following dose reduction techniques were used: Automated exposure control, adjustment of the mA and/or kV according to patient size, and/or utilization of iterative reconstruction technique. Findings: Pulmonary embolism cannot be excluded due to lack of contrast. No evidence of aortic aneurysm. Atherosclerosis noted in aorta and coronary arteries. There is no cardiomegaly. There are moderate bilateral pleural effusions with compressive atelectasis. There is no edema. No cavitary lesions seen. There is no pneumothorax. Impression: Moderate bilateral pleural effusions with compressive atelectasis. Cannot evaluate for pulmonary embolism due to lack of intravenous contrast. AFTER HOURS SERVICE ON: 12/11/2018 12:[address] Scan of the Abdomen and Pelvis Without Contrast Location Code M12 PAGE 1 Signed Report (CON TINUED) Name: MARIE LAWRENCE [facility] : 1930 Age/S: 88 / F [address] [facility] Unit #: [id number] Loc: [place] [address] Phys: Co Sarahy pastrana DIET TECH Acct: [id number] Dis Date: Status: ADM IN ONE #: [phone] Exam Date: 12/11/2018 0030 FAX #: Reason: NAUSEA VOMIITING, SEPSIS EXA MS: CPT CODE: [id number] CT AB D PELVIS W/O CONT 39933 <Continued> History: NAUSEA VOMITING, SEPSIS Technique: Axial and reconstructed coronal scans were performed on a helical scanner pre oral and IV contrast. Study is limited secondary to lack of oral and IV c ontrast. One or more of the following dose reduction techniqu es were used: Automated exposure control, adjustment of the mA and/or kV according to patient size, and/or utilization of iterative reconstructi on technique. Findings: There is mi ld body wall anasarca. Study is limited by motion and streak artifact. Patient's arms are at signs. Bladder lumen is dense. This may be cons istent with vicarious excretion of contrast. Liver, pancreas and spleen are within normal limits. The adrenal glands are thickened, likely hyp erplastic, right greater than left. Numerous cystic lesions are seen in the kidneys, most are too small to adequately characterize. The largest is located in the right upper pole measuring 3.8 cm. 3 mm left lower pole and 3 mm right lower pole nonobstructing renal calculi are seen. T here is no hydronephrosis. Bladder is empty with a Vilchis catheter in pl juan. There is diffuse wall thickening of the entire colon from the cecum to the rectum which is more pronounced in the ascending colon consistent with pancolitis. There is no pneumatosis or free air. The appendix is not visualized. There is no small bowel obstruction. IMPRESSION: Diffuse pancolitis. No obstruction or free air. Bilateral nonobstructing renal calculi. at 0056 Reported and s igned by: Mary Salazar M.D. PAGE 2 Signed Report (CONTINUED) Name: MARIE LAWRENCE [facility] : 1930 Age/S: 88 / F [address] [facility] Unit #: [id number] Loc: [place] [address] Phys: Sarahy Garzon NP Acct: [id number] Dis Date: Status: ADM IN PHONE #: [phone] Exam Date: 12/11/2018 0030 FAX #: [phone] Reason: NAUSEA VOMIITING, SEPSIS EXAMS: CPT CODE: [id number] CT ABD PELVIS W/O CONT [id number] <Continued> CC: Gene Berger MD; Sarahy Garzon NP Technologist:MACIE RIDER CTDI: DLP: Trnscb Date/Time: 12/11/2018 (55) [id number] Orig Print D/T: S: 12/11/2018 (58) PAGE 3 Signed Report LACTIC [id number] 15:05:00* Test Item Value Reference Range Comments LACTIC ACID (test code=LACT) 3.9 mmol/L 0.4-1.9 Results called to [id number] by JODI 12/10/18 1505Critical results verified and read back by Nurse? Y BASIC METABOLIC [id number] 12:49:00* Test Item Value Reference Range Comments SODIUM (test code=NA) 142 mmol/L 136-145 POTASSIUM (test code=K) 3.7 mmol/L 3.5-5.1 CHLORIDE (test code=CL) 113.0 mmol/L 98-107 CARBON DIOXIDE (test code=CO2) 17.0 mmol/L 21-32 ANION GAP (test code=GAP) 15.7 10-20 GLUCOSE (test code=GLU) 98 mg/dL 74-106 BLOOD UREA NITROGEN (test code=BUN) 42 mg/dL 7-18 GLOMERULAR FILTRATION RATE (test code=GFR) 10 mL/min >=60 Estimated GFR by using Modified MDRD formula.Chronic kidney disease is defined as either kidney damageor GFR <60 mL/min/1.73 m2 for >3 months. CREATININE (test code=CREAT) 4.20 mg/dL 0.55-1.02 Note change in reference range due to change in reagent. BUN/CREATININE RATIO (test code=BUN/CREA) 10.0 10-20 CALCIUM (test code=CA) 7.4 mg/dL 8.5-10.1 PROTHROMBIN [id number] 12:46:00* Test Item Value Reference Range Comments PROTHROMBIN TIME PATIENT (test code=PTP) 22.1 seconds 9.0-14.0 INTERNATIONAL NORMAL RATIO (test code=INR) 1.9 0.8-1.2 The therapeutic range for oral anticoagulant therapy formost indications is an international normalized ratio (INR)of between 2.0 and 3.0. The recommended therapeutic INRrange for various clinical situations is listed below: Clinical Situation INR range Pulmonary e mbolism treatment (2.0-3.0)Venous thrombosis treatmentVenous thrombosis prophylaxis (high risk surgery)Prevention of systemic embolism from: Acute myocardial infarction Valvular heart disease Atrial fibrillation Mechanical prosthetic heart valves (2.5-3.5) IS PATIENT ON ANTICOAGULANTS? NTHROMBOPLASTIN TIME [id number] 12:46:00* Test Item Value Reference Range Comments THROMBOPLASTIN TIME PARTIAL (test code=PTT) 57.2 seconds 25.0-36.5 IS PATIENT ON ANTICOAGULANTS? NBASIC METABOLIC [id number] 12:42:00* Test Item Value Reference Range Comments SODIUM (test code=NA) 142 mmol/L 136-145 POTASSIUM (test code=K) 3.7 mmol/L 3.5-5.1 CHLORIDE (test code=CL) 113.0 mmol/L 98-107 CARBON DIOXIDE (test code=CO2) mmol/L 21-32 ANION GAP (test code=GAP) 10-20 GLUCOSE (test code=GLU) mg/dL 74-106 BLOOD UREA NITROGEN (test code=BUN) mg/dL 7-18 GLOMERULAR FILTRATION RATE (test code=GFR) mL/min >=60 CREATININE (test code=CREAT) mg/dL 0.55-1.02 BUN/CREATININE RATIO (test code=BUN/CREA) 10-20 CALCIUM (test code=CA) mg/dL 8.5-10.1 LACTIC [id number] 11:52:00* Test Item Value Reference Range Comments LACTIC ACID (test code=LACT) 4.3 mmol/L 0.4-1.9 Results called to [id number] by V.LAB.LDB 12/10/18 1152Critical results verified and read back by Nurse? Y [id number] 10:34:00* Test Item Value Reference Range Comments GLUBED (test code=GLUBED) 94 mg/dL 74-106 Performed by certified resaw operator at [facility] - XR CHEST 1 [id number] 10:17:00 FAX: Gene Berger MD [phone] [place]: [address] St: ADM FAX: Y Nic Trivedi MD [phone] Name: MARIE LAWRENCE [facility] : 1930 Age/S: 88/F [address] Unit #: [id number] Loc: [id number] [place] [address] Phys: Nic Trivedi MD Acct: [id number] Dis Date: Status: ADM IN PHONE #: [phone] Exam Date: 12/10/2018 0900 FAX #: [phone] Reason: respiratory failure EXAMS: CPT CODE: [id number] XR CHEST 1 V 11718 HISTORY: Respiratory failure. COMPARISON: Previous day. ET tube, NG tube in the right central line are unchanged. Congestion is new. Left lower lobe segmental atelectasis and small effusion are unchanged. Moderate cardiomegaly. IMPRESSION: Mild congestion is new with unchanged left basal subsegmental atelectasis and small effusion. at 1017 Reported and signed by: Thee Briggs M.D. CC: Gene Berger MD; Nic Trivedi MD Technologist: MANINDER CORTEZ Trnscrd Date/Time/By: 12/10/2018 (1017) : By: [email or web address] Orig Print D/T: S: 12/10/2018 (1020) PAGE 1 Signed Report [id number] 07:40:00* Test Item Value Reference Range Comments GLUBED (test code=GLUBED) 75 mg/dL 74-106 Performed by certified resaw operator at [facility] PROCALCITONIN (PCT)2018-12-10 06:32:00* Test Item Value Reference Range Comments PROCALCITONIN (PCT) (test code=PROCAL) 198.75 ng/ml Concentration Interpretation (ng/mL) <0.51 Sepsis is not likely. Local bacterial infection is possible. (LOW RISK for progression to Sepsis) 0.51 - 2.00 Sepsis is possible, but other conditions are known to elevate PCT as well. (MODERATE RISK for progression to Sepsis) > 2.00 Sepsis is likely, unless other causes are known. (HIGH RISK for progression to Severe Sepsis or Septic Shock) 10.00 High likelihood of Severe Sepsis or Septic or higher Shock. *Increased PCT levels may not always be related to systemic bacterial infection.*Low PCT levels do not automatically exclude the presence of bacterial infection.*All results should be interpreted taking into account the patients history. LACTIC [id number] 06:30:00* Test Item Value Reference Range Comments LACTIC ACID (test code=LACT) 4.6 mmol/L 0.4-1.9 Results called to [id number] by [email or web address] 12/10/18 0630Critical results verified and read back by Nurse? Y CBC W/MANUAL [id number] 06:24:00* Test Item Value Reference Range Comments WHITE BLOOD CELL (test code=WBC) 21.3 K/mm3 4.5-12.5 RED BLOOD CELL (test code=RBC) 2.58 mill/mm3 3.7-5.2 HEMOGLOBIN (test code=HGB) 8.0 gram/dL 11.5-15.5 HEMATOCRIT (test code=HCT) 24.2 % 36.0-46.0 MEAN CELL VOLUME (test code=MCV) 93.8 fL 80-98 MEAN CELL HGB (test code=MCH) 31.0 picogram 27.0-33.0 MEAN CELL HGB CONCETRATION (test code=MCHC) 33.1 gram/dL 33.0-36.0 RED CELL DISTRIBUTION WIDTH (test code=RDW) 15.5 % 11.6-16.2 RED CELL DISTRIBUTION WIDTH SD (test code=RDW-SD) 53.6 fL 37.0-51.0 PLATELET COUNT (test code=PLT) 41 K/mm3 150-450 Results called to [id number] by [email or web address] 12/10/18 0533Critical results verified and read back by Nurse? Y MEAN PLATELET VOLUME (test code=MPV) 13.7 fL 6.7-11.0 IMMATURE GRANULOCYTE % (test code=IG%) 4.0 % 0.0-5.0 NUCLEATED RBC % (test code=NRBC%) 0.0 % 0-0 NEUTROPHIL # (test code=NT#) 18.16 K/mm3 1.8-7.7 IMMATURE GRANULOCYTE # (test code=IG#) 0.85 x10 3/uL 0-0.03 LYMPHOCYTE # (test code=LY#) 0.84 K/mm3 1.0-5.0 MONOCYTE # (test code=MO#) 1.37 K/mm3 0-0.8 EOSINOPHIL # (test code=EO#) 0.01 K/mm3 0.0-0.5 BASOPHIL # (test code=BA#) 0.10 K/mm3 0.0-0.2 NUCLEATED RBC # (test code=NRBC#) 0.00 K/mm3 0.0-0.1 MANUAL DIFF REQUIRED (test code=MDIFF) YES STAIN ACCEPTABILITY (test code=STN ACCEPTABLE) STAIN ACCEPTABLE TOTAL CELLS COUNTED (test code=TCC) 115 #CELLS SEGMENTED NEUTROPHILS (test code=SEG) 70.4 % 39-69 BAND NEUTROPHIL (test code=BAND) 2.6 % 0-10 LYMPHOCYTE (test code=LYMPH) 3.5 % 25-55 REACTIVE LYMPH (test code=RELYMPH) 0 % MONOCYTE (test code=MON) 3.5 % 0-10 EOSINOPHIL (test code=EOS) 0 % 0.0-5.0 BASOPHIL (test code=BASO) 0 % 0-1.0 METAMYELOCYTE (test code=META) 17.4 % 0-0 MYELOCYTE (test code=MYELO) 2.6 % 0.0-0.0 PROMYELOCYTE (test code=PROM) 0 % 0-0 POIKILOCYTOSIS (test code=POIK) 3+ ANISOCYTOSIS (test code=ANISO) 2+ SAM CELLS (test code=SAM) 2+ NONE MORPHOLOGY COMMENT (test code=MOC) NORMAL PLATELET ESTIMATE (test code=PLTEST) DECREASED PLATELET MORPHOLOGY (test code=PLTMORPH) NORMAL IMMATURE FORMS (test code=IMMAT) 0 % 0-0 [id number] 06:19:00* Test Item Value Reference Range Comments TROPONIN-I (test code=TROPI) 3.160 ng/mL 0-0.045 Results called to [place] [id number] by [email or web address] 12/10/18 0618Critical results verified and read back by Nurse? Y BASIC METABOLIC [id number] 05:57:00* Test Item Value Reference Range Comments SODIUM (test code=NA) 143 mmol/L 136-145 POTASSIUM (test code=K) 3.4 mmol/L 3.5-5.1 CHLORIDE (test code=CL) 114.0 mmol/L 98-107 CARBON DIOXIDE (test code=CO2) 17.0 mmol/L 21-32 ANION GAP (test code=GAP) 15.4 10-20 GLUCOSE (test code=GLU) 93 mg/dL 74-106 BLOOD UREA NITROGEN (test code=BUN) 41 mg/dL 7-18 GLOMERULAR FILTRATION RATE (test code=GFR) 11 mL/min >=60 Estimated GFR by using Modified MDRD formula.Chronic kidney disease is defined as either kidney damageor GFR <60 mL/min/1.73 m2 for >3 months. CREATININE (test code=CREAT) 3.90 mg/dL 0.55-1.02 Note change in reference range due to change in reagent. BUN/CREATININE RATIO (test code=BUN/CREA) 10.6 10-20 CALCIUM (test code=CA) 7.7 mg/dL 8.5-10.1 BASIC METABOLIC [id number] 05:50:00* Test Item Value Reference Range Comments SODIUM (test code=NA) 143 mmol/L 136-145 POTASSIUM (test code=K) 3.4 mmol/L 3.5-5.1 CHLORIDE (test code=CL) 114.0 mmol/L 98-107 CARBON DIOXIDE (test code=CO2) mmol/L 21-32 ANION GAP (test code=GAP) 10-20 GLUCOSE (test code=GLU) mg/dL 74-106 BLOOD UREA NITROGEN (test code=BUN) mg/dL 7-18 GLOMERULAR FILTRATION RATE (test code=GFR) mL/min >=60 CREATININE (test code=CREAT) mg/dL 0.55-1.02 BUN/CREATININE RATIO (test code=BUN/CREA) 10-20 CALCIUM (test code=CA) mg/dL 8.5-10.1 CBC W/MANUAL [id number] 05:34:00* Test Item Value Reference Range Comments WHITE BLOOD CELL (test code=WBC) 21.3 K/mm3 4.5-12.5 RED BLOOD CELL (test code=RBC) 2.58 mill/mm3 3.7-5.2 HEMOGLOBIN (test code=HGB) 8.0 gram/dL 11.5-15.5 HEMATOCRIT (test code=HCT) 24.2 % 36.0-46.0 MEAN CELL VOLUME (test code=MCV) 93.8 fL 80-98 MEAN CELL HGB (test code=MCH) 31.0 picogram 27.0-33.0 MEAN CELL HGB CONCETRATION (test code=MCHC) 33.1 gram/dL 33.0-36.0 RED CELL DISTRIBUTION WIDTH (test code=RDW) 15.5 % 11.6-16.2 RED CELL DISTRIBUTION WIDTH SD (test code=RDW-SD) 53.6 fL 37.0-51.0 PLATELET COUNT (test code=PLT) 41 K/mm3 150-450 Results called to [id number] by PIPE 12/10/18 0533Critical results verified and read back by Nurse? Y MEAN PLATELET VOLUME (test code=MPV) 13.7 fL 6.7-11.0 IMMATURE GRANULOCYTE % (test code=IG%) 4.0 % 0.0-5.0 NUCLEATED RBC % (test code=NRBC%) 0.0 % 0-0 NEUTROPHIL # (test code=NT#) 18.16 K/mm3 1.8-7.7 IMMATURE GRANULOCYTE # (test code=IG#) 0.85 x10 3/uL 0-0.03 LYMPHOCYTE # (test code=LY#) 0.84 K/mm3 1.0-5.0 MONOCYTE # (test code=MO#) 1.37 K/mm3 0-0.8 EOSINOPHIL # (test code=EO#) 0.01 K/mm3 0.0-0.5 BASOPHIL # (test code=BA#) 0.10 K/mm3 0.0-0.2 NUCLEATED RBC # (test code=NRBC#) 0.00 K/mm3 0.0-0.1 MANUAL DIFF REQUIRED (test code=MDIFF) YES STAIN ACCEPTABILITY (test code=STN ACCEPTABLE) TOTAL CELLS COUNTED (test code=TCC) #CELLS SEGMENTED NEUTROPHILS (test code=SEG) % 39-69 LYMPHOCYTE (test code=LYMPH) % 25-55 MONOCYTE (test code=MON) % 0-10 EOSINOPHIL (test code=EOS) % 0.0-5.0 CABOT RINGS (test code=CAB) MORPHOLOGY COMMENT (test code=MOC) PLATELET ESTIMATE (test code=PLTEST) PLATELET MORPHOLOGY (test code=PLTMORPH) CBC W/MANUAL [id number] 05:34:00* Test Item Value Reference Range Comments WHITE BLOOD CELL (test code=WBC) 21.3 K/mm3 4.5-12.5 RED BLOOD CELL (test code=RBC) 2.58 mill/mm3 3.7-5.2 HEMOGLOBIN (test code=HGB) 8.0 gram/dL 11.5-15.5 HEMATOCRIT (test code=HCT) 24.2 % 36.0-46.0 MEAN CELL VOLUME (test code=MCV) 93.8 fL 80-98 MEAN CELL HGB (test code=MCH) 31.0 picogram 27.0-33.0 MEAN CELL HGB CONCETRATION (test code=MCHC) 33.1 gram/dL 33.0-36.0 RED CELL DISTRIBUTION WIDTH (test code=RDW) 15.5 % 11.6-16.2 RED CELL DISTRIBUTION WIDTH SD (test code=RDW-SD) 53.6 fL 37.0-51.0 PLATELET COUNT (test code=PLT) 41 K/mm3 150-450 Results called to [id number] by PIPE 12/10/18 0533Critical results verified and read back by Nurse? Y MEAN PLATELET VOLUME (test code=MPV) 13.7 fL 6.7-11.0 IMMATURE GRANULOCYTE % (test code=IG%) 4.0 % 0.0-5.0 NUCLEATED RBC % (test code=NRBC%) 0.0 % 0-0 NEUTROPHIL # (test code=NT#) 18.16 K/mm3 1.8-7.7 IMMATURE GRANULOCYTE # (test code=IG#) 0.85 x10 3/uL 0-0.03 LYMPHOCYTE # (test code=LY#) 0.84 K/mm3 1.0-5.0 MONOCYTE # (test code=MO#) 1.37 K/mm3 0-0.8 EOSINOPHIL # (test code=EO#) 0.01 K/mm3 0.0-0.5 BASOPHIL # (test code=BA#) 0.10 K/mm3 0.0-0.2 NUCLEATED RBC # (test code=NRBC#) 0.00 K/mm3 0.0-0.1 MANUAL DIFF REQUIRED (test code=MDIFF) YES STAIN ACCEPTABILITY (test code=STN ACCEPTABLE) TOTAL CELLS COUNTED (test code=TCC) #CELLS SEGMENTED NEUTROPHILS (test code=SEG) % 39-69 LYMPHOCYTE (test code=LYMPH) % 25-55 MONOCYTE (test code=MON) % 0-10 EOSINOPHIL (test code=EOS) % 0.0-5.0 CABOT RINGS (test code=CAB) MORPHOLOGY COMMENT (test code=MOC) PLATELET ESTIMATE (test code=PLTEST) PLATELET MORPHOLOGY (test code=PLTMORPH) CBC W/MANUAL [id number] 05:34:00* Test Item Value Reference Range Comments WHITE BLOOD CELL (test code=WBC) 21.3 K/mm3 4.5-12.5 RED BLOOD CELL (test code=RBC) 2.58 mill/mm3 3.7-5.2 HEMOGLOBIN (test code=HGB) 8.0 gram/dL 11.5-15.5 HEMATOCRIT (test code=HCT) 24.2 % 36.0-46.0 MEAN CELL VOLUME (test code=MCV) 93.8 fL 80-98 MEAN CELL HGB (test code=MCH) 31.0 picogram 27.0-33.0 MEAN CELL HGB CONCETRATION (test code=MCHC) 33.1 gram/dL 33.0-36.0 RED CELL DISTRIBUTION WIDTH (test code=RDW) 15.5 % 11.6-16.2 RED CELL DISTRIBUTION WIDTH SD (test code=RDW-SD) 53.6 fL 37.0-51.0 PLATELET COUNT (test code=PLT) 41 K/mm3 150-450 Results called to [id number] by PIPE 12/10/18 0533Critical results verified and read back by Nurse? Y MEAN PLATELET VOLUME (test code=MPV) 13.7 fL 6.7-11.0 IMMATURE GRANULOCYTE % (test code=IG%) 4.0 % 0.0-5.0 NUCLEATED RBC % (test code=NRBC%) 0.0 % 0-0 NEUTROPHIL # (test code=NT#) 18.16 K/mm3 1.8-7.7 IMMATURE GRANULOCYTE # (test code=IG#) 0.85 x10 3/uL 0-0.03 LYMPHOCYTE # (test code=LY#) 0.84 K/mm3 1.0-5.0 MONOCYTE # (test code=MO#) 1.37 K/mm3 0-0.8 EOSINOPHIL # (test code=EO#) 0.01 K/mm3 0.0-0.5 BASOPHIL # (test code=BA#) 0.10 K/mm3 0.0-0.2 NUCLEATED RBC # (test code=NRBC#) 0.00 K/mm3 0.0-0.1 MANUAL DIFF REQUIRED (test code=MDIFF) YES STAIN ACCEPTABILITY (test code=STN ACCEPTABLE) TOTAL CELLS COUNTED (test code=TCC) #CELLS SEGMENTED NEUTROPHILS (test code=SEG) % 39-69 LYMPHOCYTE (test code=LYMPH) % 25-55 MONOCYTE (test code=MON) % 0-10 EOSINOPHIL (test code=EOS) % 0.0-5.0 MORPHOLOGY COMMENT (test code=MOC) PLATELET ESTIMATE (test code=PLTEST) PLATELET MORPHOLOGY (test code=PLTMORPH) CBC W/MANUAL [id number] 05:34:00* Test Item Value Reference Range Comments WHITE BLOOD CELL (test code=WBC) 21.3 K/mm3 4.5-12.5 RED BLOOD CELL (test code=RBC) 2.58 mill/mm3 3.7-5.2 HEMOGLOBIN (test code=HGB) 8.0 gram/dL 11.5-15.5 HEMATOCRIT (test code=HCT) 24.2 % 36.0-46.0 MEAN CELL VOLUME (test code=MCV) 93.8 fL 80-98 MEAN CELL HGB (test code=MCH) 31.0 picogram 27.0-33.0 MEAN CELL HGB CONCETRATION (test code=MCHC) 33.1 gram/dL 33.0-36.0 RED CELL DISTRIBUTION WIDTH (test code=RDW) 15.5 % 11.6-16.2 RED CELL DISTRIBUTION WIDTH SD (test code=RDW-SD) 53.6 fL 37.0-51.0 PLATELET COUNT (test code=PLT) 41 K/mm3 150-450 Results called to [id number] by JODIJMJ1 12/10/18 0533Critical results verified and read back by Nurse? Y MEAN PLATELET VOLUME (test code=MPV) 13.7 fL 6.7-11.0 IMMATURE GRANULOCYTE % (test code=IG%) 4.0 % 0.0-5.0 NUCLEATED RBC % (test code=NRBC%) 0.0 % 0-0 NEUTROPHIL # (test code=NT#) 18.16 K/mm3 1.8-7.7 IMMATURE GRANULOCYTE # (test code=IG#) 0.85 x10 3/uL 0-0.03 LYMPHOCYTE # (test code=LY#) 0.84 K/mm3 1.0-5.0 MONOCYTE # (test code=MO#) 1.37 K/mm3 0-0.8 EOSINOPHIL # (test code=EO#) 0.01 K/mm3 0.0-0.5 BASOPHIL # (test code=BA#) 0.10 K/mm3 0.0-0.2 NUCLEATED RBC # (test code=NRBC#) 0.00 K/mm3 0.0-0.1 MANUAL DIFF REQUIRED (test code=MDIFF) YES STAIN ACCEPTABILITY (test code=STN ACCEPTABLE) TOTAL CELLS COUNTED (test code=TCC) #CELLS SEGMENTED NEUTROPHILS (test code=SEG) % 39-69 LYMPHOCYTE (test code=LYMPH) % 25-55 MONOCYTE (test code=MON) % 0-10 MORPHOLOGY COMMENT (test code=MOC) PLATELET ESTIMATE (test code=PLTEST) PLATELET MORPHOLOGY (test code=PLTMORPH) CBC W/MANUAL [id number] 05:34:00* Test Item Value Reference Range Comments WHITE BLOOD CELL (test code=WBC) 21.3 K/mm3 4.5-12.5 RED BLOOD CELL (test code=RBC) 2.58 mill/mm3 3.7-5.2 HEMOGLOBIN (test code=HGB) 8.0 gram/dL 11.5-15.5 HEMATOCRIT (test code=HCT) 24.2 % 36.0-46.0 MEAN CELL VOLUME (test code=MCV) 93.8 fL 80-98 MEAN CELL HGB (test code=MCH) 31.0 picogram 27.0-33.0 MEAN CELL HGB CONCETRATION (test code=MCHC) 33.1 gram/dL 33.0-36.0 RED CELL DISTRIBUTION WIDTH (test code=RDW) 15.5 % 11.6-16.2 RED CELL DISTRIBUTION WIDTH SD (test code=RDW-SD) 53.6 fL 37.0-51.0 PLATELET COUNT (test code=PLT) 41 K/mm3 150-450 Results called to [id number] by [email or web address] 12/10/18 0533Critical results verified and read back by Nurse? Y MEAN PLATELET VOLUME (test code=MPV) 13.7 fL 6.7-11.0 IMMATURE GRANULOCYTE % (test code=IG%) 4.0 % 0.0-5.0 NUCLEATED RBC % (test code=NRBC%) 0.0 % 0-0 NEUTROPHIL # (test code=NT#) 18.16 K/mm3 1.8-7.7 IMMATURE GRANULOCYTE # (test code=IG#) 0.85 x10 3/uL 0-0.03 LYMPHOCYTE # (test code=LY#) 0.84 K/mm3 1.0-5.0 MONOCYTE # (test code=MO#) 1.37 K/mm3 0-0.8 EOSINOPHIL # (test code=EO#) 0.01 K/mm3 0.0-0.5 BASOPHIL # (test code=BA#) 0.10 K/mm3 0.0-0.2 NUCLEATED RBC # (test code=NRBC#) 0.00 K/mm3 0.0-0.1 MANUAL DIFF REQUIRED (test code=MDIFF) YES STAIN ACCEPTABILITY (test code=STN ACCEPTABLE) TOTAL CELLS COUNTED (test code=TCC) #CELLS SEGMENTED NEUTROPHILS (test code=SEG) % 39-69 LYMPHOCYTE (test code=LYMPH) % 25-55 MONOCYTE (test code=MON) % 0-10 EOSINOPHIL (test code=EOS) % 0.0-5.0 CABOT RINGS (test code=CAB) MORPHOLOGY COMMENT (test code=MOC) PLATELET ESTIMATE (test code=PLTEST) PLATELET MORPHOLOGY (test code=PLTMORPH) LACTIC [id number] 03:20:00* Test Item Value Reference Range Comments LACTIC ACID (test code=LACT) 6.6 mmol/L 0.4-1.9 Results called to [place] [id number] by JODIAG1 12/10/18 0318Critical results verified and read back by Nurse? Y CBC W/MANUAL [id number] 02:17:00* Test Item Value Reference Range Comments WHITE BLOOD CELL (test code=WBC) 22.8 K/mm3 4.5-12.5 RED BLOOD CELL (test code=RBC) 2.60 mill/mm3 3.7-5.2 HEMOGLOBIN (test code=HGB) 8.1 gram/dL 11.5-15.5 HEMATOCRIT (test code=HCT) 25.0 % 36.0-46.0 MEAN CELL VOLUME (test code=MCV) 96.2 fL 80-98 MEAN CELL HGB (test code=MCH) 31.2 picogram 27.0-33.0 MEAN CELL HGB CONCETRATION (test code=MCHC) 32.4 gram/dL 33.0-36.0 RED CELL DISTRIBUTION WIDTH (test code=RDW) 15.5 % 11.6-16.2 RED CELL DISTRIBUTION WIDTH SD (test code=RDW-SD) 54.2 fL 37.0-51.0 PLATELET COUNT (test code=PLT) 61 K/mm3 150-450 RESULT VERIFIED BY REPEAT ANALYSIS MEAN PLATELET VOLUME (test code=MPV) 11.8 fL 6.7-11.0 IMMATURE GRANULOCYTE % (test code=IG%) 3.0 % 0.0-5.0 NUCLEATED RBC % (test code=NRBC%) 0.0 % 0-0 NEUTROPHIL # (test code=NT#) 20.05 K/mm3 1.8-7.7 IMMATURE GRANULOCYTE # (test code=IG#) 0.68 x10 3/uL 0-0.03 LYMPHOCYTE # (test code=LY#) 1.19 K/mm3 1.0-5.0 MONOCYTE # (test code=MO#) 0.82 K/mm3 0-0.8 EOSINOPHIL # (test code=EO#) 0.00 K/mm3 0.0-0.5 BASOPHIL # (test code=BA#) 0.09 K/mm3 0.0-0.2 NUCLEATED RBC # (test code=NRBC#) 0.00 K/mm3 0.0-0.1 MANUAL DIFF REQUIRED (test code=MDIFF) YES STAIN ACCEPTABILITY (test code=STN ACCEPTABLE) STAIN ACCEPTABLE TOTAL CELLS COUNTED (test code=TCC) 114 #CELLS SEGMENTED NEUTROPHILS (test code=SEG) 58.8 % 39-69 BAND NEUTROPHIL (test code=BAND) 8.8 % 0-10 LYMPHOCYTE (test code=LYMPH) 2.6 % 25-55 REACTIVE LYMPH (test code=RELYMPH) 0 % MONOCYTE (test code=MON) 0.9 % 0-10 EOSINOPHIL (test code=EOS) 0 % 0.0-5.0 BASOPHIL (test code=BASO) 0 % 0-1.0 METAMYELOCYTE (test code=META) 23.7 % 0-0 MYELOCYTE (test code=MYELO) 5.2 % 0.0-0.0 PROMYELOCYTE (test code=PROM) 0 % 0-0 POLYCHROMASIA (test code=POLC) 1+ POIKILOCYTOSIS (test code=POIK) 3+ ANISOCYTOSIS (test code=ANISO) 1+ SAM CELLS (test code=SAM) 1+ NONE SCHISTOCYTES (test code=JOSSELINE) 1+ TOXIC GRANULATION (test code=TOX) 1+ MORPHOLOGY COMMENT (test code=MOC) NORMAL PLATELET ESTIMATE (test code=PLTEST) DECREASED PLATELET MORPHOLOGY (test code=PLTMORPH) NORMAL IMMATURE FORMS (test code=IMMAT) 0 % 0-0 CBC W/MANUAL [id number] 02:16:00* Test Item Value Reference Range Comments WHITE BLOOD CELL (test code=WBC) 22.8 K/mm3 4.5-12.5 RED BLOOD CELL (test code=RBC) 2.60 mill/mm3 3.7-5.2 HEMOGLOBIN (test code=HGB) 8.1 gram/dL 11.5-15.5 HEMATOCRIT (test code=HCT) 25.0 % 36.0-46.0 MEAN CELL VOLUME (test code=MCV) 96.2 fL 80-98 MEAN CELL HGB (test code=MCH) 31.2 picogram 27.0-33.0 MEAN CELL HGB CONCETRATION (test code=MCHC) 32.4 gram/dL 33.0-36.0 RED CELL DISTRIBUTION WIDTH (test code=RDW) 15.5 % 11.6-16.2 RED CELL DISTRIBUTION WIDTH SD (test code=RDW-SD) 54.2 fL 37.0-51.0 PLATELET COUNT (test code=PLT) 61 K/mm3 150-450 RESULT VERIFIED BY REPEAT ANALYSIS MEAN PLATELET VOLUME (test code=MPV) 11.8 fL 6.7-11.0 IMMATURE GRANULOCYTE % (test code=IG%) 3.0 % 0.0-5.0 NUCLEATED RBC % (test code=NRBC%) 0.0 % 0-0 NEUTROPHIL # (test code=NT#) 20.05 K/mm3 1.8-7.7 IMMATURE GRANULOCYTE # (test code=IG#) 0.68 x10 3/uL 0-0.03 LYMPHOCYTE # (test code=LY#) 1.19 K/mm3 1.0-5.0 MONOCYTE # (test code=MO#) 0.82 K/mm3 0-0.8 EOSINOPHIL # (test code=EO#) 0.00 K/mm3 0.0-0.5 BASOPHIL # (test code=BA#) 0.09 K/mm3 0.0-0.2 NUCLEATED RBC # (test code=NRBC#) 0.00 K/mm3 0.0-0.1 MANUAL DIFF REQUIRED (test code=MDIFF) YES STAIN ACCEPTABILITY (test code=STN ACCEPTABLE) TOTAL CELLS COUNTED (test code=TCC) #CELLS SEGMENTED NEUTROPHILS (test code=SEG) 58.8 % 39-69 BAND NEUTROPHIL (test code=BAND) 8.8 % 0-10 LYMPHOCYTE (test code=LYMPH) 2.6 % 25-55 REACTIVE LYMPH (test code=RELYMPH) 0 % MONOCYTE (test code=MON) 0.9 % 0-10 EOSINOPHIL (test code=EOS) 0 % 0.0-5.0 BASOPHIL (test code=BASO) 0 % 0-1.0 METAMYELOCYTE (test code=META) 23.7 % 0-0 MYELOCYTE (test code=MYELO) 5.2 % 0.0-0.0 PROMYELOCYTE (test code=PROM) 0 % 0-0 POLYCHROMASIA (test code=POLC) 1+ POIKILOCYTOSIS (test code=POIK) 3+ ANISOCYTOSIS (test code=ANISO) 1+ SAM CELLS (test code=SAM) 1+ NONE SCHISTOCYTES (test code=JOSSELINE) 1+ TOXIC GRANULATION (test code=TOX) 1+ MORPHOLOGY COMMENT (test code=MOC) NORMAL PLATELET ESTIMATE (test code=PLTEST) DECREASED PLATELET MORPHOLOGY (test code=PLTMORPH) NORMAL IMMATURE FORMS (test code=IMMAT) 0 % 0-0 CBC W/MANUAL [id number] 01:46:00* Test Item Value Reference Range Comments WHITE BLOOD CELL (test code=WBC) 22.8 K/mm3 4.5-12.5 RED BLOOD CELL (test code=RBC) 2.60 mill/mm3 3.7-5.2 HEMOGLOBIN (test code=HGB) 8.1 gram/dL 11.5-15.5 HEMATOCRIT (test code=HCT) 25.0 % 36.0-46.0 MEAN CELL VOLUME (test code=MCV) 96.2 fL 80-98 MEAN CELL HGB (test code=MCH) 31.2 picogram 27.0-33.0 MEAN CELL HGB CONCETRATION (test code=MCHC) 32.4 gram/dL 33.0-36.0 RED CELL DISTRIBUTION WIDTH (test code=RDW) 15.5 % 11.6-16.2 RED CELL DISTRIBUTION WIDTH SD (test code=RDW-SD) 54.2 fL 37.0-51.0 PLATELET COUNT (test code=PLT) 61 K/mm3 150-450 RESULT VERIFIED BY REPEAT ANALYSIS MEAN PLATELET VOLUME (test code=MPV) 11.8 fL 6.7-11.0 IMMATURE GRANULOCYTE % (test code=IG%) 3.0 % 0.0-5.0 NUCLEATED RBC % (test code=NRBC%) 0.0 % 0-0 NEUTROPHIL # (test code=NT#) 20.05 K/mm3 1.8-7.7 IMMATURE GRANULOCYTE # (test code=IG#) 0.68 x10 3/uL 0-0.03 LYMPHOCYTE # (test code=LY#) 1.19 K/mm3 1.0-5.0 MONOCYTE # (test code=MO#) 0.82 K/mm3 0-0.8 EOSINOPHIL # (test code=EO#) 0.00 K/mm3 0.0-0.5 BASOPHIL # (test code=BA#) 0.09 K/mm3 0.0-0.2 NUCLEATED RBC # (test code=NRBC#) 0.00 K/mm3 0.0-0.1 MANUAL DIFF REQUIRED (test code=MDIFF) YES STAIN ACCEPTABILITY (test code=STN ACCEPTABLE) TOTAL CELLS COUNTED (test code=TCC) #CELLS SEGMENTED NEUTROPHILS (test code=SEG) % 39-69 LYMPHOCYTE (test code=LYMPH) % 25-55 MONOCYTE (test code=MON) % 0-10 EOSINOPHIL (test code=EOS) % 0.0-5.0 CABOT RINGS (test code=CAB) MORPHOLOGY COMMENT (test code=MOC) PLATELET ESTIMATE (test code=PLTEST) PLATELET MORPHOLOGY (test code=PLTMORPH) CBC W/MANUAL [id number] 01:46:00* Test Item Value Reference Range Comments WHITE BLOOD CELL (test code=WBC) 22.8 K/mm3 4.5-12.5 RED BLOOD CELL (test code=RBC) 2.60 mill/mm3 3.7-5.2 HEMOGLOBIN (test code=HGB) 8.1 gram/dL 11.5-15.5 HEMATOCRIT (test code=HCT) 25.0 % 36.0-46.0 MEAN CELL VOLUME (test code=MCV) 96.2 fL 80-98 MEAN CELL HGB (test code=MCH) 31.2 picogram 27.0-33.0 MEAN CELL HGB CONCETRATION (test code=MCHC) 32.4 gram/dL 33.0-36.0 RED CELL DISTRIBUTION WIDTH (test code=RDW) 15.5 % 11.6-16.2 RED CELL DISTRIBUTION WIDTH SD (test code=RDW-SD) 54.2 fL 37.0-51.0 PLATELET COUNT (test code=PLT) 61 K/mm3 150-450 RESULT VERIFIED BY REPEAT ANALYSIS MEAN PLATELET VOLUME (test code=MPV) 11.8 fL 6.7-11.0 IMMATURE GRANULOCYTE % (test code=IG%) 3.0 % 0.0-5.0 NUCLEATED RBC % (test code=NRBC%) 0.0 % 0-0 NEUTROPHIL # (test code=NT#) 20.05 K/mm3 1.8-7.7 IMMATURE GRANULOCYTE # (test code=IG#) 0.68 x10 3/uL 0-0.03 LYMPHOCYTE # (test code=LY#) 1.19 K/mm3 1.0-5.0 MONOCYTE # (test code=MO#) 0.82 K/mm3 0-0.8 EOSINOPHIL # (test code=EO#) 0.00 K/mm3 0.0-0.5 BASOPHIL # (test code=BA#) 0.09 K/mm3 0.0-0.2 NUCLEATED RBC # (test code=NRBC#) 0.00 K/mm3 0.0-0.1 MANUAL DIFF REQUIRED (test code=MDIFF) YES STAIN ACCEPTABILITY (test code=STN ACCEPTABLE) TOTAL CELLS COUNTED (test code=TCC) #CELLS SEGMENTED NEUTROPHILS (test code=SEG) % 39-69 LYMPHOCYTE (test code=LYMPH) % 25-55 MONOCYTE (test code=MON) % 0-10 EOSINOPHIL (test code=EOS) % 0.0-5.0 MORPHOLOGY COMMENT (test code=MOC) PLATELET ESTIMATE (test code=PLTEST) PLATELET MORPHOLOGY (test code=PLTMORPH) CBC W/MANUAL [id number] 01:46:00* Test Item Value Reference Range Comments WHITE BLOOD CELL (test code=WBC) 22.8 K/mm3 4.5-12.5 RED BLOOD CELL (test code=RBC) 2.60 mill/mm3 3.7-5.2 HEMOGLOBIN (test code=HGB) 8.1 gram/dL 11.5-15.5 HEMATOCRIT (test code=HCT) 25.0 % 36.0-46.0 MEAN CELL VOLUME (test code=MCV) 96.2 fL 80-98 MEAN CELL HGB (test code=MCH) 31.2 picogram 27.0-33.0 MEAN CELL HGB CONCETRATION (test code=MCHC) 32.4 gram/dL 33.0-36.0 RED CELL DISTRIBUTION WIDTH (test code=RDW) 15.5 % 11.6-16.2 RED CELL DISTRIBUTION WIDTH SD (test code=RDW-SD) 54.2 fL 37.0-51.0 PLATELET COUNT (test code=PLT) 61 K/mm3 150-450 RESULT VERIFIED BY REPEAT ANALYSIS MEAN PLATELET VOLUME (test code=MPV) 11.8 fL 6.7-11.0 IMMATURE GRANULOCYTE % (test code=IG%) 3.0 % 0.0-5.0 NUCLEATED RBC % (test code=NRBC%) 0.0 % 0-0 NEUTROPHIL # (test code=NT#) 20.05 K/mm3 1.8-7.7 IMMATURE GRANULOCYTE # (test code=IG#) 0.68 x10 3/uL 0-0.03 LYMPHOCYTE # (test code=LY#) 1.19 K/mm3 1.0-5.0 MONOCYTE # (test code=MO#) 0.82 K/mm3 0-0.8 EOSINOPHIL # (test code=EO#) 0.00 K/mm3 0.0-0.5 BASOPHIL # (test code=BA#) 0.09 K/mm3 0.0-0.2 NUCLEATED RBC # (test code=NRBC#) 0.00 K/mm3 0.0-0.1 MANUAL DIFF REQUIRED (test code=MDIFF) YES STAIN ACCEPTABILITY (test code=STN ACCEPTABLE) TOTAL CELLS COUNTED (test code=TCC) #CELLS SEGMENTED NEUTROPHILS (test code=SEG) % 39-69 LYMPHOCYTE (test code=LYMPH) % 25-55 MONOCYTE (test code=MON) % 0-10 MORPHOLOGY COMMENT (test code=MOC) PLATELET ESTIMATE (test code=PLTEST) PLATELET MORPHOLOGY (test code=PLTMORPH) CBC W/MANUAL [id number] 01:45:00* Test Item Value Reference Range Comments WHITE BLOOD CELL (test code=WBC) 22.8 K/mm3 4.5-12.5 RED BLOOD CELL (test code=RBC) 2.60 mill/mm3 3.7-5.2 HEMOGLOBIN (test code=HGB) 8.1 gram/dL 11.5-15.5 HEMATOCRIT (test code=HCT) 25.0 % 36.0-46.0 MEAN CELL VOLUME (test code=MCV) 96.2 fL 80-98 MEAN CELL HGB (test code=MCH) 31.2 picogram 27.0-33.0 MEAN CELL HGB CONCETRATION (test code=MCHC) 32.4 gram/dL 33.0-36.0 RED CELL DISTRIBUTION WIDTH (test code=RDW) 15.5 % 11.6-16.2 RED CELL DISTRIBUTION WIDTH SD (test code=RDW-SD) 54.2 fL 37.0-51.0 PLATELET COUNT (test code=PLT) 61 K/mm3 150-450 RESULT VERIFIED BY REPEAT ANALYSIS MEAN PLATELET VOLUME (test code=MPV) 11.8 fL 6.7-11.0 IMMATURE GRANULOCYTE % (test code=IG%) 3.0 % 0.0-5.0 NUCLEATED RBC % (test code=NRBC%) 0.0 % 0-0 NEUTROPHIL # (test code=NT#) 20.05 K/mm3 1.8-7.7 IMMATURE GRANULOCYTE # (test code=IG#) 0.68 x10 3/uL 0-0.03 LYMPHOCYTE # (test code=LY#) 1.19 K/mm3 1.0-5.0 MONOCYTE # (test code=MO#) 0.82 K/mm3 0-0.8 EOSINOPHIL # (test code=EO#) 0.00 K/mm3 0.0-0.5 BASOPHIL # (test code=BA#) 0.09 K/mm3 0.0-0.2 NUCLEATED RBC # (test code=NRBC#) 0.00 K/mm3 0.0-0.1 MANUAL DIFF REQUIRED (test code=MDIFF) YES STAIN ACCEPTABILITY (test code=STN ACCEPTABLE) TOTAL CELLS COUNTED (test code=TCC) #CELLS SEGMENTED NEUTROPHILS (test code=SEG) % 39-69 LYMPHOCYTE (test code=LYMPH) % 25-55 MONOCYTE (test code=MON) % 0-10 EOSINOPHIL (test code=EOS) % 0.0-5.0 CABOT RINGS (test code=CAB) MORPHOLOGY COMMENT (test code=MOC) PLATELET ESTIMATE (test code=PLTEST) PLATELET MORPHOLOGY (test code=PLTMORPH) CBC W/MANUAL [id number] 01:45:00* Test Item Value Reference Range Comments WHITE BLOOD CELL (test code=WBC) 22.8 K/mm3 4.5-12.5 RED BLOOD CELL (test code=RBC) 2.60 mill/mm3 3.7-5.2 HEMOGLOBIN (test code=HGB) 8.1 gram/dL 11.5-15.5 HEMATOCRIT (test code=HCT) 25.0 % 36.0-46.0 MEAN CELL VOLUME (test code=MCV) 96.2 fL 80-98 MEAN CELL HGB (test code=MCH) 31.2 picogram 27.0-33.0 MEAN CELL HGB CONCETRATION (test code=MCHC) 32.4 gram/dL 33.0-36.0 RED CELL DISTRIBUTION WIDTH (test code=RDW) 15.5 % 11.6-16.2 RED CELL DISTRIBUTION WIDTH SD (test code=RDW-SD) 54.2 fL 37.0-51.0 PLATELET COUNT (test code=PLT) 61 K/mm3 150-450 RESULT VERIFIED BY REPEAT ANALYSIS MEAN PLATELET VOLUME (test code=MPV) 11.8 fL 6.7-11.0 IMMATURE GRANULOCYTE % (test code=IG%) 3.0 % 0.0-5.0 NUCLEATED RBC % (test code=NRBC%) 0.0 % 0-0 NEUTROPHIL # (test code=NT#) 20.05 K/mm3 1.8-7.7 IMMATURE GRANULOCYTE # (test code=IG#) 0.68 x10 3/uL 0-0.03 LYMPHOCYTE # (test code=LY#) 1.19 K/mm3 1.0-5.0 MONOCYTE # (test code=MO#) 0.82 K/mm3 0-0.8 EOSINOPHIL # (test code=EO#) 0.00 K/mm3 0.0-0.5 BASOPHIL # (test code=BA#) 0.09 K/mm3 0.0-0.2 NUCLEATED RBC # (test code=NRBC#) 0.00 K/mm3 0.0-0.1 MANUAL DIFF REQUIRED (test code=MDIFF) YES STAIN ACCEPTABILITY (test code=STN ACCEPTABLE) TOTAL CELLS COUNTED (test code=TCC) #CELLS SEGMENTED NEUTROPHILS (test code=SEG) % 39-69 LYMPHOCYTE (test code=LYMPH) % 25-55 MONOCYTE (test code=MON) % 0-10 EOSINOPHIL (test code=EOS) % 0.0-5.0 CABOT RINGS (test code=CAB) MORPHOLOGY COMMENT (test code=MOC) PLATELET ESTIMATE (test code=PLTEST) PLATELET MORPHOLOGY (test code=PLTMORPH) ARTERIAL BLOOD [id number] 23:49:00* Test Item Value Reference Range Comments ARTERIAL BLOOD GAS PH (test code=PHA) 7.33 7.35-7.45 ARTERIAL BLOOD GAS PCO2 (test code=PCO2A) 24.8 mm Hg 35-45 Results called to and read back by JANES Lopez 23:49 - 12/09/2018; by TONJA GOLDEN RRT ARTERIAL BLOOD GAS PO2 (test code=PO2A) 149.4 mmHg 80-100 BICARBONATE TOTAL HCO3 (test code=HCO3) 12.7 mmol/L 23.0-27.0 BASE EXCESS (test code=DANICA) -11.9 mmol/L -3.0-5.0 Results called to and read back by JANES Lopez 23:49 - 12/09/2018; by TONJA GOLDEN FINISH ROLLS OPERATOR ABG O2 SATURATION (test code=SATA) 98.2 % 90.0-98.0 ABG TYPE (test code=TYPEA) Arterial FIO2 (test code=FIO2A) 50.0 ABG VENT MODE (test code=MODEA) Assist Control ABG VENT RESP RATE (test code=RRA) 16.0 per min ABG TIDAL VOLUME (test code=TVA) 450.0 mL ABG PEEP (test code=PEEPA) 7.0 cmH2O ABG SITE (test code=SITEA) ARTERIAL LINE SODIUM (test code=NA/ABG) 135.1 mEq/L 135-148 POTASSIUM (test code=K/ABG) 3.9 mEq/L 3.5-4.5 CHLORIDE (test code=CL/ABG) 110 mEq/L 98-106 GLUCOSE (test code=GLU/ABG) 105 mg/dL 74-99 HEMATOCRIT (test code=HCT/ABG) 28 % 35-47 IONIZED CALCIUM (test code=CAIABG) 1.13 mmol/L 1.1-1.37 TOTAL HGB (test code=THB) 9.4 gram/dL 11.5-15.5 HGB O2 SAT (test code=HBOSAT) 97.2 % 94.00-98.00 CARBOXYHEMOGLOBIN (test code=HOHGBT) 0.3 %totalHg 0.5-1.5 Results called to and read back by JANES Lopez 23:49 - 12/09/2018; by TONJA GOLDEN FINISH ROLLS OPERATOR METHEMOGLOBIN (test code=METHGB) 0.7 % 0.0-1.50 O2 CONTENT (test code=O2CT) 13.2 % vol 18.0-22.0 LACTIC [id number] 23:21:00* Test Item Value Reference Range Comments LACTIC ACID (test code=LACT) 6.3 mmol/L 0.4-1.9 Results called to [id number] by JODIAGJossie 12/09/18 2321Critical results verified and read back by Nurse? Y LACTIC [id number] 20:43:00* Test Item Value Reference Range Comments LACTIC ACID (test code=LACT) 6.4 mmol/L 0.4-1.9 Results called to [id number] by JODILT 12/09/183Critical results verified and read back by Nurse? Y - US ABDOMEN [id number] 20:07:00 Name: MARIE LAWRENCE [facility] : 1930 Age/S: 88 / F [address] [facility] Unit #: [id number] Loc: [place] [address] Phys: Duglas Baig Acct: [id number] Dis Date: Status: ADM IN PHONE #: [phone] Exam Date: 12/09/20181925 FAX #: [phone] Reason: Elevated liver enzymes, elevated Cr EXAMS: CPT CODE: [id number] US ABDOMEN COMPLETE 75787 HISTORY: Elevated liver enzymes and elevated creatinine. COMPARISON: Renal ultrasound from December 02, 2010. The liver is relatively normal in echogenicity and texture without parenchymal mass or lesions. The liver measured 13.5 cm in length. No intra or extrahepatic biliary ductal dilatation. CBD is normal at 5.5 mm. Main portal vein is patent with hepatopedal flow and normal spectral waveform. Well-distended gallbladder with small gallstones. No pericholecystic fluid. No wall thickening. No ascites. Kidneys are hyperechogenic suggesting chronic medical renal disease without hydronephrosis or calyceal stones on either side. Marked loss of corticomedullary differentiation as well. Right kidney measured 11.5 cm in length with interpolar multi septated complex Bosniak 2 lesion measuring 6.6 cm. This measured 1.8 cm on the previous exam. Left kidney measured 10.4 cm in length with lower pole complex Bosniak 2 lesion with debris and septation measuring 2 cm. Spleen is not enlarged at 9 cm in length. Visualized portions of the IVC, aorta and pancreas are normal however imaged incompletely. IMPRESSION: Small mobile gallstones within well-distended gallbladder without pericholecystic fluid or wall thickening. No ascites. Unremarkable liver. 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 No h ydronephrosis or calyceal stones. Bilateral complex septated Bosniak 2 lesions. Unremarkable spleen. at 2006 Reported and signed by: Thee Briggs M.D. PAGE 1 Signed Report (CONTINUED) Name: MARIE LAWRENCE [facility] : 1930 Age/S: 88 / F [address] [facility] Unit #: [id number] Loc: [place] [address] Phys: Duglas Baig Acct: [id number] Dis Date: Status: ADM IN PHONE #: [phone] Exam Date: 12/09/20181925 FAX #: [phone] Reason: Elevated liver enzymes, elevated Cr EXAMS: CPT CODE: [id number] US ABDOMEN COMPLETE 52122 < Continued> CC: Gene Berger MD; Duglas Baig Technologist: EDVIN MARSH Trnscb Date/Time: 12/09/2018 (2006) [email or web address] Orig Print D/T: S: 12/09/2018 (2009) Probe: PAGE 2 Signed Report CBC W/MANUAL [id number] 19:04:00* Test Item Value Reference Range Comments WHITE BLOOD CELL (test code=WBC) 20.3 K/mm3 4.5-12.5 RED BLOOD CELL (test code=RBC) 2.96 mill/mm3 3.7-5.2 HEMOGLOBIN (test code=HGB) 9.1 gram/dL 11.5-15.5 HEMATOCRIT (test code=HCT) 28.0 % 36.0-46.0 MEAN CELL VOLUME (test code=MCV) 94.6 fL 80-98 MEAN CELL HGB (test code=MCH) 30.7 picogram 27.0-33.0 MEAN CELL HGB CONCETRATION (test code=MCHC) 32.5 gram/dL 33.0-36.0 RED CELL DISTRIBUTION WIDTH (test code=RDW) 15.1 % 11.6-16.2 RED CELL DISTRIBUTION WIDTH SD (test code=RDW-SD) 52.8 fL 37.0-51.0 PLATELET COUNT (test code=PLT) 35 K/mm3 150-450 Results called to [id number] by ABDIEL 12/09/18 1724Critical results verified and read back by Nurse? Y IMMATURE GRANULOCYTE % (test code=IG%) 2.2 % 0.0-5.0 NUCLEATED RBC % (test code=NRBC%) 0.0 % 0-0 NEUTROPHIL # (test code=NT#) 18.49 K/mm3 1.8-7.7 IMMATURE GRANULOCYTE # (test code=IG#) 0.44 x10 3/uL 0-0.03 LYMPHOCYTE # (test code=LY#) 0.44 K/mm3 1.0-5.0 MONOCYTE # (test code=MO#) 0.91 K/mm3 0-0.8 EOSINOPHIL # (test code=EO#) 0.00 K/mm3 0.0-0.5 BASOPHIL # (test code=BA#) 0.05 K/mm3 0.0-0.2 NUCLEATED RBC # (test code=NRBC#) 0.00 K/mm3 0.0-0.1 MANUAL DIFF REQUIRED (test code=MDIFF) YES STAIN ACCEPTABILITY (test code=STN ACCEPTABLE) STAIN ACCEPTABLE TOTAL CELLS COUNTED (test code=TCC) 115 #CELLS SEGMENTED NEUTROPHILS (test code=SEG) 86.1 % 39-69 BAND NEUTROPHIL (test code=BAND) 3.5 % 0-10 LYMPHOCYTE (test code=LYMPH) 4.3 % 25-55 REACTIVE LYMPH (test code=RELYMPH) 0 % MONOCYTE (test code=MON) 2.6 % 0-10 EOSINOPHIL (test code=EOS) 0 % 0.0-5.0 BASOPHIL (test code=BASO) 0 % 0-1.0 METAMYELOCYTE (test code=META) 2.6 % 0-0 MYELOCYTE (test code=MYELO) 0.9 % 0.0-0.0 PROMYELOCYTE (test code=PROM) 0 % 0-0 POIKILOCYTOSIS (test code=POIK) 1+ ANISOCYTOSIS (test code=ANISO) 1+ PLATELET ESTIMATE (test code=PLTEST) ADEQUATE PLATELET MORPHOLOGY (test code=PLTMORPH) NORMAL IMMATURE FORMS (test code=IMMAT) 0 % 0-0 [id number] 18:39:00* Test Item Value Reference Range Comments GLYCOSYLATED HEMOGLOBIN (HA1C) (test code=GLYHGB) 4.7 % HbA1 4.8-6.0 ESTIMATED AVERAGE GLUCOSE (test code=EAG) 88 MG/DL [id number] 18:13:00* Test Item Value Reference Range Comments GLUBED (test code=GLUBED) 207 mg/dL 74-106 Performed by certified resaw operator at [facility] [id number] 18:13:00* Test Item Value Reference Range Comments GLUBED (test code=GLUBED) 29 mg/dL 74-106 Test performed as P.O.C. by nursing staff.Performed by certified resaw operator at [facility] PROCALCITONIN (PCT)2018-12-09 18:10:00* Test Item Value Reference Range Comments PROCALCITONIN (PCT) (test code=PROCAL) 218.63 ng/ml Concentration Interpretation (ng/mL) <0.51 Sepsis is not likely. Local bacterial infection is possible. (LOW RISK for progression to Sepsis) 0.51 - 2.00 Sepsis is possible, but other conditions are known to elevate PCT as well. (MODERATE RISK for progression to Sepsis) > 2.00 Sepsis is likely, unless other causes are known. (HIGH RISK for progression to Severe Sepsis or Septic Shock) 10.00 High likelihood of Severe Sepsis or Septic or higher Shock. *Increased PCT levels may not always be related to systemic bacterial infection.*Low PCT levels do not automatically exclude the presence of bacterial infection.*All results should be interpreted taking into account the patients history.Previously reported result: > 200.00 ng/mlEdited by: JODILT on 12/09/18:903497 1810: PROCALCITONIN previously reported as: > 200.00 ng/ml - XR CHEST 1 [id number] 17:43:00 FAX: Gene Berger MD [phone] [place]: [address] St: ADM FAX: Nic Lloyd MD [phone] Name: MARIE LAWRENCE [facility] : 1930 Age/S: 88/F [address] Vanegas teresa Unit #: [id number] Loc: [place] [address] Phys: Nic Trivedi MD Acct: [id number] Dis Date: Status: ADM IN PHONE #: [phone] Exam Date: 12/09/2018 173 FAX #: [phone] Reason: NG TUBE PLACEMENT EXAMS: CPT CODE: [id number] XR CHEST 1 V 26208 HISTORY: NG tube placement. COMPARISON: Same day. ET tube is above the pam but low-lying and could be retracted 2 cm for better positioning. NG tube extends below the diaphragm in good position. Right jugular central line with the tip projected over the cavoatrial junction without pneumothorax. Left lower lobe segmental atelectasis with small effusion is unchanged. No infiltrates are congestion. Mild cardiomegaly. IMPRESSION: ET tube is low-lying and still could be retracted 2 cm for better positioning but is above the pam. Unchanged left lower lobe segmental atelectasis and small effusion. at 1743 Reported and signed by: Thee Briggs M.D. CC: Gene Berger MD; Nic Trivedi MD Technologist: MANINDER CORTEZ RT; CLIFFORD PINA RT(R) Trnscrd Date/Time/By: 12/09/2018 (3163) : By: [email or web address] Orig Print D/T: S: 12/09/2018 (0921) PAGE 1 Signed Report URINALYSIS [id number] 17:29:00* Test Item Value Reference Range Comments UA COLOR (test code=COLU) YELLOW YELLOW UA APPEARANCE (test code=APPU) HAZY CLEAR UA GLUCOSE DIPSTICK (test code=DGLUU) TRACE mg/dL NEGATIVE UA BILIRUBIN DIPSTICK (test code=BILU) NEGATIVE NEGATIVE UA KETONE DIPSTICK (test code=KETU) NEGATIVE mg/dL NEGATIVE UA SPECIFIC GRAVITY (test code=SGU) 1.020 1.001-1.035 UA BLOOD DIPSTICK (test code=AMOL) 3+ (Large) NEGATIVE UA PH DIPSTICK (test code=MARITZA) 5.5 5.0-8.0 UA PROTEIN DIPSTICK (test code=PROU) 100 (2+) mg/dL Neg-15 UA UROBILINIOGEN DIPSTICK (test code=URO) 0.2 mg/dL 0.0-0.2 UA NITRITE DIPSTICK (test code=NILAM) NEGATIVE NEGATIVE UA LEUKOCYTE ESTERASE W REFLEX (test code=LEUUR) 1+ NEGATIVE UA WBC (test code=WBCU) 20-30 per HPF 0-5 UA RBC (test code=RBCU) 50-100 per HPF 0-5 UA EPITHELIAL CELLS (test code=EPIU) Few (2-5/hpf) per HPF Few UA BACTERIA (test code=BACU) MODERATE per HPF NONE UA MUCUS (test code=MUCU) FEW per LPF NONE-FEW UA AMORPHOUS SEDIMENT (test code=AMORU) FEW per LPF NONE Urine Source? CatheterCBC W/MANUAL [id number] 17:25:00* Test Item Value Reference Range Comments WHITE BLOOD CELL (test code=WBC) 20.3 K/mm3 4.5-12.5 RED BLOOD CELL (test code=RBC) 2.96 mill/mm3 3.7-5.2 HEMOGLOBIN (test code=HGB) 9.1 gram/dL 11.5-15.5 HEMATOCRIT (test code=HCT) 28.0 % 36.0-46.0 MEAN CELL VOLUME (test code=MCV) 94.6 fL 80-98 MEAN CELL HGB (test code=MCH) 30.7 picogram 27.0-33.0 MEAN CELL HGB CONCETRATION (test code=MCHC) 32.5 gram/dL 33.0-36.0 RED CELL DISTRIBUTION WIDTH (test code=RDW) 15.1 % 11.6-16.2 RED CELL DISTRIBUTION WIDTH SD (test code=RDW-SD) 52.8 fL 37.0-51.0 PLATELET COUNT (test code=PLT) 35 K/mm3 150-450 Results called to [id number] by ABDIEL 12/09/18 1724Critical results verified and read back by Nurse? Y IMMATURE GRANULOCYTE % (test code=IG%) 2.2 % 0.0-5.0 NUCLEATED RBC % (test code=NRBC%) 0.0 % 0-0 NEUTROPHIL # (test code=NT#) 18.49 K/mm3 1.8-7.7 IMMATURE GRANULOCYTE # (test code=IG#) 0.44 x10 3/uL 0-0.03 LYMPHOCYTE # (test code=LY#) 0.44 K/mm3 1.0-5.0 MONOCYTE # (test code=MO#) 0.91 K/mm3 0-0.8 EOSINOPHIL # (test code=EO#) 0.00 K/mm3 0.0-0.5 BASOPHIL # (test code=BA#) 0.05 K/mm3 0.0-0.2 NUCLEATED RBC # (test code=NRBC#) 0.00 K/mm3 0.0-0.1 MANUAL DIFF REQUIRED (test code=MDIFF) YES STAIN ACCEPTABILITY (test code=STN ACCEPTABLE) TOTAL CELLS COUNTED (test code=TCC) #CELLS SEGMENTED NEUTROPHILS (test code=SEG) % 39-69 LYMPHOCYTE (test code=LYMPH) % 25-55 MONOCYTE (test code=MON) % 0-10 EOSINOPHIL (test code=EOS) % 0.0-5.0 CABOT RINGS (test code=CAB) MORPHOLOGY COMMENT (test code=MOC) PLATELET ESTIMATE (test code=PLTEST) PLATELET MORPHOLOGY (test code=PLTMORPH) CBC W/MANUAL [id number] 17:25:00* Test Item Value Reference Range Comments WHITE BLOOD CELL (test code=WBC) 20.3 K/mm3 4.5-12.5 RED BLOOD CELL (test code=RBC) 2.96 mill/mm3 3.7-5.2 HEMOGLOBIN (test code=HGB) 9.1 gram/dL 11.5-15.5 HEMATOCRIT (test code=HCT) 28.0 % 36.0-46.0 MEAN CELL VOLUME (test code=MCV) 94.6 fL 80-98 MEAN CELL HGB (test code=MCH) 30.7 picogram 27.0-33.0 MEAN CELL HGB CONCETRATION (test code=MCHC) 32.5 gram/dL 33.0-36.0 RED CELL DISTRIBUTION WIDTH (test code=RDW) 15.1 % 11.6-16.2 RED CELL DISTRIBUTION WIDTH SD (test code=RDW-SD) 52.8 fL 37.0-51.0 PLATELET COUNT (test code=PLT) 35 K/mm3 150-450 Results called to [id number] by JODI 12/09/18 1724Critical results verified and read back by Nurse? Y IMMATURE GRANULOCYTE % (test code=IG%) 2.2 % 0.0-5.0 NUCLEATED RBC % (test code=NRBC%) 0.0 % 0-0 NEUTROPHIL # (test code=NT#) 18.49 K/mm3 1.8-7.7 IMMATURE GRANULOCYTE # (test code=IG#) 0.44 x10 3/uL 0-0.03 LYMPHOCYTE # (test code=LY#) 0.44 K/mm3 1.0-5.0 MONOCYTE # (test code=MO#) 0.91 K/mm3 0-0.8 EOSINOPHIL # (test code=EO#) 0.00 K/mm3 0.0-0.5 BASOPHIL # (test code=BA#) 0.05 K/mm3 0.0-0.2 NUCLEATED RBC # (test code=NRBC#) 0.00 K/mm3 0.0-0.1 MANUAL DIFF REQUIRED (test code=MDIFF) YES STAIN ACCEPTABILITY (test code=STN ACCEPTABLE) TOTAL CELLS COUNTED (test code=TCC) #CELLS SEGMENTED NEUTROPHILS (test code=SEG) % 39-69 LYMPHOCYTE (test code=LYMPH) % 25-55 MONOCYTE (test code=MON) % 0-10 EOSINOPHIL (test code=EOS) % 0.0-5.0 CABOT RINGS (test code=CAB) MORPHOLOGY COMMENT (test code=MOC) PLATELET ESTIMATE (test code=PLTEST) PLATELET MORPHOLOGY (test code=PLTMORPH) CBC W/MANUAL [id number] 17:25:00* Test Item Value Reference Range Comments WHITE BLOOD CELL (test code=WBC) 20.3 K/mm3 4.5-12.5 RED BLOOD CELL (test code=RBC) 2.96 mill/mm3 3.7-5.2 HEMOGLOBIN (test code=HGB) 9.1 gram/dL 11.5-15.5 HEMATOCRIT (test code=HCT) 28.0 % 36.0-46.0 MEAN CELL VOLUME (test code=MCV) 94.6 fL 80-98 MEAN CELL HGB (test code=MCH) 30.7 picogram 27.0-33.0 MEAN CELL HGB CONCETRATION (test code=MCHC) 32.5 gram/dL 33.0-36.0 RED CELL DISTRIBUTION WIDTH (test code=RDW) 15.1 % 11.6-16.2 RED CELL DISTRIBUTION WIDTH SD (test code=RDW-SD) 52.8 fL 37.0-51.0 PLATELET COUNT (test code=PLT) 35 K/mm3 150-450 Results called to [id number] by ABDIEL 12/09/18 1724Critical results verified and read back by Nurse? Y IMMATURE GRANULOCYTE % (test code=IG%) 2.2 % 0.0-5.0 NUCLEATED RBC % (test code=NRBC%) 0.0 % 0-0 NEUTROPHIL # (test code=NT#) 18.49 K/mm3 1.8-7.7 IMMATURE GRANULOCYTE # (test code=IG#) 0.44 x10 3/uL 0-0.03 LYMPHOCYTE # (test code=LY#) 0.44 K/mm3 1.0-5.0 MONOCYTE # (test code=MO#) 0.91 K/mm3 0-0.8 EOSINOPHIL # (test code=EO#) 0.00 K/mm3 0.0-0.5 BASOPHIL # (test code=BA#) 0.05 K/mm3 0.0-0.2 NUCLEATED RBC # (test code=NRBC#) 0.00 K/mm3 0.0-0.1 MANUAL DIFF REQUIRED (test code=MDIFF) YES STAIN ACCEPTABILITY (test code=STN ACCEPTABLE) TOTAL CELLS COUNTED (test code=TCC) #CELLS SEGMENTED NEUTROPHILS (test code=SEG) % 39-69 LYMPHOCYTE (test code=LYMPH) % 25-55 MONOCYTE (test code=MON) % 0-10 EOSINOPHIL (test code=EOS) % 0.0-5.0 MORPHOLOGY COMMENT (test code=MOC) PLATELET ESTIMATE (test code=PLTEST) PLATELET MORPHOLOGY (test code=PLTMORPH) CBC W/MANUAL [id number] 17:25:00* Test Item Value Reference Range Comments WHITE BLOOD CELL (test code=WBC) 20.3 K/mm3 4.5-12.5 RED BLOOD CELL (test code=RBC) 2.96 mill/mm3 3.7-5.2 HEMOGLOBIN (test code=HGB) 9.1 gram/dL 11.5-15.5 HEMATOCRIT (test code=HCT) 28.0 % 36.0-46.0 MEAN CELL VOLUME (test code=MCV) 94.6 fL 80-98 MEAN CELL HGB (test code=MCH) 30.7 picogram 27.0-33.0 MEAN CELL HGB CONCETRATION (test code=MCHC) 32.5 gram/dL 33.0-36.0 RED CELL DISTRIBUTION WIDTH (test code=RDW) 15.1 % 11.6-16.2 RED CELL DISTRIBUTION WIDTH SD (test code=RDW-SD) 52.8 fL 37.0-51.0 PLATELET COUNT (test code=PLT) 35 K/mm3 150-450 Results called to [id number] by [facility]. 12/09/18 1724Critical results verified and read back by Nurse? Y IMMATURE GRANULOCYTE % (test code=IG%) 2.2 % 0.0-5.0 NUCLEATED RBC % (test code=NRBC%) 0.0 % 0-0 NEUTROPHIL # (test code=NT#) 18.49 K/mm3 1.8-7.7 IMMATURE GRANULOCYTE # (test code=IG#) 0.44 x10 3/uL 0-0.03 LYMPHOCYTE # (test code=LY#) 0.44 K/mm3 1.0-5.0 MONOCYTE # (test code=MO#) 0.91 K/mm3 0-0.8 EOSINOPHIL # (test code=EO#) 0.00 K/mm3 0.0-0.5 BASOPHIL # (test code=BA#) 0.05 K/mm3 0.0-0.2 NUCLEATED RBC # (test code=NRBC#) 0.00 K/mm3 0.0-0.1 MANUAL DIFF REQUIRED (test code=MDIFF) YES STAIN ACCEPTABILITY (test code=STN ACCEPTABLE) TOTAL CELLS COUNTED (test code=TCC) #CELLS SEGMENTED NEUTROPHILS (test code=SEG) % 39-69 LYMPHOCYTE (test code=LYMPH) % 25-55 MONOCYTE (test code=MON) % 0-10 MORPHOLOGY COMMENT (test code=MOC) PLATELET ESTIMATE (test code=PLTEST) PLATELET MORPHOLOGY (test code=PLTMORPH) CBC W/MANUAL [id number] 17:25:00* Test Item Value Reference Range Comments WHITE BLOOD CELL (test code=WBC) 20.3 K/mm3 4.5-12.5 RED BLOOD CELL (test code=RBC) 2.96 mill/mm3 3.7-5.2 HEMOGLOBIN (test code=HGB) 9.1 gram/dL 11.5-15.5 HEMATOCRIT (test code=HCT) 28.0 % 36.0-46.0 MEAN CELL VOLUME (test code=MCV) 94.6 fL 80-98 MEAN CELL HGB (test code=MCH) 30.7 picogram 27.0-33.0 MEAN CELL HGB CONCETRATION (test code=MCHC) 32.5 gram/dL 33.0-36.0 RED CELL DISTRIBUTION WIDTH (test code=RDW) 15.1 % 11.6-16.2 RED CELL DISTRIBUTION WIDTH SD (test code=RDW-SD) 52.8 fL 37.0-51.0 PLATELET COUNT (test code=PLT) 35 K/mm3 150-450 Results called to [id number] by ABDIEL 12/09/18 1724Critical results verified and read back by Nurse? Y IMMATURE GRANULOCYTE % (test code=IG%) 2.2 % 0.0-5.0 NUCLEATED RBC % (test code=NRBC%) 0.0 % 0-0 NEUTROPHIL # (test code=NT#) 18.49 K/mm3 1.8-7.7 IMMATURE GRANULOCYTE # (test code=IG#) 0.44 x10 3/uL 0-0.03 LYMPHOCYTE # (test code=LY#) 0.44 K/mm3 1.0-5.0 MONOCYTE # (test code=MO#) 0.91 K/mm3 0-0.8 EOSINOPHIL # (test code=EO#) 0.00 K/mm3 0.0-0.5 BASOPHIL # (test code=BA#) 0.05 K/mm3 0.0-0.2 NUCLEATED RBC # (test code=NRBC#) 0.00 K/mm3 0.0-0.1 MANUAL DIFF REQUIRED (test code=MDIFF) YES STAIN ACCEPTABILITY (test code=STN ACCEPTABLE) TOTAL CELLS COUNTED (test code=TCC) #CELLS SEGMENTED NEUTROPHILS (test code=SEG) % 39-69 LYMPHOCYTE (test code=LYMPH) % 25-55 MONOCYTE (test code=MON) % 0-10 EOSINOPHIL (test code=EOS) % 0.0-5.0 CABOT RINGS (test code=CAB) MORPHOLOGY COMMENT (test code=MOC) PLATELET ESTIMATE (test code=PLTEST) PLATELET MORPHOLOGY (test code=PLTMORPH) URINALYSIS [id number] 17:23:00* Test Item Value Reference Range Comments UA COLOR (test code=COLU) YELLOW YELLOW UA APPEARANCE (test code=APPU) HAZY CLEAR UA GLUCOSE DIPSTICK (test code=DGLUU) TRACE mg/dL NEGATIVE UA BILIRUBIN DIPSTICK (test code=BILU) NEGATIVE NEGATIVE UA KETONE DIPSTICK (test code=KETU) NEGATIVE mg/dL NEGATIVE UA SPECIFIC GRAVITY (test code=SGU) 1.020 1.001-1.035 UA BLOOD DIPSTICK (test code=AMOL) 3+ (Large) NEGATIVE UA PH DIPSTICK (test code=MARITZA) 5.5 5.0-8.0 UA PROTEIN DIPSTICK (test code=PROU) 100 (2+) mg/dL Neg-15 UA UROBILINIOGEN DIPSTICK (test code=URO) 0.2 mg/dL 0.0-0.2 UA NITRITE DIPSTICK (test code=NILAM) NEGATIVE NEGATIVE UA LEUKOCYTE ESTERASE W REFLEX (test code=LEUUR) 1+ NEGATIVE UA WBC (test code=WBCU) per HPF 0-5 UA RBC (test code=RBCU) per HPF 0-5 UA EPITHELIAL CELLS (test code=EPIU) per HPF Few UA BACTERIA (test code=BACU) per HPF NONE Urine Source? CatheterPROCALCITONIN (PCT)2018-12-09 17:21:00* Test Item Value Reference Range Comments PROCALCITONIN (PCT) (test code=PROCAL) > 200.00 ng/ml Concentration Interpretation (ng/mL) <0.51 Sepsis is not likely. Local bacterial infection is possible. (LOW RISK for progression to Sepsis) 0.51 - 2.00 Sepsis is possible, but other conditions are known to elevate PCT as well. (MODERATE RISK for progression to Sepsis) > 2.00 Sepsis is likely, unless other causes are known. (HIGH RISK for progression to Severe Sepsis or Septic Shock) 10.00 High likelihood of Severe Sepsis or Septic or higher Shock. *Increased PCT levels may not always be related to systemic bacterial infection.*Low PCT levels do not automatically exclude the presence of bacterial infection.*All results should be interpreted taking into account the patients history. COMPREHENSIVE METABOLIC [id number] 17:21:00* Test Item Value Reference Range Comments SODIUM (test code=NA) 145 mmol/L 136-145 POTASSIUM (test code=K) 3.1 mmol/L 3.5-5.1 CHLORIDE (test code=CL) 117.0 mmol/L 98-107 CARBON DIOXIDE (test code=CO2) 15.0 mmol/L 21-32 ANION GAP (test code=GAP) 16.1 10-20 GLUCOSE (test code=GLU) 65 mg/dL 74-106 BLOOD UREA NITROGEN (test code=BUN) 38 mg/dL 7-18 RESULT VERIFIED BY REPEAT ANALYSIS GLOMERULAR FILTRATION RATE (test code=GFR) 12 mL/min >=60 Estimated GFR by using Modified MDRD formula.Chronic kidney disease is defined as either kidney damageor GFR <60 mL/min/1.73 m2 for >3 months. CREATININE (test code=CREAT) 3.50 mg/dL 0.55-1.02 Note change in reference range due to change in reagent. BUN/CREATININE RATIO (test code=BUN/CREA) 10.9 10-20 TOTAL PROTEIN (test code=PROT) 4.4 gram/dL 6.4-8.2 ALBUMIN (test code=ALB) 2.1 g/dL 3.4-5.0 GLOBULIN (test code=GLOB) 2.3 gram/dL 2.7-4.2 ALBUMIN/GLOBULIN RATIO (test code=A/G) 0.9 0.75-1.50 CALCIUM (test code=CA) 8.0 mg/dL 8.5-10.1 BILIRUBIN TOTAL (test code=BILT) 1.20 mg/dL 0.0-1.0 SGOT/AST (test code=AST) 476 IUnit/L 15-37 SGPT/ALT (test code=ALT) 160 IUnit/L 12-78 ALKALINE PHOSPHATASE TOTAL (test code=ALKP) 37 IUnit/L 45-117 Note change in reference range due to change in reagent. [id number] 17:21:00* Test Item Value Reference Range Comments PHOSPHORUS (test code=PHOS) 3.2 mg/dL 2.5-4.9 [id number] 17:21:00* Test Item Value Reference Range Comments MAGNESIUM (test code=MAG) 1.3 mg/dL 1.8-2.4 CALCIUM [id number] 17:21:00* Test Item Value Reference Range Comments CALCIUM IONIZED (test code=JONNATHAN) 1.32 mmol/L 1.12-1.32 LACTIC [id number] 17:17:00* Test Item Value Reference Range Comments LACTIC ACID (test code=LACT) 7.1 mmol/L 0.4-1.9 Results called to [id number] by V.LAB. 12/09/18 1717Critical results verified and read back by Nurse? Y [id number] 17:10:00* Test Item Value Reference Range Comments TROPONIN-I (test code=TROPI) 0.936 ng/mL 0-0.045 RESULT VERIFIED BY REPEAT ANALYSIS COMPREHENSIVE METABOLIC [id number] 16:52:00* Test Item Value Reference Range Comments SODIUM (test code=NA) mmol/L 136-145 POTASSIUM (test code=K) mmol/L 3.5-5.1 CHLORIDE (test code=CL) mmol/L 98-107 CARBON DIOXIDE (test code=CO2) mmol/L 21-32 ANION GAP (test code=GAP) 10-20 GLUCOSE (test code=GLU) mg/dL 74-106 BLOOD UREA NITROGEN (test code=BUN) mg/dL 7-18 GLOMERULAR FILTRATION RATE (test code=GFR) mL/min >=60 CREATININE (test code=CREAT) mg/dL 0.55-1.02 BUN/CREATININE RATIO (test code=BUN/CREA) 10-20 TOTAL PROTEIN (test code=PROT) gram/dL 6.4-8.2 ALBUMIN (test code=ALB) g/dL 3.4-5.0 GLOBULIN (test code=GLOB) gram/dL 2.7-4.2 ALBUMIN/GLOBULIN RATIO (test code=A/G) 0.75-1.50 CALCIUM (test code=CA) mg/dL 8.5-10.1 BILIRUBIN TOTAL (test code=BILT) mg/dL 0.0-1.0 SGOT/AST (test code=AST) IUnit/L 15-37 SGPT/ALT (test code=ALT) IUnit/L 12-78 ALKALINE PHOSPHATASE TOTAL (test code=ALKP) IUnit/L 45-117 [id number] 16:52:00* Test Item Value Reference Range Comments PHOSPHORUS (test code=PHOS) mg/dL 2.5-4.9 [id number] 16:52:00* Test Item Value Reference Range Comments MAGNESIUM (test code=MAG) mg/dL 1.8-2.4 CALCIUM [id number] 16:52:00* Test Item Value Reference Range Comments CALCIUM IONIZED (test code=JONNATHAN) 1.32 mmol/L 1.12-1.32 - XR CHEST 1 [id number] 16:13:00 FAX: Gene Berger MD [phone] [place]: St: ADM FAX: Duglas Baig Name: MARIE LAWRENCE [facility] : 1930 Age/S: 88/F Susana Vanegas y Unit #: [id number] Loc: [facility] [place] [address] Phys: Duglas Baig Acct: [id number] Dis Date: Status: ADM IN PHONE #: [phone] Exam Date: 12/09/2018 1525 FAX #: [phone] Reason: intubated, central line placement EXAMS: CPT CODE: [id number] XR CHEST 1 V [id number] REASON FOR EXAM: intubated, central line placement Exam Order Date: 12/09/2018 3:30 PM Ordering Navdeep: SANTY Arroyo PROCEDURE: - XR CHEST 1 V COMPARISON: AP chest x-ray the previous evening FINDINGS: The patient has been intubated and the ET tube terminates 2.0 cm above the pam. There has also been interval placement of a right IJ central line into the distal SVC with no postprocedure pneumothorax. The lung volumes are diminished. There is an opacity in the left lung base that obscures the left hemidiaphragm and is new from the prior exam. The remainder of the lungs are clear. The cardiac mediastinal silhouette is normal in size. 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 Degenerative changes of the spine and left shoulder and other musculoskeletal findings are stable in appearance. IMPRESSION: Interval intubation and placement of right IJ central line. No postprocedure pneumothorax. New opacity in the left lung base may represent any combination of layering effusion, atelectasis, and aspiration. Superimposed pneumonia cannot be excluded. at 1613 Reported and signed by: Noah Olivia MD CC: Gene Berger MD; Duglas Baig Technologist: VASU CA RT(R) Trnscrd Date/Time/By: 12/09/2018 (1613) : By: [email or web address] [facility] Print D/T: S: 12/09/2018 (8506) PAGE 1 Signed Report ARTERIAL BLOOD [id number] 15:53:00* Test Item Value Reference Range Comments ARTERIAL BLOOD GAS PH (test code=PHA) 7.35 7.35-7.45 ARTERIAL BLOOD GAS PCO2 (test code=PCO2A) 22.9 mm Hg 35-45 Results called to and read back by katelyn 15:52 - 12/09/2018; by lorenzo ARTERIAL BLOOD GAS PO2 (test code=PO2A) 472.8 mmHg 80-100 BICARBONATE TOTAL HCO3 (test code=HCO3) 12.4 mmol/L 23.0-27.0 BASE EXCESS (test code=DANICA) -11.6 mmol/L -3.0-5.0 Results called to and read back by katelyn 15:52 - 12/09/2018; by lorenzo ABG O2 SATURATION (test code=SATA) 98.9 % 90.0-98.0 ABG TYPE (test code=TYPEA) Arterial FIO2 (test code=FIO2A) 100.0 ABG VENT MODE (test code=MODEA) Assist Control ABG VENT RESP RATE (test code=RRA) 20.0 per min ABG TIDAL VOLUME (test code=TVA) 450.0 mL ABG SITE (test code=SITEA) ARTERIAL LINE HEMATOCRIT (test code=HCT/ABG) 30 % 35-47 TOTAL HGB (test code=THB) 10.3 gram/dL 11.5-15.5 HGB O2 SAT (test code=HBOSAT) 97.9 % 94.00-98.00 CARBOXYHEMOGLOBIN (test code=HOHGBT) 0.3 %totalHg 0.5-1.5 Results called to and read back by katelyn 15:52 - 12/09/2018; by lorenzo METHEMOGLOBIN (test code=METHGB) 0.7 % 0.0-1.50 O2 CONTENT (test code=O2CT) 15.5 % vol 18.0-22.0 LACTIC [id number] 14:10:00* Test Item Value Reference Range Comments LACTIC ACID (test code=LACT) 7.6 mmol/L 0.4-1.9 Results called to [id number] by ISABELL 12/09/18 1410Critical results verified and read back by Nurse? Y CBC W/MANUAL [id number] 13:59:00* Test Item Value Reference Range Comments WHITE BLOOD CELL (test code=WBC) 24.4 K/mm3 4.5-12.5 RED BLOOD CELL (test code=RBC) 3.35 mill/mm3 3.7-5.2 HEMOGLOBIN (test code=HGB) 10.3 gram/dL 11.5-15.5 RESULT VERIFIED BY REPEAT ANALYSIS HEMATOCRIT (test code=HCT) 32.5 % 36.0-46.0 MEAN CELL VOLUME (test code=MCV) 97.0 fL 80-98 MEAN CELL HGB (test code=MCH) 30.7 picogram 27.0-33.0 MEAN CELL HGB CONCETRATION (test code=MCHC) 31.7 gram/dL 33.0-36.0 RED CELL DISTRIBUTION WIDTH (test code=RDW) 14.8 % 11.6-16.2 RED CELL DISTRIBUTION WIDTH SD (test code=RDW-SD) 53.0 fL 37.0-51.0 PLATELET COUNT (test code=PLT) 56 K/mm3 150-450 RESULT VERIFIED BY REPEAT ANALYSIS MEAN PLATELET VOLUME (test code=MPV) 10.8 fL 6.7-11.0 IMMATURE GRANULOCYTE % (test code=IG%) 2.7 % 0.0-5.0 NUCLEATED RBC % (test code=NRBC%) 0.1 % 0-0 NEUTROPHIL # (test code=NT#) 23.22 K/mm3 1.8-7.7 IMMATURE GRANULOCYTE # (test code=IG#) 0.65 x10 3/uL 0-0.03 LYMPHOCYTE # (test code=LY#) 0.23 K/mm3 1.0-5.0 MONOCYTE # (test code=MO#) 0.28 K/mm3 0-0.8 EOSINOPHIL # (test code=EO#) 0.00 K/mm3 0.0-0.5 BASOPHIL # (test code=BA#) 0.06 K/mm3 0.0-0.2 NUCLEATED RBC # (test code=NRBC#) 0.02 K/mm3 0.0-0.1 MANUAL DIFF REQUIRED (test code=MDIFF) YES STAIN ACCEPTABILITY (test code=STN ACCEPTABLE) STAIN ACCEPTABLE TOTAL CELLS COUNTED (test code=TCC) 115 #CELLS SEGMENTED NEUTROPHILS (test code=SEG) 80.8 % 39-69 BAND NEUTROPHIL (test code=BAND) 17.4 % 0-10 LYMPHOCYTE (test code=LYMPH) 0.9 % 25-55 REACTIVE LYMPH (test code=RELYMPH) 0 % MONOCYTE (test code=MON) 0.9 % 0-10 EOSINOPHIL (test code=EOS) 0 % 0.0-5.0 BASOPHIL (test code=BASO) 0 % 0-1.0 METAMYELOCYTE (test code=META) 0 % 0-0 MYELOCYTE (test code=MYELO) 0 % 0.0-0.0 PROMYELOCYTE (test code=PROM) 0 % 0-0 POIKILOCYTOSIS (test code=POIK) 2+ ANISOCYTOSIS (test code=ANISO) 1+ SAM CELLS (test code=SAM) 2+ NONE ACANTHOCYTES (test code=ACAN) 1+ NONE PLATELET ESTIMATE (test code=PLTEST) DECREASED PLATELET MORPHOLOGY (test code=PLTMORPH) NORMAL IMMATURE FORMS (test code=IMMAT) 0 % 0-0 [id number] 10:55:00* Test Item Value Reference Range Comments TROPONIN-I (test code=TROPI) 0.239 ng/mL 0-0.045 COMMENTS TO CROP RESEARCH SCIENTIST: COLLECT 3 HOURS AFTER PREVIOUS SAMPLELACTIC [id number] 10:45:00* Test Item Value Reference Range Comments LACTIC ACID (test code=LACT) 8.3 mmol/L 0.4-1.9 Results called to [id number] by V.LAB.KAREN 12/09/18 1045Critical results verified and read back by Nurse? Y [id number] 09:25:00* Test Item Value Reference Range Comments TROPONIN-I (test code=TROPI) 0.167 ng/mL 0-0.045 Results called to [id number] by V.LAB.KAREN 12/09/18 0924Critical results verified and read back by Nurse? Y COMMENTS TO CROP RESEARCH SCIENTIST: COLLECT 3 HOURS AFTER PREVIOUS SAMPLECBC W/MANUAL [id number] 09:25:00* Test Item Value Reference Range Comments WHITE BLOOD CELL (test code=WBC) 24.4 K/mm3 4.5-12.5 RED BLOOD CELL (test code=RBC) 3.35 mill/mm3 3.7-5.2 HEMOGLOBIN (test code=HGB) 10.3 gram/dL 11.5-15.5 RESULT VERIFIED BY REPEAT ANALYSIS HEMATOCRIT (test code=HCT) 32.5 % 36.0-46.0 MEAN CELL VOLUME (test code=MCV) 97.0 fL 80-98 MEAN CELL HGB (test code=MCH) 30.7 picogram 27.0-33.0 MEAN CELL HGB CONCETRATION (test code=MCHC) 31.7 gram/dL 33.0-36.0 RED CELL DISTRIBUTION WIDTH (test code=RDW) 14.8 % 11.6-16.2 RED CELL DISTRIBUTION WIDTH SD (test code=RDW-SD) 53.0 fL 37.0-51.0 PLATELET COUNT (test code=PLT) 56 K/mm3 150-450 RESULT VERIFIED BY REPEAT ANALYSIS MEAN PLATELET VOLUME (test code=MPV) 10.8 fL 6.7-11.0 IMMATURE GRANULOCYTE % (test code=IG%) 2.7 % 0.0-5.0 NUCLEATED RBC % (test code=NRBC%) 0.1 % 0-0 NEUTROPHIL # (test code=NT#) 23.22 K/mm3 1.8-7.7 IMMATURE GRANULOCYTE # (test code=IG#) 0.65 x10 3/uL 0-0.03 LYMPHOCYTE # (test code=LY#) 0.23 K/mm3 1.0-5.0 MONOCYTE # (test code=MO#) 0.28 K/mm3 0-0.8 EOSINOPHIL # (test code=EO#) 0.00 K/mm3 0.0-0.5 BASOPHIL # (test code=BA#) 0.06 K/mm3 0.0-0.2 NUCLEATED RBC # (test code=NRBC#) 0.02 K/mm3 0.0-0.1 MANUAL DIFF REQUIRED (test code=MDIFF) YES STAIN ACCEPTABILITY (test code=STN ACCEPTABLE) TOTAL CELLS COUNTED (test code=TCC) #CELLS SEGMENTED NEUTROPHILS (test code=SEG) % 39-69 LYMPHOCYTE (test code=LYMPH) % 25-55 MONOCYTE (test code=MON) % 0-10 EOSINOPHIL (test code=EOS) % 0.0-5.0 CABOT RINGS (test code=CAB) MORPHOLOGY COMMENT (test code=MOC) PLATELET ESTIMATE (test code=PLTEST) PLATELET MORPHOLOGY (test code=PLTMORPH) CBC W/MANUAL [id number] 09:25:00* Test Item Value Reference Range Comments WHITE BLOOD CELL (test code=WBC) 24.4 K/mm3 4.5-12.5 RED BLOOD CELL (test code=RBC) 3.35 mill/mm3 3.7-5.2 HEMOGLOBIN (test code=HGB) 10.3 gram/dL 11.5-15.5 RESULT VERIFIED BY REPEAT ANALYSIS HEMATOCRIT (test code=HCT) 32.5 % 36.0-46.0 MEAN CELL VOLUME (test code=MCV) 97.0 fL 80-98 MEAN CELL HGB (test code=MCH) 30.7 picogram 27.0-33.0 MEAN CELL HGB CONCETRATION (test code=MCHC) 31.7 gram/dL 33.0-36.0 RED CELL DISTRIBUTION WIDTH (test code=RDW) 14.8 % 11.6-16.2 RED CELL DISTRIBUTION WIDTH SD (test code=RDW-SD) 53.0 fL 37.0-51.0 PLATELET COUNT (test code=PLT) 56 K/mm3 150-450 RESULT VERIFIED BY REPEAT ANALYSIS MEAN PLATELET VOLUME (test code=MPV) 10.8 fL 6.7-11.0 IMMATURE GRANULOCYTE % (test code=IG%) 2.7 % 0.0-5.0 NUCLEATED RBC % (test code=NRBC%) 0.1 % 0-0 NEUTROPHIL # (test code=NT#) 23.22 K/mm3 1.8-7.7 IMMATURE GRANULOCYTE # (test code=IG#) 0.65 x10 3/uL 0-0.03 LYMPHOCYTE # (test code=LY#) 0.23 K/mm3 1.0-5.0 MONOCYTE # (test code=MO#) 0.28 K/mm3 0-0.8 EOSINOPHIL # (test code=EO#) 0.00 K/mm3 0.0-0.5 BASOPHIL # (test code=BA#) 0.06 K/mm3 0.0-0.2 NUCLEATED RBC # (test code=NRBC#) 0.02 K/mm3 0.0-0.1 MANUAL DIFF REQUIRED (test code=MDIFF) YES STAIN ACCEPTABILITY (test code=STN ACCEPTABLE) TOTAL CELLS COUNTED (test code=TCC) #CELLS SEGMENTED NEUTROPHILS (test code=SEG) % 39-69 LYMPHOCYTE (test code=LYMPH) % 25-55 MONOCYTE (test code=MON) % 0-10 EOSINOPHIL (test code=EOS) % 0.0-5.0 MORPHOLOGY COMMENT (test code=MOC) PLATELET ESTIMATE (test code=PLTEST) PLATELET MORPHOLOGY (test code=PLTMORPH) CBC W/MANUAL [id number] 09:25:00* Test Item Value Reference Range Comments WHITE BLOOD CELL (test code=WBC) 24.4 K/mm3 4.5-12.5 RED BLOOD CELL (test code=RBC) 3.35 mill/mm3 3.7-5.2 HEMOGLOBIN (test code=HGB) 10.3 gram/dL 11.5-15.5 RESULT VERIFIED BY REPEAT ANALYSIS HEMATOCRIT (test code=HCT) 32.5 % 36.0-46.0 MEAN CELL VOLUME (test code=MCV) 97.0 fL 80-98 MEAN CELL HGB (test code=MCH) 30.7 picogram 27.0-33.0 MEAN CELL HGB CONCETRATION (test code=MCHC) 31.7 gram/dL 33.0-36.0 RED CELL DISTRIBUTION WIDTH (test code=RDW) 14.8 % 11.6-16.2 RED CELL DISTRIBUTION WIDTH SD (test code=RDW-SD) 53.0 fL 37.0-51.0 PLATELET COUNT (test code=PLT) 56 K/mm3 150-450 RESULT VERIFIED BY REPEAT ANALYSIS MEAN PLATELET VOLUME (test code=MPV) 10.8 fL 6.7-11.0 IMMATURE GRANULOCYTE % (test code=IG%) 2.7 % 0.0-5.0 NUCLEATED RBC % (test code=NRBC%) 0.1 % 0-0 NEUTROPHIL # (test code=NT#) 23.22 K/mm3 1.8-7.7 IMMATURE GRANULOCYTE # (test code=IG#) 0.65 x10 3/uL 0-0.03 LYMPHOCYTE # (test code=LY#) 0.23 K/mm3 1.0-5.0 MONOCYTE # (test code=MO#) 0.28 K/mm3 0-0.8 EOSINOPHIL # (test code=EO#) 0.00 K/mm3 0.0-0.5 BASOPHIL # (test code=BA#) 0.06 K/mm3 0.0-0.2 NUCLEATED RBC # (test code=NRBC#) 0.02 K/mm3 0.0-0.1 MANUAL DIFF REQUIRED (test code=MDIFF) YES STAIN ACCEPTABILITY (test code=STN ACCEPTABLE) TOTAL CELLS COUNTED (test code=TCC) #CELLS SEGMENTED NEUTROPHILS (test code=SEG) % 39-69 LYMPHOCYTE (test code=LYMPH) % 25-55 MONOCYTE (test code=MON) % 0-10 MORPHOLOGY COMMENT (test code=MOC) PLATELET ESTIMATE (test code=PLTEST) PLATELET MORPHOLOGY (test code=PLTMORPH) CBC W/MANUAL [id number] 09:24:00* Test Item Value Reference Range Comments WHITE BLOOD CELL (test code=WBC) 24.4 K/mm3 4.5-12.5 RED BLOOD CELL (test code=RBC) 3.35 mill/mm3 3.7-5.2 HEMOGLOBIN (test code=HGB) 10.3 gram/dL 11.5-15.5 RESULT VERIFIED BY REPEAT ANALYSIS HEMATOCRIT (test code=HCT) 32.5 % 36.0-46.0 MEAN CELL VOLUME (test code=MCV) 97.0 fL 80-98 MEAN CELL HGB (test code=MCH) 30.7 picogram 27.0-33.0 MEAN CELL HGB CONCETRATION (test code=MCHC) 31.7 gram/dL 33.0-36.0 RED CELL DISTRIBUTION WIDTH (test code=RDW) 14.8 % 11.6-16.2 RED CELL DISTRIBUTION WIDTH SD (test code=RDW-SD) 53.0 fL 37.0-51.0 PLATELET COUNT (test code=PLT) 56 K/mm3 150-450 RESULT VERIFIED BY REPEAT ANALYSIS MEAN PLATELET VOLUME (test code=MPV) 10.8 fL 6.7-11.0 IMMATURE GRANULOCYTE % (test code=IG%) 2.7 % 0.0-5.0 NUCLEATED RBC % (test code=NRBC%) 0.1 % 0-0 NEUTROPHIL # (test code=NT#) 23.22 K/mm3 1.8-7.7 IMMATURE GRANULOCYTE # (test code=IG#) 0.65 x10 3/uL 0-0.03 LYMPHOCYTE # (test code=LY#) 0.23 K/mm3 1.0-5.0 MONOCYTE # (test code=MO#) 0.28 K/mm3 0-0.8 EOSINOPHIL # (test code=EO#) 0.00 K/mm3 0.0-0.5 BASOPHIL # (test code=BA#) 0.06 K/mm3 0.0-0.2 NUCLEATED RBC # (test code=NRBC#) 0.02 K/mm3 0.0-0.1 MANUAL DIFF REQUIRED (test code=MDIFF) YES STAIN ACCEPTABILITY (test code=STN ACCEPTABLE) TOTAL CELLS COUNTED (test code=TCC) #CELLS SEGMENTED NEUTROPHILS (test code=SEG) % 39-69 LYMPHOCYTE (test code=LYMPH) % 25-55 MONOCYTE (test code=MON) % 0-10 EOSINOPHIL (test code=EOS) % 0.0-5.0 CABOT RINGS (test code=CAB) MORPHOLOGY COMMENT (test code=MOC) PLATELET ESTIMATE (test code=PLTEST) PLATELET MORPHOLOGY (test code=PLTMORPH) CBC W/MANUAL [id number] 09:24:00* Test Item Value Reference Range Comments WHITE BLOOD CELL (test code=WBC) 24.4 K/mm3 4.5-12.5 RED BLOOD CELL (test code=RBC) 3.35 mill/mm3 3.7-5.2 HEMOGLOBIN (test code=HGB) 10.3 gram/dL 11.5-15.5 RESULT VERIFIED BY REPEAT ANALYSIS HEMATOCRIT (test code=HCT) 32.5 % 36.0-46.0 MEAN CELL VOLUME (test code=MCV) 97.0 fL 80-98 MEAN CELL HGB (test code=MCH) 30.7 picogram 27.0-33.0 MEAN CELL HGB CONCETRATION (test code=MCHC) 31.7 gram/dL 33.0-36.0 RED CELL DISTRIBUTION WIDTH (test code=RDW) 14.8 % 11.6-16.2 RED CELL DISTRIBUTION WIDTH SD (test code=RDW-SD) 53.0 fL 37.0-51.0 PLATELET COUNT (test code=PLT) 56 K/mm3 150-450 RESULT VERIFIED BY REPEAT ANALYSIS MEAN PLATELET VOLUME (test code=MPV) 10.8 fL 6.7-11.0 IMMATURE GRANULOCYTE % (test code=IG%) 2.7 % 0.0-5.0 NUCLEATED RBC % (test code=NRBC%) 0.1 % 0-0 NEUTROPHIL # (test code=NT#) 23.22 K/mm3 1.8-7.7 IMMATURE GRANULOCYTE # (test code=IG#) 0.65 x10 3/uL 0-0.03 LYMPHOCYTE # (test code=LY#) 0.23 K/mm3 1.0-5.0 MONOCYTE # (test code=MO#) 0.28 K/mm3 0-0.8 EOSINOPHIL # (test code=EO#) 0.00 K/mm3 0.0-0.5 BASOPHIL # (test code=BA#) 0.06 K/mm3 0.0-0.2 NUCLEATED RBC # (test code=NRBC#) 0.02 K/mm3 0.0-0.1 MANUAL DIFF REQUIRED (test code=MDIFF) YES STAIN ACCEPTABILITY (test code=STN ACCEPTABLE) TOTAL CELLS COUNTED (test code=TCC) #CELLS SEGMENTED NEUTROPHILS (test code=SEG) % 39-69 LYMPHOCYTE (test code=LYMPH) % 25-55 MONOCYTE (test code=MON) % 0-10 EOSINOPHIL (test code=EOS) % 0.0-5.0 CABOT RINGS (test code=CAB) MORPHOLOGY COMMENT (test code=MOC) PLATELET ESTIMATE (test code=PLTEST) PLATELET MORPHOLOGY (test code=PLTMORPH) LACTIC [id number] 09:10:00* Test Item Value Reference Range Comments LACTIC ACID (test code=LACT) 8.5 mmol/L 0.4-1.9 Results called to [id number] by [email or web address] 12/09/18 0909Critical results verified and read back by Nurse? Y BASIC METABOLIC [id number] 09:09:00* Test Item Value Reference Range Comments SODIUM (test code=NA) 145 mmol/L 136-145 POTASSIUM (test code=K) 3.2 mmol/L 3.5-5.1 CHLORIDE (test code=CL) 117.0 mmol/L 98-107 CARBON DIOXIDE (test code=CO2) 14.0 mmol/L 21-32 ANION GAP (test code=GAP) 17.2 10-20 GLUCOSE (test code=GLU) 74 mg/dL 74-106 BLOOD UREA NITROGEN (test code=BUN) 30 mg/dL 7-18 GLOMERULAR FILTRATION RATE (test code=GFR) 15 mL/min >=60 Estimated GFR by using Modified MDRD formula.Chronic kidney disease is defined as either kidney damageor GFR <60 mL/min/1.73 m2 for >3 months. CREATININE (test code=CREAT) 2.90 mg/dL 0.55-1.02 Note change in reference range due to change in reagent. BUN/CREATININE RATIO (test code=BUN/CREA) 10.3 10-20 CALCIUM (test code=CA) 7.9 mg/dL 8.5-10.1 BASIC METABOLIC [id number] 09:04:00* Test Item Value Reference Range Comments SODIUM (test code=NA) 145 mmol/L 136-145 POTASSIUM (test code=K) 3.2 mmol/L 3.5-5.1 CHLORIDE (test code=CL) 117.0 mmol/L 98-107 CARBON DIOXIDE (test code=CO2) mmol/L 21-32 ANION GAP (test code=GAP) 10-20 GLUCOSE (test code=GLU) mg/dL 74-106 BLOOD UREA NITROGEN (test code=BUN) mg/dL 7-18 GLOMERULAR FILTRATION RATE (test code=GFR) mL/min >=60 CREATININE (test code=CREAT) mg/dL 0.55-1.02 BUN/CREATININE RATIO (test code=BUN/CREA) 10-20 CALCIUM (test code=CA) mg/dL 8.5-10.1 LACTIC [id number] 01:02:00* Test Item Value Reference Range Comments LACTIC ACID (test code=LACT) 5.1 mmol/L 0.4-1.9 Results called to by KIKI 12/09/18 0102Critical results verified and read back by Nurse? Y HEPATIC FUNCTION [id number] 00:54:00* Test Item Value Reference Range Comments TOTAL PROTEIN (test code=PROT) 4.7 gram/dL 6.4-8.2 ALBUMIN (test code=ALB) 2.4 g/dL 3.4-5.0 GLOBULIN (test code=GLOB) 2.3 gram/dL 2.7-4.2 ALBUMIN/GLOBULIN RATIO (test code=A/G) 1.0 0.75-1.50 BILIRUBIN TOTAL (test code=BILT) 1.60 mg/dL 0.0-1.0 BILIRUBIN DIRECT (test code=BILD) 1.06 mg/dL 0.0-0.20 SGOT/AST (test code=AST) 80 IUnit/L 15-37 SGPT/ALT (test code=ALT) 34 IUnit/L 12-78 ALKALINE PHOSPHATASE TOTAL (test code=ALKP) 60 IUnit/L 45-117 Note change in reference range due to change in reagent. [id number] 00:54:00* Test Item Value Reference Range Comments LIPASE (test code=LIP) 184 U/L 73.0-393.0 URINALYSIS [id number] 00:40:00* Test Item Value Reference Range Comments UA COLOR (test code=COLU) YELLOW YELLOW UA APPEARANCE (test code=APPU) Cloudy CLEAR UA GLUCOSE DIPSTICK (test code=DGLUU) NEGATIVE mg/dL NEGATIVE UA BILIRUBIN DIPSTICK (test code=BILU) NEGATIVE mg/dL NEGATIVE UA KETONE DIPSTICK (test code=KETU) NEGATIVE mg/dL NEGATIVE UA SPECIFIC GRAVITY (test code=SGU) 1.010 1.001-1.035 UA BLOOD DIPSTICK (test code=AMOL) >1.0 mg/dL NEGATIVE UA PH DIPSTICK (test code=MARITZA) 6.0 5.0-8.0 UA PROTEIN DIPSTICK (test code=PROU) 70 (1+) mg/dL NEGATIVE UA UROBILINIOGEN DIPSTICK (test code=URO) Normal mg/dL NEGATIVE UA NITRITE DIPSTICK (test code=NILAM) NEGATIVE NEGATIVE UA LEUKOCYTE ESTERASE W REFLEX (test code=LEUUR) 25 Stephon/uL (Trace) Stephon/uL NEGATIVE UA WBC (test code=WBCU) 21-50 per HPF 0-5 UA RBC (test code=RBCU) >200 #/HPF 0-5 UA EPITHELIAL CELLS (test code=EPIU) None seen per HPF FEW UA BACTERIA (test code=BACU) FEW #/HPF NONE UA MUCUS (test code=MUCU) FEW #/LPF FEW Urine Source? Clean CatchLACTIC [id number] 23:17:00* Test Item Value Reference Range Comments LACTIC ACID (test code=LACT) 5.4 mmol/L 0.4-1.9 Results called to by KIKI 12/08/18 2317Critical results verified and read back by Nurse? Y PROCALCITONIN (PCT)2018-12-08 22:20:00* Test Item Value Reference Range Comments PROCALCITONIN (PCT) (test code=PROCAL) 1.06 ng/ml Concentration Interpretation (ng/mL) <0.51 Sepsis is not likely. Local bacterial infection is possible. (LOW RISK for progression to Sepsis) 0.51 - 2.00 Sepsis is possible, but other conditions are known to elevate PCT as well. (MODERATE RISK for progression to Sepsis) > 2.00 Sepsis is likely, unless other causes are known. (HIGH RISK for progression to Severe Sepsis or Septic Shock) 10.00 High likelihood of Severe Sepsis or Septic or higher Shock. *Increased PCT levels may not always be related to systemic bacterial infection.*Low PCT levels do not automatically exclude the presence of bacterial infection.*All results should be interpreted taking into account the patients history. BASIC METABOLIC [id number] 21:33:00* Test Item Value Reference Range Comments SODIUM (test code=NA) 146 mmol/L 136-145 POTASSIUM (test code=K) 3.2 mmol/L 3.5-5.1 CHLORIDE (test code=CL) 114.0 mmol/L 98-107 CARBON DIOXIDE (test code=CO2) 23.0 mmol/L 21-32 ANION GAP (test code=GAP) 12.2 10-20 GLUCOSE (test code=GLU) 107 mg/dL 74-106 BLOOD UREA NITROGEN (test code=BUN) 25 mg/dL 7-18 GLOMERULAR FILTRATION RATE (test code=GFR) 24 mL/min >=60 Estimated GFR by using Modified MDRD formula.Chronic kidney disease is defined as either kidney damageor GFR <60 mL/min/1.73 m2 for >3 months. CREATININE (test code=CREAT) 2.00 mg/dL 0.55-1.02 Note change in reference range due to change in reagent. BUN/CREATININE RATIO (test code=BUN/CREA) 12.8 10-20 CALCIUM (test code=CA) 9.6 mg/dL 8.5-10.1 [id number] 21:33:00* Test Item Value Reference Range Comments TROPONIN-I (test code=TROPI) <0.015 ng/mL 0-0.045 CBC W/O [id number] 21:06:00* Test Item Value Reference Range Comments WHITE BLOOD CELL (test code=WBC) 2.5 K/mm3 4.5-12.5 RED BLOOD CELL (test code=RBC) 4.16 mill/mm3 3.7-5.2 HEMOGLOBIN (test code=HGB) 12.8 gram/dL 11.5-15.5 HEMATOCRIT (test code=HCT) 40.2 % 36.0-46.0 MEAN CELL VOLUME (test code=MCV) 96.6 fL 80-98 MEAN CELL HGB (test code=MCH) 30.8 picogram 27.0-33.0 MEAN CELL HGB CONCETRATION (test code=MCHC) 31.8 gram/dL 33.0-36.0 RED CELL DISTRIBUTION WIDTH (test code=RDW) 14.1 % 11.6-16.2 PLATELET COUNT (test code=PLT) 159 K/mm3 150-450 MEAN PLATELET VOLUME (test code=MPV) 11.0 fL 6.7-11.0 POC LACTIC [id number] 20:53:00* Test Item Value Reference Range Comments POC LACTIC ACID (test code=POCLAC) 5.68 MMOL/L 0.4-2.2 - XR CHEST 1 [id number] 19:51:00 FAX: Erica Nation [place]: B St: REG Name: MARIE WHITNEY [facility] : [birth year] Age/S: 88/F [address] [facility] Unit #: [id number] Loc: [place] [address] Phys: Erica Nation DIET TECH Acct: [id number] Dis Date: Status: REG ER PHONE #: [phone] Exam Date: 12/08/2018 191 FAX #: [phone] Reason: CHEST PAIN EXAMS: CPT CODE: [id number] XR CHEST 1 V [id number] REASON FOR EXAM: CHEST PAIN Exam Order Date: 12/08/2018 6:40 PM Ordering MFelton: Erica Nation NP PROCEDURE: - XR CHEST 1 V COMPARISON: 2 view chest x-ray July 18, 2015 FINDINGS: T here is bibasilar subsegmental atelectasis. Upper lungs are clear. Cardiomediastinal silhouette is normal in size for technique. Aorta is sl ightly tortuous and there is atherosclerotic disease in the proximal desce nding thoracic aorta. Bone mineralization is decreased. There are degenerative changes in the spine and shoulders. The visuali zed upper abdomen is within normal limits. IMPRESSION: B ibasilar subsegmental atelectasis. at 195 Reported and signed by: Jaison Olivia MD CC: Erica Nation NP Technologist: CLIFFORD PINA, RT(R); ... Trnscrd Date/Time/By: 12/08/2018 (1950) : By: [email or web address] Orig Print D/T: S: 12/08/2018 (1953) PAGE 1 Signed R marlenrt
--- NOTE | 2019-07-05 09:32 | Diagnostic Imaging Report ---
Exam: CT chest next Clinical history: Right scapular pain Technique: Helical images of the chest were obtained without IV contrast administration Findings: There is no evidence of pulmonary consolidation, pleural effusion, edema, interstitial disease, or pneumothorax. Bibasilar atelectasis is noted. The cardiac size is within normal limits. The great vessels are normal in caliber and configuration. A right internal jugular dialysis catheter is noted terminating at the cavoatrial junction. There is no evidence of mediastinal or hilar lymphadenopathy. Atherosclerotic calcification of the coronary vessels are noted. The stomach appears mildly prominent with air-fluid level which may represent gastritis. Otherwise, the visualized upper abdominal solid organs are unremarkable. Atherosclerotic calcification of the abdominal vessels are noted. There is no evidence of acute displaced fractures in the visualized osseous structures. Impression: 1. No CT evidence of scapular injury. 2. Atherosclerotic calcification throughout the thoracic and upper abdominal vasculatures. 3. Bibasilar atelectasis. Signed by: Dr. Abhijeet Perez MD on 07/05/2019 9:29 AM
== END 2019-07-05 10:20 | disposition home or self-care (01) ==
LOC: ER 07:41
DX: S40.011A Contusion of right shoulder, initial encounter (principal); S20.219A Contusion of unspecified front wall of thorax, initial encounter; W01.0XXA Fall on same level from slipping, tripping and stumbling without subsequent striking against object, initial encounter; Y92.008 Other place in unspecified non-institutional (private) residence as the place of occurrence of the external cause
CPT/HCPCS: 71250; 99284

== ENCOUNTER → 2020-01-09 | Outpatient (CLI) | payer MEDICARE ==
--- NOTE | 2020-01-09 13:49 | Diagnostic Imaging Report ---
EXAMINATION: HIP LEFT 2-3 VW (+/- PELVIS), FEMUR 2 VIEWS MINIMUM LEFT INDICATION: Fall COMPARISON: None FINDINGS: AP and frog-leg views of the left hip and 4 views of the left femur demonstrate no acute fracture or dislocation. Alignment is anatomic. Status post left total knee replacement. Small left suprapatellar knee joint effusion. No evidence of hardware failure. Moderate degenerative changes of the eagle left hip joint. Diffuse osteopenia. IMPRESSION: No acute osseous injury of the left hip or femur. Small suprapatellar knee joint effusion. Status post left total knee replacement. Signed by: Audie Stephens MD on 01/09/2020 1:46 PM
--- NOTE | 2020-01-09 13:49 | Diagnostic Imaging Report ---
EXAMINATION: HIP LEFT 2-3 VW (+/- PELVIS), FEMUR 2 VIEWS MINIMUM LEFT INDICATION: Fall COMPARISON: None FINDINGS: AP and frog-leg views of the left hip and 4 views of the left femur demonstrate no acute fracture or dislocation. Alignment is anatomic. Status post left total knee replacement. Small left suprapatellar knee joint effusion. No evidence of hardware failure. Moderate degenerative changes of the [place] left hip joint. Diffuse osteopenia. IMPRESSION: No acute osseous injury of the left hip or femur. Small suprapatellar knee joint effusion. Status post left total knee replacement. Signed by: Audie Stephens MD on 01/09/2020 1:46 PM
== END ==
LOC: RAD 12:34
PROVIDERS: ATTEND Internal Medicine Nephrology
DX: M25.552 Pain in left hip (principal); M25.462 Effusion, left knee; Z96.652 Presence of left artificial knee joint